=== PATIENT | female | born 1960 | race Caucasian/White ===

== ENCOUNTER 2023-10-11 07:42 | Outpatient (CLI) | payer OTHER, SELFPAY ==
--- NOTE | ~2023-10-11 | US_ITS ---
Thyroid ultrasound. Clinical History: Enlarged thyroid gland Findings: Real-time sonography of the thyroid gland was performed. The right lobe measures 5.5 x 2.2 x 1.7 cm. The left lobe measures 4.3 x 1.1 x 1.8 cm. The isthmus is 6 mm in AP diameter. There is a 2.0 x 1.4 x 1.7 cm mixed echogenicity nodule, predominantly solid, the right lower pole. T here are scattered tiny subcentimeter thyroid nodules bilaterally. Impression: 2 cm solid right thyroid pole nodule. Given size and imaging characteristics, FNA is advised to estab santos a histologic diagnosis.. Reviewed, dictated and finalized at location M. F OPERATING OFFICER Impression: 2 cm solid right thyroid pole nodule. Given size and imaging characteristics, F NA is advised to establish a histologic diagnosis..
--- NOTE | ~2023-10-11 | DEXA_ITS ---
Bone Density Report Name: THIEN LOERA Age: 63 Sex: Female Ethnicity: White Date of : 1960 Indication: postmenopausal; screening for osteoporosis; height loss; inflammatory bowel disease; prior fracture; Referring Provider: BRITTNEY, CHERYL Study: Bone densitometry was performed. Exam Date: October 11, 2023 Accession number: [id number] Bone Density: Region BMD T-score Z-score Classification AP Spine(L1, L3, L4) 0.961 -0.8 0.7 Normal Femoral Neck (Left) 0.525 -2.9 -1.6 Osteoporosis Total Hip (Left) 0.766 -1.4 -0.4 Osteopenia Femoral Neck (Right) 0.617 -2.1 -0.8 Osteopenia Total Hip (Right) 0.799 -1.2 -0.2 Osteopenia Total Hip Mean 0.782 -1.3 -0.3 Osteopenia World Health Organization criteria for BMD impression classify patients as: Normal (T-score at or above -1.0), Osteopenia (T-score between -1.0 and -2.5), or Osteoporosis (T-score at or below -2.5). 10-year Fracture Risk: FRAX not reported because: Some T-score for Spine Total or Hip Total or Femoral Neck at or below -2.5 Prior hip or vertebral fracture Clinical Information Provided by Patient: Have had a previous hip or vertebral fracture Has had a low trauma fracture Smokes Has used the following medications: Vitamin D, Calcium Has the following medical conditions: Inflammatory bowel diseases Patient maximum height was 69.5 Menopause Age: 43 No regular weight bearing exercise Drinks caffeinated beverages Onset of menses at age 14 Number of children 2 Impression: The patient has established osteoporosis, based on the Left Femoral Neck T-score and the existence of a prior fracture. The patient has risk factors, including: smoking, previous fracture. Discussion: HIGH RISK OF FRACTURE. BONE DENSITY IS UNDESIRABLY LOW AT ONE OR MORE SKELETAL SITES, CONSISTENT WITH POSTMENOPAUSAL OSTEOPOROSIS. This patient's lowest T-score, in a patient who has previously fractured, meets the World Health Organization's (WHO) criteria for severe osteoporosis. In untreated patients, the risk of osteoporotic fracture increases approximately two-fold for each 1.0 SD decrease in T-score. Low bone density is not the only risk factor for fracture; also consider factors such as patient's age, frailty or poor health, risk of falling, risk of injury, previous osteoporotic fracture, family history of osteoporosis, cigarette smoking, low body weight, etc. Not everyone with low bone mineral density has osteoporosis; osteomalacia and other metabolic bone disorders should also be considered. Patients who have osteoporosis should be evaluated for specific diseases and conditions (secondary causes) that may cause or contribute to bone loss. The [place] [employer] Endocrinologists (AACE) and National Osteoporosis Foundation (NOF) recommend pharmacolog
== END 2023-10-11 07:43 | disposition home or self-care (01) ==
LOC: ANHIMG 07:48
PROVIDERS: PCP Nurse Practitioner Family; Visit Provider Nurse Practitioner
DX: Z13.820 Encounter for screening for osteoporosis (principal); E07.9 Disorder of thyroid, unspecified; M81.0 Age-related osteoporosis without current pathological fracture; M85.852 Other specified disorders of bone density and structure, left thigh; M85.851 Other specified disorders of bone density and structure, right thigh
CPT/HCPCS: 76536; 77080

== ENCOUNTER 2024-03-06 15:15 | Outpatient (CLI) | payer OTHER, SELFPAY ==
--- NOTE | ~2024-03-06 | MR_ITS ---
MRI of the left knee Clinical history: Meniscus tear Technique: Coronal proton density and proton density-weighted images, sagittal proton-density and T2 fat-sat images, and axial proton-density fat-saturated images were acquired. Findings: Anterior and posterior cruciate ligaments are intact. Medial collateral ligament and the la teral collateral ligament complex are intact. Popliteus tendon is intact. No medial or lateral meniscal tear identified. There is extensive grade IV chondromalacia patella. Femoral trochlear cartilage is relatively well pr eserved. There is mild chondral thinning at the lateral joint line. There is moderate chondral thinni ng at the medial joint line. Extensor mechanism is intact. Small joint effusion present. No Duarte's cyst. Impression: No ligamentous injury or meniscal tear seen. Degenerative changes, as detailed above, with chondromalacia worst at the patella. Small joint effusion. Reviewed, dictated and finalized at [facility]. Impression: No ligamentous injury or meniscal tear seen. Degenerative changes, as detailed above, with chondromalacia worst at the cotto la. Small joint effusion.
== END 2024-03-06 15:16 | disposition home or self-care (01) ==
LOC: ANHIMG 15:18
PROVIDERS: PCP Internal Medicine; Visit Provider Orthopaedic Surgery
DX: S83.207A Unspecified tear of unspecified meniscus, current injury, left knee, initial encounter (principal); X58.XXXA Exposure to other specified factors, initial encounter; M25.462 Effusion, left knee
CPT/HCPCS: 73721

== ENCOUNTER 2024-08-10 12:54 | Outpatient (CLI) | payer OTHER, SELFPAY ==
--- NOTE | ~2024-08-10 | US_ITS ---
EXAMINATION: US FNA w image guidance DATE: 08/10/2024 13:37 INDICATION: Nontoxic single thyroid nodule. TECHNIQUE: The procedure and its benefits and risks were discussed with the patient. Risks specifically discusse d included bleeding. The patient verbalized understanding of the risks and agreed to proceed. The nec k was prepped and draped in the usual sterile manner. 1% lidocaine was used for local anesthesia. 7 passes were made with a 25G needle into the lesion under ultrasound guidance. There were no immedia te complications. FINDINGS: Grayscale ultrasound images demonstrate needles advanced into a 2.0 cm nodule in right thyroid lobe f or biopsy. IMPRESSION: 1. Ultrasound-guided fine needle aspiration of a right thyroid nodule. Reviewed, dictated and finalized at location A. ER AND STOCK HANDLER HELPER
== END 2024-08-10 12:55 | disposition home or self-care (01) ==
LOC: ANHIMG 12:55
PROVIDERS: PCP Internal Medicine; Visit Provider Internal Medicine
DX: E04.1 Nontoxic single thyroid nodule (principal)
CPT/HCPCS: 10005; 88172; 88173; 88177; 88305

== ENCOUNTER 2024-09-04 11:12 | Outpatient (CLI) | payer OTHER, SELFPAY ==
--- NOTE | ~2024-09-04 | XR_ITS ---
Cervical Spine: AP, lateral, open-mouth views Clinical History: Pain Findings: There is minimal reversal of the normal cervical lordosis. No fracture or sublocation. Ther e is advanced degenerative disc narrowing at C4-C5 and C5-C6. There is moderate degenerative disc eliza rowing at C6-C7. There is moderate facet arthropathy throughout the cervical spine. Pre-vertebral sof t tissues are unremarkable. Impression: Moderate degenerative spondylosis overall, as detailed above. Reviewed, dictated and finalized at location . MENT ERECTOR Impression: Moderate degenerative spondylosis overall, as detailed above.
== END 2024-09-04 11:13 | disposition home or self-care (01) ==
PROVIDERS: PCP Internal Medicine; Visit Provider Internal Medicine
DX: M47.892 Other spondylosis, cervical region (principal)
CPT/HCPCS: 72050

== ENCOUNTER 2025-01-07 18:53 | Emergency (ER) | payer OTHER, SELFPAY ==
--- OUTSIDE RECORDS SUMMARY | 2025-01-07 18:55 | XMS_ITS | Encounter Summary ---
Author Organization [facility] Address [address] [place] [address] Care Team Providers Care Construction Executive Name Role Phone Charley Anderson MD Primary Care Provider + Rambo Sampson MD Primary Care Provider [phone] Encounter Details Date Type Department Care Team (Late Contact Info) Description 03/23/2019 Telephone [facility] [address] [place] [address] Franci Martínez MD [facility] [place], [place] [id number] Social History Tobacco Use Types Packs/Day Years Used Date Smoking Tobacco: Every Day Cigarettes Smokeless Tobacco: Never Alcohol Use Standard Drinks/Week Comments No 0 (1 standard drink = 0.6 oz pur e alcohol) Sex and Gender Information Value Date Recorded Sex Assigned at Not on file Gender Identity Not on file Sexual Orientation Not on file documented as of this encounter Miscellaneous Notes * Telephone Encounter - Nadege Gibbs - 03/23/2019 10:55 AM CDT Per Fax back from [facility] for cpt codes [id number] and [phone]. documented in this encounter Plan of Treatment Upcoming Encounters Date Type Department Care Team (Late Contact Info) Description 11/22/2025 8:20 AM CLINICAL EXERCISE PHYSIOLOGIST Office Visit [facility] [address] [facility] [facility] [place] [address] Leticia Giron MD [address] [facility] [address] [place] [address] documented as of this encounter Visit Diagnoses Not on filedocumented in this encounter Care Teams Construction Executive Relationship Specialty Start Date End Date Charley Anderson MD PCP - General 08/21/11 07/21/24 Rambo Sampson MD [address] [place] [address] PCP - General Internal Medicine 07/22/24 documented as of this encounter
--- OUTSIDE RECORDS SUMMARY | 2025-01-07 18:55 | XMS_ITS | Referral Summary ---
Author Organization [facility] Address [facility] [place] [address] Care Team Providers Care Product Blending Supervisor Name Role Phone Rambo Sampson MD Primary Care Provider + [phone] Allergies Active Allergy Reactions Criticality Noted Date Comments Adhesive Blisters High 12/19/2021 Some tapes Morphine Opioids - Morphine Analogues Sulfa (Sulfonamide Antibiotics) Medications lisinopriL (PRINIVIL,ZESTR IL) 20 mg tablet lisinopril 20 mg tablet TAKE 1 TABLET BY MOUTH TWICE DAILY 8 Active carvediloL (COREG) 12.5 mg tablet carvedilol 12.5 mg tablet TAKE 1 TABLET BY MOUTH TWICE DAILY 9 Active atorvastatin (LIPITOR) 40 mg tablet 8 Active buPROPion (WELLBUTRIN) 75 mg tablet bupropion HCl 75 mg tablet TAKE 1 TABLET BY MOUTH EVERY DAY 0 Active ascorbic acid (VITAMIN C) 1,000 mg tablet Vitamin C 1,000 mg tablet Take 2 tablets every day by oral route. 0 Active cholecalciferol (VITAMIN D-3) 2000 unit tablet Take 2,000 Units by mouth daily Active aspirin 81 mg enteric coated tablet Take 81 mg by mouth once Active hydroCHLOROthia zide (HYDRODIURIL) 12.5 mg tablet Take 12.5 mg by mouth daily 3 Active Paxlovid, EUA, tablets,dose pack tablets in a dose pack (EUA) TK 2 NIRMATRELVIR TS AND 1 RITONAVIR T TOGETHER PO BID FOR 5 DAYS TWICE DAILY FOR 5 DAYS 3 Active rosuvastatin (CRESTOR) 20 mg tablet Take 20 mg by mouth daily 3 Active ALPRAZolam (XANAX) 0.5 mg tablet Take 0.5 mg by mouth every 12 (twelve) hours 2 Active Active Problems Problem Noted Date Diagnosed Date Backache 10/19/2022 Chronic rhinitis 10/19/2022 Depressive disorder 10/19/2022 Diverticular disease 10/19/2022 COVID-19 10/09/2022 High total bilirubin 10/04/2022 Cough 08/06/2022 Left wrist pain 05/03/2022 Personal history of COVID-19 12/22/2021 Venous insufficiency 12/22/2021 Rib pain 11/17/2021 Impaired fasting glucose 11/13/2021 Thyroid nodule 11/13/2021 Anxiety 07/28/2021 Rupture of implant of left breast 06/26/2021 Abnormal mammography 05/28/2021 H/O bilateral breast implants 05/28/2021 Candidal intertrigo 04/10/2021 Alfred angioma 04/10/2021 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 Lentigines 04/10/2021 Multiple benign melanocytic nevi of upper extremity, lower extremity, and trunk 04/10/2021 Other seborrheic keratosis 04/10/2021 Breast ptosis 03/17/2019 Hypercholesterolemia 02/10/2018 Hypertension 02/10/2018 Personal history of nicotine dependence 02/11/20 Obesity 02/10/2018 Shortness of breath 02/10/2018 Family history of heart disease 01/10/2018 Overview (10/19/2022): Mother - CABG x 4 at age 49Brother - AFib ablation 42 Irreducible incisional hernia 04/18/2016 Social History Tobacco Use Types Packs/Day Years Used Date Smoking Tobacco: Former Cigarettes 0.2 30 0 12/13/1991 - 12/12/2021 Tobacco Cessation:Counseling Given: Not Answered AUDIT-C Answer Date Recorded Q1: How often do you have a drink containing alc ohol? Monthly or less 02/11/2023 Q2: How many drinks containi ng alcohol do you have on a typical day when you are drinking? 1 or 2 02/11/2023 Q3: How often do you have si x or more drinks on one occasion? Less than monthly 02/11/2023 Comments Unknown Sex and Gender Information Value Date Recorded Sex Assigned at Not on file Legal Sex Female 2:54 AM RESTORATIVE AIDE Gender Identity Not on file Sexual Orientation Not on file Last Filed Vital Signs Vital Sign Reading Time Taken Comments Blood Pressure 128/71 12/26/2021 3:13 PM CDT Pulse 81 12/26/2021 3:13 PM CDT Temperature 36.2 C (97.1 F) 12/26/2021 2:54 PM CDT Respiratory Rate 20 12/26/2021 3:13 PM CDT Oxygen Saturation 93% 12/26/2021 2:54 PM CDT Inhaled Oxygen Concentration - - Weight 108.9 kg (240 lb) 02/11/2023 8:07 AM CDT Height 167.6 cm (5' 6 ) 02/11/2023 8:07 AM CDT Body Mass Index 38.74 02/11/2023 8:07 AM CDT Plan of Treatment Not on file Procedures Procedure Name Priority Date/Time Associated Diagnosis Comments SCREENING MAMMOGRAM BILATERAL W TAWANDA Schedule Routine, Read Routine (OP Routine) 02/13/2024 2:15 PM CDT Screening mammogram, encounter for from Last 3 Months or Most Recently Relevant to Health Maintenance Results * Screening Mammogram Bilateral W [place] (02/13/2024 2:15 PM CDT) Anatomical Region Laterality Modality Breast Bilateral Mammography Narrative 02/14/2024 4:43 PM CDT Mammogram Technique: Bilateral Digital Breast Tomosynthesis, Bilateral C-view 2D Screening mammogram. Views obtained: bilateral craniocaudal and bilateral mediolateral oblique. Computer Aided Detection was performed. Mammogram Findings: The present examination has been compared to prior imaging studies performed at [facility] on 02/11/2023, and at [place], [place] on 04/21/2021 and 06/22/2022. The breasts are almost entirely fatty. There is no suspicious abnormality in either breast. There are no significant changes from the prior study. There is no suspicious abnormality in either breast. Impression: Finding is benign. Annual screening mammography is recommended. OVERALL FINAL ASSESSMENT: BI-RADS CATEGORY 2: Benign. Procedure Note Cristin Ferris MD - 02/14/2024 Mammogram Technique: Bilateral Digital Breast Tomosynthesis, Bilateral C-view 2D Screening mammogram. Views obtained: bilateral craniocaudal and bilateral mediolateral oblique. Computer Aided Detection was performed. Mammogram Findings: The present examination has been compared to prior imaging studies performed at [facility] on 02/11/2023, and at [place], [place] on 04/21/2021 and 06/22/2022. The breasts are almost entirely fatty. There is no suspicious abnormality in either breast. There are no significant changes from the prior study. There is no suspicious abnormality in either breast. Impression: Finding is benign. Annual screening mammography is recommended. OVERALL FINAL ASSESSMENT: BI-RADS CATEGORY 2: Benign. us Self Screening Mammogram IMG MAMMO PROCEDURES Fi nal Result from Last 3 Months or Most Recently Relevant to Health Maintenance Insurance Care Teams Product Blending Supervisor Relationship Specialty Start Date End Date Rambo Sampson MD PCP - General Internal Medicine 01/21/24
--- OUTSIDE RECORDS SUMMARY | 2025-01-07 18:55 | XMS_ITS | Clinical Summary ---
Author Organization [facility] Address [address] [place] [id number] Care Team Providers Care Logging Truck Driver Name Role Phone Unavailable Primary Care Provider Unavailabl e Social History Tobacco Use Types Packs/Day Years Used Date Smoking Tobacco: Never Assessed Comments Unknown Sex and Gender Information Value Date Recorded Sex Assigned at Not on file Legal Sex Female 7:57 PM CDT Gender Identity Not on file Sexual Orientation Not on file Plan of Treatment Health Maintenance Due Date Last Done Comments Cervical Cancer Screening Pa p Smear (Age 30 to 64) Every 3 Years 1960 Colorectal Cancer Screening Colonoscopy (10 Years) 1960 Annual Physical 1965 Hepatitis C 1980 DTaP, Tdap and Td Vaccines ( 1 - Tdap) 1981 Cervical Cancer Screening Pa p with HPV Testing (Age 30 to 64) Every 5 Years 1992 Cervical Cancer Screening with HPV 1992 Mammogram Screening 2002 Zoster Vaccines (1 of 2) 2012 COVID-19 Vaccine (2023-2 5 season) 2024 RSV Immunization or 60+ Years (1 - 1-dose 75+ series) 2037 Meningococcal B Vaccine Aged Out No l onger eligible based on patient's age to complete this topic Meningococcal Vaccine Aged Out No alberta cele eligible based on patient's age to complete this topic Pneumococcal Vaccine: Pediat rics (0 to 5 Years) and At-Risk Patients (6 to 64 Years) Aged Out No longer eligible b ased on patient's age to complete this topic RSV Immunizations Under 20 Months Aged Out No longer eligible based on patient's age to complete this topic
--- OUTSIDE RECORDS SUMMARY | 2025-01-07 18:55 | XMS_ITS | Data Portability ---
Author Organization [facility] Address [address] [place] [address] Care Team Providers Care Athletic Coordinator Name Role Phone ARLYN RONQUILLO Primary Care Provider [phone] CARROLL SAMPSON Primary Care Provider Unavailabl e Assessment Encounter Date Assessment Date Assessment LastModified by Organization Details LastModified Time 12/30/2023 12/30/2023 Obtain old recor ds obtain CBC CMP lipid A1c and vitamin D she has been having some knee pain so we will have her see Ortho anxiety and chronic back pain appear to be stable breast rupture appears to be stable depression no SI or HI GI problems okay blood pressure appears to be controlled today follow-up with ENT for her thyroid nodule she not sure about immunizations and screenings we will have to look and see what old records show [email or web address] Not available 12/30/2023 22:36:18 01/08/2024 01/08/2024 Will get her see n by wound care she is get a CBC keep her regular follow-up Not available 01/08/2024 22:04:44 05/22/2024 05/22/2024 FNA thyroid nodu le continue medications for dyslipidemia hypertension anxiety and IBS continue to follow up with cardio and ortho see me in 4 months [email or web address] Not available 05/23/2024 12:52:39 08/14/2024 08/14/2024 increase the Wellbutrin to 225 daily blood work for memory loss MRI of brain x-ray C-spine and start physical therapy see me back 3 months CBC CMP lipid T3-T4 TSH B12 folic acid RPR. Healthy lifestyle care instructions further recommendations pending results of testing Not available 08/14/2024 22:50:54 01/04/2025 01/04/2025 Coronary atherosclerosis: No angina. Noted on calcium scoring CT. Continue aspirin 81 mg daily. Regular aerobic exercise encouraged. Cardiac catheterization 2017 with no CAD. Mixed hyperlipidemia: Maintained on atorvastatin 40 and ezetimibe 10. LDL July 2024 elevated at 115. Discussed options of up titrating atorvastatin which she wishes to hold off till she discuss this further with Dr. Sampson next week. Hypertension: Encouraged low-sodium diet with ongoing ambulatory blood pressure monitoring. Continue lisinopril 20 mg b.i.d., HCTZ 12-1/2 mg daily and carvedilol 6.25 mg b.i.d.. Discussed regarding consolidating antihypertensive which he wishes to hold off at this juncture. Obesity: Maintained on Liraglutide monitored per Dr. Sampson. Encouraged efforts at diet/exercise for weight management. Plan follow-up in 3 months for ongoing management of mixed hyperlipidemia to consider PCSK9 inhibitors if indicated. On behalf of [facility] Cardiology, we appreciate the opportunity to participate in the care of your patient. Please feel free to reach out to us for any questions regarding this patient's cardiac care. Michael Epstein MD, [facility] Cardiology Not available 01/04/2025 13:17:09 Plan of Treatment Reminders Order Date Submit Date Provider Last Modified By Organization Details Last Modified Time Details Appointments ANY 15 2024 10:45A M Carroll Sampson MD Not available Not available Not available ANY 15 2024 08:30A M Michael Epstein MD Not available Not available Not available Lab vitamin B12 + folate, serum or blood 2023 [facility], [address], [place], [address], 08/15/2024 08:28:08 RPR (rapid plasma reagin), serum 2023 [facility], [address], [place], [address], 08/15/2024 08:28:12 vitamin D, 25-hydrox y, total, serum 2023 024 [facility], [address], [place], [address], 08/15/2024 08:28:14 T4, free, serum 2023 024 [place] [facility], [address], [place], [address], 08/15/2024 08:28:13 T3, free, serum or plasma 2023 024 [place] [facility], [address], [place], [address], 08/15/2024 08:28:11 TSH, ultra-sen sitive, serum 2023 024 [place] [facility], [address], [place], [address], 08/15/2024 08:28:09 lipid panel, serum 2023 024 [place] [facility], [address], [place], [address], 08/15/2024 06:19:12 CBC w/ auto diff 2023 024 [place] [facility], [address], [place], [address], 08/15/2024 06:19:15 CMP, serum or plasma 2023 024 [place] [facility], [address], [place], [address], 08/15/2024 06:19:14 CBC w/ auto diff 2023 024 [place] [facility], [address], [address], [place], [address], 01/09/2024 03:36:43 CMP, serum or plasma 2023 024 [place], [address], [place], [address], 01/03/2024 12:40:38 CBC w/ auto diff 2023 024 [email or web address] [facility], [address], [place], [address], 01/08/2024 15:46:05 lipid panel, serum 2023 024 [place] [facility], [address], [place], [address], 01/03/2024 12:40:38 vitamin D, 25-hydrox y, total, serum 2023 024 [place], [address], [place], [address], 01/03/2024 12:40:38 HbA1c (hemoglob in A1c), blood 2023 024 [email or web address] [facility], [address], [place], [address], 01/07/2024 15:03:07 Referral physical therapist referral 2023 024 [facility] [place], [address], [place], [address], 12/29/2024 10:03:41 wound care referral 2023 024 [facility], [address] [facility], [place], [address], 08/04/2024 15:13:36 Procedures fine needle aspiratio n, ultrasoun d guided, thyroid (PROC) 2023 024 [facility] (Imaging), [address], [address], 08/10/2024 14:58:50 Surgeries None recorded. Imaging electroca rdiogram 2024 025 In-Office Order, Internal Use Only DO Not Attach Compendium DO Not Attach Compendium, Do Not Delete/merge, [id number] 01/04/2025 09:58:05 MRI, brain, w/o contrast 2023 [facility] (Imaging), [address], [place], [address], 08/25/2024 09:55:13 XR, cervical spine 2023 [facility] (Imaging), [address], [address], 09/04/2024 15:05:58 Medication Orders bupropion HCl 75 mg tablet 2023 024 [email or web address] [id number], [address], [place], [id number], 08/14/2024 17:25:49 bupropion HCl XL 150 mg 24 hr tablet, extended release 2023 024 [id number], [address], [place], [id number], 08/14/2024 17:25:49 Patient TargetsNo targets recorded. Patient Instructions Encounter Date Encounter Id Patient Instructions Last Modified By Organization Details Last Modified Time 08/14/2024 [id number] A healthy lifestyle: care instructions [email or web address] Not available 08/14/2024 17:25:49 01/04/2025 [id number] A healthy lifestyle: care instructions [email or web address] Not available 01/04/2025 09:58:05 Reason for Referral Referring Physician: Carroll Sampson, Internal Medicine, Encounter Date: 01/08/2024 Physical Therapist Referral for Neck pain Referring Physician: Carroll Sampson, Internal Medicine, Encounter Date: 08/14/2024 Results Created Date Observation Date Name Description Value Unit Range Abnormal Flag Note LastModifiedBy Organization Detail LastModifiedTime 01/08/20 24 01/08/2024 CBC WITH DIFFE RENTI AL/PL ATELE T WBC 9.2 x10e3 /uL 3.4-[address] [facility] Department [address] [place], [address], 01/09/2024 03:36:42 01/08/20 24 01/08/2024 CBC WITH DIFFE RENTI AL/PL ATELE T RBC 4.91 x10e6 /uL 3.77-[address] [facility] Department [address] [place], [address], 01/09/2024 03:36:42 01/08/20 24 01/08/2024 CBC WITH DIFFE RENTI AL/PL ATELE T hemoglobin 15.3 g/dL 11.1-[address] [facility] Department [address] [place], [address], 01/09/2024 03:36:42 01/08/20 24 01/08/2024 CBC WITH DIFFE RENTI AL/PL ATELE T hematocrit 45.8 % 34.0-[address] [facility] Department [address] [place], [address], 01/09/2024 03:36:42 01/08/20 24 01/08/2024 CBC WITH DIFFE RENTI AL/PL ATELE T MCV 93 fL 79-[address] [facility] Department [address] [place], [address], 01/09/2024 03:36:42 01/08/20 24 01/08/2024 CBC WITH DIFFE RENTI AL/PL ATELE T MCH 31.2 pg 26.6-[address] [facility] Department [address] [place], [address], 01/09/2024 03:36:42 01/08/20 24 01/08/2024 CBC WITH DIFFE RENTI AL/PL ATELE T MCHC 33.4 g/dL 31.5-[address] [facility] [address] [place], [address], 01/09/2024 03:36:42 01/08/20 24 01/08/2024 CBC WITH DIFFE RENTI AL/PL ATELE T RDW 13.1 % 11.5-[address] [facility] [address] [place], [address], 01/09/2024 03:36:42 01/08/20 24 01/08/2024 CBC WITH DIFFE RENTI AL/PL ATELE T platelets 322 x10e3 /uL 150-[address] [facility] Department [address] [place], [address], 01/09/2024 03:36:42 01/08/20 24 01/08/2024 CBC WITH DIFFE RENTI AL/PL ATELE T neutrophils 56 % notest b. Not Available [facility] Department [address] [place], [address], 01/09/2024 03:36:42 01/08/20 24 01/08/2024 CBC WITH DIFFE RENTI AL/PL ATELE T lymphs 33 % notest b. Not Available [facility] Department [address] [place], [address], 01/09/2024 03:36:42 01/08/20 24 01/08/2024 CBC WITH DIFFE RENTI AL/PL ATELE T monocytes 8 % notest b. Not Available [facility] [address] [place], [address], 01/09/2024 03:36:42 01/08/20 24 01/08/2024 CBC WITH DIFFE RENTI AL/PL ATELE T eos 2 % notest b. Not Available [facility] [address] [place], [address], 01/09/2024 03:36:42 01/08/20 24 01/08/2024 CBC WITH DIFFE RENTI AL/PL ATELE T basos 1 % notest b. Not Available [facility] Department [address] [place], [address], 01/09/2024 03:36:42 01/08/20 24 01/08/2024 CBC WITH DIFFE RENTI AL/PL ATELE T neutrophils (absolute) 5.1 x10e3 /uL 1.4-7. [address] [facility] Department [address] [place] [address], [address], 01/09/2024 03:36:42 01/08/20 24 01/08/2024 CBC WITH DIFFE RENTI AL/PL ATELE T lymphs (absolute) 3.0 x10e3 /uL 0.7-3. [address] [facility] [address] [place], [address], 01/09/2024 03:36:42 01/08/20 24 01/08/2024 CBC WITH DIFFE RENTI AL/PL ATELE T monocytes(ab solute) 0.8 x10e3 /uL 0.1-0. [address] [facility] [address] [place], [address], 01/09/2024 03:36:42 01/08/20 24 01/08/2024 CBC WITH DIFFE RENTI AL/PL ATELE T eos (absolute) 0.2 x10e3 /uL 0.0-0. [address] [facility] [address] [place], [address], 01/09/2024 03:36:42 01/08/20 24 01/08/2024 CBC WITH DIFFE RENTI AL/PL ATELE T baso (absolute) 0.1 x10e3 /uL 0.0-0. [address] [facility] [address] [place], [address], 01/09/2024 03:36:42 01/08/20 24 01/08/2024 CBC WITH DIFFE RENTI AL/PL ATELE T immature granulocytes 0.3 % notest b. Not Available [facility] [address] [place], [address], 01/09/2024 03:36:42 01/08/20 24 01/08/2024 CBC WITH DIFFE RENTI AL/PL ATELE T immature grans (abs) 0.0 x10e3 /uL 0.0-0. [address] [facility] [address] [place], [address], 01/09/2024 03:36:42 01/08/20 24 01/08/2024 CBC WITH DIFFE RENTI AL/PL ATELE T NRBC 0 % 0-[address] [facility] [address] [place], [address], 01/09/2024 03:36:42 08/14/20 24 08/14/2024 LIPID PANEL cholesterol, total 169 mg/dL 100-[address] [facility] Department [address] [place], [address], 08/15/2024 06:19:12 08/14/20 24 08/14/2024 LIPID PANEL triglyceride s 122 mg/dL 0-149 Not Available [facility] Department [address] [place], [address], 08/15/2024 06:19:12 08/14/20 24 08/14/2024 LIPID PANEL HDL cholesterol 46 mg/dL 40-999 Not Available [facility] Department [address] [place], [address], 08/15/2024 06:19:12 08/14/20 24 08/14/2024 LIPID PANEL VLDL cholesterol vero 24 mg/dL 5-40 Not Available [facility] Department [address] [place] [address], [address], 08/15/2024 06:19:12 08/14/20 24 08/14/2024 LIPID PANEL LDL chol calc (nih) 115 mg/dL 0-99 above high normal Not Available [facility] Department [address] [place] [address], [address], 08/15/2024 06:19:12 08/14/20 24 08/14/2024 COMP. METAB OLIC PANEL (14) glucose 81 mg/dL 70-[address] [facility] Department [address] [place] [address], [address], 08/15/2024 06:19:13 08/14/20 24 08/14/2024 COMP. METAB OLIC PANEL (14) BUN 22 mg/dL 8-[address] [facility] Department [address] [place] [address], [address], 08/15/2024 06:19:13 08/14/20 24 08/14/2024 COMP. METAB OLIC PANEL (14) creatinine 0.85 mg/dL 0.76-[address] [facility] Department [address] [place] [address], [address], 08/15/2024 06:19:13 08/14/20 24 08/14/2024 COMP. METAB OLIC PANEL (14) eGFR 78 >=60 Units for eGFR value s are mL/mi n/1.7 3 The eGFR Calcu latio n has not been valid ated for patie nts under the age of 18. If test resul ts are displ ayed for a patie nt under the age of 18, disre yonathan that value . Not Available [facility] Department [address] [place] [address], [address], 08/15/2024 06:19:13 08/14/20 24 08/14/2024 COMP. METAB OLIC PANEL (14) BUN/creatini ne ratio 25 10-28 Not Available [facility] Department [address] [place], [address], 08/15/2024 06:19:13 08/14/20 24 08/14/2024 COMP. METAB OLIC PANEL (14) sodium 142 mmol/ L 134-[address] [facility] [address] [place] [address], [address], 08/15/2024 06:19:13 08/14/20 24 08/14/2024 COMP. METAB OLIC PANEL (14) potassium 4.1 mmol/ L 3.5-5. [address] [facility] [address] [place] [address], [address], 08/15/2024 06:19:13 08/14/20 24 08/14/2024 COMP. METAB OLIC PANEL (14) chloride 102 mmol/ L 96-[address] [facility] Department [address] [place], [address], 08/15/2024 06:19:13 08/14/20 24 08/14/2024 COMP. METAB OLIC PANEL (14) carbon dioxide, total 29 mmol/ L 20-[address] [facility] [address] [place] [address], [address], 08/15/2024 06:19:13 08/14/20 24 08/14/2024 COMP. METAB OLIC PANEL (14) calcium 10.5 mg/dL 8.7-10 .3 above high normal Not Available [facility] [address] [place] [address], [address], 08/15/2024 06:19:13 08/14/20 24 08/14/2024 COMP. METAB OLIC PANEL (14) protein, total 7.2 g/dL 6.0-8. [address] [facility] [address] [place] [address], [address], 08/15/2024 06:19:13 08/14/20 24 08/14/2024 COMP. METAB OLIC PANEL (14) albumin 4.5 g/dL 3.8-4. [address] [facility] Department [address] [place], [address], 08/15/2024 06:19:13 08/14/20 24 08/14/2024 COMP. METAB OLIC PANEL (14) globulin, total 2.7 g/dL 1.5-4. [address] [facility] [address] [place], [address], 08/15/2024 06:19:13 08/14/20 24 08/14/2024 COMP. METAB OLIC PANEL (14) A/G ratio 1.6 1.2-2. [address] [facility] Department [address] [place], [address], 08/15/2024 06:19:13 08/14/20 24 08/14/2024 COMP. METAB OLIC PANEL (14) bilirubin, total 1.4 mg/dL 0.0-1. 2 above high normal Not Available [facility] [address] [place], [address], 08/15/2024 06:19:13 08/14/20 24 08/14/2024 COMP. METAB OLIC PANEL (14) alkaline phosphatase 80 IU/L 44-121 Not Available [facility] Department [address] [place], [address], 08/15/2024 06:19:13 08/14/20 24 08/14/2024 COMP. METAB OLIC PANEL (14) AST (SGOT) 23 IU/L 0-40 Not Available [facility] Department [address] [place], [address], 08/15/2024 06:19:13 11/15/08/14/2024 COMP. METAB OLIC PANEL (14) ALT (SGPT) 24 IU/L 0-32 Not Available [facility] Department [address] [place], [address], 08/15/2024 06:19:13 08/14/20 24 08/14/2024 CBC WITH DIFFE RENTI AL/PL ATELE T WBC 9.3 x10e3 /uL 3.4-[address] [facility] [address] [place], [address], 08/15/2024 06:19:15 08/14/2008/14/2024 CBC WITH DIFFE RENTI AL/PL ATELE T RBC 4.92 x10e6 /uL 3.77-[address] [facility] Department [address] [place], [address], 08/15/2024 06:19:15 08/14/2008/14/2024 CBC WITH DIFFE RENTI AL/PL ATELE T hemoglobin 14.9 g/dL 11.1-[address] [facility] Department [address] [place], [address], 08/15/2024 06:19:15 08/14/2008/14/2024 CBC WITH DIFFE RENTI AL/PL ATELE T hematocrit 46.6 % 34.0-[address] [facility] Department [address] [place], [address], 08/15/2024 06:19:15 08/14/2008/14/2024 CBC WITH DIFFE RENTI AL/PL ATELE T MCV 95 fL 79-[address] [facility] [address] [place], [address], 08/15/2024 06:19:15 08/14/20 24 08/14/2024 CBC WITH DIFFE RENTI AL/PL ATELE T MCH 30.3 pg 26.6-[address] [facility] [address] [place], [address], 08/15/2024 06:19:15 08/14/20 24 08/14/2024 CBC WITH DIFFE RENTI AL/PL ATELE T MCHC 32.0 g/dL 31.5-[address] [facility] [address] [place], [address], 08/15/2024 06:19:15 08/14/20 24 08/14/2024 CBC WITH DIFFE RENTI AL/PL ATELE T RDW 12.6 % 11.5-[address] [facility] [address] [place], [address], 08/15/2024 06:19:15 08/14/20 24 08/14/2024 CBC WITH DIFFE RENTI AL/PL ATELE T platelets 333 x10e3 /uL 150-[address] [facility] [address] [place], [address], 08/15/2024 06:19:15 08/14/20 24 08/14/2024 CBC WITH DIFFE RENTI AL/PL ATELE T neutrophils 55 % notest b. Not Available [facility] [address] [place], [address], 08/15/2024 06:19:15 08/14/20 24 08/14/2024 CBC WITH DIFFE RENTI AL/PL ATELE T lymphs 35 % notest b. Not Available [facility] [address] [place], [address], 08/15/2024 06:19:15 08/14/20 24 08/14/2024 CBC WITH DIFFE RENTI AL/PL ATELE T monocytes 7 % notest b. Not Available [facility] [address] [place], [address], 08/15/2024 06:19:15 08/14/20 24 08/14/2024 CBC WITH DIFFE RENTI AL/PL ATELE T eos 1 % notest b. Not Available [facility] [address] [place], [address], 08/15/2024 06:19:15 08/14/20 24 08/14/2024 CBC WITH DIFFE RENTI AL/PL ATELE T basos 1 % notest b. Not Available [facility] Department [address] [place], [address], 08/15/2024 06:19:15 08/14/2008/14/2024 CBC WITH DIFFE RENTI AL/PL ATELE T neutrophils (absolute) 5.1 x10e3 /uL 1.4-7. [address] [facility] Department [address] [place] [address], [address], 08/15/2024 06:19:15 08/14/20 24 08/14/2024 CBC WITH DIFFE RENTI AL/PL ATELE T lymphs (absolute) 3.3 x10e3 /uL 0.7-3. 1 above high normal Not Available [facility] Department [address] [place], [address], 08/15/2024 06:19:15 08/14/20 24 08/14/2024 CBC WITH DIFFE RENTI AL/PL ATELE T monocytes(ab solute) 0.7 x10e3 /uL 0.1-0. [address] [facility] Department [address] [place], [address], 08/15/2024 06:19:15 08/14/20 24 08/14/2024 CBC WITH DIFFE RENTI AL/PL ATELE T eos (absolute) 0.1 x10e3 /uL 0.0-0. [address] [facility] Department [address] [place], [address], 08/15/2024 06:19:15 08/14/20 24 08/14/2024 CBC WITH DIFFE RENTI AL/PL ATELE T baso (absolute) 0.1 x10e3 /uL 0.0-0. [address] [facility] Department [address] [place], [address], 08/15/2024 06:19:15 08/14/20 24 08/14/2024 CBC WITH DIFFE RENTI AL/PL ATELE T immature granulocytes 0.5 % notest b. Not Available [facility] Department [address] [place], [address], 08/15/2024 06:19:15 08/14/20 24 08/14/2024 CBC WITH DIFFE RENTI AL/PL ATELE T immature grans (abs) 0.1 x10e3 /uL 0.0-0. [address] [facility] Department [address] [place], [address], 08/15/2024 06:19:15 08/14/20 24 08/14/2024 CBC WITH DIFFE RENTI AL/PL ATELE T NRBC 0 % 0-[address] [facility] Department [address] [place], [address], 08/15/2024 06:19:15 08/14/20 24 08/15/2024 VITAM IN B12 AND FOLAT E vitamin B12 819 pg/mL 232-12 45 Not Available [facility] ([facility]) [address] [facility], [place], [address], 08/15/2024 08:28:08 08/14/20 24 08/15/2024 VITAM IN B12 AND FOLAT E folate (folic acid), serum 11.2 NG/mL >3.0 A serum folat e devante ntrat ion of less than 3.1 ng/mL is consi dered to repre sent clini vero defic iency . Not Available [facility] ([facility]) [address] [facility], [place], [address], 08/15/2024 08:28:08 08/14/20 24 08/15/2024 TSH TSH 1.070 uIU/m L 0.450- 4.500 Not Available [facility] ([facility]) [address] [place], [address], 08/15/2024 08:28:09 08/14/20 24 08/15/2024 TRIIO DOTHY LIZY E (T3), FREE triiodothyro nine (T3), free 2.8 pg/mL 2.0-4. 4 Not Available [facility] ([facility]) [address] [place], [address], 08/15/2024 08:28:10 08/14/20 24 08/15/2024 RPR, RFX QN RPR/C ONFIR M TP RPR NON REACTI VE nonrea ctive Not Available [facility] ([facility]) [address] [place], [address], 08/15/2024 08:28:12 08/14/20 24 08/15/2024 T4,FR EE(DI RECT) T4,free(dire ct) 1.29 NG/dL 0.82-1 .77 Not Available [facility] ([facility]) [address] [place], [address], 08/15/2024 08:28:13 08/14/20 24 08/15/2024 VITAM IN D, 25-HY DROXY vitamin D, 25-hydroxy 62.5 NG/mL 30.0-1 00.0 Vitam in D defic iency has been defin ed by the Insti tute of Medic ine and an Endoc rine Socie ty pract ice guide line as a level of serum 25-OH vitam in D less than 20 ng/mL (1,2) . The Endoc rine Socie ty went on to furth er defin e vitam in D insuf ficie ncy as a level betwe en 21 and 29 ng/mL (2). 1. IOM (Inst itute of Medic ine). 2010. Dieta ry refer ence intak es for calci um and D. Rich holloway [place]: [facility] . 2. Caio sosa MF, Ritu alonso [place], Francisca off-F errar i FERGUSON, et al. Evalu ation , treat ment, and preve ntion of vitam in D defic iency : an Endoc rine Socie ty clini vero pract ice guide line. JCEM. 2010; 96(7) :1911 -30. Not Available [facility] ([facility]) [address] [facility], [place], [address], 08/15/2024 08:28:14 01/28/20 24 10/11/2023 US, thyro id No observ ation record ed. [address] [facility], [place], [address], 01/29/2024 11:19:24 02/14/20 24 02/13/2024 MAMMO , scree felipe, digit al, bilat eral No observ ation record ed. [email or web address] [facility] [address] [place], [address], Ph [phone] 02/17/2024 13:26:53 03/08/20 24 03/06/2024 MRI, knee, w/o contr ast No observ ation record ed. [address] [facility], [place], [address], 03/09/2024 11:40:27 04/10/20 24 04/08/2024 CT, coron devonte calci um score No observ ation record ed. [facility] [address], [place], [address], 04/16/2024 17:08:41 08/10/20 24 08/10/2024 fine needl e aspir ation , ultra sound guide d, thyro id (PROC ) No observ ation record ed. [address], [place], [address], 08/10/2024 21:44:28 08/10/20 24 08/10/2024 fine needl e aspir ation , ultra sound guide d, thyro id (PROC ) No observ ation record ed. [address], [place], [address], 08/10/2024 21:44:29 09/04/20 24 09/04/2024 XR, cervi vero spine No observ ation record ed. [address], [place], [address], 09/07/2024 10:01:26 09/04/20 24 09/04/2024 XR, cervi vero spine No observ ation record ed. [address], [place], [address], 09/07/2024 10:01:27 01/05/20 25 01/04/2025 elect rocar diogr am No observ ation record ed. [facility] In-Office Order Internal Use Only DO Not Attach Compendium DO Not Attach Compendium, Do Not Delete/merge, [id number] 01/04/2025 10:55:29 01/05/20 elect rocar diogr am No observ ation record ed. Not Available 2024 12:56:21 Result Notes None recorded. Problems Name Problem SNOMED Code Status Onset Date Resolution Date Notes Provider Name and Address Organization Details Recorded Time Essential hypertension 01136293 Active 2023 Irvin Montana MA null, [place] - [facility] 17:32:49 Fatigue 63000143 Active 2023 Irvin [place] null, [place] - [facility] 17:32:50 Hyperlipidemia 41881540 Active 2023 Irvin [place], [place] [facility] 17:32:51 Thyroid nodule 704654580 Active 2023 Carroll Sampson MD Attn: Bhaskar cooley,[address] [place], [address], [place] - [facility] 4 22:38:07 Mixed anxiety and depressive disorder 808993575 Active 2023 Carroll Sampson MD Attn: Bhaskar cooley,[address] [facility], [place], [address], [place] [facility] 4 22:38:08 Compression fracture of lumbar spine 684898004 Active 2023 Carroll Sampson MD Attn: Bookeryuan cooley,[address] [facility], [place], [address], [place] [facility] 4 22:38:10 Osteoporosis 82052102 Active 2023 Carroll Sampson MD Attn: Bookeryuan cooley,[address] [facility], [place], [address], [place] [facility] 4 22:38:11 History of ulcerative colitis 299261684 Active 2023 Carroll Sampson MD Attn: Bookeryuan cooley,[address] [facility], [place], [address], [place] [facility] 4 22:38:14 Tachycardia 4534099 Active 2023 Carroll Sampson MD Attn: Bookeryuan cooley,[address] [facility], [place], [address], [place] [facility] 4 22:38:15 Morbid obesity 753141815 Active 2023 Irvin [place], [place] [facility] 4 09:55:41 Memory impairment 028862783 Active 2023 Irvin [place] [facility] 4 09:55:44 Neck pain 54356550 Active 2023 Irvin [place] [facility] 4 09:55:47 Depressive disorder 23334089 Active Shira Wright [place], [place] [facility] 6 14:35:06 Atrophic vaginitis 10689885 Active Shira Wright [place] [facility] 6 14:35:06 Menopausal syndrome 722960163 Active Shira CHANDRA Wright null, [facility] 6 14:35:06 Hernia of abdominal cavity 63307490 Active Shira CHANDRA Wright null, [facility] 6 14:35:06 Problem Notes None recorded. Procedures Surgical History Date Name Laterality Status Provider Name and Address Organization Details Recorded Time 10/28/19 13 Date of Last Pap Smear completed Shira Wright MA [facility] 02/28/2015 10:35:25 09/30/18 85 Caesarean Section completed Lalitha Solis MA [facility] 07/02/2016 11:44:25 09/30/18 80 Caesarean Section completed Lalitha Solis MA [facility] 07/02/2016 11:44:25 LEEP completed Lalitha Solis MA [facility] 07/02/2016 11:44:25 partial hysterectomy completed Tamy Bills MA [facility] 12/30/2023 16:31:31 Breast Surgery completed Tamy Bills MA [facility] 12/30/2023 16:31:48 Gastrointestinal Surgery completed Tamy Bills MA [facility] 12/30/2023 16:31:58 Colostomy completed Tamy Bills MA [facility] 12/30/2023 16:32:25 Cholecystectomy completed Tamy Bills MA [facility] 12/30/2023 16:32:37 Cardiac Catheterization completed Kandy Arguelles LPN [facility] 01/04/2025 09:37:21 Imaging Results Imaging Date Name Status LastModified by Organization Details LastModified Time 10/11/2023 US, thyroid completed [address], [address], 01/29/2024 11:19:24 02/13/2024 MAMMO, screening, digital, bilateral completed [email or web address] [facility] [address] [place], [address], Ph [phone] 02/17/2024 13:26:53 03/06/2024 MRI, knee, w/o contrast completed [address], [address], 03/09/2024 11:40:27 04/08/2024 CT, coronary calcium score completed [facility] [address], [place], [address], 04/16/2024 17:08:41 08/10/2024 fine needle aspiration, ultrasound guided, thyroid (PROC) completed [address] [place] [address], [address], 08/10/2024 21:44:28 08/10/2024 fine needle aspiration, ultrasound guided, thyroid (PROC) completed [address], [address], 08/10/2024 21:44:29 09/04/2024 XR, cervical spine completed [address], [address], 09/07/2024 10:01:26 09/04/2024 XR, cervical spine completed [address] [place] [address], [address], 09/07/2024 10:01:27 01/04/2025 electrocardiogram completed [facility] In-Offi ce Order Internal Use Only DO Not Attach Compendium DO Not Attach Compendium, Do Not Delete/merge, [id number] 01/04/2025 10:55:29 01/04/2025 electrocardiogram completed Informa tion not available 01/04/2025 12:56:21 Procedure Notes None recorded. Medical Equipment None Reported. Allergies Allergen ID Allergen Name Allergen Category Reaction Reaction Severity Criticality Documentation Date Start Date Code Code System Note Provider Name and Address Organization Details Recorded Time 15975 Substance with sulfonami de structure and antibacte rial mechanism of action (substanc e) medicatio n hives moderate Not available 02/28/2015 08420 8003 SNOMED Not Available Not Available Not Available 45592 morphine medicatio n Not available Not available Not available 02/28/2015 7009 RxNorm Other react ions and sever ities : 'Adve rse react ion to subst ance' . Not Available Not Available Not Available 13331 adhesive environme nt,medica tion itching moderate Not available 02/28/2015 59384 UNK surgi vero clear tape Not Available Not Available Not Available Medications Name Sig Start Date Stop Date Status Note LastModified by Organization Details LastModified Time amoxicillin 500 mg caps 12/29 completed Not Available Not Available Not Available Prescription - Prior Authorizatio n Request active Not Available Not Available No t Available atorvastatin calcium 20 mg tabs 12/29 completed Not Available Not Available Not Available lisinopril 10 mg tabs active Not Available Not Available N ot Available multivitamin tablet Take 1 tablet every day by oral route. 12/29 completed Not Available Not Available Not Available amoxicillin 500 mg capsule 12/29 completed Not Available Not Available Not Available atorvastatin 40 mg tablet TAKE 1 TABLET BY MOUTH EVERY DAY IN THE EVENING active Not Available Not Available No t Available bupropion HCl SR 150 mg tablet,12 hr sustained-re lease TAKE 1 TABLET BY MOUTH TWICE DAILY 12/29 completed Not Available Not Available Not Available carvedilol 6.25 mg tablet TAKE 1 TABLET BY MOUTH TWICE DAILY active Not Available Not Available No t Available atorvastatin 20 mg tablet Take 1 tablet every day by oral route. 12/29 completed Not Available Not Available Not Available carvedilol 12.5 mg tablet TAKE 1 TABLET BY MOUTH DAILY 12/29 completed Not Available Not Available Not Available ciprofloxaci n 750 mg tablet 12/29 completed Not Available Not Available Not Available citalopram 40 mg tablet Take 1 tablet every day by oral route. 2014 active Not Available Not Available Not Avai lable azithromycin 250 mg tablet TAKE 2 TABLETS (500 MG) BY ORAL ROUTE ONCE DAILY FOR 1 DAY THEN 1 TABLET (250 MG) BY ORAL ROUTE ONCE DAILY FOR 4 DAYS 05/22 completed Not Available Not Available Not Available ibuprofen 800 mg tablet TAKE 1 TABLET BY MOUTH TWICE DAILY FOR 10 DAYS 12/29 completed Not Available Not Available Not Available phenazopyrid ine 200 mg tablet 12/29 completed Not Available Not Available Not Available lisinopril 20 mg tablet TAKE 1 TABLET BY MOUTH TWICE DAILY EVERY DAY active Not Available Not Available No t Available alendronate 70 mg tablet TAKE 1 TABLET BY MOUTH 1 TIME WEEKLY 12/29 completed Not Available Not Available Not Available metronidazol e 500 mg tablet active Not Available Not Available Not Available ciprofloxaci n 500 mg tablet 01/04 completed Not Available Not Available Not Available tramadol 50 mg tablet active Not Available Not Available No t Available amoxicillin 500 mg tablet TAKE 1 TABLET BY MOUTH THREE TIMES DAILY FOR 10 DAYS 12/29 completed Not Available Not Available Not Available alprazolam 0.25 mg tablet TAKE 1 TABLET BY MOUTH EVERY NIGHT AT BEDTIME NEEDED 12/29 completed Not Available Not Available Not Available dicyclomine 20 mg tablet 12/29 completed Not Available Not Available Not Available benzonatate 100 mg capsule 12/29 completed Not Available Not Available Not Available fluoxetine 20 mg tablet Take 1 tablet twice a day by oral route. 12/29 completed Not Available Not Available Not Available lisinopril 10 mg tablet 12/29 completed Not Available Not Available Not Available bupropion HCl 75 mg tablet TAKE 1 TABLET BY MOUTH EVERY DAY IN THE EVENING active Not Available Not Available No t Available hydrochlorot hiazide 12.5 mg capsule Take 1 capsule every day by oral route. 01/04 completed Not Available Not Available Not Available etodolac 400 mg tablet 12/29 completed Not Available Not Available Not Available montelukast 10 mg tablet 12/29 completed Not Available Not Available Not Available polyethylene glycol 3350 17 gram/dose oral powder MIX 17 GRAMS INTO 8 OUNCES OF LIQUID ONCE DAILY NEEDED active Not Available Not Available No t Available levofloxacin 500 mg tablet 12/29 completed Not Available Not Available Not Available lisinopril 40 mg tablet 01/04 completed Not Available Not Available Not Available cefdinir 300 mg capsule 12/29 completed Not Available Not Available Not Available fluticasone propionate 50 mcg/actuatio n nasal spray,suspen pino 12/29 completed Not Available Not Available Not Available hydroxyzine pamoate 25 mg capsule TAKE 1 CAPSULE BY MOUTH AT BEDTIME NEEDED 01/04 completed Not Available Not Available Not Available bupropion HCl SR 200 mg tablet,12 hr sustained-re lease Take 1 tablet twice a day by oral route. 12/29 completed Not Available Not Available Not Available ezetimibe 10 mg tablet TAKE 1 TABLET BY MOUTH DAILY active Not Available Not Available No t Available Premarin 0.625 mg/gram vaginal cream Insert 1 g 3 times a week by vaginal route. 12/29 completed Not Available Not Available Not Available bupropion HCl XL 150 mg 24 hr tablet, extended release TAKE 1 TABLET BY MOUTH EVERY DAY IN THE MORNING active Not Available Not Available No t Available Vitamin C active Not Available Not Cassidy ilable Not Available Oysco 500/D 500 mg-5 mcg (200 unit) tablet TAKE 1 TABLET BY MOUTH TWICE DAILY 12/29 completed Not Available Not Available Not Available hydrochlorot hiazide 12.5 mg tablet TAKE 1 TABLET BY MOUTH EVERY DAY active Not Available Not Available No t Available liraglutide 0.6 mg/0.1 mL (18 mg/3 mL) subcutaneous pen injector INJECT 1.2MG UNDER THE SKIN ONCE DAILY active Not Available Not Available No t Available Probiotic active Not Available Not Cassidy ilable Not Available Viibryd 40 mg tablet Take 1 tablet every day by oral route. 2014 active Not Available Not Available Not Avai lable Vitamin D2 active Not Available Not Av ailable Not Available calcium 600 mg (as carbonate)-v itamin D3 20 mcg (800 unit) tablet Take 1 tablet twice a day by oral route for 30 days. 12/29 completed Not Available Not Available Not Available Linzess 145 mcg capsule active Not Available Not Available Not Available aspirin 81 mg capsule Take 1 capsule every day by oral route. active Not Available Not Available No t Available Vitals Date Recorded Body height Body mass index (BMI) Body weight Heart rate Body temperature Oxygen saturation Oxygen saturation in Arterial blood by Pulse oximetry Systolic blood pressure Diastolic blood pressure Provider Name and Address Organization Details Last Updated DateTime 4 166.37 cm 41 kg/m2 355354. 53 g 98 /min 98.2 [degF] 99 % 99 % 132 mm[Hg] 80 mm[Hg] Tamy Bills [place] - [facility] 4 16:45:14 Date Recorded Body height Body mass index (BMI) Body weight Heart rate Oxygen saturation Oxygen saturation in Arterial blood by Pulse oximetry Systolic blood pressure Diastolic blood pressure Provider Name and Address Organization Details Last Updated DateTime 4 166.37 cm 41 kg/m2 529516. 09 g 85 /min 100 % 100 % 130 mm[Hg] 82 mm[Hg] Cathy Haro MA [facility] 4 15:13:57 Date Recorded Body height Body mass index (BMI) Body weight Heart rate Oxygen saturation Oxygen saturation in Arterial blood by Pulse oximetry Systolic blood pressure Diastolic blood pressure Provider Name and Address Organization Details Last Updated DateTime 4 166.37 cm 40.3 kg/m2 558355. 72 g 61 /min 98 % 98 % 132 mm[Hg] 74 mm[Hg] Venita Urrutia MA [facility] 4 10:43:40 Date Recorded Body height Body mass index (BMI) Body weight Heart rate Oxygen saturation Oxygen saturation in Arterial blood by Pulse oximetry Systolic blood pressure Diastolic blood pressure Provider Name and Address Organization Details Last Updated DateTime 4 166.37 cm 40.9 kg/m2 741238. 01 g 61 /min 96 % 96 % 118 mm[Hg] 70 mm[Hg] Venita Urrutia MA [facility] 4 12:11:28 Date Recorded Body height Body mass index (BMI) Body weight Respiratory rate Heart rate Systolic blood pressure Diastolic blood pressure Provider Name and Address Organization Details Last Updated DateTime 5 166.37 cm 39.5 kg/m2 109137. 76 g 18 /min 68 /min 122 mm[Hg] 72 mm[Hg] Kandy Arguelles LPN [facility] 5 09:39:38 Social History Question Answer Notes LastModified by Organizat ion Details LastModified Time Tobacco Smoking Status Former Smoker Shira Wright MA [facility], [facility] 02/28/2015 10:35:25 Do You Have An Advance Directive? No [email or web address] Information not available 02/28/2015 What Is Your Level Of Alcohol Consumption? None [email or web address] Information not available 02/28/2015 Are You Blind Or Do You Have Difficulty Seeing? Yes Information not available 12/30/2023 Is Blood Transfusion Acceptable In An Emergency? Yes [email or web address] Information not available 02/28/2015 What Is Your Level Of Caffeine Consumption? Occasional [email or web address] Information not available 02/28/2015 How Much Tobacco Do You Chew? None [email or web address] Information not available 02/28/2015 In The 14 Days Before Symptom Onset, Have You Had Close Contact With A Laboratory-confi rmed COVID-19 While That Case Was Ill? No Information not available 05/22/2024 In The 14 Days Before Symptom Onset, Have You Had Close Contact With A Person Who Is Under Investigation For COVID-19 While That Person Was Ill? No Information not available 05/22/2024 Have You Been To An Area Known To Be High Risk For COVID-19? No Information not available 05/22/2024 Are You Currently Employed? Yes Information not available 02/28/2015 Are You Deaf Or Do You Have Serious Difficulty Hearing? No Information not available 12/30/2023 What Type Of Diet Are You Following? REGULAR [email or web address] Information not available 02/28/2015 Education 12 [email or web address] Information no t available 02/28/2015 Are There Any Guns Present In Your Home? No Information not available 05/22/2024 Live Alone Or With Others? Alone [email or web address] Information not available 02/28/2015 What Was The Date Of Your Most Recent Tobacco Screening? 01/04/2025 Information not available 01/04/2025 How Many Children Do You Have? 2 Information not available 02/28/2015 Performs Monthly Self-breast Exam? Yes [email or web address] Information not available 02/28/2015 What Is Your Relationship Status? [email or web address] Information not available 02/28/2015 Do You Use Your Seat Belt Or Car Seat Routinely? Yes Information not available 05/22/2024 Seat Belts Used Routinely Yes [email or web address] Information not available 02/28/2015 Are You Sexually Active? No [email or web address] Information not available 02/28/2015 Do You Have Smoke And Carbon Monoxide Detectors In Your Home? Yes Information not available 05/22/2024 At What Age Did You Start Smoking Tobacco? 17 [email or web address] Information not available 02/28/2015 How Much Tobacco Do You Smoke? 1 PPD [email or web address] Information not available 02/28/2015 General Stress Level Low [email or web address] Information not available 02/28/2015 Do You Feel Stressed (tense, Restless, Nervous, Or Anxious, Or Unable To Sleep At Night)? [id number] Not Sleeping At Night Information not available 05/22/2024 Do You Use Any Illicit Or Recreational Drugs? No Information not available 08/14/2024 Do You Use Sunscreen Routinely? Yes [email or web address] Information not available 02/28/2015 On What Date Was Tobacco Cessation Counseling Provided? 01/04/2025 Information not available 01/04/2025 How Many Years Have You Smoked Tobacco? 40 [email or web address] Information not available 02/28/2015 Do You Or Have You Ever Used Any Other Forms Of Tobacco Or Nicotine? No Information not available 05/22/2024 Sex: Female Functional Status Question Answer Note LastModified by Organization D etails LastModified Time Are you able to care for yourself? Yes Information n ot available 12/30/2023 What is your exercise level? None Information not available 02/28/2015 Mental Status None recorded. Family History Relationship Description Onset Age of this Age Resolved Age Notes LastModified by Organization Details LastModified Time Paternal Grandmother Malignant tumor of breast 62 [email or web address] Not available 07/02 12:20:35 Paternal Aunt Malignant tumor of breast two aunts on dads side [email or web address] Not available 07/02/2016 12:20:35 Maternal Uncle Malignant tumor of colon 54 [email or web address] Not available 07/02 12:20:35 Mother Acute respiratory distress syndrome [email or web address] Not available 07/02 12:20:35 Mother On examination - heart [email or web address] Not available 07/02 12:20:35 Mother Depressive disorder [email or web address] Not available 2023 16:33:58 Mother Cerebrovascu lar accident [email or web address] Not available 09/2023 16:34:05 Mother Heart disease [email or web address] Not available 2023 16:34:11 Brother Hypertensive disorder [email or web address] Not available 2023 16:34:20 Brother Hypercholest erolemia [email or web address] Not available 2023 16:34:26 Father Hypertensive disorder [email or web address] Not available 2023 16:34:20 Father Hypercholest erolemia [email or web address] Not available 2023 16:34:26 Father Malignant tumor of prostate [email or web address] Not available 2023 16:34:33 Notes:No new family history as of 05-22-2024, vt/rma Medical History Condition Response Coronary Artery Disease N Kidney Cyst N Blood Diseases N Hyperthyroidism N Blood disorders N Blood Transfusion N MRSA N Emphysema N Depression Y COPD N Blood Clots N Pneumonia N Premature N Peripheral Arterial Disease N Edema N TIA N Headaches/Migraines N Anxiety Disorder Y Obesity N Polyps N Infertility N Acid Reflux (GERD) N Hematuria N Stroke N Neck Injury N Polio N Hospital Admission other than N Neurologic Disorder Y Other Sleep Disorders Y Rheumatoid Arthritis N Fibromyalgia N Abdominal Aortic Aneurysm Repair N Kidney Disease N Heart Conditions N Heart Disease/Heart Problems N Hospitalizations N Brain Tumors N Acne N Skin Problems N Eating Disorder N Meningitis N Constipation N Tuberculosis N Cerebral Palsy N Myocardial Infarction N Asthma N Substance Abuse N Peripheral Vascular Disease N Vertigo N Sleep Disorder N Cirrhosis N Pulmonary Embolism N Chicken Pox N Hematologic Disease N Flomax Use Past or Present N Anxiety/Depression Y Thyroid Disease N Colon Cancer N Lung Disease N Glaucoma N Developmental or Behavioral Disorders N Bipolar N Pacemaker N Diverticulitis/Diverticulosis N Orthopedic Problems N Anesthesia Complications N Orthotics N Head Injury/Concussion N Congenital Anomalies N Lee Bite N Chronic Kidney Disease N Endometriosis N Liver Disease Y Schizophrenia N Dialysis N Speech Delay N Chronic Obstructive Pulmonary Disease N Parkinson's Disease N Thyroid Problems Y GI Problems Y Developmental Delay N Anemia N Multiple Sclerosis N Immune System Disorder N Colon Polyps N Heart Attack (ID) N Diabetes N Cardiomyopathy N Blood Transfusions N Heart Problems/Murmur N Eye Trauma N Congestive Heart Failure (CHF) N Valvular Heart Disease N Hyperlipidemia Y Double Vision N Abuse/Domestic Violence N Hepatitis B N Lupus N Epilepsy/Seizures N Reflux/GERD Y Aneurysm N Heart Disease N Bronchitis N Pre-Eclampsia N Hypertension Y Heart Failure N Other N Gout N High Blood Pressure Y Atrial Fibrillation N Kidney Stones N Head Trauma/Injury N Congenital Heart Disease N Spine Problems Y Gastrointestinal Disease N Lung Mass N Sinusitis N Obstructive Sleep Apnea N Muscle, Joint, or Bone Problems Y Autoimmune disease N Vision or Eye Problems Y Arthritis N Blood Clot N Cancer N Seasonal allergies Y Leg or Foot Ulcers N Raynaud's Disease N Aortic Aneurysm N Arrhythmia N Headaches N Heart Problems N Ambl[place]pia N Ear or Hearing Problems N Hyperparathyroidism N Migraines N Artificial Joints N Kidney or Bladder Problems N NSAID Use N Encephalitis N PTSD N Ulcers N Prostate Hypertrophy N Bleeding Disorder N AIDS/HIV N Urinary Tract Infection Y Back Problems Y Allergies Y Atrial Flutter N GERD/Reflux N Hepatitis N Autism Spectrum Disorder (ASD) N Breast Cancer N Hernia N Hypothyroidism N Breast Problem Y Genitourinary Disease N Deep Vein Thrombosis N Varicose Veins Y Cystic Fibrosis N Hearing Loss N Developmental Problems N Carotid Disease N Vitamin D Deficiency N ADHD N Bladder or Kidney Problems N High Cholesterol Y [place] N Valvular Abnormalities N Psychiatric/Mental Health Condition N Organ Transplant N Foot Deformity N Allergies/Hayfever N Dyslipidemia N Hyponatremia N Diabetic Eye Disease N Osteoporosis/Osteopenia N Back Pain Y Proteinuria N Mental Illness N Neurological Problems N Ovarian Cancer N Bedwetting N Seizures/Epilepsy N Kidney Failure N Ocular trauma N Diverticulitis N Dementia N Sleep Apnea N Mental Problems N Warfarin Management N Osteoporosis Y Gynecological History Statement/Question Response Abnormal Pap Y On BCP's at Conception? N STIs/STDs N HPV Vaccine N Age at Menarche 14 Current Control Method None Age at First Child 18 If Post Menopausal, Age at Menopause Sexually Active? N Menses Monthly N Date of Last Pap Smear 10/28/2012 Sexual Problems? N LMP Approximate Obstetrics History GPAL:G 2 P 2 0 0 2 Type Value Multiple Births 0 Full Term 2 Induced 0 Spontaneous 0 Premature 0 Living 2 Ectopics 0 Total 2 Immunizations Vaccine Type Date Status Note Provider Nam e and Address Organization Details Recorded Time COVID-19 vaccine, vector-nr, rS-Ad26, PF, 0.5 mL 1 completed Melissa Gallegos null, [place] [facility] 04/17/2021 15:27:30 Influenza, split virus, quadrivalent, PF 6 completed Not Available [facility] 10/17/2019 02:44:48 Influenza, split virus, quadrivalent, preservative 9 completed Venita Urr[place], [place] [facility] 08/14/2024 12:13:08 influenza, unspecified formulation 9 completed Venita [place] [facility] 08/14/2024 12:13:08 Tdap 5 completed Venita Renan, [place] [facility] 08/14/2024 12:13:08 Influenza, split virus, trivalent, preservative 6 completed Venita Renan, [place] [facility] 08/14/2024 12:13:08 Td (adult), 5 Lf tetanus toxoid, preservative free, adsorbed 0 completed Venita Renan, [place] [facility] 08/14/2024 12:13:08 Influenza, split virus, quadrivalent, PF 2 completed Venita Renan, [place] [facility] 08/14/2024 12:13:08 Influenza, split virus, quadrivalent, PF 9 completed Venita Renan, [place] [facility] 08/14/2024 12:13:08 Influenza, split virus, quadrivalent, PF 0 completed Venita Renan, [place] [facility] 08/14/2024 12:13:08 Influenza, split virus, quadrivalent, PF 7 completed Venita Renan, [place] [facility] 08/14/2024 12:13:08 Influenza, split virus, quadrivalent, PF 1 completed Venita Renan, [place] [facility] 08/14/2024 12:13:08 Influenza, split virus, quadrivalent, PF 3 completed Venita Renan, [place] [facility] 08/14/2024 12:13:08 Past Encounters Encounter ID Performer Location Encounter Start Date Encounter Closed Date Diagnosis/Indication Diagnosis SNOMED-CT Code Diagnosis ICD10 Code Diagnosis Note [id number] Saad Salazar (STOCKING INSPECTOR) [address] [place] [phone] 0 02/28/2015 09:42:01 02/28/2015 11:40:05 Screening mammography [id number] Depressive disorder [id number] OLU Nixon (STOCKING INSPECTOR) [address] [place] [address] [phone] 0 05/30/2015 09:33:01 05/30/2015 10:50:04 Depressive disorder [id number] Saad Wilder Martin (STOCKING INSPECTOR) [address] [place] [phone] 0 07/02/2016 11:17:21 07/05/2016 11:21:57 Gynecologic examination [id number] Z01.411 Screening mammography 24 707418 Z12.31 Atrophic vaginitis 97260 000 N95.2 Menopausal syndrome 1237 11153 N95.9 Depressive disorder 3548 9007 F33.0 Hernia of abdominal cavity 65306718 K46.9 Administra tion of influenza vaccine 39789914 Z23 [id number] Carroll Sampson MD [facility] [place] [address] [place] [address] 12/30/2023 15:46:11 12/30/2023 17:44:17 Fatigue 71112339 R53.83 Essential hypertension 71996870 I10 Hyperlipidemia 91120614 E78.5 Thyroid nodule 600642491 E04.1 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 0 [id number] MD Martin Segundo (Adult Med) [address] [place] [phone] 0 01/08/2024 14:58:09 01/08/2024 15:48:24 Essential hypertension 57103182 I10 Wound of abdomen 7042268 03 S31.109A [id number] MD Martin Segundo (Adult Med) [address] [place] [address] [phone] 05/22/2024 10:15:55 05/22/2024 10:59:49 Thyroid nodule 135809848 E04.1 Essential hypertension 67738221 I10 Hyperlipidemia 31582975 E78.5 Mixed anxi ety and depressive disorder 845353781 F41.8 [id number] MD Martin Segundo (Adult Med) [address] [place] [phone] 0 08/14/2024 11:46:30 08/14/2024 13:28:24 Morbid obesity 435466563 E66.01 Essential hypertension 27687761 I10 Memory impairment 311283 006 R41.3 Vitamin D deficiency 347 15142 E55.9 Neck pain 25779080 M54.2 Renewal of prescription 042920200 Z76.0 [id number] Michael Epstein MD [facility] [place] [address] [place] [address] 01/04/2025 08:59:20 01/07/2025 14:04:00 Essential hypertension 68909865 I10 Obesity 340999519 E66.9 Mixed hyperlipidemia 267 821622 E78.2 Coronary atherosclerosis 550442858 I25.84 Health Concerns Section Related Observation LastModified by Organization Detai ls LastModified Time None Recorded Concern Status LastModified by Organization Details LastModified Time None Recorded Advance Directives Directive N: Payers Encounter Date Sequence Insurance Name Policy Number Policy Nava Covered Member ID Nava Member ID Guarantor Name 12/30/2023 1 [facility] ON OR AFTER 03/30/21 (MEDICAID REPLACEMENT - HMO) Rachael Mooneymideysi [id number] Rachael Schmideysi 01/08/2024 1 [facility] ON OR AFTER 03/30/21 (MEDICAID REPLACEMENT - HMO) Rachael Mcbride [id number] Rachael Schmideysi 05/22/2024 1 [facility] ON OR AFTER 03/30/21 (MEDICAID REPLACEMENT - HMO) Rachael Mooneymideysi [id number] Rachael Schmieg 08/14/2024 1 [facility] ON OR AFTER 03/30/21 (MEDICAID REPLACEMENT - HMO) Rachael Schmideysi [id number] Rachael Schmideysi 01/04/2025 1 [facility] ON OR AFTER 03/30/21 (MEDICAID REPLACEMENT - HMO) Rachael Mcbride [id number] Rachael Mcbride Notes Date Note Type Note Provider Name and Address Organization Details Recorded Time 4 text/html Some fatigue over the past few months. Complicated past medical history of thyroid nodule followed by ENT hyperlipidemia depression hypertension diverticular disease of the colon low back pain osteoporosis traumatic compression fracture of L1 low vitamin D level ulcerative colitis breast implants with rupture tachycardia with negative heart cath and is maintained on medicines by cardiology history of lap band surgery Carroll Sampson MD Attn: Accounting,[address] , [place], [address], [facility] 12/30/2023 22:38:41 4 text/html She forgot to mention she had a wound on her belly is been there for for 5 months things were belt buckle rubs against it Carroll Sampson MD Attn: Accounting,[address] [facility], [place], [address], [facility] 01/08/2024 22:05:08 4 text/html 1. Knee pain had MRI she is working through the issues with ortho. 2. Thyroid nodule never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
--- OUTSIDE RECORDS SUMMARY | 2025-01-07 18:55 | XMS_ITS | CONTINUITY OF CARE DOCUMENT ---
Author Name katie wilson Address Unknown Organization [facility] Address [address] [place] [address] Phone [phone] Care Team Providers Care Engineering Director Name Role Phone Jordyn ZAPIEN, Roland Carrion Unavailable GIULIANO ZAPIEN, CARROLL Chilel Unavailable CARROLL SAMPSON MD Unavailable PROBLEMS Condition Status Date Provider Notes Hypertension active Betty Gamble MD Chest pain, inferior wall ischemia on stress test, cath 03/2018 nl coronaries active Betty aGmble MD Cardiac cat h ~10 years ago A bnml stress test 10-12 years ago, hypotensive response, adenosine 5 years ago, echo 5 years ago FAMILY HISTORY OF HEART DISEASE active Betty Gamble MD Mother - CABG x 4 at age 49 B rother - AFib ablation 44 Hypercholesterolemia - Atorvastatin 20mg active Betty Gamble MD Tobacco use, quit - 30-35 ye ar smoker active Betty Gamble MD Shortness of breath active Betty Gamble MD Obesity s/p lapband active Betty Gamble MD SARS-associated coronavirus active Roland Cobb MD Anxiety active Roland soni MD Venous insufficiency active Roland Cobb MD Personal history of COVID-19 active Roland Cobb MD Preoperative cardiovascular evaluation active Roland Cobb MD Elevated bilirubin active Roland Cobb MD Cardiology examination active Doris Cobb MD Dizziness active Roland soni MD Headache active Roland soni MD ENCOUNTERS Date Type Provider Location Encounter Diag nosis - In-person encounter Office Visit Roland Cobb MD [facility] DizzinessHeadache - In-person encounter Office Visit Roland Cobb MD [facility] Cardiology examination - In-person encounter Office Visit Roland Cobb MD [facility] - In-person encounter Office Visit Roland Cobb MD [facility] - In-person encounter Office Visit Roland Cobb MD [facility] Elevated bilirubin - In-person encounter Office Visit Roland Cobb MD [facility] - In-person encounter Office Visit Roland Cobb MD [facility] - In-person encounter Office Visit Rloand Cobb MD [facility] Venous insufficiencyPersonal history of COVID-19Preoperative cardiovascular evaluation - In-person encounter Office Visit Roland Cobb MD [facility] Anxiety - In-person encounter Office Visit Roland Cobb MD [facility] SARS-associated coronavirus - In-person encounter Office Visit Denis Hill MD [facility] - In-person encounter Office Visit Betty Gamble MD [facility] - In-person encounter Office Visit Betty Gamble MD [facility] - In-person encounter Office Visit Betty Gamble MD [facility] - In-person encounter Office Visit Betty Gamble MD [facility] - In-person encounter Office Visit Betty Gamble MD [facility] - In-person encounter Office Visit Betty Gamble MD [facility] - In-person encounter Office Visit Betty Gamble MD [facility] Chest pain, inferior wall ischemia on stress test, cath 03/2018 nl coronaries - In-person encounter Office Visit Betty Gamble MD [facility] Chest pain, inferior wall ischemia on stress test, cath 03/2018 nl coronaries - In-person encounter Office Visit Betty Gamble MD [facility] HypertensionChest pain, inferior wall ischemia on stress test, cath 03/2018 nl coronariesFAMILY HISTORY OF HEART DISEASEHypercholesterolemia - Atorvastatin 20mgTobacco use, quit - 30-35 year smokerShortness of breathObesity s/p lapband VITAL SIGNS Date Observation Value Provider Body Mass Index (Ratio) 40.35 kg/m2 Hazel Cobb MD blood pressure, diastolic -1 mm[Hg] Mora nkLogernestine blood pressure, systolic 130 mm[Hg] Agata kLogernestine blood pressure, diastolic 85 mm[Hg] Stephan rri Ricci blood pressure, systolic 130 mm[Hg] Dale ri Ricci oxygen saturation, oximetry 96 % Alena Ricci pulse rate 68 /min Alena Douglas lder weight E&M 250 [lb_av] Alena Douglas lder height E&M 66 [in_i] Alena Douglas lder Body Mass Index (Ratio) 40.51 kg/m2 Hazel Cobb MD blood pressure, cuff size regular Ta david Donahue blood pressure, diastolic 86 mm[Hg] Ta david [place] blood pressure, systolic 112 mm[Hg] Tab omida [place] pulse rate 87 /min Marianne [place] oxygen saturation, oximetry 99 % Marianne [place] weight E&M 251 [lb_av] Marianne [place] respiratory rate E&M 12 /min [facility] [in_i] [facility] Body Mass Index (Ratio) 40.02 kg/m2 Hazel Cobb MD blood pressure, diastolic 93 mm[Hg] [facility], systolic 127 mm[Hg] [facility] pulse rate 61 /min [facility] blood pressure, cuff size regular [facility] blood pressure, diastolic 93 mm[Hg] [facility] blood pressure, systolic 127 mm[Hg] [facility], oximetry 98 % [facility] respiratory rate E&M 14 /min Rachelle chanel weight E&M 248 [lb_av] [facility] height E&M 66 [in_i] [facility] Body Mass Index (Ratio) 39.70 kg/m2 Jeannette Schneiderinari blood pressure, diastolic 89 mm[Hg] Li nkLogic blood pressure, systolic 152 mm[Hg] Agata [facility] blood pressure, cuff size large Ja rret blood pressure, diastolic 89 mm[Hg] Ja rret blood pressure, systolic 152 mm[Hg] Jar ret pulse rate 64 /min Kaveh y oxygen saturation, oximetry 96 % Kaveh respiratory rate E&M 12 /min Kvaeh weight E&M 246 [lb_av] Kaveh y height E&M 66 [in_i] Kaveh y Body Mass Index (Ratio) 40.35 kg/m2 Hazel Cobb MD blood pressure, diastolic 94 mm[Hg] Li nkLogic blood pressure, systolic 148 mm[Hg] Agata kLogic blood pressure, diastolic 94 mm[Hg] Ene robbins [place] blood pressure, systolic 148 mm[Hg] Olivier helayan [place] oxygen saturation, oximetry 94 % Dorothy Granados pulse rate 77 /min Dorothy cummings weight E&M 250 [lb_av] Dorothy cummings respiratory rate E&M 16 /min Sommer Granados blood pressure, cuff size large Ene robbins Darwin height E&M 66 [in_i] Dorothy cummings Body Mass Index (Ratio) 40.67 kg/m2 Hazel Cobb MD blood pressure, cuff size large Ke rri Gruenenfgurwinder blood pressure, diastolic 91 mm[Hg] Ke rri Gruenenfgurwinder blood pressure, systolic 161 mm[Hg] Ker ri Griffinnebere oxygen saturation, oximetry 98 % Laena Grantonianenfcarloser respiratory rate E&M 16 /min Alena G ruenenfelder pulse rate 57 /min Alena Brianueneroneye lder weight E&M 252 [lb_av] Alena Gruenenfe lder height E&M 66 [in_i] Alena Brianuenenfe lder Body Mass Index (Ratio) 40.99 kg/m2 Hazel Cobb MD blood pressure, diastolic 90 mm[Hg] Ri rosendo Simms blood pressure, systolic 145 mm[Hg] Juan benson Simms blood pressure, cuff size large Ri rosendo Simms oxygen saturation, oximetry 97 % Kianna Simms respiratory rate E&M 16 /min Leigha Simms pulse rate 81 /min Kianna Adams son weight E&M 254 [lb_av] Kianna Adams son height E&M 66 [in_i] Kianna Adams son Body Mass Index (Ratio) 41.48 kg/m2 Hazel Cobb MD blood pressure, diastolic 80 mm[Hg] Li nkLogic blood pressure, systolic 150 mm[Hg] Agata kLogic blood pressure, cuff size large Ke rri Gruenenfelder blood pressure, diastolic 80 mm[Hg] Ke rri Gruenenfelder blood pressure, systolic 150 mm[Hg] Ker ri Brianuenenfelder oxygen saturation, oximetry 95 % Alena Daijanfcarloser respiratory rate E&M 16 /min Alena G francoenenfelder pulse rate 67 /min Alena Grantonianenfe lder weight E&M 257 [lb_av] Alena Gruenenfe lder height E&M 66 [in_i] Alena Gruenenfe lder Body Mass Index (Ratio) 40.67 kg/m2 Hazel Cobb MD blood pressure, cuff size large Ke rri Gruenenfelder blood pressure, diastolic 92 mm[Hg] Ke rri Gruenenfelder blood pressure, systolic 144 mm[Hg] Ker ri Brianuenenfelder oxygen saturation, oximetry 94 % Alena Gruenenfelder respiratory rate E&M 16 /min Alena kennedy pulse rate 63 /min Alena oCle lder weight E&M 252 [lb_av] Alena Cole lder height E&M 66 [in_i] Alena Cole lder Body Mass Index (Ratio) 40.93 kg/m2 Hazel Cobb MD blood pressure, diastolic 100 mm[Hg] Li nkLogic blood pressure, systolic 176 mm[Hg] Agata kLogic blood pressure, diastolic 100 mm[Hg] Jessica Preston Barnes blood pressure, systolic 176 mm[Hg] Aurea Rowesantos Cameron oxygen saturation, oximetry 96 % Luis AJosi Maysenson respiratory rate E&M 16 /min Manda Maysenson pulse rate 64 /min Luis A Sin dengparveen weight E&M 253.6 [lb_av] Luis A julianon height E&M 66 [in_i] Luis A Sin nson Body Mass Index (Ratio) 40.35 kg/m2 Kylah Walton blood pressure, diastolic 102 mm[Hg] Li nkLogic blood pressure, systolic 162 mm[Hg] Agata kLogic blood pressure, cuff size regular Cy isabel Rodas blood pressure, diastolic 102 mm[Hg] Cy isabel Rodas blood pressure, systolic 162 mm[Hg] Jovana Rodas pulse rate 76 /min Razia boyd oxygen saturation, oximetry 97 % Razia Rodas respiratory rate E&M 16 /min Razia Rodas weight E&M 250 [lb_av] Razia Cassius boyd height E&M 66 [in_i] Razia Hammonds l Body Mass Index (Ratio) 40.83 kg/m2 Chi Gamble MD blood pressure, resting Yes Jared Urbina blood pressure, diastolic 60 mm[Hg] Sh natalie Urbina blood pressure, systolic 130 mm[Hg] She francisco Urbina oxygen saturation, oximetry 100 % Alex Urbina pulse rate 62 /min Alex cullen respiratory rate E&M 18 /min Triston Urbian weight E&M 253 [lb_av] Alex cullen height E&M 66 [in_i] Alex Villanueva cullen Body Mass Index (Ratio) 39.22 kg/m2 Taew on Sahil blood pressure, diastolic 81 mm[Hg] To nsha Boyd blood pressure, systolic 130 mm[Hg] Ton sha Boyd oxygen saturation, oximetry 98 % Tons Boyd respiratory rate E&M 16 /min Tonsha Boyd pulse rate 58 /min Tonsha Boyd weight E&M 243 [lb_av] Tonsha Boyd height E&M 66 [in_i] Tonsha Boyd Body Mass Index (Ratio) 39.22 kg/m2 Chi Gamble MD blood pressure, diastolic 86 mm[Hg] Ki llfallon Boone blood pressure, systolic 138 mm[Hg] Kil santi Boone oxygen saturation, oximetry 97 % [place] Boone respiratory rate E&M 16 /min Baldemar Boone pulse rate 56 /min [place] Boone weight E&M 243 [lb_av] Baldemar Boone height E&M 66 [in_i] Razia Hammonds l Body Mass Index (Ratio) 41.31 kg/m2 Chi Gamble MD blood pressure, diastolic 92 mm[Hg] Da kehinde Matthew blood pressure, systolic 138 mm[Hg] Dac ia Matthew oxygen saturation, oximetry 98 % Mounika Matthew respiratory rate E&M 16 /min Mounika V oss pulse rate 67 /min Mounika Matthew weight E&M 256 [lb_av] Mounika Matthew height E&M 66 [in_i] Mounika Matthew Body Mass Index (Ratio) 41.15 kg/m2 Chi Gamble MD pulse rate 80 /min Betty Gamble MD respiratory rate E&M 16 /min Betty Gamble MD height E&M 66 [in_i] Betty Gamble MD weight E&M 255 [lb_av] Betty Gamble MD blood pressure, diastolic 80 mm[Hg] To david Gamble MD blood pressure, systolic 130 mm[Hg] Hernandez Gamble MD Body Mass Index (Ratio) 40.35 kg/m2 Chi Gamble MD blood pressure, cuff size large Cy isabel Rodas blood pressure, diastolic 100 mm[Hg] Cy isabel Rodas blood pressure, systolic 146 mm[Hg] Jovana Rodas oxygen saturation, oximetry 96 % Razia Rodas respiratory rate E&M 18 /min Razia Rodas pulse rate 77 /min Razia Magenbel l weight E&M 250 [lb_av] Razia Campbel l height E&M 66 [in_i] Razia Campbel l blood pressure, diastolic 90 mm[Hg] Da kehinde Matthew blood pressure, systolic 132 mm[Hg] Dac ia Matthew pulse rate 81 /min Mounika Matthew height E&M 66 [in_i] Mounika Matthew height in centimeters E&M 167.64 cm Da [facility] Body Mass Index (Ratio) 40.99 kg/m2 Chi Gamble MD blood pressure, cuff size large Ke rri Rodneyeldangela blood pressure, diastolic 100 mm[Hg] Ke rri Brianuenenfelder blood pressure, systolic 150 mm[Hg] Dale ri Rodneygurwinder oxygen saturation, oximetry 97 % Alena Rodneycarloser respiratory rate E&M 20 /min Alena G ruenenfelder pulse rate 65 /min Alena Douglas [facility] weight E&M 254 [lb_av] Alena Rodneye er height E&M 66 [in_i] Alena Rodneye [facility] Body Mass Index (Ratio) 41.64 kg/m2 Chi Gamble MD blood pressure, cuff size large Cy ntana Rodas blood pressure, diastolic 90 mm[Hg] Cy nthia Rodas blood pressure, systolic 146 mm[Hg] Jovana toniozachariah Rodas oxygen saturation, oximetry 98 % Razia Rodas respiratory rate E&M 18 /min Razia Rodas pulse rate 65 /min Razia Campbel l weight E&M 258 [lb_av] Razia Campbel l height E&M 66 [in_i] Razia Campbel l Body Mass Index (Ratio) 41.90 kg/m2 Chi Gamble MD blood pressure, resting Yes Lalitha Barnes blood pressure, diastolic 104 mm[Hg] Jessica Barnes blood pressure, systolic 184 mm[Hg] Aurea Barnes oxygen saturation, oximetry 98 % Luis A Barnes respiratory rate E&M 18 /min Manda Barnes pulse rate 73 /min Luis A araiza weight E&M 259.6 [lb_av] Luis A pimentel height E&M 66 [in_i] Luis A araiza ALLERGIES Allergy Name Onset Date Reaction Criticality Status CRESTOR Recalls having h ad leg swelling when she was on Crestor Low Criticality active LOSARTAN dizziness dizziness Low Criticality active MORPHINE Low Criticality active SULFA Low Criticality active RESULTS Date Observation Value Provider Reference Range Interpretation Location 3 hemoglobin A1C, blood, as % of total hemoglobin 5.7 % [facility] 4.8-5.6 High 3 lipoprotein, beta, serum, point, quantitative, calculated 132 mg/dL [facility] 0-99 High 3 HDL cholesterol, serum 48 mg/dL [facility] >39 3 triglyceride, serum, random 116 mg/dL [facility] 0-149 3 cholesterol, serum 201 mg/dL [facility] 100-199 High 3 alanine aminotransferase (SGPT), serum 22 1/L [facility] 0-32 3 aspartate aminotransferase (SGOT), serum 25 1/L [facility] 0-40 3 alkaline phosphatase, serum 92 1/L [facility] 44-121 3 bilirubin, serum, total 1.9 mg/dL [facility] 0.0-1.2 High 3 albumin/globulin ratio, serum 1.7 [facility] 1.2-2.2 3 globulin, serum 2.7 [facility] 1.5-4.5 3 albumin, serum 4.7 g/dL [facility] 3.8-4.9 3 protein, total, serum 7.4 g/dL [facility] 6.0-8.5 3 calcium, serum 9.9 mg/dL [facility] 8.7-10.2 3 carbon dioxide, venous blood 24 mmol/L [facility] 20-29 2020/10/2 3 chloride, serum 103 mmol/L [facility] 96-106 3 potassium, serum 4.3 mmol/L [facility] 3.5-5.2 3 sodium, serum 141 mmol/L [facility] [phone]/10/2 3 urea nitrogen/creatinine ratio, serum 12 [facility] - 3 eGFR if 93 mL/min/{1 .73_m2} [facility] >59 3 eGFR if not 80 mL/min/{1 .73_m2} [facility] >59 3 creatinine, serum 0.81 mg/dL [facility] 0.57-1.00 3 urea nitrogen, blood 10 mg/dL [facility] 6-24 3 blood glucose, random 90 mg/dL [facility] 65-99 3 prothrombin time (patient) 10.6 s [facility] 9.1-12.0 3 international normalized ratio (INR) 1.0 [facility] 0.8-1.2 3 lipoprotein, beta, serum, point, quantitative, calculated 95 mg/dL [facility] 0-99 3 very low density lipoproteins 30 mg/dL [facility] 5-40 3 HDL cholesterol, serum 41 mg/dL [facility] >39 3 triglyceride, serum, random 152 mg/dL [facility] 0-149 High 3 cholesterol, serum 166 mg/dL [facility] [phone]/07/0 3 calcium, serum 10.1 mg/dL [facility] 8.7-10.2 3 carbon dioxide, venous blood 26 mmol/L [facility] 20-29 3 chloride, serum 102 mmol/L [facility] 96-106 3 potassium, serum 4.3 mmol/L [facility] 3.5-5.2 3 sodium, serum 142 mmol/L [facility] [phone]/07/0 3 urea nitrogen/creatinine ratio, serum 14 [facility] -23 3 eGFR if 88 mL/min/{1 .73_m2} [facility] >59 3 eGFR if not 76 mL/min/{1 .73_m2} [facility] >59 3 creatinine, serum 0.86 mg/dL [facility] 0.57-1.00 3 urea nitrogen, blood 12 mg/dL [facility] 6-24 3 blood glucose, random 94 mg/dL [facility] 65-99 3 basophil count, absolute 0.1 x10E3/uL [facility] 0.0-0.2 3 Eosinophil Absolute Count 0.2 X10E3/UL [facility] 0.0-0.4 3 monocyte count, blood, automated 0.6 X10E3/UL [facility] 0.1-0.9 3 lymphocyte count, blood, automated 3.4 X10E3/UL [facility] 0.7-3.1 High 3 Absolute Neutrophils 3.9 X10E3/UL [facility] 1.4-7.0 3 basophils as percent of blood leukocytes 1 % [facility] Not Estab. 3 eosinophils as percent of blood leukocytes 2 % [facility] Not Estab. 3 monocytes as percent of blood leukocytes 7 % [facility] Not Estab. 3 lymphocytes as percent of blood leukocytes 42 % [facility] Not Estab. 3 neutrophils as percent of blood leukocytes 48 % [facility] Not Estab. 3 platelet count 302 X10E3/UL [facility] [phone]/07/0 3 red blood cell distribution width 13.9 % [facility] 12.3-15.4 3 mean corpuscular hemoglobin concentration, RBC 32.7 G/DL [facility] 31.5-35.7 3 mean corpuscular hemoglobin, RBC 30.2 pg [facility] 26.6-33.0 3 mean corpuscular volume, RBC 92 fL [facility] 79-97 3 hematocrit, blood 43.7 % [facility] 34.0-46.6 3 hemoglobin, blood 14.3 g/dL [facility] 11.1-15.9 3 erythrocyte (RBC) count 4.73 X10E6/UL [facility] 3.77-5.28 3 leukocyte count, blood 8.1 X10E3/UL [facility] 3.4-10.8 HISTORY OF MEDICATION USE Medication Status Instructions Dates Provider Indications Com ments carvedilol 6.25 mg tablet active TAKE 1 TABLET BY MOUTH TWICE DAILY 01/01 Narda Alexallen Zetia 10 mg tablet active Take 1 tablet by mouth once a day 05/14 Roland Cobb MD hydrochlorothiazide 12.5 mg tablet active TAKE 1 TABLET BY MOUTH EVERY DAY 01/09 Roland Cobb MD hydrochlorothiazide 12.5 mg tablet completed Take 1 tablet by mouth once a day 10/05 - 01/09 Roland Cobb MD Xanax 0.5 mg tablet active Take 1 table t by mouth every twelve hours 10/02 Roland Cobb MD nifedipine 30 mg tablet extended release completed TAKE 1 TABLET BY MOUTH EVERY DAY - 10/05 Saida ANDRADE nifedipine 30 mg tablet extended release completed Take 1 tablet by mouth once a day - Dorothy Granados Vitamin C 1,000 mg tablet active Take 1 tablet by mouth once a day Luis A Barnes Vitamin D3 10 mcg (400 unit) capsule active Take 1 capsule by mouth once a day Luis A Barnes hydrochlorothiazide 25 mg tablet completed - Denis Hill MD hydrochlorothiazide 25 mg tablet completed Take 1 tablet by mouth once a day - 06/16 Denis Hill MD Vitamin D3 50 mcg (2,000 unit) capsule active Take 1 capsule by mouth once a day Razia Gonzalez Vit D-Probiotic 100 million-10 mcg/5 drops drops active 03/13 Alex Urbina OMEGA 3 CAPSULE active 1 tablet once a day 04/25 Razia Rodas BIOTIN 5000 CAPSULE completed one tab daily 04/25 - 03/13 Alex Urbina PHENTERMINE HCL 37.5 MG ORAL TABLET completed 1/2 tab every other day 04/25 - 03/13 Angelazachariah Urbina OYSCO 500+D 500-200 MG-UNIT ORAL TABLET completed TK 1 T PO BID 03/01 - 03/13 Alex Urbina #60, 30 days supply, Prescribed by EDEL PRADO, Filled 01/25/2018 LISINOPRIL 20 MG TABS completed TAKE 1 TAB LET BY MOUTH TWICE DAILY 06/26 - 04/25 Tonsha Boyd LISINOPRIL 20 MG TABS completed TAKE 1 TAB LET BY MOUTH TWICE DAILY 06/26 - 04/25 Tonsha Boyd lisinopril 20 mg tablet active Take 1 tablet by mouth twice a day TAKE 1 TABLET BY MOUTH EVERY DAY 04/16 Roland Cobb MD LOSARTAN POTASSIUM-HCTZ 50-12.5 MG ORAL TABLET completed One tablet daily 04/14 - 04/16 Betty Gamble MD atorvastatin 40 mg tablet active TAKE 1 TABLET BY MOUTH EVERY DAY IN THE EVENING 12/25 Roland Cobb MD alprazolam 0.25 mg tablet completed Take 1 twice a day as needed 03/31 - 10/02 Roland Cobb MD aspirin 81 mg tablet,delayed release (DR/EC) active 1 tablet by mouth once a day Luis A Barnes OSCAL 500/200 D-3 TABLET completed 1 tab once daily - 03/13 Alex Urbina LISINOPRIL 10 MG ORAL TABLET completed ONE TAB. DAILY - 04/14 Betty Gamble MD carvedilol 6.25 mg tablet completed Take 1 tablet by mouth twice a day - 01/01 [facility] SOCIAL HISTORY Date Observation Value Provider drug use no Roland soni MD alcohol use no Roland soni MD number of years as a smoker 30 a Roland Cobb MD smoking history, tot al pack/day 0.25 Roland Cobb MD cigarette use yes Roland gentile MD smoking status Current every da y smoker Roland Cobb MD drug use no [facility] alcohol use no [facility] number of years as a smoker 30 a [facility] smoking history, tot al pack/day 0.25 [facility] cigarette use yes [facility] smoking status Current every da y smoker [facility] social history reviewed E&M revi ewed - no changes required Roland Cobb MD social history E&M S moking History: P atient currently smokes every day. Roland Cobb MD social history reviewed E&M revi ewed - no changes required Roland Cobb MD number of years as a smoker 30 a Dorothy Darwin smoking history, tot al pack/day 0.25 Dorothy Darwin cigarette use yes Dorothy Shaan romero smoking status Current every da y smoker Dorothy Pinzonand drug use no Sadia Ventimig jose raul [facility] alcohol use no Sadia Ventimig jose raul [facility] smoking status Current every da y smoker Alena Wynne number of years as a smoker 30 a Rufina Gallagher smoking history, tot al pack/day 0.25 Rufina Gallagher cigarette use yes Rufina Gallagher social history reviewed E&M revi ewed - no changes required Rufina Gallagher social history E&M S moking History: P atient currently smokes every day. Roland Cobb MD number of years as a smoker 30 a Kianna Simms smoking history, tot al pack/day 0.25 Kianna Simms cigarette use yes Kianna castorena smoking status Current every da y smoker Kianna Simms social history reviewed E&M revi ewed - no changes required Roland Cobb MD social history E&M S moking History: Nicolas monge currently smokes every day. Roland Cobb MD number of years as a smoker 30 a Alena Wynne smoking history, tot al pack/day 0.25 Alena Torreslara cigarette use yes Alena purdy smoking status Current every da y smoker Alena Torrestellysherrieangela number of grandchildren Roland Cobb MD social history E&M S moking History: Nicolas monge currently smokes every day. Roland Cobb MD social history reviewed E&M revi ewed - no changes required Roland Cobb MD number of years as a smoker 30 a Alena Torrestellyroneycarlosangela smoking history, tot al pack/day 0.25 Alena Torresantoniabogdangurwinder cigarette use yes Alena Choeroney purdy smoking status Current every da y smoker Alena Torrestellyroneygurwinder social history reviewed E&M revi ewed - no changes required Roland Cobb MD social history E&M S moking History: Nicolas monge is a former smoker. Roland Cobb MD number of years as a smoker 30 a Luis A Barnes smoking history, tot al pack/day 0.25 Luis A Maysenson cigarette use yes Luis A pimentel smoking status Former smoker Luis A Crowder social history E&M S moking History: P mariposa is a former smoker. Britni Walton social history reviewed E&M revi ewed - no changes required Britni Anton number of years as a smoker 30 a Razia Rdoas smoking history, tot al pack/day 0.25 Razia Rodas cigarette use yes Razia limon smoking status Former smoker Razia lewis social history E&M S moking History: P mariposa is a former smoker. Betty Gamble MD social history reviewed E&M revi ewed - no changes required Betty Gamble MD number of years as a smoker 30 a Alex Urbina smoking history, tot al pack/day 0.25 Alex Urbina cigarette use yes Alex del angel smoking status Former smoker Alex reyes social history E&M S moking History: Nicolas monge is a former smoker. William Baxter social history reviewed E&M revi ewed - no changes required William Baxter number of years as a smoker 30 a Dustin Boyd smoking history, tot al pack/day 0.25 Dustin Boyd cigarette use yes [facility] status [facility] E&M revi ewed - no changes required Betty Gamble MD social history E&M S moking History: Nicolas monge is a former smoker. Betty Gamble MD social history reviewed E&M revi ewed - no changes required Betty Gamble MD number of years as a smoker 30 a Mounika Matthew smoking history, tot al pack/day 0.25 Mounika Matthew cigarette use yes Mounika Matthew smoking status Former smoker Mounika Matthew number of years as a smoker 30 a Betty Gamble MD smoking history, tot al pack/day 0.25 Betty Gamble MD cigarette use yes Betty Cummings smoking status Former smoker Betty Gamble MD social history reviewed E&M revi ewed - no changes required Betty Gamble MD social history reviewed E&M revi ewed - no changes required Betty Gamble MD number of years as a smoker 30 a Razia Clark smoking history, tot al pack/day 0.25 Razia Clark cigarette use yes Razia limon smoking status Former smoker Razia Magen lewis social history E&M S moking History: Nicolas monge is a former smoker. Betty Gamble MD social history reviewed E&M revi ewed - no changes required Betty Gamble MD number of years as a smoker 30 a Alena Torreslara smoking history, tot al pack/day 0.25 Alena Stevenscarloser cigarette use yes Alena Stevens gurwinder smoking status Former smoker Alena simgurwinder social history E&M S moking History: Nicolas monge is a former smoker. Betty Gamble MD social history reviewed E&M revi ewed - no changes required Betty Gamble MD number of years as a smoker 30 a Razia Clark smoking history, tot al pack/day 0.25 Razia Clark cigarette use yes Razia limon smoking status Former smoker Razia lewis number of grandchildren Betty Gamble MD T arslan Gamble MD number of years as a smoker 30 a Luis A Barnes smoking history, tot al pack/day 0.25 Luis A Barnes cigarette use yes Luis A pimentel smoking status Current every da y smoker Luis A Barnes FAMILY HISTORY Family Member Condition Father Family History of Hy pertension: Mother Family History of Co ronary Artery Disease: Full Brother Family History of Co ronary Artery Disease: INSURANCE PROVIDERS Payer name Policy type / Coverage type Louise red constitution party ID [employer] MEDICA[employer] (2) Medicaid [id number] ADVANCE DIRECTIVES Name Date DISCUSSED - NO DECISION MADE TREATMENT PLAN Date Name Performer [id number],C, No NIHARIKA noted Roland Cobb MD [id number],C,r are cigarette C essation encouarged. patient has cut back. Roland Cobb MD [id number],C, H ad recent labs per PCP. will obtain. Remains on statin H er updated medication list for this problem includes: Atorvastatin 40 Mg Tablet (Atorvastatin) ..... 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 1 tablet twice a day Carvedilol 6.25 Mg Tablet (Carvedilol) ..... Take 1 tablet by mouth twice a day Hydrochlorothiazide 12.5 Mg Tablet (Hydrochlorothiazide) ..... Take 1 tablet by mouth once a day Aspirin 81 Mg Tablet,delayed Release (dr/ec) (Aspirin) ..... 1 tablet by mouth once a day BP today: 152/89 P rior BP: 148/94 (01/04/2023) Labs Reviewed: C reat: 0.81 (07/22/2021) C hol: 201 (07/22/2021) HDL: 48 (07/22/2021) Roland Cobb MD [id number],S,W ent to Dr. Brumfield was told that she has [place] disease. No further recommendations. Roland Cobb MD [id number],C, H ad recent labs per PCP. will obtain. Remains on statin H er updated medication list for this problem includes: Atorvastatin 40 Mg Tablet (Atorvastatin) ..... 1 tablet once a day Roland Cobb MD [id number],C, L ast BP was 145/90 B P today 161/91 S he has been monitoring BP at home with average systolic BP 130-140, but has had some fluctuations with SBP <100 and >160. She has also had drop in HR to the 50s as noted on EKG today. We will decrease coreg dose to 6.25mg BID and begin HCTZ 12.5 mg. Will f/u in 3 mos with CMP prior to that visit T he following medications were removed from the medication list: Nifedipine 30 Mg Tablet Extended Release (Nifedipine) ..... Take 1 tablet by mouth every day Her updated medication list for this problem includes: Lisinopril 20 Mg Tablet (Lisinopril) ..... 1 tablet once a day Nifedipine 30 Mg Tablet Extended Release (Nifedipine) ..... Take 1 tablet by mouth every day Carvedilol 12.5 Mg Tablet (Carvedilol) ..... Take 1 tablet by mouth twice a day Aspirin 81 Mg Tablet,delayed Release (dr/ec) (Aspirin) ..... 1 tablet by mouth once a day January 04, 2023 O ff of Nifedipine, BP remains controlled. Leg swelling improved. Continue with 2.25mg BID Coreg. Roland Cobb MD [id number],C,l ifestyle modification encouarged. Sadiapablito Vega [facility] [id number],C,C essation encouarged. patient has cut back. Sadia Vega [facility] [id number],C,H ad recent labs per PCP. will obtain. Remains on statin H er updated medication list for this problem includes: Atorvastatin 40 Mg Tablet (Atorvastatin) ..... 1 tablet once a day Sadia Vega [facility] [id number],C,L ast BP was 145/90 B P today 161/91 S he has been monitoring BP at home with average systolic BP 130-140, but has had some fluctuations with SBP <100 and >160. She has also had drop in HR to the 50s as noted on EKG today. We will decrease coreg dose to 6.25mg BID and begin HCTZ 12.5 mg. Will f/u in 3 mos with CMP prior to that visit T he following medications were removed from the medication list: Nifedipine 30 Mg Tablet Extended Release (Nifedipine) ..... Take 1 tablet by mouth every day Her updated medication list for this problem includes: Lisinopril 20 Mg Tablet (Lisinopril) ..... 1 tablet once a day Nifedipine 30 Mg Tablet Extended Release (Nifedipine) ..... Take 1 tablet by mouth every day Carvedilol 12.5 Mg Tablet (Carvedilol) ..... Take 1 tablet by mouth twice a day Aspirin 81 Mg Tablet,delayed Release (dr/ec) (Aspirin) ..... 1 tablet by mouth once a day Orders: E KG (CPT-45767) 9 9214 MOD 30-39min (CPT-85474) C OMPREHENSIVE METABOLIC PANEL, W/EGFR (84476) Sadia Ventimiglia [facility] [id number],C, A SSESSMENT AND PLAN: 1 . Normal coronary arteries. 2 . False-positive stress test with inferior wall ischemia. We will optimize patient?s medications. Roland Cobb MD [id number],C, Roland Cobb MD [id number],S, No NIHARIKA noted Roland Cobb MD [id number],S,. O k to reduce BP meds. Try stopping nifedipine 30 daily since she says her BPs at home are in carmela 110s range. Will continue with Lisinopril 20mg daily B P today: 145/90 P rior BP: 150/80 (12/22/2021) Labs Reviewed: C reat: 0.81 (07/22/2021) C hol: 201 (07/22/2021) HDL: 48 (07/22/2021) Her updated medication list for this problem includes: Lisinopril 20 Mg Tablet (Lisinopril) ..... 1 tablet once a day Nifedipine 30 Mg Tablet Extended Release (Nifedipine) ..... Take 1 tablet by mouth every day Carvedilol 12.5 Mg Tablet (Carvedilol) ..... Take 1 tablet by mouth twice a day Aspirin 81 Mg Tablet,delayed Release (dr/ec) (Aspirin) ..... 1 tablet by mouth once a day Roland Cobb MD [id number],S,S he is scheduled to have breast surgery left side at [facility]. U kathy review of invasive and noninvasive testing and recent exam the patient is an acceptable candidate for the planned surgical procedure of left breast surgical lumpectomy recommend to maintain her blood pressure range of 110 to 140 mmHg and a heart rate of 60-80 B p.m.. It is okay to use IV beta blockers calcium channel blockers nitrates and afterload reducing agents to maintain the aforementioned hemodynamics parameters. Tele monitoring and EKG should be done if the patient has arrhythmia during procedure Cath 04/06/18 L eft angiogram from standard PAGE projection revealed n ormal LV systolic function with no mitral regurgitation. The aortic pressure was 142/87. The LV p ressure was 130/17. There was no aortic stenosis detected on pullback. Left coronary artery: Left m ain was angiographically free of stenosis, is long. The left anterior descending was a moderate-sized vessel giving off 2 diagonals is normal. The left circumflex was a moderate-sized vessel with 2 obtuse m arginals, which was no focal stenosis. Right coronary artery is a dominant vessel with no focal stenosis. A SSESSMENT AND PLAN: 1 . Normal coronary arteries. 2 . False-positive stress test with inferior wall ischemia. We will optimize patient?s medications. Renal 11/2021 C ONCLUSIONS: 1 . No evidence of renal artery stenosis bilaterally. 2 . No evidence of an aneurysm of the abdominal aorta. Iliacs not visualized. Echo 12/04/21 C ONCLUSIONS: 1 . Normal left ventricular systolic function. Normal left ventricular size. Normal left ventricular wall thickness. Normal left v entricular diastolic function. E/E': 8.1. Left ventricular ejection fraction is measured at 55 %. 2 . No significant valvular abnormalities. Roland Cobb MD [id number],Roland [place] [id number],[place] A SSESSMENT AND PLAN: 1 . Normal coronary arteries. 2 . False-positive stress test with inferior wall ischemia. We will optimize patient?s medications. Roland Cobb MD [id number],[place] ad covid july got regenron monoclonal antibodies. also has been vaccinated x2 J&J Roland Cobb MD [id number],S, s leep study pending N o NIHARIKA noted Roland Cobb MD [id number],C,d one in 2001 Lost 85lbs over time regained 40. Net 40lb benefit Roland Cobb MD [id number],Sudheer Chilel 12/04/21 CONCLUSIONS: 1 . No evidence of a deep vein thrombosis of the lower extremities bilaterally. 2 . Significant venous insufficiency of the great saphenous vein bilaterally. Roland Cobb MD [id number],[place] H er updated medication list for this problem includes: Nifedipine 30 Mg Tablet Extended Release (Nifedipine) ..... Take 1 tablet by mouth once a day Hydrochlorothiazide 25 Mg Tablet (Hydrochlorothiazide) ..... Take 1 tablet by mouth once a day Carvedilol 12.5 Mg Tablet (Carvedilol) ..... Take 1 tablet by mouth twice a day Lisinopril 20 Mg Tablet (Lisinopril) ..... 1 tablet twice a day Aspirin 81 Mg Tablet,delayed Release (dr/ec) (Aspirin) ..... 1 tablet by mouth once a day BP today: 150/80 P rior BP: 144/92 (07/28/2021) Labs Reviewed: C reat: 0.81 (07/22/2021) C hol: 201 (07/22/2021) HDL: 48 (07/22/2021) Roland Cobb MD [id number],C, v accianted ELODIA Cobb MD [id number],S, Roland mcgarry MD [id number],C,sleep study p ending Roland Cobb MD [id number],C,A SSESSMENT AND PLAN: 1 . Normal coronary arteries. 2 . False-positive stress test with inferior wall ischemia. We will optimize patient?s medications. Roland Cobb MD [id number],S, Roland mcgarry MD [id number],[place] kendellwed home BPs, pressures are elevated in the mornings as she wakes up, but there is BP improvement overall due to taking Nifedipine. Roland Cobb MD [id number],S,vaccianted ELODIA Cobb MD [id number],S, B P today: 176/100 P rior BP: 162/102 (06/21/2021) Labs Reviewed: C reat: 0.86 (04/01/2018) C hol: 166 (04/01/2018) HDL: 41 (04/01/2018) n ot taking hctz gabrielle has high sodium in diet w ill add procardia xl 30 and see how it affects the BP Roland Cobb MD [id number],S, Britni maharaj [id number],S, Britni maharaj [id number],S, Britni maharaj [id number],C,N o CP H er updated medication list for this problem includes: Carvedilol 12.5 Mg Tablet (Carvedilol) ..... Take 1 tablet by mouth twice a day Lisinopril 20 Mg Tablet (Lisinopril) ..... 1 tablet twice a day Aspirin 81 Mg Tablet,delayed Release (dr/ec) (Aspirin) ..... 1 tablet by mouth once a day Britni Walton [id number],C, H er updated medication list for this problem includes: Atorvastatin 40 Mg Tablet (Atorvastatin) ..... 1 tablet once a day Britni Walton [id number],C,R ecently BP is elevated. Also noted some leg swelling. Will add HCTZ 25 mg daily. Will check renal artery duplex, venous duplex and Echo. BP today: 162/102 P rior BP: 130/60 (03/13/2021) Labs Reviewed: C reat: 0.86 (04/01/2018) C hol: 166 (04/01/2018) HDL: 41 (04/01/2018) Her updated medication list for this problem includes: Hydrochlorothiazide 25 Mg Tablet (Hydrochlorothiazide) Hydrochlorothiazide 25 Mg Tablet (Hydrochlorothiazide) ..... Take 1 tablet by mouth once a day Carvedilol 12.5 Mg Tablet (Carvedilol) ..... Take 1 tablet by mouth twice a day Lisinopril 20 Mg Tablet (Lisinopril) ..... 1 tablet twice a day Aspirin 81 Mg Tablet,delayed Release (dr/ec) (Aspirin) ..... 1 tablet by mouth once a day Britni Walton [id number],BBetty MD [id number],SBetty MD [id number],SBetty MD [id number],W, Betty Gamble MD [id number],SeBtty MD Cardiology: S topped She had calcium score done an stopped smoking afterwards 1. Coronary Artery Score L eft Main (LM) 0 L eft Anterior Descending (LAD) 23.7 L eft Circumflex (LCX) 0 R ight Coronary Artery (RCA) 57.5 T otal Agatston Score 81.2. 2 . In a published study, between 75% and 90% of people of the same gender and similar age had the same or lower scores. Roland Cobb MD Cardiology:Suspects she has migraines based on her descriptions. will be seeing Dr. Sampson. Roland Cobb MD Cardiology:This visi t has been a part of the consistent, comprehensive, and ongoing management of the chronic medical condition(s) listed above for the patient. BP today: 130/85 P rior BP: 112/86 (04/17/2024) Labs Reviewed: C reat: 0.81 (07/22/2021) C hol: 201 (07/22/2021) HDL: 48 (07/22/2021) LDL: 132 (07/22/2021) T (07/22/2021) Her updated medication list for this problem includes: Lisinopril 20 Mg Tablet (Lisinopril) ..... Take 1 tablet by mouth once a day Carvedilol 6.25 Mg Tablet (Carvedilol) ..... Take 1 tablet by mouth twice a day Hydrochlorothiazide 12.5 Mg Tablet (Hydrochlorothiazide) ..... Take 1 tablet by mouth every day Aspirin 81 Mg Tablet,delayed Release (dr/ec) (Aspirin) ..... 1 tablet by mouth once a day Roland Cobb MD Cardiology Roland Cobb MD Cardiology: No NIHARIKA noted Roland Cobb MD Cardiology:Upon revi ew of invasive and noninvasive testing and recent exam the patient is an acceptable candidate for the planned dental surgical procedure recommend to maintain his blood pressure range of 110 to 140 mmHg and a heart rate of 60-80 B p.m.. It is okay to use IV beta blockers calcium channel blockers nitrates and afterload reducing agents to maintain the aforementioned hemodynamics parameters. Tele monitoring and EKG should be done if the patient has arrhythmia during procedure OK TO HOLD ASA for DENTAL PROCEDURE. Echo 12/04/2021 C ONCLUSIONS: 1 . Normal left ventricular systolic function. Normal left ventricular size. Normal left ventricular wall thickness. Normal left v entricular diastolic function. E/E': 8.1. Left ventricular ejection fraction is measured at 55 %. 2 . No significant valvular abnormalities. Cardiac Cath from 04/07/2018 1 . Normal coronary arteries. 2 . False-positive stress test with inferior wall ischemia. We will optimize patient?s medications. 3 . Preserved LV systolic function. Roland Cobb MD Cardiology:Could be related to arrhytmia will arrange for tele monitor. Suspect she may be having migraines with visual effects .. Roland Cobb MD Cardiology:Lipitor 4 0 mg. Will check Lipids in next few months H er updated medication list for this problem includes: Atorvastatin 40 Mg Tablet (Atorvastatin) ..... Take 1 tablet by mouth every day in the evening Roland Cobb MD Cardiology:This visi t has been a part of the consistent, comprehensive, and ongoing management of the chronic medical condition(s) listed above for the patient. N o new leg latonya rodriguez US 12/04/21 CONCLUSIONS: 1 . No evidence of a deep vein thrombosis of the lower extremities bilaterally. 2 . Significant venous insufficiency of the great saphenous vein bilaterally. Roland Cobb MD Cardiology: A SSESSMENT AND PLAN: 1 . Normal coronary arteries. 2 . False-positive stress test with inferior wall ischemia. We will optimize patient?s medications. January 10, 2024 We reviewed regarding followings for CAD. Rather than repeating heart catheterization. Calcium score Roland Cobb MD Cardiology:Calcium S core from 04-08-24. Majority of your plaque was noted in your right coronary artery area. This was the same territory that was abnormal in the stress test from 2018. At present would recommend risk factor modification and risk reduction. 1. Coronary Artery Score L eft Main (LM) 0 L eft Anterior Descending (LAD) 23.7 L eft Circumflex (LCX) 0 R ight Coronary Artery (RCA) 57.5 T otal Agatston Score 81.2. 2 . In a published study, between 75% and 90% of people of the same gender and similar age had the same or lower scores . ................................................... ...............Roland Cobb MD April 10, 2024 5:24 PM Roland Cobb MD Cardiology:Stopped Roland maxwell MD Cardiology:Getting e valuated by wound car with regards to prior lap band surgery l ifestyle modification encouarged. Roland Cobb MD Cardiology:No new le g swellin V enkj US 12/04/21 CONCLUSIONS: 1 . No evidence of a deep vein thrombosis of the lower extremities bilaterally. 2 . Significant venous insufficiency of the great saphenous vein bilaterally. Roland Cobb MD Cardiology:Testing d one, no JACINTO H er updated medication list for this problem includes: Hydrochlorothiazide 12.5 Mg Tablet (Hydrochlorothiazide) ..... Take 1 tablet by mouth once a day Lisinopril 20 Mg Tablet (Lisinopril) ..... 1 tablet twice a day Carvedilol 6.25 Mg Tablet (Carvedilol) ..... Take 1 tablet by mouth twice a day Aspirin 81 Mg Tablet,delayed Release (dr/ec) (Aspirin) ..... 1 tablet by mouth once a day BP today: 127/93 P rior BP: 152/89 (07/12/2023) Labs Reviewed: C reat: 0.81 (07/22/2021) C hol: 201 (07/22/2021) HDL: 48 (07/22/2021) LDL: 132 (07/22/2021) T (07/22/2021) Roland Cobb MD Cardiology: A SSESSMENT AND PLAN: 1 . Normal coronary arteries. 2 . False-positive stress test with inferior wall ischemia. We will optimize patient?s medications. January 10, 2024 We reviewed regarding followings for CAD. Rather than repeating heart catheterization. Calcium score Roland Cobb MD Cardiology:Recalls louie jimenez had leg swelling when she was on Crestor H er updated medication list for this problem includes: Atorvastatin 40 Mg Tablet (Atorvastatin) ..... 1 tablet once a day B lood work for PCP Roland Cobb MD Cardiology: No NIHARIKA noted Roland Cobb MD Cardiology:rare ciga rette C essation encouarged. patient has cut back. Roland Cobb MD Cardiology: H ad recent labs per PCP. will obtain. Remains on statin H er updated medication list for this problem includes: Atorvastatin 40 Mg Tablet (Atorvastatin) ..... 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 1 tablet twice a day Carvedilol 6.25 Mg Tablet (Carvedilol) ..... Take 1 tablet by mouth twice a day Hydrochlorothiazide 12.5 Mg Tablet (Hydrochlorothiazide) ..... Take 1 tablet by mouth once a day Aspirin 81 Mg Tablet,delayed Release (dr/ec) (Aspirin) ..... 1 tablet by mouth once a day BP today: 152/89 P rior BP: 148/94 (01/04/2023) L abs Reviewed: C reat: 0.81 (07/22/2021) C hol: 201 (07/22/2021) HDL: 48 (07/22/2021) Roland Cobb MD Cardiology:Went to [facility] was told that she has [place] disease. No further recommendations. Roland Cobb MD Cardiology: H ad recent labs per PCP. will obtain. Remains on statin H er updated medication list for this problem includes: Atorvastatin 40 Mg Tablet (Atorvastatin) ..... 1 tablet once a day Roland Cobb MD Cardiology: L ast BP was 145/90 B P today 161/91 S he has been monitoring BP at home with average systolic BP 130-140, but has had some fluctuations with SBP <100 and >160. She has also had drop in HR to the 50s as noted on EKG today. We will decrease coreg dose to 6.25mg BID and begin HCTZ 12.5 mg. Will f/u in 3 mos with CMP prior to that visit T he following medications were removed from the medication list: Nifedipine 30 Mg Tablet Extended Release (Nifedipine) ..... Take 1 tablet by mouth every day Her updated medication list for this problem includes: Lisinopril 20 Mg Tablet (Lisinopril) ..... 1 tablet once a day Nifedipine 30 Mg Tablet Extended Release (Nifedipine) ..... Take 1 tablet by mouth every day Carvedilol 12.5 Mg Tablet (Carvedilol) ..... Take 1 tablet by mouth twice a day Aspirin 81 Mg Tablet,delayed Release (dr/ec) (Aspirin) ..... 1 tablet by mouth once a day January 04, 2023 O ff of Nifedipine, BP remains controlled. Leg swelling improved. Continue with 2.25mg BID Coreg. Roland Cobb MD Cardiology:lifestyle modificatio n encouarged. Sadiapablito Vega [facility] Cardiology:Cessation encouarged. patient has cut back. Sadiapablito Vega [facility] Cardiology:Had recen t labs per PCP. will obtain. Remains on statin H er updated medication list for this problem includes: Atorvastatin 40 Mg Tablet (Atorvastatin) ..... 1 tablet once a day Sadia Vega [facility] Cardiology:Last BP w as 145/90 B P today 161/91 S he has been monitoring BP at home with average systolic BP 130-140, but has had some fluctuations with SBP <100 and >160. She has also had drop in HR to the 50s as noted on EKG today. We will decrease coreg dose to 6.25mg BID and begin HCTZ 12.5 mg. Will f/u in 3 mos with CMP prior to that visit T he following medications were removed from the medication list: Nifedipine 30 Mg Tablet Extended Release (Nifedipine) ..... Take 1 tablet by mouth every day Her updated medication list for this problem includes: Lisinopril 20 Mg Tablet (Lisinopril) ..... 1 tablet once a day Nifedipine 30 Mg Tablet Extended Release (Nifedipine) ..... Take 1 tablet by mouth every day Carvedilol 12.5 Mg Tablet (Carvedilol) ..... Take 1 tablet by mouth twice a day Aspirin 81 Mg Tablet,delayed Release (dr/ec) (Aspirin) ..... 1 tablet by mouth once a day Orders: E KG (CPT-15922) 9 9214 MOD 30-39min (CPT-83260) C OMPREHENSIVE METABOLIC PANEL, W/EGFR (49133) Sadia Vega [facility] Cardiology: A SSESSMENT AND PLAN: 1 . Normal coronary arteries. 2 . False-positive stress test with inferior wall ischemia. We will optimize patient?s medications. Roland Cobb MD Cardiology Roland Cobb MD Cardiology: No NIHARIKA noted Roland Cobb MD Cardiology:. O k to reduce BP meds. Try stopping nifedipine 30 daily since she says her BPs at home are in carmela 110s range. Will continue with Lisinopril 20mg daily B P today: 145/90 P rior BP: 150/80 (12/22/2021) Labs Reviewed: C reat: 0.81 (07/22/2021) C hol: 201 (07/22/2021) HDL: 48 (07/22/2021) Her updated medication list for this problem includes: Lisinopril 20 Mg Tablet (Lisinopril) ..... 1 tablet once a day Nifedipine 30 Mg Tablet Extended Release (Nifedipine) ..... Take 1 tablet by mouth every day Carvedilol 12.5 Mg Tablet (Carvedilol) ..... Take 1 tablet by mouth twice a day Aspirin 81 Mg Tablet,delayed Release (dr/ec) (Aspirin) ..... 1 tablet by mouth once a day Roland Cobb MD Cardiology:She is sc heduled to have breast surgery left side at [facility]. U kathy review of invasive and noninvasive testing and recent exam the patient is an acceptable candidate for the planned surgical procedure of left breast surgical lumpectomy recommend to maintain her blood pressure range of 110 to 140 mmHg and a heart rate of 60-80 B p.m.. It is okay to use IV beta blockers calcium channel blockers nitrates and afterload reducing agents to maintain the aforementioned hemodynamics parameters. Tele monitoring and EKG should be done if the patient has arrhythmia during procedure C ath 04/06/18 L eft angiogram from standard PAGE projection revealed n ormal LV systolic function with no mitral regurgitation. The aortic pressure was 142/87. The LV p ressure was 130/17. There was no aortic stenosis detected on pullback. Left coronary artery: Left m ain was angiographically free of stenosis, is long. The left anterior descending was a moderate-sized v essel giving off 2 diagonals is normal. The left circumflex was a moderate-sized vessel with 2 obtuse m arginals, which was no focal stenosis. Right coronary artery is a dominant vessel with no focal stenosis. A SSESSMENT AND PLAN: 1 . Normal coronary arteries. 2 . False-positive stress test with inferior wall ischemia. We will optimize patient?s medications. Renal 11/2021 C ONCLUSIONS: 1 . No evidence of renal artery stenosis bilaterally. 2 . No evidence of an aneurysm of the abdominal aorta. Iliacs not visualized. Echo 12/04/21 C ONCLUSIONS: 1 . Normal left ventricular systolic function. Normal left ventricular size. Normal left ventricular wall thickness. Normal left v entricular diastolic function. E/E': 8.1. Left ventricular ejection fraction is measured at 55 %. 2 . No significant valvular abnormalities. Roland Cobb MD Cardiology Roland Cobb MD Cardiology: A SSESSMENT AND PLAN: 1 . Normal coronary arteries. 2 . False-positive stress test with inferior wall ischemia. We will optimize patient?s medications. Roland Cobb MD Cardiology:had covid july got regenron monoclonal antibodies. also has been vaccinated x2 J&J Roland Cobb MD Cardiology: s leep study pending N o NIHARIKA noted Roland Cobb MD Cardiology:done in 2 002 Lost 85lbs over time regained 40. Net 40lb benefit Roland Cobb MD Cardiology:Venous US 12/04/21 CONCLUSIONS: 1 . No evidence of a deep vein thrombosis of the lower extremities bilaterally. 2 . Significant venous insufficiency of the great saphenous vein bilaterally. Roland Cobb MD Cardiology: H er updated medication list for this problem includes: Nifedipine 30 Mg Tablet Extended Release (Nifedipine) ..... Take 1 tablet by mouth once a day Hydrochlorothiazide 25 Mg Tablet (Hydrochlorothiazide) ..... Take 1 tablet by mouth once a day Carvedilol 12.5 Mg Tablet (Carvedilol) ..... Take 1 tablet by mouth twice a day Lisinopril 20 Mg Tablet (Lisinopril) ..... 1 tablet twice a day Aspirin 81 Mg Tablet,delayed Release (dr/ec) (Aspirin) ..... 1 tablet by mouth once a day BP today: 150/80 P rior BP: 144/92 (07/28/2021) Labs Reviewed: C reat: 0.81 (07/22/2021) C hol: 201 (07/22/2021) HDL: 48 (07/22/2021) Roland Cobb MD Cardiology: v accianted ELODIA Cobb MD Cardiology Roland Cobb MD Cardiology:sleep study pending S caty Cobb MD Cardiology:ASSESSMEN T AND PLAN: 1 . Normal coronary arteries. 2 . False-positive stress test with inferior wall ischemia. We will optimize patient?s medications. Roland Cobb MD Cardiology Roland Cobb MD Cardiology:Reviewed home BPs, pressures are elevated in the mornings as she wakes up, but there is BP improvement overall due to taking Nifedipine. Roland Cobb MD Cardiology:vaccianted ELODIA Cobb MD Cardiology: B P today: 176/100 P rior BP: 162/102 (06/21/2021) Labs Reviewed: C reat: 0.86 (04/01/2018) C hol: 166 (04/01/2018) HDL: 41 (04/01/2018) n ot taking hctz sheila burrows has high sodium in diet w ill add procardia xl 30 and see how it affects the BP Roland Cobb MD Cardiology follow up Britni cuadra Cardiology follow up Britni cuadra Cardiology follow up Britni cuadra Cardiology follow up :No CP H er updated medication list for this problem includes: Carvedilol 12.5 Mg Tablet (Carvedilol) ..... Take 1 tablet by mouth twice a day Lisinopril 20 Mg Tablet (Lisinopril) ..... 1 tablet twice a day Aspirin 81 Mg Tablet,delayed Release (dr/ec) (Aspirin) ..... 1 tablet by mouth once a day Britni Walton Cardiology follow up : H er updated medication list for this problem includes: Atorvastatin 40 Mg Tablet (Atorvastatin) ..... 1 tablet once a day Britni Walton Cardiology follow up :Recently BP is elevated. Also noted some leg swelling. Will add HCTZ 25 mg daily. Will check renal artery duplex, venous duplex and Echo. BP today: 162/102 P rior BP: 130/60 (03/13/2021) Labs Reviewed: C reat: 0.86 (04/01/2018) C hol: 166 (04/01/2018) HDL: 41 (04/01/2018) Her updated medication list for this problem includes: Hydrochlorothiazide 25 Mg Tablet (Hydrochlorothiazide) Hydrochlorothiazide 25 Mg Tablet (Hydrochlorothiazide) ..... Take 1 tablet by mouth once a day Carvedilol 12.5 Mg Tablet (Carvedilol) ..... Take 1 tablet by mouth twice a day Lisinopril 20 Mg Tablet (Lisinopril) ..... 1 tablet twice a day Aspirin 81 Mg Tablet,delayed Release (dr/ec) (Aspirin) ..... 1 tablet by mouth once a day Britni Walton Cardiology Betty Gamble MD Cardiology Betty Gamble MD Cardiology Betty Gamble MD Cardiology Tonyaw Gamble MD Cardiology Betty Gamble MD Cardiology - completed [place] Card[facility] - completed [place] Cardiology - completed [place] Cardiology - completed [place] Cardiology - completed [place] Cardiology follow up Toniya [place] ZAPIEN Cardiology follow up Toniya [place] ZAPIEN Cardiology follow up Toniya [place] ZAPIEN Cardiology follow up Toniya [place] ZAPIEN Cardiology follow up Toniya Israel palma MD Cardiology follow up Toniya Israel palma MD Cardiology follow up Toniya Israel palma MD Cardiology follow up Toniya Israel palma MD Cardiology follow up Toniya Israel palma MD Cardiology follow up Toniya Israel palma MD Cardiology Tonyaw Gamble MD Cardiology Tonyaw Gamble MD Cardiology Tonyaw Gamble MD Cardiology Tonyaw Gamble MD Cardiology follow up Toniya Israel palma MD Cardiology follow up Toniya Israel palma MD Cardiology follow up Toniya Israel palma MD Cardiology follow up Toniya Israel palma MD Cardiology Follow up T[place] ZAPIEN Cardiology Follow up Toni[place] ZAPIEN Cardiology Follow up Toni[place] ZAPIEN Cardiology Follow up Toni[place] ZAPIEN Cardiology Follow up Toni[place] ZAPIEN Cardiology Follow up Toni[place] ZAPIEN Cardiology Follow up Toni[place] ZAPIEN Cardiology Follow up Toni[place] ZAPIEN Cardiology Follow up Toniya Israel palma MD Cardiology Follow up Toniya Israel palma MD Cardiology Betty Gamble MD Cardiology Betty Gamble MD Cardiology Betty Gamble MD Cardiology:Increase Carvedilol to 12.5mg BID. BP today: 184/104 Betty Gamble MD Cardiology:Schedule echo and adenosine cardiolite stress test. Betty Gamble MD Date Name Monitor - Telemetry (Mobile Card[facility]) LIPID PANEL COMPREHENSIVE METABO LIC PANEL, W/EGFR HEMOGLOBIN A1c LIPID PANEL COMPREHENSIVE METABO LIC PANEL, W/EGFR CT, Coronary Calcium Score EKG COMPREHENSIVE METABO LIC PANEL, W/EGFR HEMOGLOBIN A1c LIPID PANEL COMPREHENSIVE METABO LIC PANEL, W/EGFR Venous Doppler Bilat eral LE - Reflux Renal Artery Duplex Complete Echo Sleep Study Home PROTHROMBIN TIME WIT H INR LIPID PANEL CBC (INCLUDES DIFF/P LT) BASIC METABOLIC PANE L W/EGFR DLCO - 28588 FRC - 38937 FVC - 10700 STR - Adenosine Complete Echo HISTORY OF PROCEDURES Procedure Date Procedure Name Provider Procedure Notes S tatus Complex e/m visit add on Roland Cobb MD completed EKG Roland Cobb MD compl eted Complex e/m visit add on Roland Cobb MD completed EKG Roland Cobb MD compl eted CT- Coronary CA score Deep Wolf MD completed EKG Roland Cobb MD compl eted EKG Roland Cobb MD compl eted EKG Roland Cobb MD compl eted EKG Roland Cobb MD compl eted EKG Roland Cobb MD compl eted EKG Roland Cobb MD compl eted EKG Roland Cobb MD compl eted EKG Denis Hill MD completed Schedule Followup Betty Gamble MD 1 year with T S completed EKG Betty Gamble MD completed EKG Betty Gamble MD completed Event Monitor Betty Gamble MD comple claire Regadenoson, 4 units Betty Gamble MD completed Cardiolite, 2 units Betty Gamble MD completed SPECT Images Roland Cobb MD com pleted Stress EKG Yifan Alford MD complete d EKG Betty Gamble MD completed
--- OUTSIDE RECORDS SUMMARY | 2025-01-07 18:55 | XMS_ITS | Encounter Summary ---
Author Organization [facility] Address [address] [place] [address] Care Team Providers Care Leather Production Worker Name Role Phone Unavailable Primary Care Provider Unavailabl e Encounter Details Date Type Department Care Team (Late st Contact Info) Description 04/07/2018 Abstract [facility] CONVERSION [address] [place], [place] [id number] , Generic Conversion, Social History Tobacco Use Types Packs/Day Years Used Date Smoking Tobacco: Never Assessed Comments Unknown Sex and Gender Information Value Date Recorded Sex Assigned at Not on file Legal Sex Female 7:57 PM CDT Gender Identity Not on file Sexual Orientation Not on file documented as of this encounter Plan of Treatment Not on file documented as of this encounter Visit Diagnoses Not on filedocumented in this encounter
--- OUTSIDE RECORDS SUMMARY | 2025-01-07 18:55 | XMS_ITS | Clinical Summary ---
Author Organization [facility] Address [address] [place] [address] Care Team Providers Care Dental Assistant Name Role Phone Rambo Sampson MD Primary Care Provider [phone] Source Comments [facility],non-owned Affiliates and Associated Physician Practices is amultiple site organization consisting of ambulatory clinics and hospital sitesin [place], [place], [place] and [place]. This disclosure is being madepursuant to the Care Everywhere program and may not contain all information available regarding this patient. Last updated 18.[facility] Allergies Active Allergy Reactions Criticality Noted Date Comments Losartan Dizziness 04/16/2018 Morphine Other Opioids [Other] Other 04/04/2020 Received name: Opioids - Morphine Analogues Skin Adhesives Rash High 12/19/2021 Some tapes Sulfa Antibiotics Urticaria Medium 11/05/2022 Sulfa Drugs Fever Medications * Be aware that medications may not be up to date on this document. Alwaysverify current medications with the patient. Medication Sig Dispensed Refills Start Date End Date Status lisinopril (PRINIVIL; ZESTRIL) 20 MG tablet Take 1 (one) tablet by mouth 2 times daily 02/22/2019 Active carvedilol (COREG) 12.5 MG tablet Take 0.5 (one-half) tablet by mouth 2 times daily 02/22/2019 Active ASPIRIN 81 PO Take 1 tablet every day by oral route as directed. Active atorvastatin (LIPITOR) 40 MG tablet Take 1 (one) tablet by mouth once daily 03/02/2019 Active Probiotic Product (PROBIOTIC DAILY PO) Take 1 tablet by mouth once daily Active ALPRAZolam (XANAX) 0.25 MG tablet TK 1 T PO QHS PRN 03/25/2020 Act hollis buPROPion (WELLBUTRIN) 75 MG tablet TK 1 T PO QD 03/16/2020 Active Ascorbic Acid (VITAMIN C) 100 MG Vitamin C 1,000 mg tablet Take by oral route. Active liraglutide (VICTOZA) 18 MG/3ML pen once daily Active Vitamin D3, cholecalciferol, 50 MCG (2000 UT) tablet Take 1 (one) tablet by mouth once daily Active ketoconazole (NIZORAL) 2 % creamIndications:Ca ndidal intertrigo Apply to rash on abdomen twice daily. 30 days supply. 30 g 1 04/10/2021 Active Additional Information Patient not taking.Reported on 11/05/2022 hydrocortisone (HYTONE) 2.5 % creamIndications:Ca ndidal intertrigo Apply to rash on abdomen twice daily. 30 days supply. 30 g 1 04/10/2021 Active Additional Information Patient not taking.Reported on 11/05/2022 NIFEdipine CR 24hr (ADALAT CC) 30 MG tablet Take by mouth once daily 07/21/2021 Active Ascorbic Acid 1000 MG Vitamin C 1,000 mg tablet Take 2 tablets every day by oral route. 03/21/2020 Active hydroCHLOROthiazide (Hydrodiuril) 12.5 MG Take 1 (one) tablet by mouth once daily 10/08/2022 Active rosuvastatin (Crestor) 20 MG tablet Take 1 (one) tablet by mouth once daily 10/04/2022 Active polyethylene glycol 3350 (Miralax) 17 GM/SCOOP powder polyethylene glycol 3350 17 gram/dose oral powder Active ketoconazole (Nizoral) 2 % shampooIndications: Candidal intertrigo Apply to wet body/skin folds, leave on for 3-5 minutes, then rinse; may use daily. 30 day supply. 120 mL 11 11/11/2023 Active Active Problems Problem Noted Date Diagnosed Date Onychomycosis 11/05/2022 Chronic rhinitis 10/19/2022 Depressive disorder 10/19/2022 Diverticular disease 10/19/2022 High total bilirubin 10/04/2022 Left wrist pain 05/03/2022 Encounter for preprocedural cardiovascular exami nation 12/22/2021 Personal history of COVID-19 12/22/2021 Venous insufficiency 12/22/2021 Rib pain 11/17/2021 Impaired fasting glucose 11/13/2021 Thyroid nodule 11/13/2021 Anxiety 07/28/2021 Coronavirus infection 07/21/2021 Abnormal mammography 05/28/2021 H/O bilateral breast implants 05/28/2021 Seborrheic keratosis 04/10/2021 Alfred angioma 04/10/2021 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 Multiple benign melanocytic nevi of upper and lower extremities and trunk 04/10/2021 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 Candidal intertrigo 04/10/2021 Rupture of implant of left breast 03/17/2019 Capsular contracture of breast implant 9 Breast ptosis 03/17/2019 Obesity 02/10/2018 Chest pain, unspecified 02/10/2018 Overview (11/05/2022): Cardiac cath ~10 years agoAbnml stress test 10-12 years ago, hypotensive response, adenosine 5 years ago, echo 5 years ago Hypercholesterolemia 02/10/2018 Hypertension 02/10/2018 Personal history of nicotine dependence 02/11/20 18 Shortness of breath 02/10/2018 Family history of heart disease 01/10/2018 Overview (11/05/2022): Mother - CABG x 4 at age 49Brother - AFib ablation 42 Mother - CABG x 4 at age 49Brother - AFib ablation 42 Resolved Problems Problem Noted Date Diagnosed Date Resolved Date Cough 08/06/2022 12/03/2022 Encounters Date Type Department Care Team Description 11/16/2024 8:40 AM AUTOMOBILE MECHANIC RADIATOR Office Visit [facility] - Dermatology [facility] [facility], [place] [id number] Leticia Giron MD Multiple benign melanocytic nevi of upper and lower extremities and trunk (Primary Dx); Seborrheic keratosis, inflamed; Seborrheic keratoses; Actinic skin damage; Lentigines; Other rosacea 11/16/2024 Travel from Last 3 Months Immunizations Name Administration Dates Next Due INFLUENZA VACCINE 07/30/2022,08/10/2019 Family History Medical History Relation Name Comments Cancer - Other Father High Cholesterol Father Hypertension Father Asthma Mother Cancer - Other Paternal Grandfather Cancer - Other Paternal Grandmother CVA Neg Hx Cancer - Breast Neg Hx Cancer - Skin, Melanoma Neg Hx Cancer - Skin, Non Melanoma Neg Hx Eczema Neg Hx Hemophilia Neg Hx Psoriasis Neg Hx Relation Name Status Comments Father Mother Paternal Grandfather Paternal Grandmother Social History Tobacco Use Types Packs/Day Years Used Date Smoking Tobacco: Every Day Cigarettes Smokeless Tobacco: Never Tobacco Cessation:Ready to Q uit: No; Counseling Given: Yes Alcohol Use Standard Drinks/Week Comments No 0 (1 standard drink = 0.6 oz pur e alcohol) Sex and Gender Information Value Date Recorded Sex Assigned at Not on file Gender Identity Not on file Sexual Orientation Not on file Last Filed Vital Signs Vital Sign Reading Time Taken Comments Blood Pressure 161/91 03/17/2019 1:34 PM CDT Pulse 60 03/17/2019 1:34 PM CDT Temperature 36.3 C (97.3 F) 03/17/2019 1:34 PM CDT Respiratory Rate - - Oxygen Saturation 98% 03/17/2019 1:34 PM CDT Inhaled Oxygen Concentration - - Weight 108.9 kg (240 lb) 03/17/2019 1:34 PM CDT Height 163.8 cm (5' 4.5 ) 03/17/2019 1:34 PM CDT Body Mass Index 40.56 03/17/2019 1:34 PM CDT Plan of Treatment Upcoming Encounters Date Type Department Care Team (Late st Contact Info) Description 11/22/2025 8:20 AM AUTOMOBILE MECHANIC RADIATOR Office Visit [facility] - Dermatology [address] [place] [address], [place] [address] Leticia Giron MD [address] [place] [address] [address] [place] [address] Health Maintenance Due Date Last Done Comments COLOGUARD (AGES 45-75) - COLON CA SCREENING 1962 COLON MONITORING 1962 COLONOSCOPY - COLON CA SCREENING 1962 CT COLONOGRAPHY - COLON CA SCREENING 1962 Colorectal Cancer Screening 1962 FIT - COLON CA SCREENING 1962 FLEX SIG - COLON CA SCREENING 1962 PAP SMEAR 1962 HIV SCREENING 1977 HEPATITIS C SCREENING 08/18/1980 DTAP/TDAP/TD VACCINES (1 - Tdap) 1981 PNEUMOCOCCAL VACCINE 50+ (1 of 2 - PCV) 1981 ZOSTER VACCINE (1 of 2) 2012 Respiratory Syncytial Virus (RSV) Vaccine Pt: or over 60 yrs (1 - Risk 60-74 years 1-dose series) 2022 COVID-19 VACCINE (1 - 2023- season) 2024 DEPRESSION SCREENING 09/30/2024 INFLUENZA VACCINE (Season Ended) 2025 07/30/2022, 08/10/2019 MAMMOGRAM 02/12/2026 02/13/2024, 01/28, 02/11/2023, Additional history exists HEPATITIS B VACCINE Aged Out No longe r eligible based on patient's age to complete this topic HIB VACCINE Aged Out No longer eligi ble based on patient's age to complete this topic HPV VACCINE Aged Out No longer eligi ble based on patient's age to complete this topic MENINGOCOCCAL (Group B) VACCINE SHARED DECISION-MAKING Aged Out No longer eligible based on patient's age to complete this topic MENINGOCOCCAL GROUPS A/C/Y/W VACCINE Aged Out No longer eligible based on patient's age to complete this topic Procedures Procedure Name Priority Date/Time Associated Diagnosis Comments MAMMOGRAM Routine 01/19/2019 from Last 3 Months or Most Recently Relevant to Health Maintenance Results * MAMMOGRAM (01/19/2019) Anatomical Region Laterality Modality Other Historical Provider MD SCANNING ONLY from Last 3 Months or Most Recently Relevant to Health Maintenance Care Teams Dental Assistant Relationship Specialty Start Date End Date Rambo Sampson MD [address] [place] [address] PCP - General Internal Medicine 07/22/24
--- OUTSIDE RECORDS SUMMARY | 2025-01-07 18:55 | XMS_ITS | Continuity of Care Document ---
Author Organization [facility] Address [address] [place] [address] [address] [place] [address] Phone Care Team Providers Care Survey Supervisor Name Role Phone Zavala OD, Saad Unavailable Unavailable Advance Directives Directive Yes / No Effective Date File Name No Information Encounters Encounter Description Practice Location Reason(s) For Visit Diagnoses Date Provider Providers Copied on Encounter [facility], [address] [place] [address] [address], [place], [place], [id number], [place] tel:[phone] [facility] [place] No Information Mar-0 4-200 5 Zavala OD Saad. [address] , [address], [place], [address], [place]. tel:[phone] Family History Family Member Type Diagnosis Age At Onset No Information Payers Payer name Insurance type Covered green party ID J Luisa trenton(s) [facility] CI [id number] Social History Type Description Quantity Date Captured Comments Sex Female Smoking Status No Information Chief Complaint And Reason For Visit No Information Reason For Referral Reason For Referral No Information History Of Present Illness Encounter Date Complaint History Of Prese nt Illness No Information Functional Status Date Functional Assessmen t No Information Instructions Date Instruction Additional Infor mation No Information Assessments Type Assessment Date No Information Patient Care Teams Name Effective Dates (start - stop) Status Members No Information
--- OUTSIDE RECORDS SUMMARY | 2025-01-07 18:55 | XMS_ITS | Data Portability ---
Author Organization [place] - [facility], Main Office Address [address] [place] [address] Care Team Providers Care Route Manager Name Role Phone ARIANNE DOAN Primary Care Provider HOPARIANNE ESTRADA Referring Provider [phone] Assessment Encounter Date Assessment Date Assessment LastModified by Organization Details LastModified Time 12/10/2022 12/10/2022 [facility]- 11/2021, get scheduled [facility]- 01/29/2022 Call office if worse, ER if life threatening illness RTC 3 months She voices understanding of plan and agrees [email or web address] Not available 12/10/2022 13:00:45 03/11/2023 03/11/2023 Cscope- 01/2023- Ahmed- next in years- 01/2028 Mammogram- 01/2023- needs to be at [facility] going forward [facility]11/2021, get scheduled [facility]- 01/29/2022 Call office if worse, ER if life threatening illness RTC 3 months She voices understanding of plan and agrees [email or web address] Not available 03/11/2023 11:44:51 06/17/2023 06/17/2023 Cscope- 01/2023- Ahmed- next in years- 01/2028 Mammogram- 01/2023- needs to be at [facility] going forward 11/2021, has been referred to Leonid MANNING- 03/11/23 Call office if worse, ER if life threatening illness RTC 3 months She voices understanding of plan and agrees Not available 06/17/2023 10:08:15 09/16/2023 09/16/2023 Cscope- 01/2023- Ahmed- next in 5 years- 01/2028 Mammogram- 01/2023- needs to be at [facility] going forward [facility]- 11/2021, has been referred to Leonid MANNING- 03/11/23 Call office if worse, ER if life threatening illness RTC 3 months- she plans transfer to [facility] She voices understanding of plan and agrees [email or web address] Not available 09/16/2023 10:08:10 Plan of Treatment Reminders Order Date Submit Date Provider Last Modified By Organization Details Last Modified Time Details Appointments None recorded. Lab vitamin D, 25-hydroxy , total, serum [address] (Lab), [address] [place], [address], 4 09:21:14 glycohemog lobin, total, blood 2022 023 [facility] (Lab), [address] [place], [address], 4 12:31:41 CBC w/ auto diff [address] (Lab), [address] [place], [address], 4 09:21:14 CMP, serum or plasma 2022 023 [facility] (Lab), [address] [place], [address], 4 11:50:38 lipid panel, serum 2022 023 [facility] (Lab), [address] [place], [address], 4 11:50:43 TSH, serum or plasma [address] (Lab), [address] [place], [address], 4 09:21:14 vitamin D, 25-hydroxy , total, serum [email or web address] [facility] (Lab), [address] [place], [address], 3 15:08:56 CMP, serum or plasma 2022 023 [facility] (Lab), [address] [place], [address], 3 11:30:49 CBC w/ auto diff 2022 023 [facility] (Lab), [address] [place], [address], 3 11:06:33 glycohemog lobin, total, blood 2022 023 [facility] (Lab), [address] [place], [address], 3 12:14:10 insulin, serum 2022 023 [facility] (Lab), [address] [place], [address], 3 12:12:32 lipid panel, serum 2022 023 [facility] (Lab), [address] [place], [address], 3 11:30:52 cortisol, am, serum 2022 023 [facility] (Lab), [address] [place], [address], 3 11:15:21 dexamethas one, serum 2022 023 [facility] (Lab), [address] [place], [address], 3 11:15:21 TSH + free T4, serum 2022 023 [facility] (Lab), [address] [place], [address], 3 11:15:22 T3, free, serum or plasma 2022 023 [facility] (Lab), [address] [place], [address], 3 11:15:21 thyroid peroxidase (tpo) Ab, serum 2022 023 [facility] (Lab), [address] [place], [address], 3 11:15:22 HbA1c (hemoglobi n A1c), blood 2022 023 [facility] (Lab), [address] [place], [address], 3 11:15:21 CMP, serum or plasma 2022 023 [facility] (Lab), [address] [place], [address], 3 11:15:21 lipid panel, serum 2022 023 [facility] (Lab), [address] [place], [address], 3 11:15:21 Referral breast surgery referral 2022 023 [email or web address] Nikki Simmons MD, [address], [place], [address], 3 16:35:06 Procedures None recorded. Surgeries None recorded. Imaging None recorded. Medication Orders hydroxyzin e pamoate 25 mg capsule 2022 023 [facility][id number], [address] [place], [place], [id number], 3 10:11:29 atorvastat in 40 mg tablet 2022 023 [facility] #20311, [address] [place], [place], [id number], 3 10:10:07 bupropion HCl 75 mg tablet 2022 023 [facility]11467, [address] [place], [place], [id number], 3 10:11:27 lisinopril 20 mg tablet 2022 023 [facility] #84550, [address] [place], [place], [id number], 3 10:10:08 hydroxyzin e pamoate 25 mg capsule 2022 023 [facility] #98739, [address] [place], [place], [id number], 3 10:33:50 dexamethas one 1 mg tablet 2022 023 [email or web address] [facility] #[id number], [address] [place], [place], [id number], 3 10:05:48 Patient TargetsNo targets recorded. Patient Instructions Encounter Date Encounter Id Patient Instructions Last Modified By Organization Details Last Modified Time 03/11/2023 [id number] INFLUENZA VACCIN E TD/TDAP Recommended today, patient declined Ordered Patient will get at local pharmacy/health department PNEUMONIA VACCINE Ordered Recommend ed today, patient declined Patient will get at local pharmacy/health department Recomm ended at age 67 SHINGLES Ordered Recommend ed today, patient declined Patient will get at local pharmacy/health department MAMMOGRAM: Last Mammogram __ No screening necessary patient is up to date DEXA SCAN Recommended today, but patient declined Ordered No screening indicated CERVICAL SCREENING/PELVIC EXAMINATION COLORECTAL SCREENING: Last Colonoscopy No screening necessary patient is up to date DEPRESSION SCREENING Continue current medication BMI Overweight Approp riate Underweight Obesity continue your current weight loss efforts NUTRITION Continue healthy eating & exercise PHYSICAL ACTIVITY Need more exercise/physical activity minimum of 10-20 minutes of activity that causes mild breathlessness/da y minimum of 20-30 minutes activity that causes mild breathlessness/da y minimum of 30-40 minutes of activity that causes mild breathlessness/da y VISION Ordered Recommend ed today ALCOHOL USE No alcohol use Occasional/So cial Use TOBACCO USE former smoker current tobacco use LUNG CANCER SCREENING SEXUALLY ACTIVE Yes, Patient is in monogamous relationship HEPATITIS C SCREENING Not indicated GLUCOSE SCREENING Ordered LIPID SCREENING Ordered [email or web address] Not available 03/11/2023 11:48:42 Reason for Referral Breast Surgery Referral for Mammography abnormal Referring Physician: Arianne Doan, Internal Medicine, Encounter Date: 12/10/2022 Results Created Date Observation Date Name Description Value Unit Range Abnormal Flag Note LastModifiedBy Organization Detail LastModifiedTime 11/26/1911/26/2022 HEPAT IC/LI LYNSEY PANEL alkaline phosphatase 91 U/L 38-126 Not Available [facility] (Lab) [address] [place], [address], 11/26/2022 11:55:13 11/26/1911/26/2022 HEPAT IC/LI LYNSEY PANEL alanine aminotransfe rase 21 U/L 0-35 Not Available [facility] (Lab) [address] [place], [address], 11/26/2022 11:55:13 11/26/19 23 11/26/2022 HEPAT IC/LI LYNSEY PANEL aspartate aminotransfe rase 26 U/L 15-37 Not Available [facility] (Lab) [address] [place], [address], 11/26/2022 11:55:13 11/26/19 23 11/26/2022 HEPAT IC/LI LYNSEY PANEL bilirubin, total 1.60 mg/dL 0.20-1 .[address] [facility] (Lab) [address] [place], [address], 11/26/2022 11:55:13 11/26/19 23 11/26/2022 HEPAT IC/LI LYNSEY PANEL bilirubin, conjugated (direct) 0.00 mg/dL 0.00-[address] [facility] (Lab) [address] [place], [address], 11/26/2022 11:55:13 11/26/19 23 11/26/2022 HEPAT IC/LI LYNSEY PANEL biliurubin,u ncong. (indirect) 1.20 mg/dL 0.00-1 .[address] [facility] (Lab) [address] [place], [address], 11/26/2022 11:55:13 11/26/19 23 11/26/2022 HEPAT IC/LI LYNSEY PANEL total protein 7.2 g/dL 6.3-8. [address] [facility] (Lab) [address] [place], [address], 11/26/2022 11:55:13 11/26/1911/26/2022 HEPAT IC/LI LYNSEY PANEL albumin 4.1 g/dL 3.4-5. [address] [facility] (Lab) [address] [place], [address], 11/26/2022 11:55:13 11/26/19 23 11/26/2022 HEPAT IC/LI LYNSEY PANEL globulin 3.1 g/dL 2.6-4. [address] [facility] (Lab) [address] [place], [address], 11/26/2022 11:55:13 11/26/19 23 11/26/2022 HEPAT IC/LI LYNSEY PANEL A/G ratio 1.3 ratio 1.0-2. [address] [facility] (Lab) [address] [facility] [place], [address], 11/26/2022 11:55:13 03/20/20 23 03/20/2023 CBC/C OMPLE TE BLD COUNT W/DIF F white blood cells 7.3 x10'3 /uL 4.2-[address] [facility] (Lab) [address] [place], [address], 03/20/2023 11:06:33 03/20/20 23 03/20/2023 CBC/C OMPLE TE BLD COUNT W/DIF F red blood cells 4.98 x10'6 /uL 3.80-[address] [facility] (Lab) [address] [place], [address], 03/20/2023 11:06:33 03/20/20 23 03/20/2023 CBC/C OMPLE TE BLD COUNT W/DIF F hemoglobin 15.2 g/dL 12.0-[address] [facility] (Lab) [address] [place], [address], 03/20/2023 11:06:33 03/20/20 23 03/20/2023 CBC/C OMPLE TE BLD COUNT W/DIF F hematocrit 47.0 % 35.7-4 5.[address] [facility] (Lab) [address] [place], [address], 03/20/2023 11:06:33 03/20/20 23 03/20/2023 CBC/C OMPLE TE BLD COUNT W/DIF F mean red cell volume 94.4 fL 82.0-[address] [facility] (Lab) [address] [place], [address], 03/20/2023 11:06:33 03/20/20 23 03/20/2023 CBC/C OMPLE TE BLD COUNT W/DIF F mean red cell hemoglobin 30.5 pg 27.0-[address] [facility] (Lab) [address] [place], [address], 03/20/2023 11:06:33 03/20/20 23 03/20/2023 CBC/C OMPLE TE BLD COUNT W/DIF F mean RBC HGB concentratio n 32.3 g/dL 31.0-[address] [facility] (Lab) [address] [place], [address], 03/20/2023 11:06:33 03/20/20 23 03/20/2023 CBC/C OMPLE TE BLD COUNT W/DIF F red cell distribution width 13.2 % 11.8-[address] [facility] (Lab) [address] [place], [address], 03/20/2023 11:06:33 03/20/20 23 03/20/2023 CBC/C OMPLE TE BLD COUNT W/DIF F platelets 295 x10'3 /uL 150-[address] [facility] (Lab) [address] [place], [address], 03/20/2023 11:06:33 03/20/20 23 03/20/2023 CBC/C OMPLE TE BLD COUNT W/DIF F mean platelet volume 9.9 fL 9.0-[address] [facility] (Lab) [address] [place], [address], 03/20/2023 11:06:33 03/20/20 23 03/20/2023 CBC/C OMPLE TE BLD COUNT W/DIF F neutrophils 55.5 % 39.0-[address] [facility] (Lab) [address] [place], [address], 03/20/2023 11:06:33 03/20/20 23 03/20/2023 CBC/C OMPLE TE BLD COUNT W/DIF F lymphocytes 34.8 % 16.0-[address] [facility] (Lab) [address] [place], [address], 03/20/2023 11:06:33 03/20/20 23 03/20/2023 CBC/C OMPLE TE BLD COUNT W/DIF F monocytes 6.3 % 5.0-[address] [facility] (Lab) [address] [place], [address], 03/20/2023 11:06:33 03/20/20 23 03/20/2023 CBC/C OMPLE TE BLD COUNT W/DIF F eosinophils 2.3 % 1.0-7. [address] [facility] (Lab) [address] [place], [address], 03/20/2023 11:06:33 03/20/20 23 03/20/2023 CBC/C OMPLE TE BLD COUNT W/DIF F basophils 0.8 % 0.0-2. [address] [facility] (Lab) [address] [place], [address], 03/20/2023 11:06:33 03/20/20 23 03/20/2023 CBC/C OMPLE TE BLD COUNT W/DIF F immature granulocytes 0.3 % 0.00-[address] [facility] (Lab) [address] [place], [address], 03/20/2023 11:06:33 03/20/20 23 03/20/2023 CBC/C OMPLE TE BLD COUNT W/DIF F neutrophils, absolute count 4.05 x10'3 /uL 1.5-8. [address] [facility] (Lab) [address] [place], [address], 03/20/2023 11:06:33 03/20/20 23 03/20/2023 CBC/C OMPLE TE BLD COUNT W/DIF F lymphocytes, absolute count 2.54 x10'3 /uL 1.07-[address] [facility] (Lab) [address] [facility] [place], [address], 03/20/2023 11:06:33 03/20/20 23 03/20/2023 CBC/C OMPLE TE BLD COUNT W/DIF F monocytes, absolute count 0.46 x10'3 /uL 0.29-[address] [facility] (Lab) [address] [place], [address], 03/20/2023 11:06:33 03/20/20 23 03/20/2023 CBC/C OMPLE TE BLD COUNT W/DIF F eosinophils, absolute count 0.17 x10'3 /uL 0.02-[address] [facility] (Lab) [address] [place], [address], 03/20/2023 11:06:33 03/20/20 23 03/20/2023 CBC/C OMPLE TE BLD COUNT W/DIF F basophils, absolute count 0.06 x10'3 /uL 0.01-[address] [facility] (Lab) [address] [place], [address], 03/20/2023 11:06:33 03/20/20 23 03/20/2023 CBC/C OMPLE TE BLD COUNT W/DIF F immature granulocytes ,absolute 0.02 x10'3 /uL 0.00-[address] [facility] (Lab) [address] [place], [address], 03/20/2023 11:06:33 03/20/20 23 03/20/2023 CBC/C OMPLE TE BLD COUNT W/DIF F nucleated red blood cells 0.0 % -0 Not Available [facility] (Lab) [address] [facility] [place], [address], 03/20/2023 11:06:33 03/20/20 23 03/20/2023 CBC/C OMPLE TE BLD COUNT W/DIF F NRBC# 0.00 x10'3 /uL Not Available [facility] (Lab) [address] [place], [address], 03/20/2023 11:06:33 03/20/20 23 03/20/2023 COMP MET PANEL /LIVE R sodium 140 mmol/ L 137-[address] [facility] (Lab) [address] [place], [address], 03/20/2023 11:30:48 03/20/20 23 03/20/2023 COMP MET PANEL /LIVE R potassium 3.8 mmol/ L 3.5-5. [address] [facility] (Lab) [address] [place], [address], 03/20/2023 11:30:48 03/20/20 23 03/20/2023 COMP MET PANEL /LIVE R chloride 101 mmol/ L 98-[address] [facility] (Lab) [address] [place], [address], 03/20/2023 11:30:48 03/20/20 23 03/20/2023 COMP MET PANEL /LIVE R carbon dioxide 34 mmol/ L 22-[address] [facility] (Lab) [address] [place], [address], 03/20/2023 11:30:48 03/20/20 23 03/20/2023 COMP MET PANEL /LIVE R anion gap 8.8 mmol/ L 14-[address] [facility] (Lab) [address] [place], [address], 03/20/2023 11:30:48 03/20/20 23 03/20/2023 COMP MET PANEL /LIVE R glucose 86 mg/dL 70-[address] [facility] (Lab) [address] [place], [address], 03/20/2023 11:30:48 03/20/20 23 03/20/2023 COMP MET PANEL /LIVE R BUN 12 mg/dL 8-[address] [facility] (Lab) [address] [place], [address], 03/20/2023 11:30:48 03/20/20 23 03/20/2023 COMP MET PANEL /LIVE R creatinine 0.75 mg/dL 0.66-[address] [facility] (Lab) [address] [place], [address], 03/20/2023 11:30:48 03/20/20 23 03/20/2023 COMP MET PANEL /LIVE R GFR >60 Refer ence Range : [place] ge GFR Healt hy Adult : >60 mL/mi n/1.7 3 m2 Chron ic Kidne y Disea se: 15-60 mL/mi n/1.7 3 m2 Kidne y Failu re: <15/m L/min /1.73 m2 www.n iddk. nih.g ov The MDRD study equat ion has not been valid ated in child neville <18 years of age; pregn ant women ; the elder ly >85 years of age; or in some racia l or ethni c subgr oups, such as Hispa nics. Outsi de the valid ated nancy eters , estim ated GFR is less accur ate, requi ring clini vero judgm ent on a case- by-ca se basis . Clini vero inter preta tion for other races and ages must be made by the clini yunier. The MDRD study equat ion has not been valid ated for the evalu ation of serum creat inine relat ed to nutri catherine l statu s or medic ation usage . For perso ns <18 years of age, a pedia tric GFR calcu latmaryana is avail able on the F websi te: https ://[place] w.nitesh whitleyy.o rg/pr ofess ional s/kdo qi/gf r_cal culat or Not Available [facility] (Lab) [address] [place], [address], 03/20/2023 11:30:48 03/20/20 23 03/20/2023 COMP MET PANEL /LIVE R alkaline phosphatase 81 U/L 38-126 Not Available [facility] (Lab) [address] [place], [address], 03/20/2023 11:30:48 03/20/20 23 03/20/2023 COMP MET PANEL /LIVE R alanine aminotransfe rase 21 U/L 0-35 Not Available [facility] (Lab) [address] [place], [address], 03/20/2023 11:30:48 03/20/20 23 03/20/2023 COMP MET PANEL /LIVE R aspartate aminotransfe rase 94 U/L 15-37 high Not Available [facility] (Lab) [address] [place], [address], 03/20/2023 11:30:48 03/20/20 23 03/20/2023 COMP MET PANEL /LIVE R bilirubin, total 1.70 mg/dL 0.20-1 [address] [facility] (Lab) [address] [place], [address], 03/20/2023 11:30:48 03/20/20 23 03/20/2023 COMP MET PANEL /LIVE R bilirubin, conjugated (direct) 0.00 mg/dL 0.00-[address] [facility] (Lab) [address] [place], [address], 03/20/2023 11:30:48 03/20/20 23 03/20/2023 COMP MET PANEL /LIVE R biliurubin,u ncong. (indirect) 1.40 mg/dL 0.00-1 [address] [facility] (Lab) [address] [place], [address], 03/20/2023 11:30:48 03/20/20 23 03/20/2023 COMP MET PANEL /LIVE R calcium 9.1 mg/dL 8.4-[address] [facility] (Lab) [address] [place], [address], 03/20/2023 11:30:48 03/20/20 23 03/20/2023 COMP MET PANEL /LIVE R total protein 7.6 g/dL 6.3-8. [address] [facility] (Lab) [address] [place], [address], 03/20/2023 11:30:48 03/20/20 23 03/20/2023 COMP MET PANEL /LIVE R albumin 4.1 g/dL 3.4-5. [address] [facility] (Lab) [address] [place], [address], 03/20/2023 11:30:48 03/20/20 23 03/20/2023 COMP MET PANEL /LIVE R globulin 3.5 g/dL 2.6-4. [address] [facility] (Lab) [address] [place], [address], 03/20/2023 11:30:48 03/20/20 23 03/20/2023 COMP MET PANEL /LIVE R A/G ratio 1.2 ratio 1.0-2. [address] [facility] (Lab) [address] [place], [address], 03/20/2023 11:30:48 03/20/20 23 03/20/2023 LIPID PANEL cholesterol 175 mg/dL 140-19 9 NIH AVELINA NSUS RECOM MENDA TION FOR TOM STERO L: ADULT CHILD LOW RISK: <200 <170 BORDE RLINE : <200- 239 ----- HIGH RISK: >240 >[address] [facility] (Lab) [address] [place], [address], 03/20/2023 11:30:52 03/20/20 23 03/20/2023 LIPID PANEL triglyceride s 137 mg/dL 0-150 NIH AVELINA NSUS REPOR T RECOM MENDA TION FOR TRIGL YCERI KAMARI: ADULT CHILD LOW RISK: <150 ----- BODER LINE: 150-1 99 ----- HIGH RISK: >200 ----- Not [address] [facility] (Lab) [address] [place], [address], 03/20/2023 11:30:52 03/20/20 23 03/20/2023 LIPID PANEL HDL cholesterol 36 mg/dL 40- low Not Available [facility] (Lab) [address] [place], [address], 03/20/2023 11:30:52 03/20/20 23 03/20/2023 LIPID PANEL LDL cholesterol, calculated 112 mg/dL 0-130 NIH AVELINA NSUS REPOR T RECOM MENDA TIONS FOR LDL: ADULT CHILD LOW RISK <130 <110 (OPTI MAL LDL) <100 ----- BORDE RLINE : 130-1 59 ----- HIGH RISK: >160 >130 A TRIGL YCERI DE RESUL T >400 INVAL IDATE S THE CALCU LATIO N FOR LDL FRACT IONAT ION - THE LDL RESUL T WILL NOT BE REPOR HEIDI. Not Available [facility] (Lab) [address] [place], [address], 03/20/2023 11:30:52 03/20/20 23 03/20/2023 VITAM IN D 25-HY DROXY [id number] 48.8 NG/mL 30-100 Vitam in D Statu s: Defic ient: <20 ng/mL Insuf ficie nt: 20-29 ng/mL Suffi cient : 30-10 0 ng/mL Not Available [facility] (Lab) [address] [place], [address], 03/20/2023 11:51:51 03/20/20 23 03/20/2023 HEMOG LOBIN A1C HA1C 6.0 % 4.0-6. 0 Diabe selene Scree felipe Crite warren: <5.7% Consi stent with absen ce of diabe selene 5.7-6 .4% Consi stent with incre ased risk for diabe selene (pred iabet es) >OR=6 .5% Consi stent with diabe selene REFER ENCE: Diabe selene Care 2016, 39(Jackson ppl.1 ):s13 -s22 Not Available [facility] (Lab) [address] [place], [address], 03/20/2023 12:14:10 03/20/20 23 03/21/2023 INSUL IN insulin 12.5 uIU/m L 2.6-24 .9 Perfo rmed at: - [facility] [place] [id number] [facility] Lab Direc tor: Clifton mathis PhD, Phone : [phone] [facility] (Lab) [address] [place], [address], 03/21/2023 12:12:32 01/03/20 24 01/03/2024 COMPR EHENS DEBORAH METAB OLIC PANEL sodium 141 mmol/ L 137-[address] [facility] (Lab) [address] [place], [address], 01/03/2024 11:50:38 01/03/20 24 01/03/2024 COMPR EHENS DEBORAH METAB OLIC PANEL potassium 4.0 mmol/ L 3.5-5. [address] [facility] (Lab) [address] [place], [address], 01/03/2024 11:50:38 01/03/20 24 01/03/2024 COMPR EHENS DEBORAH METAB OLIC PANEL chloride 105 mmol/ L 98-[address] [facility] (Lab) [address] [place], [address], 01/03/2024 11:50:38 01/03/20 24 01/03/2024 COMPR EHENS DEBORAH METAB OLIC PANEL carbon dioxide 34 mmol/ L 22-[address] [facility] (Lab) [address] [place], [address], 01/03/2024 11:50:38 01/03/20 24 01/03/2024 COMPR EHENS DEBORAH METAB OLIC PANEL anion gap 6.0 mmol/ L 14-[address] [facility] (Lab) [address] [place], [address], 01/03/2024 11:50:38 01/03/20 24 01/03/2024 COMPR EHENS DEBORAH METAB OLIC PANEL glucose 108 mg/dL 70-[address] [facility] (Lab) [address] [place], [address], 01/03/2024 11:50:38 01/03/20 24 01/03/2024 COMPR EHENS DEBORAH METAB OLIC PANEL BUN 24 mg/dL 8-[address] [facility] (Lab) [address] [place], [address], 01/03/2024 11:50:38 01/03/20 24 01/03/2024 COMPR EHENS DEBORAH METAB OLIC PANEL creatinine 1.01 mg/dL 0.66-[address] [facility] (Lab) [address] [place], [address], 01/03/2024 11:50:38 01/03/20 24 01/03/2024 COMPR EHENS DEBORAH METAB OLIC PANEL GFR 56 Refer ence Range : [place] GFR Healt hy Adult : >60 mL/mi n/1.7 3 m2 Chron ic Kidne y Disea se: 15-60 mL/mi n/1.7 3 m2 Kidne y Failu re: <15/m L/min /1.73 m2 www.n iddk. nih.g ov The MDRD study equat ion has not been valid ated in child [place] <18 years of age; pregn ant women ; the elder ly >85 years of age; or in some racia l or ethni c subgr oups, such as Hispa nics. Outsi de the valid ated nanyc eters , estim ated GFR is less accur ate, requi ring clini vero judgm ent on a case- by-ca se basis . Clini vero inter preta tion for other races and ages must be made by the clini yunier. The MDRD study equat ion has not been valid ated for the evalu ation of serum creat inine relat ed to nutri catherine l statu s or medic ation usage . For perso ns <18 years of age, a pedia tric GFR calcu lator is avail able on the [facility] websi te: https ://[place] w.kid vero.o rg/pr ofess ional s/kdo qi/gf r_cal culat or Not Available [facility] (Lab) [address] [place], [address], 01/03/2024 11:50:38 01/03/20 24 01/03/2024 COMPR EHENS DEBORAH METAB OLIC PANEL alkaline phosphatase 76 U/L 38-126 Not Available [facility] (Lab) [address] [place], [address], 01/03/2024 11:50:38 01/03/20 24 01/03/2024 COMPR EHENS DEBORAH METAB OLIC PANEL alanine aminotransfe rase 18 U/L 0-35 Not Available [facility] (Lab) [address] [place], [address], 01/03/2024 11:50:38 01/03/20 24 01/03/2024 COMPR EHENS DEBORAH METAB OLIC PANEL aspartate aminotransfe rase 28 U/L 15-37 Not Available [facility] (Lab) [address] [place], [address], 01/03/2024 11:50:38 01/03/20 24 01/03/2024 COMPR EHENS DEBORAH METAB OLIC PANEL bilirubin, total 1.50 mg/dL 0.20-1 [address] [facility] (Lab) [address] [place], [address], 01/03/2024 11:50:38 01/03/20 24 01/03/2024 COMPR EHENS DEBORAH METAB OLIC PANEL calcium 10.0 mg/dL 8.4-[address] [facility] (Lab) [address] [place], [address], 01/03/2024 11:50:38 01/03/20 24 01/03/2024 COMPR EHENS DEBORAH METAB OLIC PANEL total protein 7.2 g/dL 6.3-8. [address] [facility] (Lab) [address] [place], [address], 01/03/2024 11:50:38 01/03/20 24 01/03/2024 COMPR EHENS DEBORAH METAB OLIC PANEL albumin 4.0 g/dL 3.4-5. [address] [facility] (Lab) [address] [place], [address], 01/03/2024 11:50:38 01/03/20 24 01/03/2024 COMPR EHENS DEBORAH METAB OLIC PANEL globulin 3.2 g/dL 2.6-4. [address] [facility] (Lab) [address] [place], [address], 01/03/2024 11:50:38 01/03/20 24 01/03/2024 COMPR EHENS DEBORAH METAB OLIC PANEL A/G ratio 1.3 ratio 1.0-2. [address] [facility] (Lab) [address] [place], [address], 01/03/2024 11:50:38 01/03/2001/03/2024 LIPID PANEL cholesterol 193 mg/dL 140-19 9 NIH AVELINA NSUS RECOM MENDA TION FOR TOM STERO L: ADULT CHILD LOW RISK: <200 <170 BORDE RLINE : <200- 239 ----- HIGH RISK: >240 >[address] [facility] (Lab) [address] [place], [address], 01/03/2024 11:50:43 01/03/20 24 01/03/2024 LIPID PANEL triglyceride s 157 mg/dL 0-150 high NIH AVELINA NSUS REPOR T RECOM MENDA TION FOR TRIGL YCERI KAMARI: ADULT CHILD LOW RISK: <150 ----- BODER LINE: 150-1 99 ----- HIGH RISK: >200 ----- Not Available [facility] (Lab) [address] [place], [address], 01/03/2024 11:50:43 01/03/20 24 01/03/2024 LIPID PANEL HDL cholesterol 44 mg/dL 40- Not Available [facility] (Lab) [address] [place], [address], 01/03/2024 11:50:43 01/03/20 24 01/03/2024 LIPID PANEL LDL cholesterol, calculated 118 mg/dL 0-130 NIH AVELINA NSUS REPOR T RECOM MENDA TIONS FOR LDL: ADULT CHILD LOW RISK <130 <110 (OPTI MAL LDL) <100 ----- BORDE RLINE : 130-1 59 ----- HIGH RISK: >160 >130 A TRIGL YCERI DE RESUL T >400 INVAL IDATE S THE CALCU LATIO N FOR LDL FRACT IONAT ION - THE LDL RESUL T WILL NOT BE REPOR HEIDI. Not Available [facility] (Lab) [address] [place], [address], 01/03/2024 11:50:43 01/03/20 24 01/03/2024 VITAM IN D 25-HY DROXY vd25oh 57.7 NG/mL 30-100 Vitam in D Statu s: Defic ient: <20 ng/mL Insuf ficie nt: 20-29 ng/mL Suffi cient : 30-10 0 ng/mL Not Available [facility] (Lab) [address] [place], [address], 01/03/2024 11:53:46 01/03/20 24 01/03/2024 HEMOG LOBIN A1C HA1C 5.8 % 4.0-6. 0 Diabe selene Scree felipe Crite warren: <5.7% Consi stent with absen ce of diabe selene 5.7-6 .4% Consi stent with incre ased risk for diabe selene (pred iabet es) >OR=6 .5% Consi stent with diabe selene REFER ENCE: Diabe selene Care 2016, 39(Jackson ppl.1 ):s13 -s22 [address] [facility] (Lab) [address] [place], [address], 01/03/2024 12:31:41 12/04/19 23 12/03/2022 US, yin falcon id arter y No observ ation record ed. [email or web address] Not Available 2022 17:13:43 12/10/19 23 12/03/2022 US, breas t, bilat eral, limit ed [facility] [address] [place] [address] Patien t Name: RACHAEL BANSAL Access ion #: [id number] Sex: F : 1959 4 Locati on: MOP Attend ing Physic janis: ARIANNE DOAN Orderi ng Physic janis: ARIANNE DOAN Exam Date: 12/04/19 23 8:43 AM Exam Name: US BREAST LIMITE D BILAT Admitt ing Diagno sis(es ): RADIOL OGY REPORT - FINAL EXAM: US BREAST LIMITE D BILAT HISTOR Y: bilate ral breast 6 month follow up COMPAR KATELYN: None. TECHNI QUE: Ultras ound evalua tion of the bilate ral breast s was perfor med. FINDIN GS: Right breast : 12 o'cloc k: Retroa reolar 3.6 x 1.4 x 3.5 cm Asymme try, right breast . Also noted are simple cyst within the right breast at 9 o'cloc k. Left breast : Comple x cystic area 12 o'cloc k retroa reolar 4 cm. Page 1 of 2 [facility] Patisantos t Name: RACHAEL BANSAL Access ion #: [id number] Sex: F : 1959 4 Exam Date: 12/04/19 23 8:43 AM Exam Name: US BREAST LIMITE D BILAT Admitt ing Diagno sis(es ): IMPRES SENIA: BI-RAD S 0: Indete rminat e areas of inhomo genous aorta and asymme try. This patien t has had a histor y of implan t remova l and these possib ly could result from hemato ma is an evolvi ng scar tissue . Noneth eless recomm end MRI with dynami c contra st scanni ng to exclud e signif icant pathol ogy. Create d and electr onical ly signed by: Kaden morales MD Signed Date: 6:31 PM (CT) Dictat ed by: Kaden morales MD DD: 6:31 PM (CT) DT: 6:31 PM (CT) Page [address] of [address] (Imaging) [address] [place], [address], 12/10/2022 10:36:40 12/22/19 23 12/21/2022 CT, head, w/wo contr ast [facility] [address] [facility] [address], [place] [address] [phone] [facility] Name: RACHAEL BANSAL Access ion #: [id number] Sex: F : 1959 4 Locati on: RAD Attend ing Physic janis: ANANTHANALILIA ESTRADAIE Orderi ng Physic janis: ANALILIA DOANIE Exam Date: 023 8:02 AM Exam Name: CT HEAD WO Admitt ing Diagno sis(es ): RADIOL OGY REPORT - FINAL EXAM: CT HEAD WO HISTOR Y: retrof rade bib a 62-yea r-old female with memory loss. COMPAR KATELYN: None availa ble. TECHNI QUE: Noncon trast axial CT images of the head were perfor med. Sagitt al and allison l reform atted images were obtain ed. This CT exam was perfor med using 1 or more of the follow ing dose reduct ion techni ques: Automa heidi exposu re contro l, adjust ment of the mA and/or kv accord ing to patien t size, or the use of iterat deborah recons tructi on techni ques. FINDIN GS: No intrac ranial hemorr tammi, midlin e shift, hydroc ephalu s, or eviden ce of acute large vessel infarc t. There is a small calcif icatio n along the right Page 1 of 2 [facility] Name: RACHAEL BANSAL Access ion #: [id number] Sex: F : 1959 4 Exam Date: 023 8:02 AM Exam Name: CT HEAD WO Admitt ing Diagno sis(es ): tempor al bone inner table measur ing 5 mm AP (image 17, series 201). The partia lly-vi sualiz ed parana vargas sinuse s are clear. The bilate ral mastoi d air cells and middle ear spaces are clear. No crania l fractu re or scalp edema. IMPRES SENIA: 1. No acute intrac ranial proces s. 2. Right tempor al bone inner table 5 mm osteom a versus calcif ied mening ioma. Create d and electr onical ly signed by: Sheldon lujan MD Signed Date: 8:57 AM (CT) Dictat ed by: Sheldon lujan MD DD: 8:57 AM (CT) DT: 8:57 AM (CT) Page 2 of [address] (Imaging) [address] [facility], [place], [address], 12/24/2022 11:45:09 02/12/20 23 02/11/2023 MAMMO , diagn ostic , bilat eral No observ ation record ed. [address] [place], [address], 02/12/2023 11:18:03 02/12/20 23 02/11/2023 US, breas t, bilat eral No observ ation record ed. [address], [place], [address], 02/12/2023 11:18:45 10/11/19 24 10/11/2023 US, thyro id No observ ation record ed. [address], [place], [address], 10/17/2023 12:10:44 10/11/19 24 10/11/2023 DEXA, axial skele ton No observ ation record ed. [address], [place], [address], 10/17/2023 12:10:44 04/10/20 24 04/08/2024 CT, coron devonte calci um score No observ ation record ed. [email or web address] [facility] [address], [place], [address], 04/12/2024 10:21:29 Result Notes None recorded. Problems Name Problem SNOMED Code Status Onset Date Resolution Date Notes Provider Name and Address Organization Details Recorded Time Anxiety 62093129 Active 2022 Not Available [facility] 3 06:55:58 Prediabet es 499939582 Active 2022 Not Available [facility] 3 06:55:58 Weight gain 8011240 Active 2022 Not Available [facility] 3 06:55:58 Memory impairmen t 601591856 Active 2022 Not Available [facility] 3 06:55:58 Vitamin D deficienc y 88246463 Active 2022 Not Available [facility] 3 06:55:58 Major depressiv e disorder 591610442 Active 2022 Not Available [facility] 3 06:55:58 Tachycard ia 0343799 Active 2022 Not Available [facility] 3 06:55:58 Obesity 856713724 Active 2022 Not Available [facility] 3 06:55:58 Skin lesion 82281322 Active 2022 Not Available [facility] 3 06:55:58 Allergic rhinitis 81121268 Active 2022 Not Available [facility] 3 06:55:58 Nicotine dependenc e 05769538 Active 2022 Not Available [facility] 3 06:55:58 Constipat ion 85045447 Active 2022 Not Available [facility] 3 06:55:58 Multiple cysts of breast 711850354 Active 2022 Not Available [facility] 3 06:55:58 Ulcerativ e colitis 33742281 Active 2022 Not Available [facility] 3 06:55:58 Compressi on fracture of lumbar spine 298065227 Active 2022 Not Available [facility] 3 06:55:58 Backache 509720824 Active Not Available [facility] 3 06:55:58 Mammograp hy abnormal 612084264 Active 2021 Not Available [facility] 3 06:55:58 Total bilirubin above reference range 14539314560 9108 Active 2022 Not Available [facility] 3 06:55:58 Pneumonia 512696640 Completed 201603/31/2021 Not Available [facility] 3 02:58:53 Thyroid nodule 080262314 Active 2021 Not Available [facility] 3 06:55:58 Long-term drug therapy Active 2021 Not Available [facility] 3 06:55:58 Family history of cardiac disorder 491467110 Active 2017 Not Available [facility] 3 06:55:58 Thoracic back pain 198655935 Active 2021 Not Available [facility] 3 06:55:58 Low back pain 991697914 Active 2021 Not Available [facility] 3 06:55:58 Rib pain 251471345 Active 2021 Not Available [facility] 3 06:55:58 Diverticu litis 583861191 Active 2022 Not Available [facility] 3 06:55:58 Pain of left wrist 88637056237 9102 Active 2021 Not Available [facility] 3 06:55:58 Depressiv e disorder 00028065 Active Not Available [facility] 3 06:55:58 Impaired fasting glycemia 323078884 Active 2021 Not Available [facility] 3 06:55:58 Diverticu lar disease 966404780 Active Not Available [facility] 3 06:55:58 Cough 61097226 Active 2021 Not Available [facility] 3 06:55:58 Hyperlipi demia 30789096 Active Not Available [facility] 3 06:55:58 Essential hypertens ion 91932699 Active Not Available [facility] 3 06:55:58 Urinary tract infectiou s disease 12322702 Completed Not Available [facility] 3 02:58:55 COVID-19 805454961 Active 2022 Not Available [facility] 3 06:55:58 Chronic rhinitis 77185129 Active Not Available [facility] 06:55:58 Problem Notes None recorded. Procedures Surgical History Date Name Laterality Status Provider Name and Address Organization Details Recorded Time 11/12/19 20 Date of Last Colonoscopy completed Not Available [facility] 11/28/2022 02:51:28 colonoscopy completed Not Available [facility] 11/28/2022 02:51:32 colostomy completed Not Available [facility] 11/28/2022 02:51:32 oophorectomy completed Not Available [facility] 11/28/2022 02:51:32 laparoscopic adjustable gastric banding completed Not Available [facility] 11/28/2022 02:51:32 Cholecystectomy completed Not Available [facility] 11/28/2022 02:51:32 Imaging Results Imaging Date Name Status LastModified by Organiz ation Details LastModified Time 12/03/2022 US, duplex, carotid artery completed Information not available 12/03/2022 17:13:43 12/03/2022 US, breast, bilateral, limited completed [email or web address] [facility] (Imaging) [address] [place], [address], 12/10/2022 10:36:40 12/21/2022 CT, head, w/wo contrast completed [email or web address] [facility] (Imaging) [address] [place], [address], 12/24/2022 11:45:09 02/11/2023 MAMMO, diagnostic, bilateral completed [email or web address] [facility] Breast [address], [address], 02/12/2023 11:18:03 02/11/2023 US, breast, bilateral completed [email or web address] [address], [address], 02/12/2023 11:18:45 10/11/2023 US, thyroid completed [email or web address] [address], [address], 10/17/2023 12:10:44 10/11/2023 DEXA, axial skeleton completed [email or web address] [facility] [address], [place], [address], 10/17/2023 12:10:44 04/08/2024 CT, coronary calcium score completed [email or web address] [facility] [address], [place], [address], 04/12/2024 10:21:29 Procedure Notes None recorded. Medical Equipment None Reported. Allergies Allergen ID Allergen Name Allergen Category Reaction Reaction Severity Criticality Documentation Date Start Date Code Code System Note Provider Name and Address Organization Details Recorded Time 5136 Substance with sulfonami de structure and antibacte rial mechanism of action (substanc e) medicatio n hives Not available Not available 11/28/2022 01342 8003 SNOMED Not Available [facility] 3 03:07:04 5137 morphine medicatio n other Not available Not available 11/28/2022 7052 RxNorm dizzi ness Not Available [facility] 3 03:07:04 Medications Name Sig Start Date Stop Date Status Note LastModified by Organization Details LastModified Time amoxicill in 500 mg capsule active Not Available Not Available Not Available atorvasta tin 40 mg tablet TAKE 1 TABLET BY MOUTH EVERY DAY 2022 active Not Available Not Available Not Avai lable methocarb shailesh 500 mg tablet TK 2 TS PO Q 6 H PRN 10/27 completed Not Available Not Available Not Available bupropion HCl SR 150 mg tablet,12 hr sustained -release TK 1 T PO BID 09/06 completed Not Available Not Available Not Available carvedilo l 6.25 mg tablet Take 1 tablet twice a day by oral route. 11/30 completed Not Available Not Available Not Available prednison e 10 mg tablet [id number] 01/10 completed Not Available Not Available Not Available atorvasta tin 20 mg tablet TK 1 T PO QD 12/03 completed Not Available Not Available Not Available carvedilo l 12.5 mg tablet TAKE 1 TABLET BY MOUTH DAILY active Not Available Not Available No t Available ketoconaz ole 2 % shampoo APPLY TO WET SKIN DAILY. LEAVE ON FOR 3 MINUTES THEN RINSE. THIS IS A 30 DAY SUPPLY 05/01 completed Not Available Not Available Not Available ciproflox acin 750 mg tablet 04/26 completed Not Available Not Available Not Available citalopra m 40 mg tablet active Not Available Not Available Not Available cetirizin e 10 mg tablet TAKE 1 TABLET BY MOUTH EVERY DAILY 12/08 completed Not Available Not Available Not Available azithromy jeremiah 250 mg tablet TAKE 2 TABLETS BY MOUTH FOR 1 DAY THEN TAKE 1 TABLET BY MOUTH DAILY FOR 4 DAYS 09/10 completed Not Available Not Available Not Available ibuprofen 800 mg tablet TAKE 1 TABLET BY MOUTH TWICE DAILY FOR 10 DAYS active Not Available Not Available No t Available benzonata te 200 mg capsule Take 1 capsule 3 times a day by oral route as needed. 03/21 completed Not Available Not Available Not Available hydrocodo ne 5 mg-acetam inophen 325 mg tablet TK 1 T PO BID FOR 7 DAYS PRN 06/01 completed Not Available Not Available Not Available phenazopy ridine 200 mg tablet 04/26 completed Not Available Not Available Not Available lisinopri l 20 mg tablet TAKE 1 TABLET BY MOUTH DAILY 2022 active Not Available Not Available Not Avai lable prednison e 20 mg tablet 01/28 completed Not Available Not Available Not Available metronida zole 500 mg tablet TAKE 1 TABLET BY MOUTH THREE TIMES DAILY 11/30 completed Not Available Not Available Not Available phentermi ne 37.5 mg tablet TK 1 T PO QD 09/12 completed duplicat e Not Available Not Available Not Available nifedipin e ER 30 mg tablet,ex tended release TAKE 1 TABLET BY MOUTH EVERY DAY 09/10 completed Not Available Not Available Not Available ciproflox acin 500 mg tablet Take 1 tablet twice a day by oral route for 7 days. 11/30 completed Not Available Not Available Not Available peg-elect rolyte solution 420 gram oral solution MIX AND DRINK UTD 03/11 completed Not Available Not Available Not Available tramadol 50 mg tablet TAKE 1 TABLET BY MOUTH EVERY 6 HOURS NEEDED 12/08 completed Not Available Not Available Not Available triamcino lone acetonide 0.1 % topical cream APPLY A THIN LAYER TO THE AFFECTED AREA(S) BY TOPICAL ROUTE 2 TIMES PER DAY PRN active Not Available Not Available No t Available amoxicill in 500 mg tablet TAKE 1 TABLET BY MOUTH THREE TIMES DAILY FOR 10 DAYS 09/16 completed Not Available Not Available Not Available ondansetr on 8 mg disintegr ating tablet 04/30 completed Not Available Not Available Not Available oxycodone -acetamin ophen 5 mg-325 mg tablet 10/27 completed Not Available Not Available Not Available alprazola m 0.5 mg tablet TAKE 1 TABLET BY MOUTH EVERY 12 HOURS 09/10 completed Not Available Not Available Not Available amoxicill in 875 mg tablet active Not Available Not Available Not Available alprazola m 0.25 mg tablet TAKE 1 TABLET BY MOUTH EVERY NIGHT AT BEDTIME NEEDED 03/11 completed Approved Alprazol am. Valid: 02/19/23- 09/29/23 . ALMA# [id number] 404. Not Available Not Available Not Available citalopra m 20 mg tablet Take 1/2 tablet for the first week, then 1 tablet PO daily active Not Available Not Available No t Available Vitamin C 1,000 mg tablet Take 2 tablets every day by oral route. 2019 active Not Available Not Available Not Avai lable methocarb shailesh 750 mg tablet TAKE 1 TABLET BY MOUTH EVERY 8 HOURS NEEDED 12/08 completed Not Available Not Available Not Available dicyclomi ne 20 mg tablet 04/26 completed Not Available Not Available Not Available dexametha sone 1 mg tablet TAKE 1 TABLET BY MOUTH AT 10 PM THE NIGHT BEFORE CORTISOL 03/11 completed Not Available Not Available Not Available diazepam 2 mg tablet active Not Available Not Available Not Available benzonata te 100 mg capsule Take 1 capsule 3 times a day by oral route. 01/10 completed Not Available Not Available Not Available cephalexi n 500 mg capsule Take 1 capsule every 6 hours by oral route for 7 days. 06/01 completed Not Available Not Available Not Available nystatin 100,000 unit/gram topical cream [place]UST[place] EXT AA BID PRN 01/31 completed Not Available Not Available Not Available lisinopri l 10 mg tablet TAKE 1 TABLET BY MOUTH EVERY DAY 09/29 completed Not Available Not Available Not Available promethaz ine 25 mg tablet TK 1/2 T PO Q 6 H PRN N 11/30 completed Not Available Not Available Not Available bupropion HCl 75 mg tablet Take 1 PO BID 2022 active Not Available Not Available Not Avai lable hydrochlo rothiazid e 12.5 mg capsule Take 1 capsule every day by oral route. active Not Available Not Available No t Available docusate sodium 100 mg capsule TAKE 1 CAPSULE BY MOUTH EVERY DAY NEEDED 12/08 completed Not Available Not Available Not Available hydrocort isone 2.5 % topical cream APPLY TOPICALL Y TO ABDOMINA L RASH TWICE DAILY 12/08 completed Not Available Not Available Not Available etodolac 400 mg tablet Take 1 tablet twice a day by oral route for 30 days. active Not Available Not Available No t Available monteluka st 10 mg tablet TK 1 T PO QD 04/26 completed Not Available Not Available Not Available hydrochlo rothiazid e 25 mg tablet TAKE 1 TABLET BY MOUTH EVERY DAY 11/13 completed Not Available Not Available Not Available ergocalci ferol (vitamin D2) 1,250 mcg (50,000 unit) capsule TK 1 C PO Q WK 03/21 completed Not Available Not Available Not Available azelastin e 137 mcg (0.1 %) nasal spray USE 2 SPRAYS IN EACH NOSTRIL TWICE DAILY 12/08 completed Not Available Not Available Not Available Aspir-81 mg tablet,de layed release Take 1 tablet every day by oral route as directed . 03/28 completed Not Available Not Available Not Available polyethyl nora glycol 3350 17 gram/dose oral powder MIX 17 GRAMS INTO 8 OUNCES OF LIQUIS ONCE DAILY NEEDED active Not Available Not Available No t Available levofloxa jeremiah 500 mg tablet TK 1 T PO Q 24 H 01/10 completed Not Available Not Available Not Available methylpre dnisolone 4 mg tablets in a dose pack FOLLOW PACKAGE DIRECTIO NS 11/13 completed Not Available Not Available Not Available losartan 50 mg-hydroc hlorothia zide 12.5 mg tablet 09/29 completed Not Available Not Available Not Available ketoconaz ole 2 % topical cream APPLY TOPICALL Y TO ABDOMINA L RASH TWICE DAILY 05/01 completed Not Available Not Available Not Available cefdinir 300 mg capsule Take 1 capsule every 12 hours by oral route. active Not Available Not Available No t Available fluoxetin e 20 mg capsule 09/06 completed Not Available Not Available Not Available fluticaso ne propionat e 50 mcg/actua tion nasal spray,kevin pension SHAKE LIQUID AND USE 2 SPRAYS IN EACH NOSTRIL EVERY DAY 11/23 completed Not Available Not Available Not Available phentermi ne 37.5 mg capsule Take 1 capsule every day by oral route. 09/12 completed Not Available Not Available Not Available Ventolin HFA 90 mcg/actua tion aerosol inhaler Inhale 2 puffs every 4 hours by inhalati on route. 09/29 completed Not Available Not Available Not Available hydroxyzi ne pamoate 25 mg capsule Take 1 capsule as needed by oral route at bedtime. 2022 active Not Available Not Available Not Avai lable Cough Syrup DM 10 mg-100 mg/5 mL 08/08 completed Not Available Not Available Not Available bupropion HCl SR 200 mg tablet,12 hr sustained -release 09/06 completed Not Available Not Available Not Available Premarin 0.625 mg/gram vaginal cream 08/08 completed Not Available Not Available Not Available rosuvasta tin 20 mg tablet Take 1 tablet every day by oral route. 11/30 completed Not Available Not Available Not Available nitrofura ntoin monohydra te/macroc rystals 100 mg capsule active Not Available Not Available Not Available BD Ultra-Fin e Mini Pen Needle 31 gauge x 3/16 USE TO INJECT VICTOZA ONCE EVERY DAY. 01/18 completed Not Available Not Available Not Available vancomyci n 12/26 completed Not Available Not Available Not Available Fish Oil TAKE 1 TAB BID 2018 active Not Available Not Available Not Avai lable biotin 06/24 completed 5,000 Not Available Not Available Not Available Aspir-81 tk 1t po qd 2019 active Not Available Not Available Not Avai lable Oysco 500/D 500 mg-5 mcg (200 unit) tablet TK 1 T PO BID active Not Available Not Available No t Available hydrochlo rothiazid e 12.5 mg tablet TAKE 1 TABLET BY MOUTH EVERY DAY active Not Available Not Available No t Available Advil PM Take 20 tablets at bedtime 05/05 completed Not Available Not Available Not Available Bystolic 2.5 mg tablet active Not Available Not Available Not Available mesalamin e 800 mg tablet,de layed release TK 1 T PO TID 01/31 completed Not Available Not Available Not Available Probiotic QD 2019 active Not Available Not Available Not Avai lable Viibryd 40 mg tablet active Not Available Not Available Not Available Vitamin D2 1,000 unit capsule Take 2 capsules every day by oral route. 2019 active Not Available Not Available Not Avai lable Victoza 3-Khadar 0.6 mg/0.1 mL (18 mg/3 mL) subcutane ous pen injector ADMINIST ER 1.2 MG UNDER THE SKIN DAILY 06/17 completed Not Available Not Available Not Available Virtussin DAC 30 mg-10 mg-100 mg/5 mL oral syrup 01/28 completed Not Available Not Available Not Available ProAir RespiClic k 90 mcg/actua tion breath activated INHALE 2 PUFFS BY MOUTH EVERY 4 HOURS 09/09 completed Not Available Not Available Not Available ID NOW COVID-19 Test Kit TEST DIRECTED TODAY 11/13 completed Not Available Not Available Not Available Paxlovid 300 mg (150 mg x 2)-100 mg tablets in a dose pack TK 2 NIRMATRE LVIR TS AND 1 RITONAVI R T TOGETHER PO BID FOR 5 DAYS TWICE DAILY FOR 5 DAYS 11/30 completed Not Available Not Available Not Available Vitals Date Recorded Body height Body mass index (BMI) Body weight Body temperature Heart rate Systolic blood pressure Diastolic blood pressure Provider Name and Address Organization Details Last Updated DateTime 3 162.56 cm 43.4 kg/m2 101471. 87 g 97.6 [degF] 65 /min 130 mm[Hg] 82 mm[Hg] Shira Rebolledo [facility] [employer] [facility] 3 10:48:36 Date Recorded Body height Body mass index (BMI) Body weight Body temperature Heart rate Oxygen saturation Oxygen saturation in Arterial blood by Pulse oximetry Systolic blood pressure Diastolic blood pressure Provider Name and Address Organization Details Last Updated DateTime 3 162.56 cm 42.4 kg/m2 291163. 32 g 97.6 [degF] 72 /min 97 % 97 % 132 mm[Hg] 78 mm[Hg] Lucindasteph Vázquez MA [facility] [employer] [facility] 3 09:58:23 Date Recorded Body height Body mass index (BMI) Body weight Body temperature Heart rate Oxygen saturation Oxygen saturation in Arterial blood by Pulse oximetry Systolic blood pressure Diastolic blood pressure Provider Name and Address Organization Details Last Updated DateTime 3 162.56 cm 41.9 kg/m2 324797. 54 g 97.6 [degF] 62 /min 97 % 97 % 126 mm[Hg] 74 mm[Hg] Lucinda [facility]CHANDRA [facility] [employer] [facility] 3 10:09:38 Date Recorded Body height Body mass index (BMI) Body weight Body temperature Heart rate Oxygen saturation Oxygen saturation in Arterial blood by Pulse oximetry Systolic blood pressure Diastolic blood pressure Provider Name and Address Organization Details Last Updated DateTime 3 162.56 cm 41.7 kg/m2 749532. 95 g 97.6 [degF] 82 /min 98 % 98 % 126 mm[Hg] 78 mm[Hg] Lucinda Vázquez [facility] [employer] [facility] 3 10:03:08 Date Recorded Body height Body mass index (BMI) Body weight Body temperature Heart rate Oxygen saturation Oxygen saturation in Arterial blood by Pulse oximetry Systolic blood pressure Diastolic blood pressure Provider Name and Address Organization Details Last Updated DateTime 3 162.56 cm 42.1 kg/m2 450846. 13 g 97.6 [degF] 80 /min 98 % 98 % 128 mm[Hg] 78 mm[Hg] Lucinda Vázquez [facility] [employer] [facility] 3 09:52:53 Social History Question Answer Notes LastModified by Organization Details LastModified Time Tobacco Smoking Status Current Some Day Smoker Not Available [facility] 11/28/2022 02:48:46 Do You Have An Advance Directive? Yes [id number] Information not available 11/28/2022 What Is Your Level Of Alcohol Consumption? None [id number] Information not available 11/28/2022 What Is Your Level Of Caffeine Consumption? Occasional [id number] Information not available 11/28/2022 How Much Tobacco Do You Chew? None MIGRATION.0301 [id number] Information not available 11/28/2022 In The 14 Days Before Symptom Onset, Have You Had Close Contact With A Laboratory-confi rmed COVID-19 While That Case Was Ill? No MIGRATION.0301 [id number] Information not available 11/28/2022 In The 14 Days Before Symptom Onset, Have You Had Close Contact With A Person Who Is Under Investigation For COVID-19 While That Person Was Ill? No MIGRATION.0301 [id number] Information not available 11/28/2022 What Type Of Diet Are You Following? REGULAR MIGRATION.0301 [id number] Information not available 11/28/2022 Which Illicit Or Recreational Drugs Have You Used? None MIGRATION.0301 [id number] Information not available 11/28/2022 Do You Or Have You Ever Used E-cigarettes Or Vape? 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 No MIGRATION.0301 [id number] Information not available 11/28/2022 What Is The Fluoride Status Of Your Home? Unknown MIGRATION.0301 [id number] Information not available 11/28/2022 Are There Any Guns Present In Your Home? Yes MIGRATION.0301 [id number] Information not available 11/28/2022 Do You Use Insect Repellent Routinely? No MIGRATION.0301 [id number] Information not available 11/28/2022 Where Do You Live? [place]House MIGRATION.0301 [id number] Information not available 11/28/2022 What Was The Date Of Your Most Recent Tobacco Screening? 09/16/2023 Information not available 09/16/2023 Do You Have Any Pets? Yes MIGRATION.0301 [id number] Information not available 11/28/2022 Do You Use Your Seat Belt Or Car Seat Routinely? Yes MIGRATION.0301 435603 Information not available 11/28/2022 Do You Have Smoke And Carbon Monoxide Detectors In Your Home? Yes MIGRATION.0301 824763 Information not available 11/28/2022 At What Age Did You Start Smoking Tobacco? 17 MIGRATION.0301 349137 Information not available 11/28/2022 Are You Passively Exposed To Smoke? Yes MIGRATION.0301 217957 Information not available 11/28/2022 Do You Or Have You Ever Used Smokeless Tobacco? Never Used Smokeless Tobacco MIGRATION.0301 855789 Information not available 11/28/2022 Are There Any Smokers In Your House? No MIGRATION.0301 402619 Information not available 11/28/2022 How Much Tobacco Do You Smoke? 1 PPW 2 Or 3 Cigg. A Day MIGRATION.0301 970227 Information not available 11/28/2022 Do You Feel Stressed (tense, Restless, Nervous, Or Anxious, Or Unable To Sleep At Night)? [id number] MIGRATION.0301 788621 Information not available 11/28/2022 Do You Use Sunscreen Routinely? No MIGRATION.0301 573287 Information not available 11/28/2022 Have You Recently Traveled Abroad? No MIGRATION.0301 352139 Information not available 11/28/2022 Do You Have Any Dietary Restrictions? No MIGRATION.0301 799333 Information not available 11/28/2022 Sex: Female Functional Status Question Answer Note LastModified by [employer] Details LastModified Time What is your exercise level? None [id number] Information not available 11/28/2022 Mental Status None recorded. Family History Relationship Description Onset Age of this Age Resolved Age Notes LastModified by Organization Details LastModified Time Mother Heart disease MIGRATION.269 [id number] Not available 11/28/2022 02:51:37 Mother Family history of stroke MIGRATION.813 [id number] Not available 11/28/2022 02:51:37 Mother Acute respiratory distress Deceas ed MIGRATION.882 [id number] Not available 11/28/2022 02:51:37 Paternal Grandmother Heart disease MIGRATION.613 [id number] Not available 11/28/2022 02:51:37 Paternal Grandmother Epilepsy Deceas ed MIGRATION.679 [id number] Not available 11/28/2022 02:51:37 Father Hypertensive disorder MIGRATION.268 [id number] Not available 11/28/2022 02:51:37 Father Malignant tumor of prostate MIGRATION.432 [id number] Not available 11/28/2022 02:51:38 Maternal Grandmother Acute respiratory distress Deceas ed MIGRATION.737 [id number] Not available 11/28/2022 02:51:38 Medical History Condition Response GI PROBLEMS Y BACK / NECK PROBLEMS Y HYPERTENSION Y HIGH CHOLESTEROL / HYPERLIPIDEMIA Y Gynecological History Statement/Question Response Menses Monthly N Abnormal Pap Y Date of Last Pap 02/01/2020 Date of Last Mammogram 01/19/2019 Date of Last Colonoscopy 11/12/2019 Most Recent Bone Density Obstetrics History GPAL:G 2 P 2 0 0 2 Type Value Full Term 2 Living 2 Total 2 Immunizations Vaccine Type Date Status Note Provider Nam e and Address Organization Details Recorded Time Influenza, split virus, quadrivalent, preservative 9 completed Not Available [facility] 03/21/2023 06:55:59 Influenza, split virus, quadrivalent, PF 2 completed Not Available [facility] 03/21/2023 06:55:59 COVID-19 vaccine, vector-nr, rS-Ad26, PF, 0.5 mL 1 completed Not Available [facility] 03/21/2023 06:55:59 Influenza, split virus, trivalent, preservative 6 completed Not Available [facility] 03/21/2023 06:55:59 Influenza, split virus, quadrivalent, PF 1 completed Not Available [facility] 03/21/2023 06:55:59 Influenza, split virus, quadrivalent, PF 0 completed Not Available [facility] 03/21/2023 06:55:59 Influenza, split virus, quadrivalent, PF 9 completed Not Available [facility] 03/21/2023 06:55:59 Influenza, split virus, quadrivalent, PF 7 completed Not Available [facility] 03/21/2023 06:55:59 Td (adult), 5 Lf tetanus toxoid, preservative free, adsorbed 0 completed Not Available [facility] 03/21/2023 06:55:59 Influenza, split virus, quadrivalent, PF 3 completed JASON Ramires [address] [place] [address], [facility] [address], [place], [address], [facility] [employer] [facility] 09/16/2023 10:13:28 Past Encounters Encounter ID Performer Location Encounter Start Date Encounter Closed Date Diagnosis/Indication Diagnosis SNOMED-CT Code Diagnosis ICD10 Code Diagnosis Note [id number] [facility] [place] [address] [address] 12/16/2020 00:00:00 12/16/2020 13:23:02 [id number] [facility] [place] [address] [address] 03/24/2021 00:00:00 03/24/2021 11:48:22 [id number] [facility] [address] [address] 03/31/2021 00:00:00 03/31/2021 13:12:27 [id number] [facility] [address] [address] 05/01/2021 00:00:00 05/01/2021 12:03:43 [id number] [facility] [place] [address] [place] [address] 05/15/2021 00:00:00 05/15/2021 09:11:46 [id number] [facility] [address] [address] 06/30/2021 00:00:00 06/30/2021 15:56:08 [id number] [facility] [address] [address] 08/11/2021 00:00:00 08/11/2021 10:49:09 [id number] [facility] [address] [place] [address] [address] [address] 08/29/2021 00:00:00 08/29/2021 13:45:27 [id number] [facility] [place] [address] [place] [address] 11/13/2021 00:00:00 11/13/2021 09:14:26 [id number] [facility] [place] [address] [place] [address] [address] [address] 12/08/2021 00:00:00 12/08/2021 12:45:21 [id number] [facility] [address] [address] 01/29/2022 00:00:00 01/29/2022 13:09:11 [id number] [facility] [address] [address] 04/30/2022 00:00:00 04/30/2022 10:27:26 [id number] [facility] [place] [address] [place] [address] 05/03/2022 00:00:00 05/03/2022 10:20:24 [id number] [facility] [address] [address] 06/01/2022 00:00:00 06/01/2022 12:24:08 [id number] [facility] [address] [address] 09/10/2022 00:00:00 09/10/2022 12:57:20 [id number] [facility] [address] [address] 10/26/2022 00:00:00 10/26/2022 13:10:30 [id number] Yarely Fischer MD [facility] [place] [address] [place] [address] 11/30/2022 10:31:20 11/30/2022 11:39:27 Prediabetes 700997951 R73.03 a1c of 5.7%- agree with use of victoza if insurance will cover- per patient PCP has been trialing with GLP therapy as she cannot take stimulants due to her cardiac history. Discussed carb counting and how to read food labels. Recommende d patient to utilize the diabetesfo [employer]orderbolt from the ADA website to help with food preparatio n as this presents ideal carb content per meal so this will make carb counting much easier for patient. Recommende d she incorporat e natural insulin resident assistant cna s such as pears, apples, cinnamon, korey and sweet potatoes to help mobilize her endogenous insulin. Recommende d up to 150 minutes of moderate level activity/e xercise weekly. 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 Serum iodine low normal range. Recommende d a thyroid supplement similiar to actalin by Dr. Sheldon Conner that contains, iodine, magnesium, manganese, carnitine and other elements to help maintain endogenous thyroid function and help to reduce swelling to take in meantime to help reduce time frame to burn out and to help with fatigue, hair thinning etc. Weight gain 8301534 R63. 5 Will send for low dose dexa suppressio n testing to screen for hypercorti solic state. Spent up to 25 minutes preparing to see the patient (eg, review of tests), obtaining and/or reviewing separately obtained history, performing a medically appropriat e examinatio n and evaluation , counseling and educating the patient, ordering medication s, tests, along with documentin g clinical informatio n in the electronic health record, independen tly interpreti ng results and communicat ing results to the patient. RTC in 6 months. Patient was provided a handwritte n lab order which contains our fax number. If she chooses to go outside of the [facility] system to obtain labwork she was advised to provide our fax number and my informatio n to the lab she will be obtaining labwork from in order to have her labs properly forwarded over for me to review so there is no loss of follow up due to use of outside network. She was also advised to contact our clinic informing us that she has completed her labwork so we are aware we will need to reach out to the appropriat e laboratory to request her results be forwarded to us so I might have the ability to review and make further medical decision making in her case. She voiced understand ing. [id number] Arianne Doan, RAYMOND-Getachew [facility] [place] [address] [place] [address] [place] [address] 12/10/2022 09:37:12 12/10/2022 10:25:55 Prediabetes 195368482 R73.03 continue diet/exerc ise restart victozapt is aware of side effects, risks, benefitspt denies any personal or family history of MEN II or MTC, denies and personal history of pancreatit ispt knows to call the office if any severe n/v or abdominal pain We discussed that the medication does not work with inconsiste nt dosing. Would recommend she go back to daily dosing and be consistent with this. Recommend she do 0.6 mg daily for 1-2 weeks, if tolerating okay can increase to 1.2 mg daily for 1-2 weeks, if tolerating that okay then can increase to 1.8 mg daily Essential hypertension 62123824 I10 on lisinopril (now on 20mg daily not BID) and coreg, follows cardiology - Dr. Gamble Hyperlipidemia 18730949 E78.5 on atorvastat in trig mildly elevated, continue diet/exerc ise efforts Vitamin D deficiency 347 68684 E55.9 on supplement OTC Total bili higgins above reference range 6038064503 78587 R17 referred back to GI- Dr. Brumfield Ulcerative colitis 85807 004 K51.90 following GI- Dr. Brumfield Major depr essive disorder 600769419 F32.9 on bupropion, she is aware of side effects, risks, benefits call office if any change in mood or behavior she declines psychiatry and/or counseling referral at this time she declines an increase in medication , she plans to start a walking plan to help her with her body image Anxiety 43170119 F41.9 on xanax prn; as aboveadvis ed as of October she will only be able to get 14 pills per month due to new medicaid guidelines no alcohol, driving, or mixing with other sedating meds Tachycardia 9851562 R00. 0 on coreg, follows cardiology - Dr. Gamble Obesity 964632807 E66.9 continue diet/exerc ise measures as above Skin lesion 18885120 L98 .9 follows [facility] derm- has annual skin checks Allergic rhinitis 961358 04 J30.9 on zyrtec, azelastine nasal spray Nicotine dependence 5629 4008 F17.200 congratula heidi pt on recent cessation attempts! Compressio n fracture of lumbar spine 612196614 M48.56XD Has seen neurosurge ry- Dr. Orozco, does not wish to pursue any other interventi on offered pain management referral- she declines Constipation 64450874 K5 9.00 increase fiber, fluids in dieton prn colace Thyroid nodule 014122259 E04.1 following endo- Dr. Thomas thyroid biopsy ordered from them Memory impairment 381095 006 R41.3 s/p carotid doppler- normalhas order from CT brain, encouraged her to schedule (radiologi st would not do MRI due to her having lapband and she does not know if it is MRI compatible )may need neurology referral pending results of testing Mammography abnormal 168 607431 R92.8 we discussed options since she cannot have MRIget appt with breast surgery over at [facility]- Dr. Lara [id number] Arianne Doan, ENTRY LEVEL ACCOUNT REPRESENTATIVE-C [facility] [address] [facility], [place] [address] [place] [address] 03/11/2023 09:37:16 03/11/2023 10:36:27 Prediabetes 815456467 R73.03 continue diet/exerc ise restart victozapt is aware of side effects, risks, benefitspt denies any personal or family history of MEN II or MTC, denies and personal history of pancreatit ispt knows to call the office if any severe n/v or abdominal pain We discussed that the medication does not work with inconsiste nt dosing. Would recommend she go back to daily dosing and be consistent with this. Recommend she do 0.6 mg daily for 1-2 weeks, if tolerating okay can increase to 1.2 mg daily for 1-2 weeks, if tolerating that okay then can increase to 1.8 mg daily Essential hypertension 39427966 I10 on lisinopril (now on 20mg daily not BID) and coreg, follows cardiology - Dr. Gamble Hyperlipidemia 40744995 E78.5 on atorvastat intrig mildly elevated, continue diet/exerc ise efforts Vitamin D deficiency 347 92883 E55.9 on supplement OTC Total bili higgins above reference range 7527498807 26488 R17 did see GI- Dr. Tamez felt this was do to Gilbert's syndrome Ulcerative colitis 03134 004 K51.90 following GI- Dr. Brumfield Major depr essive disorder 709624397 F32.9 on bupropion, she is aware of side effects, risks, benefitsca ll office if any change in mood or behaviorsh e declines psychiatry and/or counseling referral at this time she declines an increase in medication , she plans to start a walking plan to help her with her body image Anxiety 41134119 F41.9 we discussed the need to switch her from something controlled to something safer, she is now down to 14 pills per month so she has been tapered down start hydroxyzin e prn at bedtime, she is aware of side effects, risks, benefits Tachycardia 2681620 R00. 0 on coreg, follows cardiology - Dr. Gamble Obesity 207415214 E66.9 recommend healthy, well balanced mealsfocus on lean meats, fresh vegetables , fresh fruits, whole grainsredu ce fast/proce ssed foods or eating out to no more than 1-2 times per weekaim to get 30 min of exercise most days of the week- walking is a great choicealso recommend resistance training 2-3 times per week Skin lesion 58671208 L98 .9 follows U derm- has annual skin checks Allergic rhinitis 117453 04 J30.9 on zyrtec, azelastine nasal spray Nicotine dependence 5629 4008 F17.200 congratula heidi pt on recent cessation attempts! Compressio n fracture of lumbar spine 087651751 M48.56XD Has seen neurosurge ry- Dr. Orozco, does not wish to pursue any other interventi on offered pain management referral- she declines Constipation 98712313 K5 9.00 increase fiber, fluids in dieton prn colacefoll owing GI as above Thyroid nodule 476621827 E04.1 following endo- Dr. Thomas thyroid biopsy ordered from them Memory impairment 545889 006 R41.3 s/p carotid doppler- normalhas order from CT brain, encouraged her to schedule (radiologi st would not do MRI due to her having lapband and she does not know if it is MRI compatible )may need neurology referral pending results of testing Mammography abnormal 168 252775 R92.8 did see breast surgery over at [facility]- Dr. Jane greene felt she could go back to annual screening mammograms Adult heal th examination 501811560 Z00.01 Depression screening 171 639949 Z13.31 [id number] JASON Ramires [facility] [place] [address] [facility] [place] [address] [place] [address] 06/17/2023 09:55:23 06/17/2023 10:18:33 Prediabetes 041331569 R73.03 continue diet/exerc ise she could not tolerate the side effects of victoza Essential hypertension 59310567 I10 on lisinopril (now on 20mg daily not BID) and coreg, follows cardiology - Dr. Gamble Hyperlipidemia 39313049 E78.5 on atorvastat intrig mildly elevated, continue diet/exerc ise efforts Vitamin D deficiency 347 60021 E55.9 on supplement OTC Total bili higgisn above reference range 4362472578 43409 R17 did see GI- Dr. Tamez felt this was do to Gilbert's syndrome Ulcerative colitis 29434 004 K51.90 following GI- Dr. Brumfield Major depr essive disorder 433058620 F32.9 on bupropion, she is aware of side effects, risks, benefitsca ll office if any change in mood or behaviorsh e declines psychiatry and/or counseling referral at this time Anxiety 01477386 F41.9 we discussed the need to switch her from controlled xanax to something safer, she is now down to 14 pills per month so she has been tapered down on hydroxyzin e prn at bedtime, she is aware of side effects, risks, benefits Tachycardia 2349946 R00. 0 on coreg, follows cardiology - Dr. Gamble Obesity 377295322 E66.9 recommend healthy, well balanced mealsfocus on lean meats, fresh vegetables , fresh fruits, whole grainsredu ce fast/proce ssed foods or eating out to no more than 1-2 times per weekaim to get 30 min of exercise most days of the week- walking is a great choicealso recommend resistance training 2-3 times per week again discussed the importance of regular resistance training as well as dietary protein Skin lesion 36977484 L98 .9 follows [facility] derm- has annual skin checks Allergic rhinitis 658013 04 J30.9 on zyrtec, azelastine nasal spray Nicotine dependence 5629 4008 F17.200 congratula heidi pt on recent cessation attempts! Compressio n fracture of lumbar spine 410394559 M48.56XD Has seen neurosurge ry- Dr. Orozco, does not wish to pursue any other interventi on offered pain management referral and/or physical therapy- she declines Constipation 62101092 K5 9.00 increase fiber, fluids in dieton prn colacefoll owing GI as above Thyroid nodule 078496108 E04.1 following endohas thyroid biopsy ordered from them Memory impairment 317107 006 R41.3 s/p carotid doppler- normalhas order from CT brain, encouraged her to schedule (radiologi st would not do MRI due to her having lapband and she does not know if it is MRI compatible )may need neurology referral pending results of testing Mammography abnormal 168 907977 R92.8 did see breast surgery over at [facility]- Dr. Jane greene felt she could go back to annual screening mammograms , next due 01/2024 [id number] RAYMOND Ramires-Getachew [facility] [place] [address] [facility], [place] [address] [place] [address] 09/16/2023 09:36:03 09/16/2023 10:11:33 Prediabetes 759393563 R73.03 continue diet/exerc ise she could not tolerate the side effects of victoza Essential hypertension 00710412 I10 on lisinopril (now on 20mg daily not BID) and coreg, follows cardiology - Dr. Gamble Hyperlipidemia 68777423 E78.5 on atorvastat intrig mildly elevated, continue diet/exerc ise efforts Vitamin D deficiency 347 59942 E55.9 on supplement OTC Total bili higgins above reference range 8547157788 05836 R17 did see GI- Dr. Tamez felt this was do to Gilbert's syndrome Ulcerative colitis 65079 004 K51.90 following GI- Dr. Brumfield Major depr essive disorder 370925169 F32.9 on bupropion, she is aware of side effects, risks, benefitsca ll office if any change in mood or behaviorsh e declines psychiatry and/or counseling referral at this time Anxiety 92455181 F41.9 we discussed the need to switch her from controlled xanax to something safer, she is now down to 14 pills per month so she has been tapered down on hydroxyzin e prn at bedtime, she is aware of side effects, risks, benefits Tachycardia 5670486 R00. 0 on coreg, follows cardiology - Dr. Gamble Obesity 454030240 E66.9 recommend healthy, well balanced mealsfocus on lean meats, fresh vegetables , fresh fruits, whole grainsredu ce fast/proce ssed foods or eating out to no more than 1-2 times per weekaim to get 30 min of exercise most days of the week- walking is a great choicealso recommend resistance training 2-3 times per week again discussed the importance of regular resistance training as well as dietary protein Skin lesion 06587551 L98 .9 follows [facility] derm- has annual skin checks Allergic rhinitis 298139 04 J30.9 on zyrtec, azelastine nasal spray Nicotine dependence 5629 4008 F17.200 congratula heidi pt on recent cessation attempts! Compressio n fracture of lumbar spine 705868061 M48.56XD Has seen neurosurge ry- Dr. Orozco, does not wish to pursue any other interventi on offered pain management referral and/or physical therapy- she declines Constipation 77030827 K5 9.00 increase fiber, fluids in dieton prn colacefoll owing GI as above Thyroid nodule [id number] E04.1 following endohas thyroid biopsy ordered from them Memory impairment [id number] 006 R41.3 s/p carotid doppler- normals/p CT brainhas been referred to neurology- Dr. Molina Mammography abnormal 168 [id number] R92.8 did see breast surgery over at [facility]- Dr. Jane greene felt she could go back to annual screening mammograms , next due 01/2024 Renewal of prescription [id number] Z76.0 Administra tion of influenza vaccine [id number] Z23 Health Concerns Section Related Observation LastModified by Organization Detai ls LastModified Time None Recorded Concern Status LastModified by Organization Details LastModified Time None Recorded Advance Directives Directive Y: Payers Encounter Date Sequence Insurance Name Policy Number Policy Nava Covered Member ID Nava Member ID Guarantor Name 11/30/2022 1 [facility] - DOS ON OR AFTER 21 (MEDICAID REPLACEMENT - HMO) Rachael L Schmieg [id number] Rachael L Schmieg 12/10/2022 1 [facility] - [facility] ON OR AFTER 03/30/21 (MEDICAID REPLACEMENT - HMO) Rachael L Schmieg [id number] Rachael L Schmieg 03/11/2023 1 [facility] ON OR AFTER 03/30/21 (MEDICAID REPLACEMENT - HMO) Rachael L Schmieg [id number] Rachael L Schmieg 06/17/2023 1 [facility] ON OR AFTER 03/30/21 (MEDICAID REPLACEMENT - HMO) Rachael L Schmieg [id number] Rachael L Schmieg 09/16/2023 1 [facility] ON OR AFTER 03/30/21 (MEDICAID REPLACEMENT - HMO) Rachael Magaña Schmieg [id number] Rachael Magaña Schmieg Notes Date Note Type Note Provider Name and Address Organization Details Recorded Time 11/30/2022 text/html 62 yo female com es in for follow up in management of thyroid nodule and impaired fasting glucose last seen one year ago, continued natural insulin sensitizers and thyroid support. thyroid u/s from 10/22:The thyroid parenchyma is heterogeneous demonstrate a stable 1.8 x1.7 x 1.3 cm solid nodule within the inferior aspect of the right thyroidlobe, circumscribed, wider than tall, mixed echogenic without calcification. heterogeneous gland She was given victoza injections by her PCP but only took for 3 days- she will reconsider restarting due to weight gain and hx of prediabetes. She does notice more fullness/pressure in her thyroid gland but no trouble swallowing or discomfort. labs from 10/22:glucose 86 mg/dLCr normalLFT [id number]/183/37/13 1TSH of 0.744 uIU/mlFT4 of 1.2 ng/dLFT3 of 3.7 pg/mlTPO nega1c 5.7%insulin 22.6 uU/mliodine 48.8 uU/mlB12 /folate high normal Yarely Fischer MD [address] [facility], [facility] [address], [place], [address], [facility] [employer] 11/30/2022 11:21:53 12/10/2022 text/html Rachael presents today for follow-up. last appointment, she complained of some memory issues. We had ordered her a carotid Doppler and an MRI of her head. She did have the carotid Doppler done which was normal. She was not able to get the MRI of her brain done because she is unsure the type of lap band she has in place. I did order her a CT of the brain, but she has not yet done that. She tells me that the memory issues are about the same from a high last saw her and not worse. She denies any headache or presyncope or syncope. She did have her repeat breast ultrasound done last week, there is still some asymmetry noted, radiologist is recommending breast MRI, but she cannot have MRI for above reasons. I did speak with her about the possibility of seeing a breast surgeon for a 2nd opinion, she does wish to pursue this option. She reports she has been having continued issues with pain since she had her implants removed. Denies any redness or drainage. She has been having more stress lately, her brother has been hospitalized with complications after back surgery. She is anxious but does not want to increase her anxiety medications at this time. She denies any SI or HI today. She did see Dr. Fischer regarding the thyroid. Dr. Fischer has ordered her to have a thyroid biopsy. She is working on getting that set up. Dr. Fischer did agree with her being on the Victoza. She still has not started that yet. She tells me she does have the medication at home. On her last labs, she did have a persistent elevated total bilirubin. We did refer her back to her GI doctor, Dr. Romero. She reports they have called her but she just needs to call them back to set up an appointment. They are also planning on scheduling her for her colonoscopy, he just needs to call them back on that as well. Arianne Doan, ENTRY LEVEL ACCOUNT REPRESENTATIVE-C [address] [facility], [facility] [address], [place], [address], [facility] [employer] 12/10/2022 13:02:47 03/11/2023 text/html Rachael presents today for follow-up. She is also due for her annual wellness exam. She reports she did see the breast surgeon who felt like she did not need any sort of biopsy and that a lot of her issues were just scarring from surgery. They recommended that she only have her mammograms done at [facility] going forward. She did see her GI, Dr. Romero. He feels she has Gilbert's disease which explains the bilirubin. He did repeat her colonoscopy in January and she does not have to go back for 5 years. She still has not made her appointment with the neurologist. She is not sure she is going to get that done. She has been working on getting some more physical activity. She has been walking every day. She still has not started the Victoza, but she tells me she plans to this week. She reports her depression is well controlled on the Wellbutrin, however she is still having some anxiety at night, she is taking xanax prn, but insurance will now only cover 14 per month. She does not want to go up on her Wellbutrin dose. She denies any SI or HI today. JASON Ramires [address], [address] [address], [place], [address], [employer] 03/11/2023 11:49:13 06/17/2023 text/html Rachael presents today for follow up. She reports she decided to stop the Victoza as it was causing too much nausea for her. We had previously talked about tracking nutrition, increasing protein in her diet, and getting some weight training in. She has been trying to walk on the treadmill but has not been doing any of the above. She reports she is feeling better since starting to walk more. She reports her mood is well controlled on her current mood meds. She denies any SI or HI today. She continues to refuse any physical therapy or pain management referrals for her compression fracture. She reports the pain is minimal and that she is not a fan of physical therapy. She denies any bladder bowel changes, denies any saddle paresthesias, denies any numbness or tingling into the extremities. She did get her well-woman scheduled and that is scheduled for a few weeks from now. JASON Ramires [address], [place], [address], [employer] 07/05/2023 11:26:13 09/16/2023 text/html Rachael presents today for follow up. She reports she recently moved into a new town house with stairs. She had noticed herself a little more short of breath recently. She reports she thought that was just due to her moving in dealing with getting use to having stairs. She reports that she is now back to baseline. She had tried to fill an albuterol inhaler that was old but her insurance denied it. She tells me she does not feel like she needs an albuterol inhaler at this time as the symptoms have resolved. She reports mood is stable on her current dose of meds. She denies any SI or HI today. Insomnia stable on the hydroxyzine. She is requesting to get her flu shot today. She needs her labs done. She still needs to get to the area field manager for her well-woman exam. Arianne Doan, RAYMOND-C [address] [facility], [facility] [address], [place], [address], [place] [facility] 09/16/2023 10:14:07 OBGyn Episode No OBEpisode recorded.
--- OUTSIDE RECORDS SUMMARY | 2025-01-07 18:55 | XMS_ITS | Encounter Summary ---
Author Organization [facility] Address [address] [place] [address] Care Team Providers Care Farm Worker Name Role Phone Unavailable Primary Care Provider Unavailabl e Encounter Details Date Type Department Care Team (Late st Contact Info) Description 03/19/2018 Abstract [facility] CONVERSION [address] [place], [place] [id number] , Generic Conversion, Social History Tobacco Use [...]
--- OUTSIDE RECORDS SUMMARY | 2025-01-07 18:55 | XMS_ITS | Clinical Summary ---
Author Organization [facility] Address [facility] [place] [address] Care Team Providers Care Route Aide Name Role Phone Rambo Sampson MD Primary Care Provider + [phone] Allergies Active Allergy Reactions Criticality Noted Date [...] AFib ablation 42 Irreducible incisional hernia 04/18/2016 Surgical History Surgery Date Site/Laterality Comments LAPAROSCOPIC GASTRIC BANDING 09/30/2004 - 09/29/2005 OOPHORECTOMY 09/30/2004 - 09/29/2005 GALLBLADDER SURGERY 09/30/1979 - 09/29/1980 COLON SURGERY 09/30/2002 - 09/29/2003 LAPAROSCOPIC COLON RESECTION 09/30/2003 - 09/29/2004 Medical History Medical History Date Comments High blood pressure Heart disease Depression Overweight Thyroid disorder Osteoporosis Arthritis Allergic rhinitis Irritable bowel syndrome Ulcerative colitis (HCC) also di verticulitis Chronic pain disorder bad back Family History Medical History Relation Name Comments Hypertension Father Family history of hypertension - (Added by TW Conv) Prostate cancer Father Pancreatic cancer Father's Sister 1 Breast cancer Father's Sister 2 Heart disease Mother Family history of cardiac disorder - (Added by TW Conv) Colon cancer Mother's Brother Colon cancer Paternal Grandfather Breast cancer Paternal Grandmother Relation Name Status Comments Father Father's Sister 1 Father's Sister 2 Other Mother Mother's Brother Paternal Grandfather Paternal Grandmother Social History Tobacco [...] on file 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 Gender Identity Not on file Sexual Orientation Not on file Obstetrics History Last Filed Vital Signs Vital Sign Reading [...] 02/11/2023 8:07 AM CDT Plan of Treatment Health Maintenance Due Date Last Done Comments Cervical Cancer Screening 1962 Colon Cancer Screening-Colonoscopy 1962 Depression Screening 1962 Hepatitis C Screening 1962 Hepatitis B Screening 1980 Regular Well Visit/Exam 18-64 1980 Zoster Vaccine (1 of 2) 2012 Covid-19 Vaccine (2 - season) 2024 12/05/2020, 12/05/2020 Influenza Vaccine (#1) 2024 , 07/30/2022, 07/02/2022, Additional history exists Breast Cancer Screening-Mammogram 02/12/2025 02/13/2024, 02/11/2023, 06/23/2022 DTaP/Tdap/Td Vaccine (3 - Td or Tdap) 04/25/2030 04/25/2020, 03/27/2015 Pneumococcal vaccine <65 Aged Out No longer eligible based on [...] compared to prior imaging studies performed at [facility] on 02/11/2023, and at [facility]. [place], [place] on 04/21/2021 and 06/22/2022. The breasts [...] compared to prior imaging studies performed at [facility] on 02/11/2023, and at [place], [place] on 04/21/2021 and 06/22/2022. The [...] Relevant to Health Maintenance Insurance Care Teams Route Aide Relationship Specialty Start Date End Date Rambo Sampson MD PCP - General Internal Medicine 01/21/24
--- OUTSIDE RECORDS SUMMARY | 2025-01-07 18:55 | XMS_ITS | Clinical Summary ---
Author Organization [facility] Address [address] 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
--- OUTSIDE RECORDS SUMMARY | 2025-01-07 18:55 | XMS_ITS | Encounter Summary ---
Author Organization [facility] Address 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 [address] [place] [address] [email or web address] Cardiac Catheterization Comprehensive Report Patient: Rachael Mcbride Study ID: [id number] Gender: F : 1960 Age: 47 years Race: 1 Room: Bed: Height: 67 in ( 170.2 cm ) Study Date: April 20, 2008 Patient status: Outpatient Weight: 212.1 lb ( 96.4 kg ) Access. #: [id number] POC: Attending MD: Jerome Performing MD: Jerome Indications and History: INDICATIONS: Atypical anginal pain. PRIOR DIAGNOSTIC TEST RESULTS: Previous pharmacologic nuclear stress test was positive. Procedure(s) Performed: DIAGNOSTIC PROCEDURES: Left heart catheterization. Left ventriculography. Selective coronary angiography. Study Conclusions: SUMMARY - Global left ventricular function was normal. EF estimated by contrast ventriculography was 60 %. - There was no angiographic evidence for coronary artery disease. RECOMMENDATIONS There is no evidence of obstruction to explain the reported symptoms; the stress test appears to be a false positive. The patient's chest discomfort does not appear due to obstructive coronary artery disease. The etiology of the patient's discomfort is still not clear. Following bedrest and subsequent ambulation, the patient will be discharged if feeling well. The patient has been instructed to follow-up with you (the referring physician) in the near future. COMPLICATIONS: There were no complications. Description of Procedure: BACKGROUND INFORMATION: The procedures, together with their attendant risks and alternatives, and conscious sedation were explained to the patient and informed consent was obtained. Contrast ( Optiray, 125 ml ) was administered during the procedure. The patient was given 50.000 mL (IV) IV Solutions. The patient was given 3.000 l/min OXYGEN. The patient was given 2.000 mg VERSED (IVP). NARRATIVE: - Right femoral artery access. Cardiac structures: VENTRICULOGRAPHY: There were no left ventricular regional wall motion abnormalities. Global left ventricular function was normal. EF estimated by contrast ventriculography was 60 %. Coronary and graft angiography: The coronary circulation is right dominant. IMPRESSIONS: There was no angiographic evidence for coronary artery disease. Condition1: --- Pressure mmHg Rate dPdt AO 121-S/ 69-D, 89-M 67 BPM LV 136-S/ -1-BD, 13-ED 63 BPM 1400 PBa 133-S/ 73-D, 97-M 71 BPM PBv 138-S/ 0-BD, 16-ED 64 BPM 1260 Prepared and Electronically Authenticated Sheldon Tavares MD Confirmed April 20, 2008 11:29:13 Procedure Note Provider, Historical - 04/22/2008 [address] [address] [place] [address] [email or web address] Cardiac Catheterization Comprehensive Report Patient: Rachael Mcbride Study ID: [id number] Gender: F : 1960 Age: 47 years Race: 1 Room: Bed: Height: 67 in ( 170.2 cm ) Study Date: April 20, 2008 Patient status: Outpatient Weight: 212.1 lb ( 96.4 kg ) Access. #: [id number] POC: Attending MD: Jerome Mauricio MD: Jerome Indications and History: INDICATIONS: Atypical anginal pain. PRIOR DIAGNOSTIC TEST RESULTS: Previous pharmacologic nuclear stress test was positive. Procedure(s) Performed: DIAGNOSTIC PROCEDURES: Left heart catheterization. Left ventriculography. Selective coronary angiography. Study Conclusions: SUMMARY - Global left ventricular function was normal. EF estimated by contrast ventriculography was 60 %. - There was no angiographic evidence for coronary artery disease. RECOMMENDATIONS There is no evidence of obstruction to explain the reported symptoms;the stress test appears to be a false positive. The patient's chestdiscomfort does not appear due to obstructive coronary artery disease. The etiologyof the patient's discomfort is still not clear. Following bedrest and subsequent ambulation, the patient will be discharged if feeling well.The patient has been instructed to follow-up with you (the referringphysician) in the near future. COMPLICATIONS: There were no complications. Description of Procedure: BACKGROUND INFORMATION: The procedures, together with their attendant risks and alternatives,and conscious sedation were explained to the patient and informed consentwas obtained. Contrast ( Optiray, 125 ml ) was administered during the procedure. The patient was given 50.000 mL (IV) IV Solutions. Thepatient was given 3.000 l/min OXYGEN. The patient was given 2.000 mg VERSED(IVP). NARRATIVE: - Right femoral artery access. Cardiac structures: VENTRICULOGRAPHY: There were no left ventricular regional wall motion abnormalities.Global left ventricular function was normal. EF estimated by contrast ventriculography was 60 %. Coronary and graft angiography: The coronary circulation is right dominant. IMPRESSIONS: There was no angiographic evidence for coronary artery disease. Condition1: --- Pressure mmHg Rate dPdt AO 121-S/ 69-D, 89-M 67 BPM LV 136-S/ -1-BD, 13-ED 63 BPM 1400 PBa 133-S/ 73-D, 97-M 71 BPM PBv 138-S/ 0-BD, 16-ED 64 BPM 1260 Prepared and Electronically Authenticated Sheldon Tavares MD Confirmed April 20, 2008 11:29:13 Sheldon Tavares MD FLUOROSCOPY ORDERABLES Final Result INTERFACE SYSTEM Refer to clinic/hospital department * CL CORONARY ANGIOGRAM (04/20/2008 11:39 AM CDT) Narrative INTERFACE SYSTEM - 04/20/2008 11:39 AM CDT [address] [place] [address]~ [email or web address]~~ ----- -------~Cardiac Catheterization Comprehensive Report~~Patient: Rachael Mcbride~ ~Study ID: [id number]~Gender: F~: 1960~Age: 47 years~Race: 1~Room:~Bed:~Height: 67 in ( 170.2 cm )~Study Date: April 20, 2008~Patient status: Outpatient~Weight: 212.1 lb ( 96.4 kg )~Access. #: [id number]~POC:~ ~~Attending MD: Jerome~Performing MD: Jerome~~ ----- --~~Indications and History:~~INDICATIONS:~Atypical anginal pain.~~PRIOR DIAGNOSTIC TEST RESULTS:~Previous pharmacologic nuclear stress test was positive.~~ -~~Pr ocedure(s) Performed:~~DIAGNOSTIC PROCEDURES:~Left heart catheterization. Left ventriculography. Selective coronary~angiography.~~ ----- --------~~Study Conclusions:~~SUMMARY~- Global left ventricular function was normal. EF estimated by contrast~ventriculography was 60 %.~- There was no angiographic evidence for coronary artery disease.~~RECOMMENDATIONS~~There is no evidence of obstruction to explain the reported symptoms; the~stress test appears to be a false positive. The patient's chest discomfort~does not appear due to obstructive coronary artery disease. The etiology of~the patient's discomfort is still not clear. Following bedrest and~subsequent ambulation, the patient will be discharged if feeling well. The~patient has been instructed to follow-up with you (the referring physician)~in the near future.~~COMPLICATIONS:~~There were no complications.~~ ----- -~~Description of Procedure:~~BACKGROUND INFORMATION:~The procedures, together with their attendant risks and alternatives, and~conscious sedation were explained to the patient and informed consent was~obtained. Contrast ( Optiray, 125 ml ) was administered during the~procedure. The patient was given 50.000 mL (IV) IV Solutions. The patient~was given 3.000 l/min OXYGEN. The patient was given 2.000 mg VERSED (IVP).~~NARRATIVE:~- Right femoral artery access.~~ ~ ~Card iac structures:~~VENTRICULOGRAPHY:~There were no left ventricular regional wall motion abnormalities. Global~left ventricular function was normal. EF estimated by contrast~ventriculography was 60 %.~~ ~~Courtney nary and graft angiography:~~The coronary circulation is right dominant.~~IMPRESSIONS:~There was no angiographic evidence for coronary artery disease.~~ ~~Con dition1:~--- Pressure mmHg Rate dPdt~AO 121-S/ 69-D, 89-M 67 BPM~LV 136-S/ -1-BD, 13-ED 63 BPM 1400~PBa 133-S/ 73-D, 97-M 71 BPM~PBv 138-S/ 0-BD, 16-ED 64 BPM 1260~~ ~~-- ----- ~~Prepared and Electronically Authenticated~~Sheldon Tavares MD~Confirmed April 20, 2008 11:29:13~ Procedure Note Provider, Historical - 04/20/2008 [address] [place]~ [email or web address]~~ ----- -------~Cardiac Catheterization Comprehensive Report~~Patient: Rachael Mcbride~ ~Study ID: [id number]~Gender: F~: 1960~Age:47 years~Race: 1~Room:~Bed:~Height: 67 in ( 170.2 cm )~Study Date: 2007~Patient status: Outpatient~Weight: 212.1 lb ( 96.4 kg )~Access. #:[id number]~POC:~ ~~Attending MD: Jerome~Performing MD: Jerome~~ ----- --~~Indications and History:~~INDICATIONS:~Atypical anginal pain.~~PRIOR DIAGNOSTIC TESTRESULTS:~Previous pharmacologic nuclear stress test was positive.~~ -~~Pr ocedure(s) Performed:~~DIAGNOSTIC PROCEDURES:~Left heart catheterization. Leftventriculography. Selective coronary~angiography.~~ ----- --------~~Study Conclusions:~~SUMMARY~- Global left ventricular function was normal. EFestimated by contrast~ventriculography was 60 %.~- There was no angiographic evidencefor coronary artery disease.~~RECOMMENDATIONS~~There is no evidence of obstruction to explainthe reported symptoms; the~stress test appears to be a false positive. The patient's chestdiscomfort~does not appear due to obstructive coronary artery disease. The etiology of~the patient'sdiscomfort is still not clear. Following bedrest and~subsequent ambulation, the patient will bedischarged if feeling well. The~patient has been instructed to follow-up with you (the referring physician)~in thenear future.~~COMPLICATIONS:~~There were no complications.~~ ----- -~~Description of Procedure:~~BACKGROUND INFORMATION:~The procedures, together with theirattendant risks and alternatives, and~conscious sedation were explained to the patient and informed consentwas~obtained. Contrast ( Optiray, 125 ml ) was administered during the~procedure. The patient wasgiven 50.000 mL (IV) IV Solutions. The patient~was given 3.000 l/min OXYGEN. The patient was given2.000 mg VERSED (IVP).~~NARRATIVE:~- Right femoral artery access.~~ ~ ~Card iac structures:~~VENTRICULOGRAPHY:~There were no left ventricular regionalwall motion abnormalities. Global~left ventricular function was normal. EF estimated bycontrast~ventriculography was 60 %.~~ ~~Courtney nary and graft angiography:~~The coronary circulation is rightdominant.~~IMPRESSIONS:~There was no angiographic evidence for coronary artery disease.~~ ~~Con dition1:~--- Pressure mmHg Rate dPdt~AO 121-S/ 69-D, 89-M 67 BPM~IT707-I/ -1-BD, 13-ED 63 BPM 1400~PBa 133-S/ 73-D, 97-M 71 BPM~PBv 138-S/ 0-BD, 16-ED 64 BPM 1260~~ ~~-- ----- ~~Prepared and ElectronicallyAuthenticated~~Sheldon Tavares MD~Confirmed April 20, 2008 11:29:13~ Result [facility] Sheldon Tavares MD FLUOROSCOPY ORDERABLES Final Result INTERFACE SYSTEM Refer to clinic/hospital department documented in this encounter Visit Diagnoses Diagnosis Syncope and collapse documented in this encounter
[2025-01-07 19:35] VITALS: BP 133/75; PULSE 80; RESP 18; TEMP 36.5; O2SAT 97
--- OUTSIDE RECORDS SUMMARY | 2025-01-08 01:59 | XMS_ITS | CONTINUITY OF CARE DOCUMENT ---
Author Name katie wilson Address Unknown Organization [facility] Address [address] [place] [address] Phone [phone] Care Team Providers Care Rewinder Operator Helper Name Role Phone Jordyn ZAPIEN, Roland Carrion Unavailable [phone] GIULIANO ZAPIEN, CARROLL Chilel Unavailable CARROLL SAMPSON MD Unavailable PROBLEMS Condition Status Date Provider Notes Hypertension active Betty Gamble MD Chest pain, inferior wall ischemia on stress test, cath 03/2018 nl coronaries active Betty Gamble MD Cardiac cat h ~10 years ago [...] Betty Gamble MD SARS-associated coronavirus active Roland oCbb MD Anxiety active Roland soni MD Venous [...] In-person encounter Office Visit Roland Cobb MD [facility] DizzinessHeadache - In-person encounter Office Visit Roland Cobb MD [facility] Cardiology examination - In-person encounter Office Visit Roland Cobb MD [facility] - In-person encounter Office Visit Roland Cobb MD [facility] - In-person encounter Office Visit Roland Cobb MD [facility] Elevated bilirubin - In-person encounter Office Visit Roland Cobb MD [facility] - In-person encounter Office Visit Roland Cobb MD [facility] - In-person encounter Office Visit Roland Cobb MD [facility] Venous insufficiencyPersonal history of COVID-19Preoperative cardiovascular evaluation - In-person encounter Office Visit Roland Cobb MD [facility] Anxiety - In-person encounter Office Visit Roland Cobb MD [facility] SARS-associated coronavirus - In-person encounter Office Visit Denis Hill MD [facility] - In-person encounter Office Visit Betty Gamble MD [facility] - In-person encounter Office Visit Betty Gamble MD [facility] - In-person encounter Office Visit Betty Gamble MD [facility] - In-person encounter Office Visit Betty Gamble MD [facility] - In-person encounter Office Visit Betty Gamble MD [facility] - In-person encounter Office Visit Betty Gamble MD [facility] - In-person encounter Office Visit Betty Gamble MD [facility] Chest pain, inferior wall ischemia on stress test, cath 03/2018 nl coronaries - In-person encounter Office Visit Betty Gamble MD [facility] Chest pain, inferior wall ischemia on stress test, cath 03/2018 nl coronaries - In-person encounter Office Visit Betty Gamble MD [facility] HypertensionChest pain, inferior wall ischemia on [...] Donahue blood pressure, diastolic 86 mm[Hg] Ta dvaid [place] blood pressure, systolic 112 mm[Hg] Tab omida [place] pulse rate 87 /min Marianne [place] oxygen saturation, oximetry 99 % Marianne [place] weight E&M 251 [lb_av] Marianne [place] respiratory rate E&M 12 /min [facility] E&M 66 [in_i] [facility] Body Mass Index (Ratio) 40.02 kg/m2 Hazel Cobb MD blood pressure, diastolic 93 mm[Hg] [facility] blood pressure, systolic 127 mm[Hg] [facility] pulse rate 61 /min [facility] blood pressure, cuff size regular [facility] blood pressure, diastolic 93 mm[Hg] [facility] blood pressure, systolic 127 mm[Hg] [facility] 98 % [facility] respiratory rate E&M 14 /min Rachelle chanel weight E&M 248 [lb_av] [facility] height E&M 66 [in_i] [facility] Body Mass Index (Ratio) 39.70 kg/m2 Jeannette Schneiderinari blood pressure, diastolic 89 mm[Hg] Li [facility] blood pressure, systolic 152 mm[Hg] Agata [facility] blood pressure, cuff size large Ja rret blood pressure, diastolic 89 mm[Hg] Ja rret blood pressure, systolic 152 mm[Hg] Jar ret pulse rate 64 /min Kaveh y oxygen saturation, oximetry 96 % Kaveh respiratory rate E&M 12 /min Kaveh weight E&M 246 [lb_av] Kaveh y height E&M 66 [in_i] Kaveh y Body Mass Index (Ratio) 40.35 kg/m2 Hazel Cobb MD blood pressure, diastolic 94 mm[Hg] Li [facility] blood pressure, systolic 148 mm[Hg] Agata [facility]Logic blood pressure, diastolic 94 mm[Hg] Ene robbins [place] blood pressure, systolic 148 mm[Hg] Olivier helayan [place] oxygen saturation, oximetry 94 % Dorothy Granados [...] ri Griffinnebere oxygen saturation, oximetry 98 % Alena Grantonianenfcarloser respiratory rate E&M 16 /min Alena [...] Alena kennedy pulse rate 63 /min Alena Cole lder weight E&M 252 [lb_av] Alena Cole [...] cullen respiratory rate E&M 18 /min Triston Urbina weight E&M 253 [lb_av] Alex cullen height [...] santi [place] oxygen saturation, oximetry 97 % [place] respiratory rate E&M 16 /min Baldemar [place] pulse rate 56 /min [place] weight E&M 243 [lb_av] Baldemar [place] [...] height in centimeters E&M 167.64 cm Da [facility] Body Mass Index (Ratio) 40.99 kg/m2 Chi Gamble MD blood pressure, cuff size large Ke rri Rodneyeldangela blood pressure, diastolic 100 mm[Hg] Ke rri Brianuenenfelder blood pressure, systolic 150 mm[Hg] Dale ri Rodneygurwinder oxygen saturation, oximetry 97 % Alena Rodneycarloser respiratory rate E&M 20 /min Alena G ruenenfelder pulse rate 65 /min Alena Douglas [facility] weight E&M 254 [lb_av] Alena Rodneye er height E&M 66 [in_i] Alena Rodneye [facility] Body Mass Index (Ratio) 41.64 kg/m2 Chi [...] 3.5-5.2 3 sodium, serum 141 mmol/L [facility] 494-717 7459/10/2 3 urea nitrogen/creatinine ratio, serum 12 [facility] [...] High 3 cholesterol, serum 166 mg/dL [facility] 383-155 4402/07/0 3 calcium, serum 10.1 mg/dL [facility] 8.7-10.2 3 carbon dioxide, venous blood 26 mmol/L [facility] 20-29 3 chloride, serum 102 mmol/L [facility] 96-106 3 potassium, serum 4.3 mmol/L [facility] 3.5-5.2 3 sodium, serum 142 mmol/L [facility] 307-232 8532/07/0 3 urea nitrogen/creatinine ratio, serum 14 [facility] [...] Estab. 3 platelet count 302 X10E3/UL [facility] 382-093 4771/07/0 3 red blood cell distribution width 13.9 [...] TABLET BY MOUTH EVERY DAY - 10/05 Sadia ANDRADE nifedipine 30 mg tablet extended release [...] by mouth twice a day - 01/01 [facility] SOCIAL HISTORY Date Observation Value Provider drug use no Roland soni MD alcohol use no Roland soni MD number of years as a smoker 30 a Roland Cobb MD smoking history, tot al pack/day 0.25 Roland Cobb MD cigarette use yes Roland gentile MD smoking status Current every da y smoker Roland Cobb MD drug use no [facility] alcohol use no [facility] number of years as a smoker [address] [facility] smoking history, tot al pack/day 0.25 [facility] cigarette use yes [facility] smoking status Current every da y smoker [facility] social history reviewed E&M revi ewed - [...] drug use no Sadia Ventimig jose raul [facility] alcohol use no Sadia Ventimig jose raul [facility] smoking status Current every da y smoker Alena yWnne number of years as a smoker 30 [...] years as a smoker 30 a Razia Rodas smoking history, tot al pack/day 0.25 Razia [...] pack/day 0.25 Dustin Boyd cigarette use yes [facility] smoking status [facility] social history reviewed E&M revi ewed [...] Policy type / Coverage type Louise red green party ID [place] MEDICAID (2) Medicaid [id number] ADVANCE DIRECTIVES Name Date DISCUSSED - NO DECISION MADE TREATMENT PLAN Date Name Performer [id number],C, No NIHARIKA noted Roland Cobb MD [id number],C,r are cigarette C essation encouarged. patient has cut back. Roland Cobb MD [id number],C, H ad recent labs per PCP. will obtain. Remains on statin H er updated medication list for this problem includes: Atorvastatin 40 Mg Tablet (Atorvastatin) ..... 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 Brumfield was told that she has Spruce [place] disease. No further recommendations. Roland Cobb MD [id number],C, H ad recent labs per PCP. will obtain. Remains on statin H er updated medication list for this problem includes: Atorvastatin 40 Mg Tablet (Atorvastatin) ..... 1 tablet once a day Roland Cobb MD [id number],C, L ast BP was 145/90 B P [...] with 2.25mg BID Coreg. Roland Cobb MD [id number],C,l ifestyle modification encouarged. Sadiapablito Vega [facility] [id number],C,C essation encouarged. patient has cut back. Sadia Vega [facility] [id number],C,H ad recent labs per PCP. will obtain. Remains on statin H er updated medication list for this problem includes: Atorvastatin 40 Mg Tablet (Atorvastatin) ..... 1 tablet once a day Sadia Vega [facility] [id number],C,L ast BP was 145/90 B P today [...] mouth once a day Orders: E KG (CPT-88045) 9 9214 MOD 30-39min (CPT-64159) C OMPREHENSIVE METABOLIC PANEL, W/EGFR (96541) Sadia Ventimiglia [facility] [id number],C, A SSESSMENT AND PLAN: 1 . Normal coronary arteries. 2 . False-positive stress test with inferior wall ischemia. We will optimize patient?s medications. Roland Cobb MD [id number],C, Roland Cobb MD [id number],S, No NIHARIKA noted Roland Cobb MD [id number],S,. O k to reduce BP meds. Try [...] mouth once a day Roland Cobb MD [id number],S,S he is scheduled to have breast surgery left side at [facility]. U kathy review of invasive and noninvasive [...] No significant valvular abnormalities. Roland Cobb MD [id number],Roland [place] [id number],Getachew A SSESSMENT AND PLAN: 1 . Normal coronary arteries. 2 . False-positive stress test with inferior wall ischemia. We will optimize patient?s medications. Roland Cobb MD [id number],Orlandoh ad covid july got regenron monoclonal antibodies. also has been vaccinated x2 J&J Roland Cobb MD [id number],S, s leep study pending N o NIHARIKA noted Roland Cobb MD [id number],C,d one in 2001 Lost 85lbs over time regained 40. Net 40lb benefit Roland Cobb MD [id number],Sudheer Chilel 12/04/21 CONCLUSIONS: 1 . No evidence of a deep vein thrombosis of the lower extremities bilaterally. 2 . Significant venous insufficiency of the great saphenous vein bilaterally. Roland Cobb MD [id number],Getachew H er updated medication list for this [...] (07/22/2021) HDL: 48 (07/22/2021) Roland Cobb MD [id number],C, v accianted ELODIA Cobb MD [id number],S, Roland mcgarry MD [id number],C,sleep study p ending Roland Cobb MD [id number],C,A SSESSMENT AND PLAN: 1 . Normal coronary arteries. 2 . False-positive stress test with inferior wall ischemia. We will optimize patient?s medications. Roland Cobb MD [id number],S, Roland mcgarry MD [id number],GetachewR kendellwed home BPs, pressures are elevated in the mornings as she wakes up, but there is BP improvement overall due to taking Nifedipine. Roland Cobb MD [id number],S,vaccianted ELODIA Cobb MD [id number],S, B P today: 176/100 P rior BP: 162/102 (06/21/2021) Labs Reviewed: C reat: 0.86 (04/01/2018) C hol: 166 (04/01/2018) HDL: 41 (04/01/2018) n ot taking hctz gabrielle has high sodium in diet w ill add procardia xl 30 and see how it affects the BP Roland Cobb MD [id number],S, Britni maharaj [id number],S, Britni maharaj [id number],S, Britni maharaj [id number],C,N o CP H er updated medication list for this problem includes: Carvedilol 12.5 Mg Tablet (Carvedilol) ..... Take 1 tablet by mouth twice a day Lisinopril 20 Mg Tablet (Lisinopril) ..... 1 tablet twice a day Aspirin 81 Mg Tablet,delayed Release (dr/ec) (Aspirin) ..... 1 tablet by mouth once a day Britni Walton [id number],C, H er updated medication list for this problem includes: Atorvastatin 40 Mg Tablet (Atorvastatin) ..... 1 tablet once a day Britni Walton [id number],C,R ecently BP is elevated. Also noted some [...] by mouth once a day Britni Walton [id number],BBetty MD [id number],SBetty MD [id number],SBetty MD [id number],W, Betty Gamble MD [id number],SBetty MD Cardiology: S topped She had calcium [...] Candi Brumfield was told that she has Sp[place] disease. No further recommendations. Roland Cobb MD [...] MD Cardiology:lifestyle modificatio n encouarged. Sadiapablito Vega [facility] Cardiology:Cessation encouarged. patient has cut back. Sadiapablito Vega [facility] Cardiology:Had recen t labs per PCP. will obtain. Remains on statin H er updated medication list for this problem includes: Atorvastatin 40 Mg Tablet (Atorvastatin) ..... 1 tablet once a day Sadia Vega [facility] Cardiology:Last BP w as 145/90 B P [...] mouth once a day Orders: E KG (CPT-94109) 9 9214 MOD 30-39min (CPT-13555) C OMPREHENSIVE METABOLIC PANEL, W/EGFR (30805) Sadia Vega [facility] Cardiology: A SSESSMENT AND PLAN: 1 . [...] to have breast surgery left side at [facility]. U kathy review of invasive and noninvasive [...] louie ZAPIEN Cardiology follow up Toniya Sing louei ZAPIEN Cardiology follow up Toniya Sing louie [...] BASIC METABOLIC PANE L W/EGFR DLCO - 93073 FRC - 78998 FVC - 13311 STR - Adenosine Complete Echo HISTORY OF [...]
--- OUTSIDE RECORDS SUMMARY | 2025-01-08 01:59 | XMS_ITS | Clinical Summary ---
Author Organization [facility] Address [address] [place] [address] Care Team Providers Care Contractor General Engineering Name Role Phone Unavailable Primary Care Provider [...]
--- OUTSIDE RECORDS SUMMARY | 2025-01-08 01:59 | XMS_ITS | Continuity of Care Document ---
Author Organization [facility] Address [address] [place] [address] [address] [place] [address] Phone Care Team Providers Care Oil Analyst Name Role Phone Zavala OD, Saad Unavailable Unavailable Advance Directives Directive Yes / No Effective Date File Name No Information Encounters Encounter Description Practice Location Reason(s) For Visit Diagnoses Date Provider Providers Copied on Encounter [facility], [address] [place] [address] [address], [place], [place], [id number], [place] tel:[phone] [facility] [address] No Information Mar-0 4-200 5 Zavala OD Saad. [address] , [address], [place], [address], [place]. tel:[phone] Family History Family Member Type Diagnosis Age At Onset No Information Payers Payer name Insurance type Covered constitution party ID J Luisa trenton(s) [facility] CI [id number] Social History Type Description Quantity Date Captured [...]
--- OUTSIDE RECORDS SUMMARY | 2025-01-08 01:59 | XMS_ITS | Encounter Summary ---
Author Organization [facility] Address [address] [place] [address] Care Team Providers Care Blowing Weasand Name Role Phone Unavailable Primary Care Provider Unavailabl e Encounter Details Date Type Department Care Team (Late st Contact Info) Description 04/07/2018 Abstract [facility] CONVERSION [address] [place], [place] [id number] , Generic Conversion, Social History Tobacco Use [...]
--- OUTSIDE RECORDS SUMMARY | 2025-01-08 01:59 | XMS_ITS | Clinical Summary ---
Author Organization [facility] Address [address] Sm[place]yn: Epic Prelude ADT ZUNILDA CRUZ [address] Care Team Providers Care Acting Instructor Name Role Phone Unavailable Primary Care Provider Unavailabl e Social History Tobacco Use Types Packs/Day Years Used Date Smoking Tobacco: Never Assessed Comments Unknown Sex and Gender Information Value Date Recorded Sex Assigned at Not on file Legal Sex Female 5:36 AM MANAGER MANAGEMENT Gender Identity Not on file Sexual Orientation [...]
--- OUTSIDE RECORDS SUMMARY | 2025-01-08 01:59 | XMS_ITS | Encounter Summary ---
Author Organization [facility] Address [address] [place] [address] Care Team Providers Care [employer] Lieutenant Name Role Phone Charley Anderson MD Primary Care Provider + Rambo Sampson MD Primary Care Provider [phone] Encounter Details Date Type Department Care Team (Late Contact Info) Description 03/23/2019 Telephone [facility] [address] [place] [address] Franci Martínez MD [facility] [place], [place] [id number] Social History Tobacco Use Types Packs/Day Years [...] 10:55 AM CDT Per Fax back from [facility] for cpt codes 71031-41 and 51342-49. documented in this encounter Plan of Treatment Upcoming Encounters Date Type Department Care Team (Late Contact Info) Description 11/22/2025 8:20 AM DIRECTOR EMERGENCY Office Visit [facility] Dermat[facility] [address] [place] [address] Leticia Giron MD [address] [place] [address] documented as of this encounter Visit Diagnoses Not on filedocumented in this encounter Care Teams [employer] Lieutenant Relationship Specialty Start Date End Date Charley Anderson MD PCP - General 08/21/11 07/21/24 Rambo Sampson MD [address] [place] [address] PCP - General Internal Medicine 07/22/24 documented as of this encounter
--- OUTSIDE RECORDS SUMMARY | 2025-01-08 01:59 | XMS_ITS | Encounter Summary ---
Author Organization [facility] Address [address] [place] [address] Care Team Providers Care Transportation Project Manager Name Role Phone Unavailable Primary Care Provider Unavailabl e Encounter Details Date Type Department Care Team (Latest Contact Info) Description 04/19/2008 Outpatient Historical HIS CARD INSURANCE COLLECTOR Sheldon Tavares MD [address] [place] [address] Syncope and Collapse Social History Tobacco Use Types Packs/Day Years Used Date Smoking Tobacco: Never Assessed Comments Unknown Sex and Gender Information Value Date Recorded Sex Assigned at Not on file Legal Sex Female 5:36 AM DIRECTOR OF FINANCIAL AID Gender Identity Not on file Sexual Orientation [...] INTERFACE SYSTEM - 04/20/2008 11:39 AM CDT [facility] [address] [place] [address] [email or web address] Cardiac Catheterization Comprehensive Report Patient: Rachael cMbride Study ID: [id number] Gender: F : 1960 Age: 47 years Race: 1 Room: Bed: Height: 67 in ( 170.2 cm ) Study Date: April 20, 2008 Patient status: Outpatient Weight: 212.1 lb ( 96.4 kg ) Access. #: [id number] POC: Attending MD: Jerome Performing MD: Jerome [...] 11:29:13 Procedure Note Provider, Historical - 04/22/2008 [address] [address] [place] [address] [email or web address] Cardiac Catheterization Comprehensive Report Patient: Rachael Mcbride Study ID: [id number] Gender: F : 1960 Age: 47 years Race: 1 Room: Bed: Height: 67 in ( 170.2 cm ) Study Date: April 20, 2008 Patient status: Outpatient Weight: 212.1 lb ( 96.4 kg ) Access. #: [id number] POC: Attending MD: Jerome Mauricio MD: Jerome [...] INTERFACE SYSTEM - 04/20/2008 11:39 AM CDT [address] [place] [address]~ [email or web address]~~ ----- -------~Cardiac Catheterization Comprehensive Report~~Patient: Rachael Mcbride~ ~Study ID: [id number]~Gender: F~: 1960~Age: 47 years~Race: 1~Room:~Bed:~Height: 67 in ( 170.2 cm )~Study Date: April 20, 2008~Patient status: Outpatient~Weight: 212.1 lb ( 96.4 kg )~Access. #: [id number]~POC:~ ~~Attending MD: Jerome~Performing MD: Jerome~~ ----- --~~Indications [...] 11:29:13~ Procedure Note Provider, Historical - 04/20/2008 [address] [place], [place]~ [email or web address]~~ ----- -------~Cardiac Catheterization Comprehensive Report~~Patient: Rachael Mcbride~ ~Study ID: [id number]~Gender: F~: 1960~Age:47 years~Race: 1~Room:~Bed:~Height: 67 in ( 170.2 cm )~Study Date: 2007~Patient status: Outpatient~Weight: 212.1 lb ( 96.4 kg )~Access. #:[id number]~POC:~ ~~Attending MD: Jerome~Performing MD: Jerome~~ ----- --~~Indications [...] mmHg Rate dPdt~AO 121-S/ 69-D, 89-M 67 BPM~QY393-P/ -1-BD, 13-ED 63 BPM 1400~PBa 133-S/ 73-D, 97-M 71 BPM~PBv 138-S/ 0-BD, 16-ED 64 BPM 1260~~ ~~-- ----- ~~Prepared and ElectronicallyAuthenticated~~Sheldon Tavares MD~Confirmed April 20, 2008 11:29:13~ Result [facility] Sheldon Tavares MD FLUOROSCOPY ORDERABLES Final Result INTERFACE SYSTEM Refer to clinic/hospital department documented in this encounter Visit Diagnoses Diagnosis Syncope and collapse documented in this encounter
--- OUTSIDE RECORDS SUMMARY | 2025-01-08 01:59 | XMS_ITS | Encounter Summary ---
Author Organization [facility] Address [address] [place] [address] Care Team Providers Care Program Technician Name Role Phone Unavailable Primary Care Provider Unavailabl e Encounter Details Date Type Department Care Team (Late st Contact Info) Description 03/19/2018 Abstract [facility] CONVERSION [address] [place], [place] [id number] , Generic Conversion, Social History Tobacco Use [...]
--- OUTSIDE RECORDS SUMMARY | 2025-01-08 02:00 | XMS_ITS | Clinical Summary ---
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 on 02/11/2023, and at [facility] [place], [place] on 04/21/2021 and 06/22/2022. The breasts [...] compared to prior imaging studies performed at [facility] on 02/11/2023, and at [place], [place] on 04/21/2021 and 06/22/2022. The breasts [...] Relevant to Health Maintenance Insurance Care Teams Services Account Manager Relationship Specialty Start Date End Date Rambo Sampson MD PCP - General Internal Medicine 01/21/24
--- OUTSIDE RECORDS SUMMARY | 2025-01-08 02:00 | XMS_ITS | Referral Summary ---
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 The breasts [...] compared to prior imaging studies performed at [facility] on 02/11/2023, and at [place], [place] on 04/21/2021 and 06/22/2022. The breasts [...] Relevant to Health Maintenance Insurance Care Teams Storage Facility Housekeeper Relationship Specialty Start Date End Date Rambo Sampson MD PCP - General Internal Medicine 01/21/24
--- OUTSIDE RECORDS SUMMARY | 2025-01-08 02:00 | XMS_ITS | Clinical Summary ---
Author Organization [facility] [place] Address [address] [facility] [place] [address] Care Team Providers Care Glass Tube Bender Name Role Phone Rambo Sampson MD Primary Care Provider [phone] Source Comments [facility] [place],non-owned Affiliates and Associated Physician Practices is amultiple site organization consisting of ambulatory clinics and hospital sitesin [place], [place], [place] and [place]. This disclosure is being madepursuant to the Care Everywhere program and may not contain all information available regarding this patient. Last updated 18.[facility] [place] Allergies Active Allergy Reactions Criticality Noted Date [...] Department Care Team Description 11/16/2024 8:40 AM HEAD OF TRANSPORT LOGISTICS Office Visit [facility] - Dermatology [facility] [facility], [place] [id number] Leticia Giron MD Multiple benign melanocytic nevi [...] st Contact Info) Description 11/22/2025 8:20 AM HEAD OF TRANSPORT LOGISTICS Office Visit [facility] - Dermatology [address] [place] [address], [place] [address] Leticia Giron MD [address] [place] [address] [address] [place] [address] Health Maintenance Due Date Last Done Comments [...] Recently Relevant to Health Maintenance Care Teams Glass Tube Bender Relationship Specialty Start Date End Date Rambo Sampson MD [address] [place] [address] PCP - General Internal Medicine 07/22/24
== END 2025-01-08 03:06 | disposition left against medical advice (07) ==
PROVIDERS: PCP Internal Medicine
DX: K92.1 Melena (principal)
CPT/HCPCS: 99199

== ENCOUNTER 2025-01-15 06:34 | Outpatient (CLI) | payer OTHER, SELFPAY ==
--- NOTE | ~2025-01-15 | CT_ITS ---
CT of the Abdomen and Pelvis: Indication: Abdominal pain Technique: 2.5 mm axial scans were obtained through the abdomen and pelvis following intravenous adm inistration of 100 cc of Omnipaque 350. Dose reduction technique was used on this scan by utilizing a utomated exposure control and iterative reconstruction technique. The dose-length product (DLP) was 1 339.26 mGy-cm. Findings: Scans through the lung bases are unremarkable. The liver, spleen, pancreas, adrenals and kidneys are within normal limits. Cholecystectomy clips are present. There are atherosclerotic calcifications of the aorta. No lymphadenopathy. No bowel obstruction or bowel wall thickening. Gastric lap band in place. Images through the pelvis were performed. Urinary bladder unremarkable. No pelvic mass seen. No ascit es. Left-sided ventral hernia contains a focal loop of small bowel. Severe T12 compression fracture present, chronic in appearance. Impression: Left-sided ventral hernia, possibly incisional, containing focal small bowel loops. No bowel obstruct ion or bowel wall thickening. Chronic T12 compression fracture. Reviewed, dictated and finalized at location . Impression: Left-sided ventral hernia, possibly incisional, containing focal small bowel lo ops. No bowel obstruction or bowel wall thickening. Chronic T12 compression fracture.
--- OUTSIDE RECORDS SUMMARY | 2025-01-15 06:39 | XMS_ITS | Encounter Summary ---
Author Organization [facility] Address [address] [facility] [place] [address] Care Team Providers Care Drug Inspector Name Role Phone Charley Anderson MD Primary Care Provider + Rambo Sampson MD Primary Care Provider [phone] Encounter Details Date Type Department Care Team (Late Contact Info) Description 03/23/2019 Telephone [facility] [address] [place] [address] Franci Martínez MD [address] [place] [address] Social History Tobacco Use Types Packs/Day Years Used Date Smoking Tobacco: Every Day Cigarettes Smokeless Tobacco: Never Alcohol Use Standard Drinks/Week Comments No 0 (1 standard drink = 0.6 oz pur e alcohol) Comments Unknown Sex and Gender Information Value Date Recorded Sex Assigned at Not on file Legal Sex 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 documented in this encounter Plan of Treatment Upcoming Encounters Date Type Department Care Team (Late Contact Info) Description 11/22/2025 8:20 AM USER INTERFACE ENGINEER Office Visit [facility] [facility], [place] [address] Leticia Giron MD [address] [place] [address] [address] [place] [address] documented as of this encounter Visit Diagnoses Not on filedocumented in this encounter Care Teams Drug Inspector Relationship Specialty Start Date End Date Charley Anderson MD PCP - General 08/21/11 07/21/24 Rambo Sampson MD [address] [place] [address] PCP - General Internal Medicine 07/22/24 documented as of this encounter
--- OUTSIDE RECORDS SUMMARY | 2025-01-15 06:39 | XMS_ITS | CONTINUITY OF CARE DOCUMENT ---
Author Name katie wilson Address Unknown Organization [facility] Address [address] [facility] [address] [place] [address] Phone [phone] Care Team Providers Care Distributed Energy Systems Consultant Name Role Phone Jordyn ZAPIEN, Roland Carrion Unavailable [phone] GIULIANO ZAPIEN, CARROLL Chilel Unavailable CARROLL SAMPSON [...] In-person encounter Office Visit Roland Cobb MD [facility] DizzinessHeadache - In-person encounter Office Visit Roland Cobb MD [facility] Cardiology examination - In-person encounter Office Visit Roland Cobb MD [facility] - In-person encounter Office Visit Roland Cobb MD [facility] - In-person encounter Office Visit Roland Cobb MD [facility] Elevated bilirubin - In-person encounter Office Visit Roland Cobb MD [facility] - In-person encounter Office Visit Roland Cobb MD [facility] - In-person encounter Office Visit Roland Cobb MD [facility] Venous insufficiencyPersonal history of COVID-19Preoperative cardiovascular evaluation - In-person encounter Office Visit Roland Cobb MD [facility] Anxiety - In-person encounter Office Visit Roland Cobb MD [facility] SARS-associated coronavirus - In-person encounter Office Visit Denis Hill MD [facility] - In-person encounter Office Visit Betty Gamble MD [facility] - In-person encounter Office Visit Betty Gamble MD [facility] - In-person encounter Office Visit Betty Gamble MD [facility] - In-person encounter Office Visit Betty Gamble MD [facility] - In-person encounter Office Visit Betty Gamble MD [facility] - In-person encounter Office Visit Betty Gamble MD [facility] - In-person encounter Office Visit Betty Gamble MD [facility] Chest pain, inferior wall ischemia on stress test, cath 03/2018 nl coronaries - In-person encounter Office Visit Betty Gamble MD [facility] Chest pain, inferior wall ischemia on stress test, cath 03/2018 nl coronaries - In-person encounter Office Visit Betty Gamble MD [facility] HypertensionChest pain, inferior wall ischemia on [...] blood pressure, diastolic 86 mm[Hg] Ta david Austin blood pressure, systolic 112 mm[Hg] Tab omida Austin pulse rate 87 /min Marianne Austin oxygen saturation, oximetry 99 % Marianne Austin weight E&M 251 [lb_av] Marianne Austin respiratory rate E&M 12 /min [facility] height E&M 66 [in_i] [facility] Body Mass Index (Ratio) 40.02 kg/m2 Hazel Cobb MD blood pressure, diastolic 93 mm[Hg] [facility], systolic 127 mm[Hg] [facility] pulse rate 61 /min [facility] blood pressure, cuff size regular [facility] blood pressure, diastolic 93 mm[Hg] [facility] blood pressure, systolic 127 mm[Hg] [facility] oxygen saturation, oximetry 98 % [facility] respiratory rate E&M 14 /min Rachelle chanel weight E&M 248 [lb_av] [facility] height E&M 66 [in_i] [facility] Body Mass Index (Ratio) 39.70 kg/m2 Jeannette Schneiderinari blood pressure, diastolic 89 mm[Hg] Li [facility] blood pressure, systolic 152 mm[Hg] [facility] blood pressure, cuff size large Ja [...] blood pressure, diastolic 94 mm[Hg] Ene robbins Dale blood pressure, systolic 148 mm[Hg] Olivier helayan Dale oxygen saturation, oximetry 94 % Dorothy Granados [...] santi Boone oxygen saturation, oximetry 97 % [place] respiratory rate E&M 16 /min Baldemar Boone pulse rate 56 /min [place] weight E&M 243 [lb_av] Baldemar Boone [...] height in centimeters E&M 167.64 cm Da [facility] Body Mass Index (Ratio) 40.99 kg/m2 Chi Gamble MD blood pressure, cuff size large Ke rri Rodneyeldangela blood pressure, diastolic 100 mm[Hg] Ke rri Brianuenenfelder blood pressure, systolic 150 mm[Hg] Dale ri Rodneygurwinder oxygen saturation, oximetry 97 % Alena Rodneycarloser respiratory rate E&M 20 /min Alena G ruenenfelder pulse rate 65 /min Alena Douglas [facility] weight E&M 254 [lb_av] Alena Rodneye er height E&M 66 [in_i] Alena Rodneye [facility] Body Mass Index (Ratio) 41.64 kg/m2 Chi Gamble MD blood pressure, cuff size large Cy ntana Rodas blood pressure, diastolic 90 mm[Hg] Cy nthia Rodas blood pressure, systolic 146 mm[Hg] Jvoana toniozachariah Rodas oxygen saturation, oximetry 98 % [...] 3.5-5.2 3 sodium, serum 141 mmol/L [employer] 592-016 8852/10/2 3 urea nitrogen/creatinine ratio, serum 12 [employer] [...] High 3 cholesterol, serum 166 mg/dL [facility] 083-119 5878/07/0 3 calcium, serum 10.1 mg/dL [facility] 8.7-10.2 3 carbon dioxide, venous blood 26 mmol/L [facility] 20-29 3 chloride, serum 102 mmol/L [facility] 96-106 3 potassium, serum 4.3 mmol/L [facility] 3.5-5.2 3 sodium, serum 142 mmol/L [employer] 911-371 0966/07/0 3 urea nitrogen/creatinine ratio, serum 14 [employer] [...] Estab. 3 platelet count 302 X10E3/UL [facility] 547-942 8266/07/0 3 red blood cell distribution width 13.9 [...] by mouth twice a day - 01/01 [facility] SOCIAL HISTORY Date Observation Value Provider drug use no Roland soni MD alcohol use no Roland soni MD number of years as a smoker 30 a Roland Cobb MD smoking history, tot al pack/day 0.25 Roland Cobb MD cigarette use yes Roland gentile MD smoking status Current every da y smoker Roland Cobb MD drug use no [facility] alcohol use no [facility] number of years as a smoker 30 a [facility] smoking history, tot al pack/day 0.25 [facility] cigarette use yes [facility] smoking status Current every da y smoker [facility] social history reviewed E&M revi ewed [...] drug use no Sadia Ventimig jose raul [facility] alcohol use no Sadia Ventimig jose raul [facility] smoking status Current every da y smoker [...] pack/day 0.25 Dustin Boyd cigarette use yes [facility] smoking status [facility] social history reviewed E&M revi ewed - [...] Mounika Matthew smoking status Former smoker Mounika Mathtew number of years as a smoker 30 [...] Policy type / Coverage type Louise red republican ID [place] MEDICAID (2) Medicaid [id number] ADVANCE DIRECTIVES Name Date DISCUSSED - NO DECISION MADE TREATMENT PLAN Date Name Performer [id number],C, No NIHARIKA noted Roland Cobb MD [id number],C,r are cigarette C essation encouarged. patient has cut back. Roland Cobb MD [id number],C, H ad recent labs per PCP. will obtain. Remains on statin H er updated medication list for this problem includes: Atorvastatin 40 Mg Tablet (Atorvastatin) ..... 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 Brumfield was told that she has [place] disease. No further recommendations. Roland Cobb MD [id number],C, H ad recent labs per PCP. will obtain. Remains on statin H er updated medication list for this problem includes: Atorvastatin 40 Mg Tablet (Atorvastatin) ..... 1 tablet once a day Roland Cobb MD [id number],C, L ast BP was 145/90 B P [...] with 2.25mg BID Coreg. Roland Cobb MD [id number],C,l ifestyle modification encouarged. Sadiapablito Vega [facility] [id number],C,C essation encouarged. patient has cut back. Sadia Vega [facility] [id number],C,H ad recent labs per PCP. will obtain. Remains on statin H er updated medication list for this problem includes: Atorvastatin 40 Mg Tablet (Atorvastatin) ..... 1 tablet once a day Sadia Vega [facility] [id number],C,L ast BP was 145/90 B P today [...] mouth once a day Orders: E KG (CPT-28907) 9 9214 MOD 30-39min (CPT-97322) C OMPREHENSIVE METABOLIC PANEL, W/EGFR (72561) Sadia Ventimiglia [facility] [id number],C, A SSESSMENT AND PLAN: 1 . Normal coronary arteries. 2 . False-positive stress test with inferior wall ischemia. We will optimize patient?s medications. Roland Cobb MD [id number],C, Roland Cobb MD [id number],S, No NIHARIKA noted Roland Cobb MD [id number],S,. O k to reduce BP meds. Try [...] mouth once a day Roland Cobb MD [id number],S,S he is scheduled to have breast surgery left side at [facility]. U kathy review of invasive and noninvasive [...] No significant valvular abnormalities. Roland Cobb MD [id number],Roland Perry [place] [id number],Getachew A SSESSMENT AND PLAN: 1 . Normal coronary arteries. 2 . False-positive stress test with inferior wall ischemia. We will optimize patient?s medications. Roland Cobb MD [id number],Orlandoh ad covid july got regenron monoclonal antibodies. also has been vaccinated x2 J&J Roland Cobb MD [id number],S, s leep study pending N o NIHARIKA noted Roland Cobb MD [id number],C,d one in 2001 Lost 85lbs over time regained 40. Net 40lb benefit Roland Cobb MD [id number],Sudheer Chilel 12/04/21 CONCLUSIONS: 1 . No evidence of a deep vein thrombosis of the lower extremities bilaterally. 2 . Significant venous insufficiency of the great saphenous vein bilaterally. Roland Cobb MD [id number],Getachew H er updated medication list for this [...] (07/22/2021) HDL: 48 (07/22/2021) Roland Cobb MD [id number],C, v accianted ELODIA Cobb MD [id number],S, Roland mcgarry MD [id number],C,sleep study p ending Roland Cobb MD [id number],C,A SSESSMENT AND PLAN: 1 . Normal coronary arteries. 2 . False-positive stress test with inferior wall ischemia. We will optimize patient?s medications. Roland Cobb MD [id number],S, Roland mcgarry MD [id number],GetachewR kendellwed home BPs, pressures are elevated in the mornings as she wakes up, but there is BP improvement overall due to taking Nifedipine. Roland Cobb MD [id number],S,vaccianted ELODIA Cobb MD [id number],S, B P today: 176/100 P rior BP: 162/102 (06/21/2021) Labs Reviewed: C reat: 0.86 (04/01/2018) C hol: 166 (04/01/2018) HDL: 41 (04/01/2018) n ot taking hctz gabrielle has high sodium in diet w ill add procardia xl 30 and see how it affects the BP Roland Cobb MD [id number],S, Britni maharaj [id number],S, Britni maharaj [id number],S, Britni maharaj [id number],C,N o CP H er updated medication list for this problem includes: Carvedilol 12.5 Mg Tablet (Carvedilol) ..... Take 1 tablet by mouth twice a day Lisinopril 20 Mg Tablet (Lisinopril) ..... 1 tablet twice a day Aspirin 81 Mg Tablet,delayed Release (dr/ec) (Aspirin) ..... 1 tablet by mouth once a day Britni Walton [id number],C, H er updated medication list for this problem includes: Atorvastatin 40 Mg Tablet (Atorvastatin) ..... 1 tablet once a day Britni Walton [id number],C,R ecently BP is elevated. Also noted some [...] by mouth once a day Britni Walton [id number],BBetty MD [id number],SBetty MD [id number],SBetty MD [id number],W, Betty Gamble MD [id number],SBetty MD Cardiology: S topped She had calcium [...] Candi Brumfield was told that she has [place] disease. No further recommendations. Roland Cobb MD Cardiology: H ad recent labs per PCP. will obtain. Remains on statin H er updated medication list for this problem includes: Atorvastatin 40 Mg Tablet (Atorvastatin) ..... 1 tablet once a day Roladn Cobb MD Cardiology: L ast BP was [...] MD Cardiology:lifestyle modificatio n encouarged. Sadiapablito Vega [facility] Cardiology:Cessation encouarged. patient has cut back. Sadiapablito Vega [facility] Cardiology:Had recen t labs per PCP. will obtain. Remains on statin H er updated medication list for this problem includes: Atorvastatin 40 Mg Tablet (Atorvastatin) ..... 1 tablet once a day Sadia Vega [facility] Cardiology:Last BP w as 145/90 B P [...] mouth once a day Orders: E KG (CPT-19710) 9 9214 MOD 30-39min (CPT-68675) C OMPREHENSIVE METABOLIC PANEL, W/EGFR (81114) Sadia Vega [facility] Cardiology: A SSESSMENT AND PLAN: 1 . [...] to have breast surgery left side at [facility]. U kathy review of invasive and noninvasive [...] time regained 40. Net 40lb benefit Roland Cbob MD Cardiology:Venous US 12/04/21 CONCLUSIONS: 1 . [...] BASIC METABOLIC PANE L W/EGFR DLCO - 14089 FRC - 35730 FVC - 88342 STR - Adenosine Complete Echo HISTORY OF [...] Betty Gamble MD completed SPECT Images Roland oCbb MD com pleted Stress EKG Yifan Alford MD complete d EKG Betty Gamble MD completed
--- OUTSIDE RECORDS SUMMARY | 2025-01-15 06:39 | XMS_ITS | Encounter Summary ---
Author Organization [facility] Address [address] [place] [address] Care Team Providers Care Food Production Worker Name Role Phone Unavailable Primary Care Provider Unavailabl e Encounter Details Date Type Department Care Team (Late st Contact Info) Description 04/07/2018 Abstract [facility] CONVERSION [address] [place], [place] [id number] , Generic Conversion, Social History Tobacco Use [...]
--- OUTSIDE RECORDS SUMMARY | 2025-01-15 06:39 | XMS_ITS | Encounter Summary ---
Author Organization [facility] Address 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 [address] [email or web address] Cardiac Catheterization Comprehensive Report Patient: Rachael Mcbride Study ID: [id number] Gender: F : 1960 Age: 47 years Race: 1 Room: Bed: Height: 67 in ( 170.2 cm ) Study Date: April 20, 2008 Patient status: Outpatient Weight: 212.1 lb ( 96.4 kg ) Access. #: [id number] POC: Attending MD: Jerome Performing MD: Jerome [...] 11:29:13 Procedure Note Provider, Historical - 04/22/2008 [address] [place] [place] [address] [email or web address] Cardiac Catheterization Comprehensive Report Patient: Rachael Mcbride Study ID: [id number] Gender: F : 1960 Age: 47 years Race: 1 Room: Bed: Height: 67 in ( 170.2 cm ) Study Date: April 20, 2008 Patient status: Outpatient Weight: 212.1 lb ( 96.4 kg ) Access. #: [id number] POC: Attending MD: Jerome Mauricio MD: Jerome [...] INTERFACE SYSTEM - 04/20/2008 11:39 AM CDT [place] [address] [place] [address]~ [email or web address]~~ ----- -------~Cardiac Catheterization Comprehensive Report~~Patient: Rachael Mcbride~ ~Study ID: [id number]~Gender: F~: 1960~Age: 47 years~Race: 1~Room:~Bed:~Height: 67 in ( 170.2 cm )~Study Date: April 20, 2008~Patient status: Outpatient~Weight: 212.1 lb ( 96.4 kg )~Access. #: [id number]~POC:~ ~~Attending MD: Jerome~Performing MD: Jerome~~ ----- --~~Indications [...] 11:29:13~ Procedure Note Provider, Historical - 04/20/2008 [address] [place], [place]~ [email or web address]~~ ----- -------~Cardiac Catheterization Comprehensive Report~~Patient: Rachael Mcbride~ ~Study ID: [id number]~Gender: F~: 1960~Age:47 years~Race: 1~Room:~Bed:~Height: 67 in ( 170.2 cm )~Study Date: 2007~Patient status: Outpatient~Weight: 212.1 lb ( 96.4 kg )~Access. #:[id number]~POC:~ ~~Attending MD: Jerome~Performing MD: Jerome~~ ----- --~~Indications [...] mmHg Rate dPdt~AO 121-S/ 69-D, 89-M 67 BPM~OO806-U/ -1-BD, 13-ED 63 BPM 1400~PBa 133-S/ 73-D, 97-M 71 BPM~PBv 138-S/ 0-BD, 16-ED 64 BPM 1260~~ ~~-- ----- ~~Prepared and ElectronicallyAuthenticated~~Sheldon Tavares MD~Confirmed April 20, 2008 11:29:13~ Result [facility] Sheldon Tavares MD FLUOROSCOPY ORDERABLES Final Result INTERFACE SYSTEM Refer to clinic/hospital department documented in this encounter Visit Diagnoses Diagnosis Syncope and collapse documented in this encounter
--- OUTSIDE RECORDS SUMMARY | 2025-01-15 06:39 | XMS_ITS | Data Portability ---
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 Name Role Phone CARRLOL SAMPSON Primary Care Provider Assessment Encounter Date Assessment Date Assessment LastModified by Organization Details LastModified Time 01/08/2024 01/08/2024 Will get her see n by wound care she is get a CBC keep her regular follow-up [email or web address] Not available 01/08/2024 22:04:44 05/22/2024 05/22/2024 FNA thyroid nodu le continue medications for dyslipidemia hypertension anxiety and IBS continue to follow up with cardio and ortho see me in 4 months Not available 05/23/2024 12:52:39 08/14/2024 08/14/2024 increase the Wellbutrin to 225 daily blood work for memory loss MRI of brain x-ray C-spine and start physical therapy see me back 3 months CBC CMP lipid T3-T4 TSH B12 folic acid RPR. Healthy lifestyle care instructions further recommendations pending results of testing [email or web address] Not available 08/14/2024 22:50:54 01/04/2025 01/04/2025 Coronary [...] PCSK9 inhibitors if indicated. On behalf of [facility], we appreciate the opportunity to participate in the care of your patient. Please feel free to reach out to us for any questions regarding this patient's cardiac care. Michael Epstein MD, [facility] Cardiology [email or web address] Not available 01/04/2025 13:17:09 01/08/2025 01/08/2025 Continue current therapy healthy lifestyle care instructions blood work urine CT abdomen and pelvis GI consult unclear why she stopped taking medicines for alleged ulcerative colitis try to get the colonoscopy report that she had done. As far as cardiovascular she had normal coronary arteries in 2018 she does see Cardiology follow up with me in 1 month blood work ordered worsening abdominal pain or bleeding she goes to the ER [email or web address] Not available 01/09/2025 13:22:10 Plan of Treatment Reminders Order Date Submit Date Provider Last Modified By Organization Details Last Modified Time Details Appointments ANY 15 2024 10:00A M Carroll Sampson MD Not available Not available Not available ANY 15 2024 08:30A M Michael Epstein MD Not available Not available Not available Lab CMP, serum or plasma 2024 025 RAHEL [facility], [address], [place], [address], 01/09/2025 07:34:33 CBC w/ auto diff 2024 025 RAHEL [facility], [address], [place], [address], 01/09/2025 07:34:34 urinalysi s complete, reflex culture 2024 025 RAHEL [facility], [address], [place], [address], 01/10/2025 07:00:11 lipid panel, serum 2024 025 RAHEL [facility], [address], [place], [address], 01/09/2025 07:34:31 vitamin B12 + folate, serum or blood 2023 024 RAHEL [facility], [address], [place], [address], 08/15/2024 08:28:08 RPR (rapid plasma reagin), serum 2023 024 RAHEL [facility], [address], [place], [address], 08/15/2024 08:28:12 vitamin D, 25-hydrox y, total, serum 2023 024 RAHEL [facility], [address], [place], [address], 08/15/2024 08:28:14 T4, free, serum 2023 024 RAHEL [facility], [address], [place], [address], 08/15/2024 08:28:13 T3, free, serum or plasma 2023 024 RAHEL [facility], [address], [place], [address], 08/15/2024 08:28:11 TSH, ultra-sen sitive, serum 2023 024 RAHEL [facility], [address], [place], [address], 08/15/2024 08:28:09 lipid panel, serum 2023 024 RAHEL [facility] [address], [place], [address], 08/15/2024 06:19:12 CBC w/ auto diff 2023 024 COVINA [facility], [address], [place], [address], 08/15/2024 06:19:15 CMP, serum or plasma 2023 024 COVINA [facility], [address], [place], [address], 08/15/2024 06:19:14 CBC w/ auto diff 2023 024 COVINA [facility], [address], [address], [place], [address], 01/09/2024 03:36:43 Referral gastroent erologist referral 2024 025 Yolande[facility]ub [facility]Revert Aurelia Lewis MD, [address], [place], [address], 01/11/2025 15:08:07 physical therapist referral 2023 024 [facility] [place], [address] [facility], [place], [address], 12/29/2024 10:03:41 wound care referral 2023 024 [facility], [address] [facility] , [place], [address], 08/04/2024 15:13:36 Procedures fine needle aspiratio n, ultrasoun d guided, thyroid (PROC) 2023 024 [facility] (Imaging), [address] [facility], [place], [address], 08/10/2024 14:58:50 Surgeries None recorded. Imaging CT, abdomen + pelvis, w/ contrast 2024 025 [facility] (Imaging), [facility] [facility], [place], [address], 01/12/2025 10:25:20 electroca rdiogram 2024 025 [email or web address] In-Office Order, Internal Use Only DO Not Attach Compendium DO Not Attach Compendium, Do Not Delete/merge, [id number] 01/04/2025 09:58:05 MRI, brain, w/o contrast 2023 024 [facility] (Imaging), [address] [place] [address], [place], [address], 08/25/2024 09:55:13 XR, cervical spine 2023 024 [facility] (Imaging), [address] [place] [address], [place], [address], 09/04/2024 15:05:58 Medication Orders bupropion HCl 75 mg tablet 2023 024 [email or web address] [facility] #[id number], [address] [place], [place], [id number], 08/14/2024 17:25:49 bupropion HCl XL 150 mg 24 hr tablet, extended release 2023 024 [facility] #[id number], [address] [place], [place], [id number], 08/14/2024 17:25:49 Patient TargetsNo targets recorded. Patient Instructions Encounter Date Encounter Id Patient Instructions Last Modified By Organization Details Last Modified Time 08/14/2024 [id number] A healthy lifestyle: care instructions [email or web address] Not available 08/14/2024 17:25:49 01/04/2025 [id number] A healthy lifestyle: care instructions [email or web address] Not available 01/04/2025 09:58:05 01/08/2025 [id number] A healthy lifestyle: care instructions [email or web address] Not available 01/08/2025 13:41:08 Reason for Referral Referring Physician: Carroll Sampson, Internal Medicine, Encounter Date: 01/08/2024 Physical Therapist Referral for Neck pain Referring Physician: Carroll Sampson, Internal Medicine, Encounter Date: 08/14/2024 Wind Development Director Referral for Abdominal pain Referring Physician: Carroll Sampson, Internal Medicine, Encounter Date: 01/08/2025 Results Created Date Observation Date Name Description Value Unit Range Abnormal Flag Note LastModifiedBy Organization Detail LastModifiedTime 01/03/20 24 01/03/2024 Hemog lobin A1c/H emogl obin. total in Blood by HPLC hemoglobin A1C/hemoglob in.total in blood HA1C Not Available Not Available 12/29 14:29:42 01/03/20 24 01/03/2024 25-hy droxy vitam in D3 [Mass /volu me] in Serum or Plasm a [id number] h Not Available Not Available 01/08/2025 14:29:42 01/03/20 24 01/03/2024 Lipid 1995 panel - Serum or Plasm a cholesterol aron stero l Not Available Not Available 01/08/2025 14:29:42 01/03/20 24 01/03/2024 Lipid 1995 panel - Serum or Plasm a triglyceride s high trigl yceri vitaliy Not Available Not Available 01/08/2025 14:29:42 01/03/20 24 01/03/2024 Lipid 1996 panel - Serum or Plasm a HDL cholesterol HDL aron stero l Not Available Not Available 01/08/2025 14:29:42 01/03/20 24 01/03/2024 Lipid 1995 panel - Serum or Plasm a cholesterol in LDL [mass/volume ] in serum or plasma LDL aron stero l, calcu lated Not Available Not Available 01/08/2025 14:29:42 01/03/20 24 01/03/2024 Compr ehens hollis metab olic 1999 panel - Serum or Plasm a sodium sodiu m Not Available Not Available 01/08/2025 14:29:42 01/03/20 24 01/03/2024 Compr ehens hollis metab olic 1999 panel - Serum or Plasm a potassium potas sium Not Available Not Available 01/08/2025 14:29:42 01/03/20 24 01/03/2024 Compr ehens hollis metab olic 2000 panel - Serum or Plasm a chloride chlor tony Not Available Not Available 01/08/2025 14:29:42 01/03/20 24 01/03/2024 Compr ehens hollis metab olic 1999 panel - Serum or Plasm a carbon dioxide high carbo n dioxi de Not Available Not Available 01/08/2025 14:29:42 01/03/20 24 01/03/2024 Compr ehens hollis metab olic 2000 panel - Serum or Plasm a anion gap low anion gap Not Available Not Available 01/08/2025 14:29:42 01/03/20 24 01/03/2024 Compr ehens hollis metab olic 2000 panel - Serum or Plasm a glucose high gluco se Not Available Not Available 01/08/2025 14:29:42 01/03/20 24 01/03/2024 Compr ehens hollis metab olic 2000 panel - Serum or Plasm a BUN high BUN Not Available Not Availa ble 01/08/2025 14:29:42 01/03/20 24 01/03/2024 Compr ehens hollis metab olic 1999 panel - Serum or Plasm a creatinine creat inine Not Available Not Available 01/08/2025 14:29:42 01/03/20 24 01/03/2024 Compr ehens hollis metab olic 1999 panel - Serum or Plasm a GFR 56 GFR Not Available Not Availa ble 01/08/2025 14:29:42 01/03/20 24 01/03/2024 Compr ehens hollis metab olic 2000 panel - Serum or Plasm a alkaline phosphatase alkal ine phosp hatas e Not Available Not Available 01/08/2025 14:29:42 01/03/20 24 01/03/2024 Compr ehens hollis metab olic 2000 panel - Serum or Plasm a alanine aminotransfe rase vashti ne amino trans feras e Not Available Not Available 01/08/2025 14:29:42 01/03/20 24 01/03/2024 Compr ehens hollis metab olic 2000 panel - Serum or Plasm a aspartate aminotransfe rase aspar ruano amino trans feras e Not Available Not Available 01/08/2025 14:29:42 01/03/20 24 01/03/2024 Compr ehens hollis metab olic 1999 panel - Serum or Plasm a bilirubin, total high bilir ubin, total Not Available Not Available 01/08/2025 14:29:42 01/03/20 24 01/03/2024 Compr ehens hollis metab olic 1999 panel - Serum or Plasm a calcium calci um Not Available Not Available 01/08/2025 14:29:42 01/03/20 24 01/03/2024 Compr ehens hollis metab olic 1999 panel - Serum or Plasm a total protein total prote in Not Available Not Available 01/08/2025 14:29:42 01/03/20 24 01/03/2024 Compr ehens hollis metab olic 2000 panel - Serum or Plasm a albumin album in Not Available Not Available 01/08/2025 14:29:42 01/03/20 24 01/03/2024 Compr ehens hollis metab olic 2000 panel - Serum or Plasm a globulin globu semaj Not Available Not Available 01/08/2025 14:29:42 01/03/20 24 01/03/2024 Compr ehens hollis metab olic 2000 panel - Serum or Plasm a A/G ratio A/G ratio Not Available Not Available 01/08/2025 14:29:42 01/08/20 24 01/08/2024 CBC WITH DIFFE RENTI AL/PL ATELE T WBC 9.2 x10e3 /uL 3.4-10 .8 Not Available [facility] [address] [place], [address], 01/09/2024 03:36:42 01/08/20 24 01/08/2024 CBC WITH DIFFE RENTI AL/PL ATELE T RBC 4.91 x10e6 /uL 3.77-5 .28 Not Available [facility] [address] [place], [address], 01/09/2024 03:36:42 01/08/20 24 01/08/2024 CBC WITH DIFFE RENTI AL/PL ATELE T hemoglobin 15.3 g/dL 11.1-1 5.9 Not Available [facility] [address] [place], [address], 01/09/2024 03:36:42 01/08/20 24 01/08/2024 CBC WITH DIFFE RENTI AL/PL ATELE T hematocrit 45.8 % 34.0-4 6.6 Not Available [facility] [address] [place], [address], 01/09/2024 03:36:42 01/08/20 24 01/08/2024 CBC WITH DIFFE RENTI AL/PL ATELE T MCV 93 fL 79-97 Not Available [facility] [address] [place], [address], 01/09/2024 03:36:42 01/08/20 24 01/08/2024 CBC WITH DIFFE RENTI AL/PL ATELE T MCH 31.2 pg 26.6-3 3.0 Not Available [facility] [address] [place], [address], 01/09/2024 03:36:42 01/08/20 24 01/08/2024 CBC WITH DIFFE RENTI AL/PL ATELE T MCHC 33.4 g/dL 31.5-3 5.7 Not Available [facility] [address] [place], [address], 01/09/2024 03:36:42 01/08/20 24 01/08/2024 CBC WITH DIFFE RENTI AL/PL ATELE T RDW 13.1 % 11.5-1 4.5 Not Available [facility] [address] [place], [address], 01/09/2024 03:36:42 01/08/20 24 01/08/2024 CBC WITH DIFFE RENTI AL/PL ATELE T platelets 322 x10e3 /uL 150-45 0 Not Available [facility] [address] [place], [address], 01/09/2024 03:36:42 01/08/20 24 01/08/2024 CBC WITH DIFFE RENTI AL/PL ATELE T neutrophils 56 % notest b. Not Available [facility] [address] [place], [address], 01/09/2024 03:36:42 01/08/20 24 01/08/2024 CBC WITH DIFFE RENTI AL/PL ATELE T lymphs 33 % notest b. Not Available [facility] [address] [place] [address], [address], 01/09/2024 03:36:42 01/08/20 24 01/08/2024 CBC WITH DIFFE RENTI AL/PL ATELE T monocytes 8 % notest b. Not Available [facility] [address] [place] [address], [address], 01/09/2024 03:36:42 01/08/20 24 01/08/2024 CBC WITH DIFFE RENTI AL/PL ATELE T eos 2 % notest b. Not Available [facility] [address] [place] [address], [address], 01/09/2024 03:36:42 01/08/20 24 01/08/2024 CBC WITH DIFFE RENTI AL/PL ATELE T basos 1 % notest b. Not Available [facility] [address] [place], [address], 01/09/2024 03:36:42 01/08/20 24 01/08/2024 CBC WITH DIFFE RENTI AL/PL ATELE T neutrophils (absolute) 5.1 x10e3 /uL 1.4-7. 0 Not Available [facility] [address] [place] [address], [address], 01/09/2024 03:36:42 01/08/20 24 01/08/2024 CBC WITH DIFFE RENTI AL/PL ATELE T lymphs (absolute) 3.0 x10e3 /uL 0.7-3. 1 Not Available [facility] [address] [place], [address], 01/09/2024 03:36:42 01/08/20 24 01/08/2024 CBC WITH DIFFE RENTI AL/PL ATELE T monocytes(ab solute) 0.8 x10e3 /uL 0.1-0. 9 Not Available [facility] [address] [place], [address], 01/09/2024 03:36:42 01/08/20 24 01/08/2024 CBC WITH DIFFE RENTI AL/PL ATELE T eos (absolute) 0.2 x10e3 /uL 0.0-0. 4 Not Available [facility] [address] [place] [address], [address], 01/09/2024 03:36:42 01/08/20 24 01/08/2024 CBC WITH DIFFE RENTI AL/PL ATELE T baso (absolute) 0.1 x10e3 /uL 0.0-0. 2 Not Available [facility] [address] [place] [address], [address], 01/09/2024 03:36:42 01/08/20 24 01/08/2024 CBC WITH DIFFE RENTI AL/PL ATELE T immature granulocytes 0.3 % notest b. Not Available [facility] [address] [place], [address], 01/09/2024 03:36:42 01/08/20 24 01/08/2024 CBC WITH DIFFE RENTI AL/PL ATELE T immature grans (abs) 0.0 x10e3 /uL 0.0-0. 1 Not Available [facility] [address] [place] [address], [address], 01/09/2024 03:36:42 01/08/20 24 01/08/2024 CBC WITH DIFFE RENTI AL/PL ATELE T NRBC 0 % 0-0 Not Available [facility] [address] [place] [address], [address], 01/09/2024 03:36:42 08/14/20 24 08/14/2024 LIPID PANEL cholesterol, total 169 mg/dL 100-19 9 Not Available [facility] [address] [place] [address], [address], 08/15/2024 06:19:12 08/14/20 24 08/14/2024 LIPID PANEL triglyceride s 122 mg/dL 0-149 Not Available [facility] Department [address] [place] [address], [address], 08/15/2024 06:19:12 08/14/20 24 08/14/2024 LIPID PANEL HDL cholesterol 46 mg/dL 40-999 Not Available [facility] Department [address] [place] [address], [address], 08/15/2024 06:19:12 08/14/20 24 08/14/2024 LIPID PANEL VLDL cholesterol vero 24 mg/dL 5-40 Not Available [facility] Department [address] [place] [address], [address], 08/15/2024 06:19:12 08/14/20 24 08/14/2024 LIPID PANEL LDL chol calc ([facility]) 115 mg/dL 0-99 above high normal Not Available [facility] [address] [place] [address], [address], 08/15/2024 06:19:12 08/14/20 24 08/14/2024 COMP. METAB OLIC PANEL (14) glucose 81 mg/dL 70-99 Not Available [facility] [address] [place], [address], 08/15/2024 06:19:13 08/14/20 24 08/14/2024 COMP. METAB OLIC PANEL (14) BUN 22 mg/dL 8-27 Not Available [facility] [address] [place] [address], [address], 08/15/2024 06:19:13 08/14/20 24 08/14/2024 COMP. METAB OLIC PANEL (14) creatinine 0.85 mg/dL 0.76-1 .27 Not Available [facility] [address] [place] [address], [address], 08/15/2024 06:19:13 08/14/20 24 08/14/2024 COMP. METAB OLIC PANEL (14) eGFR 78 >=60 Units for eGFR value s are mL/mi n/1.7 3 The eGFR Calcu latio n has not been valid ated for patie nts under the age of 18. If test resul ts are displ ayed for a patie nt under the age of 18, disre yonathan that value . Not Available [facility] [address] [place] [address], [address], 08/15/2024 06:19:13 08/14/20 24 08/14/2024 COMP. METAB OLIC PANEL (14) BUN/creatini ne ratio 25 10-28 Not Available [facility] Department [address] [place] [address], [address], 08/15/2024 06:19:13 08/14/20 24 08/14/2024 COMP. METAB OLIC PANEL (14) sodium 142 mmol/ L 134-14 4 Not Available [facility] [address] [place] [address], [address], 08/15/2024 06:19:13 08/14/20 24 08/14/2024 COMP. METAB OLIC PANEL (14) potassium 4.1 mmol/ L 3.5-5. 2 Not Available [facility] [address] [place] [address], [address], 08/15/2024 06:19:13 08/14/20 24 08/14/2024 COMP. METAB OLIC PANEL (14) chloride 102 mmol/ L 96-106 Not Available [facility] [address] [place], [address], 08/15/2024 06:19:13 08/14/20 24 08/14/2024 COMP. METAB OLIC PANEL (14) carbon dioxide, total 29 mmol/ L 20-29 Not Available [facility] [address] [place], [address], 08/15/2024 06:19:13 08/14/20 24 08/14/2024 COMP. METAB OLIC PANEL (14) calcium 10.5 mg/dL 8.7-10 .3 above high normal Not Available [facility] [address] [place], [address], 08/15/2024 06:19:13 08/14/20 24 08/14/2024 COMP. METAB OLIC PANEL (14) protein, total 7.2 g/dL 6.0-8. 5 Not Available [facility] [address] [place], [address], 08/15/2024 06:19:13 08/14/20 24 08/14/2024 COMP. METAB OLIC PANEL (14) albumin 4.5 g/dL 3.8-4. 8 Not Available [facility] [address] [place], [address], 08/15/2024 06:19:13 08/14/20 24 08/14/2024 COMP. METAB OLIC PANEL (14) globulin, total 2.7 g/dL 1.5-4. 5 Not Available [facility] [address] [place], [address], 08/15/2024 06:19:13 08/14/20 24 08/14/2024 COMP. METAB OLIC PANEL (14) A/G ratio 1.6 1.2-2. 2 Not Available [facility] [address] [place], [address], 08/15/2024 06:19:13 08/14/20 24 08/14/2024 COMP. METAB OLIC PANEL (14) bilirubin, total 1.4 mg/dL 0.0-1. 2 above high normal Not Available [facility] [address] [place], [address], 08/15/2024 06:19:13 08/14/20 24 08/14/2024 COMP. METAB OLIC PANEL (14) alkaline phosphatase 80 IU/L 44-121 Not Available [facility] Department [address] [place], [address], 08/15/2024 06:19:13 08/14/20 24 08/14/2024 COMP. METAB OLIC PANEL (14) AST (SGOT) 23 IU/L 0-40 Not Available [facility] Department [address] [place], [address], 08/15/2024 06:19:13 08/14/20 24 08/14/2024 COMP. METAB OLIC PANEL (14) ALT (SGPT) 24 IU/L 0-32 Not Available [facility] Department [address] [place] [address], [address], 08/15/2024 06:19:13 08/14/20 24 08/14/2024 CBC WITH DIFFE RENTI AL/PL ATELE T WBC 9.3 x10e3 /uL 3.4-10 .8 Not Available [facility] [address] [place], [address], 08/15/2024 06:19:15 08/14/20 24 08/14/2024 CBC WITH DIFFE RENTI AL/PL ATELE T RBC 4.92 x10e6 /uL 3.77-5 .28 Not Available [facility] [address] [place], [address], 08/15/2024 06:19:15 08/14/20 24 08/14/2024 CBC WITH DIFFE RENTI AL/PL ATELE T hemoglobin 14.9 g/dL 11.1-1 5.9 Not Available [facility] [address] [place], [address], 08/15/2024 06:19:15 08/14/20 24 08/14/2024 CBC WITH DIFFE RENTI AL/PL ATELE T hematocrit 46.6 % 34.0-4 6.6 Not Available [facility] [address] [place], [address], 08/15/2024 06:19:15 08/14/2008/14/2024 CBC WITH DIFFE RENTI AL/PL ATELE T MCV 95 fL 79-97 Not Available [facility] [address] [place], [address], 08/15/2024 06:19:15 08/14/2008/14/2024 CBC WITH DIFFE RENTI AL/PL ATELE T MCH 30.3 pg 26.6-3 3.0 Not Available [facility] [address] [place], [address], 08/15/2024 06:19:15 08/14/20 24 08/14/2024 CBC WITH DIFFE RENTI AL/PL ATELE T MCHC 32.0 g/dL 31.5-3 5.7 Not Available [facility] [address] [place], [address], 08/15/2024 06:19:15 08/14/20 24 08/14/2024 CBC WITH DIFFE RENTI AL/PL ATELE T RDW 12.6 % 11.5-1 4.5 Not Available [facility] [address] [place], [address], 08/15/2024 06:19:15 08/14/20 24 08/14/2024 CBC WITH DIFFE RENTI AL/PL ATELE T platelets 333 x10e3 /uL 150-45 0 Not Available [facility] [address] [place], [address], 08/15/2024 06:19:15 08/14/20 24 08/14/2024 CBC WITH DIFFE RENTI AL/PL ATELE T neutrophils 55 % notest b. Not Available [facility] [address] [place], [address], 08/15/2024 06:19:15 08/14/20 24 08/14/2024 CBC WITH DIFFE RENTI AL/PL ATELE T lymphs 35 % notest b. Not Available [facility] [address] [place], [address], 08/15/2024 06:19:15 08/14/20 24 08/14/2024 CBC WITH DIFFE RENTI AL/PL ATELE T monocytes 7 % notest b. Not Available [facility] [address] [place], [address], 08/15/2024 06:19:15 08/14/20 24 08/14/2024 CBC WITH DIFFE RENTI AL/PL ATELE T eos 1 % notest b. Not Available [facility] [address] [place], [address], 08/15/2024 06:19:15 08/14/20 24 08/14/2024 CBC WITH DIFFE RENTI AL/PL ATELE T basos 1 % notest b. Not Available [facility] [address] [place], [address], 08/15/2024 06:19:15 08/14/20 24 08/14/2024 CBC WITH DIFFE RENTI AL/PL ATELE T neutrophils (absolute) 5.1 x10e3 /uL 1.4-7. 0 Not Available [facility] [address] [place], [address], 08/15/2024 06:19:15 08/14/20 24 08/14/2024 CBC WITH DIFFE RENTI AL/PL ATELE T lymphs (absolute) 3.3 x10e3 /uL 0.7-3. 1 above high normal Not Available [facility] [address] [place], [address], 08/15/2024 06:19:15 08/14/20 24 08/14/2024 CBC WITH DIFFE RENTI AL/PL ATELE T monocytes(ab solute) 0.7 x10e3 /uL 0.1-0. 9 Not Available [facility] [address] [place], [address], 08/15/2024 06:19:15 08/14/20 24 08/14/2024 CBC WITH DIFFE RENTI AL/PL ATELE T eos (absolute) 0.1 x10e3 /uL 0.0-0. 4 Not Available [facility] [address] [place], [address], 08/15/2024 06:19:15 08/14/20 24 08/14/2024 CBC WITH DIFFE RENTI AL/PL ATELE T baso (absolute) 0.1 x10e3 /uL 0.0-0. 2 Not Available [facility] [address] [place], [address], 08/15/2024 06:19:15 08/14/20 24 08/14/2024 CBC WITH DIFFE RENTI AL/PL ATELE T immature granulocytes 0.5 % notest b. Not Available [facility] [address] [place], [address], 08/15/2024 06:19:15 08/14/20 24 08/14/2024 CBC WITH DIFFE RENTI AL/PL ATELE T immature grans (abs) 0.1 x10e3 /uL 0.0-0. 1 Not Available [facility] [address] [place], [address], 08/15/2024 06:19:15 08/14/20 24 08/14/2024 CBC WITH DIFFE RENTI AL/PL ATELE T NRBC 0 % 0-0 Not Available [facility] Department [address] [place], [address], 08/15/2024 06:19:15 08/14/20 24 08/15/2024 VITAM IN B12 AND FOLAT E vitamin B12 819 pg/mL 232-12 45 Not Available [facility] ([facility]) [address] [facility] [address], [place], [address], 08/15/2024 08:28:08 08/14/20 24 08/15/2024 VITAM IN B12 AND FOLAT E folate (folic acid), serum 11.2 NG/mL >3.0 A serum folat e devante ntrat ion of less than 3.1 ng/mL is consi dered to repre sent clini vero defic iency . Not Available [facility] ([facility]) [address] [facility], [place], [address], 08/15/2024 08:28:08 08/14/20 24 08/15/2024 TSH TSH 1.070 uIU/m L 0.450- 4.500 Not Available [facility] ([facility]) [address] [place], [address], 08/15/2024 08:28:09 08/14/20 24 08/15/2024 TRIIO DOTHY LIZY E (T3), FREE triiodothyro nine (T3), free 2.8 pg/mL 2.0-4. 4 Not Available [facility] ([facility]) [address] [place], [address], 08/15/2024 08:28:10 08/14/20 24 08/15/2024 RPR, RFX QN RPR/C ONFIR M TP RPR NON REACTI VE nonrea ctive Not Available [facility] ([facility]) [address] [place], [address], 08/15/2024 08:28:12 08/14/20 24 08/15/2024 T4,FR EE(DI RECT) T4,free(dire ct) 1.29 NG/dL 0.82-1 .77 Not Available [facility] ([facility]) [address] [facility], [place], [address], 08/15/2024 08:28:13 08/14/20 24 08/15/2024 VITAM IN [...] um and D. Rich holloway [place]: [facility] . 2. Caio sosa MF, Ritu alonso [place], Francisca off-F errar i FERGUSON, et al. Evalu ation , treat ment, and preve ntion of vitam in D defic iency : an Endoc rine Socie ty clini vero pract ice guide line. JCEM. 2010; 96(7) :1911 -30. Not Available [facility] ([facility]) [address] [facility], [place], [address], 08/15/2024 08:28:14 01/09/20 25 01/09/2025 LIPID PANEL cholesterol, total 122 mg/dL 100-19 9 Not Available [facility] ([facility]) [address] [facility], [place], [address], 01/09/2025 07:34:31 01/09/20 25 01/09/2025 LIPID PANEL triglyceride s 73 mg/dL 0-149 Not Available [facility] ([facility]) [address] [place], [address], 01/09/2025 07:34:31 01/09/20 25 01/09/2025 LIPID PANEL HDL cholesterol 43 mg/dL >39 Not Available [facility] ([facility]) [address] [place], [address], 01/09/2025 07:34:31 01/09/20 25 01/09/2025 LIPID PANEL VLDL cholesterol vero 15 mg/dL 5-40 Not Available [facility] ([facility]) [address] [place], [address], 01/09/2025 07:34:31 01/09/20 25 01/09/2025 LIPID PANEL LDL chol calc ([facility]) 64 mg/dL 0-99 Not Available [facility] ([facility]) [address] [place], [address], 01/09/2025 07:34:31 01/09/20 25 01/09/2025 COMP. METAB OLIC PANEL (14) glucose 91 mg/dL 70-99 Not Available [facility] ([facility]) [address] [place], [address], 01/09/2025 07:34:33 01/09/20 25 01/09/2025 COMP. METAB OLIC PANEL (14) BUN 12 mg/dL 8-27 Not Available [facility] ([facility]) [address] [place], [address], 01/09/2025 07:34:33 01/09/20 25 01/09/2025 COMP. METAB OLIC PANEL (14) creatinine 0.90 mg/dL 0.57-1 .00 Not Available [facility] ([facility]) [address] [place], [address], 01/09/2025 07:34:33 01/09/20 25 01/09/2025 COMP. METAB OLIC PANEL (14) eGFR 72 mL/mi n/1.7 3 >59 Not Available [facility] ([facility]) [address] [facility], [place], [address], 01/09/2025 07:34:33 01/09/20 25 01/09/2025 COMP. METAB OLIC PANEL (14) BUN/creatini ne ratio 13 12-28 Not Available [facility] ([facility]) [address] [facility], [place], [address], 01/09/2025 07:34:33 01/09/20 25 01/09/2025 COMP. METAB OLIC PANEL (14) sodium 141 mmol/ L 134-14 4 Not Available [facility] ([facility]) [address] [facility], [place], [address], 01/09/2025 07:34:33 01/09/20 25 01/09/2025 COMP. METAB OLIC PANEL (14) potassium 4.1 mmol/ L 3.5-5. 2 Not Available [facility] ([facility]) [address] [facility], [place], [address], 01/09/2025 07:34:33 01/09/20 25 01/09/2025 COMP. METAB OLIC PANEL (14) chloride 102 mmol/ L 96-106 Not Available [facility] ([facility]) [address] [facility], [place], [address], 01/09/2025 07:34:33 01/09/20 25 01/09/2025 COMP. METAB OLIC PANEL (14) carbon dioxide, total 25 mmol/ L 20-29 Not Available [facility] ([facility]) [address] [place], [address], 01/09/2025 07:34:33 01/09/20 25 01/09/2025 COMP. METAB OLIC PANEL (14) calcium 9.9 mg/dL 8.7-10 .3 Not Available [facility] ([facility]) [address] [facility], [place], [address], 01/09/2025 07:34:33 01/09/20 25 01/09/2025 COMP. METAB OLIC PANEL (14) protein, total 6.9 g/dL 6.0-8. 5 Not Available [facility] ([facility]) [address] [facility], [place], [address], 01/09/2025 07:34:33 01/09/20 25 01/09/2025 COMP. METAB OLIC PANEL (14) albumin 4.2 g/dL 3.9-4. 9 Not Available [facility] ([facility]) [address] [facility], [place], [address], 01/09/2025 07:34:33 01/09/20 25 01/09/2025 COMP. METAB OLIC PANEL (14) globulin, total 2.7 g/dL 1.5-4. 5 Not Available [facility] ([facility]) [address] [facility] [place], [address], 01/09/2025 07:34:33 01/09/20 25 01/09/2025 COMP. METAB OLIC PANEL (14) bilirubin, total 1.3 mg/dL 0.0-1. 2 above high normal Not Available [facility] ([facility]) [address] [facility] [place], [address], 01/09/2025 07:34:33 01/09/20 25 01/09/2025 COMP. METAB OLIC PANEL (14) alkaline phosphatase 80 IU/L 44-121 Not Available [facility] ([facility]) [address] [facility], [place], [address], 01/09/2025 07:34:33 01/09/20 25 01/09/2025 COMP. METAB OLIC PANEL (14) AST (SGOT) 47 IU/L 0-40 above high normal Not Available [facility] ([facility]) [address] [facility], [place], [address], 01/09/2025 07:34:33 01/09/20 25 01/09/2025 COMP. METAB OLIC PANEL (14) ALT (SGPT) 37 IU/L 0-32 above high normal Not Available [facility] ([facility]) [address] [facility], [place], [address], 01/09/2025 07:34:33 01/09/20 25 01/09/2025 CBC WITH DIFFE RENTI AL/PL ATELE T WBC 7.1 x10e3 /uL 3.4-10 .8 Not Available [facility] ([facility]) [address] [facility], [place], [address], 01/09/2025 07:34:34 01/09/20 25 01/09/2025 CBC WITH DIFFE RENTI AL/PL ATELE T RBC 4.73 x10e6 /uL 3.77-5 .28 Not Available [facility] ([facility]) [address] [facility], [place], [address], 01/09/2025 07:34:34 01/09/20 25 01/09/2025 CBC WITH DIFFE RENTI AL/PL ATELE T hemoglobin 14.6 g/dL 11.1-1 5.9 Not Available [facility] ([facility]) [address] [place], [address], 01/09/2025 07:34:34 01/09/20 25 01/09/2025 CBC WITH DIFFE RENTI AL/PL ATELE T hematocrit 44.8 % 34.0-4 6.6 Not Available [facility] ([facility]) [address] [facility], [place], [address], 01/09/2025 07:34:34 01/09/20 25 01/09/2025 CBC WITH DIFFE RENTI AL/PL ATELE T MCV 95 fL 79-97 Not Available [facility] ([facility]) [address] [facility], [place], [address], 01/09/2025 07:34:34 01/09/20 25 01/09/2025 CBC WITH DIFFE RENTI AL/PL ATELE T MCH 30.9 pg 26.6-3 3.0 Not Available [facility] ([facility]) [address] [facility], [place], [address], 01/09/2025 07:34:34 01/09/20 25 01/09/2025 CBC WITH DIFFE RENTI AL/PL ATELE T MCHC 32.6 g/dL 31.5-3 5.7 Not Available [facility] ([facility]) [address] [facility], [place], [address], 01/09/2025 07:34:34 01/09/20 25 01/09/2025 CBC WITH DIFFE RENTI AL/PL ATELE T RDW 13.1 % 11.7-1 5.4 Not Available [facility] ([facility]) [address] [facility], [place], [address], 01/09/2025 07:34:34 01/09/20 25 01/09/2025 CBC WITH DIFFE RENTI AL/PL ATELE T platelets 385 x10e3 /uL 150-45 0 Not Available [facility] ([facility]) [address] [facility], [place], [address], 01/09/2025 07:34:34 01/09/20 25 01/09/2025 CBC WITH DIFFE RENTI AL/PL ATELE T neutrophils 55 % notest ab. Not Available [facility] ([facility]) [address] [place], [address], 01/09/2025 07:34:34 01/09/20 25 01/09/2025 CBC WITH DIFFE RENTI AL/PL ATELE T lymphs 34 % notest ab. Not Available [facility] ([facility]) [address] [facility], [place], [address], 01/09/2025 07:34:34 01/09/20 25 01/09/2025 CBC WITH DIFFE RENTI AL/PL ATELE T monocytes 8 % notest ab. Not Available [facility] ([facility]) [address] [facility], [place], [address], 01/09/2025 07:34:34 01/09/20 25 01/09/2025 CBC WITH DIFFE RENTI AL/PL ATELE T eos 2 % notest ab. Not Available [facility] ([facility]) [address] [facility], [place], [address], 01/09/2025 07:34:34 01/09/20 25 01/09/2025 CBC WITH DIFFE RENTI AL/PL ATELE T basos 1 % notest ab. Not Available [facility] ([facility]) [address] [facility], [place], [address], 01/09/2025 07:34:34 01/09/20 25 01/09/2025 CBC WITH DIFFE RENTI AL/PL ATELE T neutrophils (absolute) 3.9 x10e3 /uL 1.4-7. 0 Not Available [facility] ([facility]) [address] [facility], [place], [address], 01/09/2025 07:34:34 01/09/20 25 01/09/2025 CBC WITH DIFFE RENTI AL/PL ATELE T lymphs (absolute) 2.4 x10e3 /uL 0.7-3. 1 Not Available [facility] ([facility]) [address] [facility], [place], [address], 01/09/2025 07:34:34 01/09/20 25 01/09/2025 CBC WITH DIFFE RENTI AL/PL ATELE T monocytes(ab solute) 0.6 x10e3 /uL 0.1-0. 9 Not Available [facility] ([facility]) [address] [facility], [place], [address], 01/09/2025 07:34:34 01/09/20 25 01/09/2025 CBC WITH DIFFE RENTI AL/PL ATELE T eos (absolute) 0.1 x10e3 /uL 0.0-0. 4 Not Available [facility] ([facility]) [address] [facility], [place], [address], 01/09/2025 07:34:34 01/09/20 25 01/09/2025 CBC WITH DIFFE RENTI AL/PL ATELE T baso (absolute) 0.1 x10e3 /uL 0.0-0. 2 Not Available [facility] ([facility]) [address] [facility], [place], [address], 01/09/2025 07:34:34 01/09/20 25 01/09/2025 CBC WITH DIFFE RENTI AL/PL ATELE T immature granulocytes 0 % notest ab. Not Available [facility] ([facility]) [address] [facility], [place], [address], 01/09/2025 07:34:34 01/09/20 25 01/09/2025 CBC WITH DIFFE RENTI AL/PL ATELE T immature grans (abs) 0.0 x10e3 /uL 0.0-0. 1 Not Available [facility] ([facility]) [address] [facility], [place], [address], 01/09/2025 07:34:34 01/09/20 25 01/09/2025 MICRO SCOPI C EXAMI NATIO N WBC 0-5 /hpf 0-5 Not Available [facility] ([facility]) [address] [facility], [place], [address], 01/10/2025 07:00:10 01/09/20 25 01/09/2025 MICRO SCOPI C EXAMI NATIO N RBC None seen /hpf 0-2 Not Available [facility] ([facility]) [address] [facility], [place], [address], 01/10/2025 07:00:10 01/09/20 25 01/09/2025 MICRO SCOPI C EXAMI NATIO N epithelial cells (non renal) 0-10 /hpf 0-10 Not Available [facility] ([facility]) [address] [facility], [place], [address], 01/10/2025 07:00:10 01/09/20 25 01/09/2025 MICRO SCOPI C EXAMI NATIO N casts None seen /lpf nonese en Not Available [facility] ([facility]) [address] [facility], [place], [address], 01/10/2025 07:00:10 01/09/20 25 01/09/2025 MICRO SCOPI C EXAMI NATIO N bacteria None seen nonese en/few Not Available [facility] ([facility]) [address] [facility], [place], [address], 01/10/2025 07:00:10 01/09/2001/09/2025 UA/M W/RFL X CULTU RE, ROUTI NE specific gravity 1.018 1.005- 1.030 Not Available [facility] ([facility]) [address] [facility], [place], [address], 01/10/2025 07:00:11 01/09/2001/09/2025 UA/M W/RFL X CULTU RE, ROUTI NE pH 7.0 5.0-7. 5 Not Available [facility] ([facility]) [address] [facility], [place], [address], 01/10/2025 07:00:11 01/09/20 25 01/09/2025 UA/M W/RFL X CULTU RE, ROUTI NE urine-color YELLOW yellow Not Available [facility] ([facility]) [address] [facility], [place], [address], 01/10/2025 07:00:11 01/09/20 25 01/09/2025 UA/M W/RFL X CULTU RETAMIA NE appearance CLEAR clear Not Available [facility] ([facility]) [address] [facility], [place], [address], 01/10/2025 07:00:11 01/09/20 25 01/09/2025 UA/M W/RFL X CULTU RETAMIA NE WBC esterase 1+ negati ve abnormal Not Available [facility] ([facility]) [address] [facility], [place], [address], 01/10/2025 07:00:11 01/09/20 25 01/09/2025 UA/M W/RFL X CULTU RETAMIA NE protein NEGATI VE negati ve/tra ce Not Available [facility] ([facility]) [address] [place], [address], 01/10/2025 07:00:11 01/09/20 25 01/09/2025 UA/M W/RFL X CULTU RETAMIA NE glucose NEGATI VE negati ve Not Available [facility] ([facility]) [address] [place], [address], 01/10/2025 07:00:11 01/09/20 25 01/09/2025 UA/M W/RFL X CULTU RETAMIA NE ketones NEGATI VE negati ve Not Available [facility] ([facility]) [address] [place], [address], 01/10/2025 07:00:11 01/09/20 25 01/09/2025 UA/M W/RFL X CULTU RETAMIA NE occult blood NEGATI VE negati ve Not Available [facility] ([facility]) [address] [place], [address], 01/10/2025 07:00:11 01/09/20 25 01/09/2025 UA/M W/RFL X CULTU RE, ROUTI NE bilirubin NEGATI VE negati ve Not Available [facility] ([facility]) [address] [facility], [place], [address], 01/10/2025 07:00:11 01/09/20 25 01/09/2025 UA/M W/RFL X CULTU RE, ROUTI NE urobilinogen ,semi-qn 0.2 mg/dL 0.2-1. 0 Not Available [facility] ([facility]) [address] [facility], [place], [address], 01/10/2025 07:00:11 01/09/20 25 01/09/2025 UA/M W/RFL X CULTU RE, ROUTI NE nitrite, urine NEGATI VE negati ve Not Available [facility] ([facility]) [address] [facility], [place], [address], 01/10/2025 07:00:11 01/09/20 25 01/09/2025 UA/M W/RFL X CULTU RE, ROUTI NE microscopic examination SEE BELOW: Micro scopi c was indic ated and was perfo rmed. Not Available [facility] ([facility]) [address] [facility], [place], [address], 01/10/2025 07:00:11 01/09/20 25 01/09/2025 UA/M W/RFL X CULTU RE, ROUTI NE urinalysis reflex COMMEN T This speci men has refle xed to a Urine Cultu re. Not Available [facility] ([facility]) [address] [place], [address], 01/10/2025 07:00:11 01/09/20 25 01/10/2025 URINE CULTU RE, ROUTI NE urine culture, routine Final report Not Available [facility] ([facility]) [address] [facility], [place], [address], 01/10/2025 07:00:12 01/09/20 25 01/10/2025 URINE CULTU RE, ROUTI NE result 1 No growth Not Available [facility] ([facility]) [address], [place], [address], 01/10/2025 07:00:12 01/28/20 24 10/11/2023 US, thyro id No observ ation record ed. [address], [place], [address], 01/29/2024 11:19:24 02/14/20 24 02/13/2024 MAMMO , scree felipe, digit al, bilat eral No observ ation record ed. [email or web address] [facility] [address] [place], [address], Ph [phone] 02/17/2024 13:26:53 03/08/20 24 03/06/2024 MRI, knee, w/o contr ast No observ ation record ed. [address], [place], [address], 03/09/2024 11:40:27 04/10/20 24 04/08/2024 CT, coron devonte calci um score No observ ation record ed. [facility] [address], [place], [address], 04/16/2024 17:08:41 08/10/20 24 08/10/2024 fine needl e aspir ation , ultra sound guide d, thyro id (PROC ) No observ ation record ed. [address], [place], [address], 08/10/2024 21:44:28 08/10/20 24 08/10/2024 fine needl e aspir ation , ultra sound guide d, thyro id (PROC ) No observ ation record ed. [address], [place], [address], 08/10/2024 21:44:29 09/04/20 24 09/04/2024 XR, cervi vero spine No observ ation record ed. [facility] [address] [facility] [address], [place], [address], 09/07/2024 10:01:26 09/04/20 24 09/04/2024 XR, cervi vero spine No observ ation record ed. [facility] [address] [facility] [address], [place], [address], 09/07/2024 10:01:27 01/05/20 25 01/04/2025 elect rocar diogr am No observ ation record ed. [facility] In-Office Order Internal Use Only DO Not Attach Compendium DO Not Attach Compendium, Do Not Delete/merge, [id number] 01/04/2025 10:55:29 01/05/20 25 elect rocar diogr am No observ ation record ed. [email or web address] Not Available 2024 12:56:21 Result Notes None recorded. Problems Name Problem SNOMED Code Status Onset Date Resolution Date Notes Provider Name and Address Organization Details Recorded Time Essential hypertension 82388067 Active 2023 Irvin [place] null, [place] [facility] 4 17:32:49 Fatigue 90505688 Active 2023 Irvin [place], [place] [facility] 4 17:32:50 Hyperlipidemia 86188628 Active 2023 Irvin [place], [place] [facility] 4 17:32:51 Thyroid nodule 094662049 Active 2023 Carroll Sampson MD Attn: Bhaskar cooley,[address] [facility], [place], [address], [place] [facility] 4 22:38:07 Mixed anxiety and depressive disorder 835540276 Active 2023 Carroll Sampson MD Attn: Bhaskar cooley,[address] [facility], [place], [address], [place] [facility] 4 22:38:08 Compression fracture of lumbar spine 949201426 Active 2023 Carroll Sampson MD Attn: Bhaskar cooley,[address] [facility], [place], [address], [place] [facility] 4 22:38:10 Osteoporosis 05580862 Active 2023 Carroll Sampson MD Attn: Bhaskar cooley,[address] [facility], [place], [address], [place] [facility] 4 22:38:11 History of ulcerative colitis 491189441 Active 2023 Carroll Sampson MD Attn: Bhaskar cooley,[address] [facility], [place], [address], [place] [facility] 4 22:38:14 Tachycardia 4355684 Active 2023 Carroll Sampson MD Attn: Bhaskar cooley,[address] [facility], [place], [address], [place] [facility] 4 22:38:15 Morbid obesity 466739960 Active 2023 Irvin [place] [facility] 4 09:55:41 Memory impairment 886506363 Active 2023 Irvin [place] [facility] 4 09:55:44 Neck pain 55235845 Active 2023 Irvin [place] [facility] 4 09:55:47 Abdominal pain 41805304 Active 2024 Irvin [place] [facility] 5 12:31:28 Depressive disorder 61940659 Active Shira Wright [place] [facility] 6 14:35:06 Atrophic vaginitis 67060129 Active Shira [place] [facility] 6 14:35:06 Menopausal syndrome 637821029 Active Shira [place] [facility] 6 14:35:06 Hernia of abdominal cavity 65185140 Active Shira Wright [place] [facility] 6 14:35:06 Problem Notes None recorded. Procedures Surgical History Date Name Laterality Status Provider Name and Address Organization Details Recorded Time 10/28/19 13 Date of Last Pap Smear completed Shira Wright MA [facility] 02/28/2015 10:35:25 09/30/18 85 Caesarean Section completed Lalitha Solis MA [facility] 07/02/2016 11:44:25 09/30/18 80 Caesarean Section completed Lalitha Solis MA [facility] 07/02/2016 11:44:25 LEEP completed Lalitha Solis MA [facility] 07/02/2016 11:44:25 partial hysterectomy completed Tamy Bills MA [facility] 12/30/2023 16:31:31 Breast Surgery completed Tamy Bills MA [facility] 12/30/2023 16:31:48 Gastrointestinal Surgery completed Tamy Bills MA [facility] 12/30/2023 16:31:58 Colostomy completed Tamy Bills MA [facility] 12/30/2023 16:32:25 Cholecystectomy completed Tamy Bills MA [facility] 12/30/2023 16:32:37 Cardiac Catheterization completed Kandy Arguelles LPN [facility] 01/04/2025 09:37:21 Imaging Results Imaging Date Name Status LastModified by Organization Details LastModified Time 10/11/2023 US, thyroid completed [address] [place] [address], [address], 01/29/2024 11:19:24 02/13/2024 MAMMO, screening, digital, bilateral completed [email or web address] [facility] [address] [place], [address], Ph [phone] 02/17/2024 13:26:53 03/06/2024 MRI, knee, w/o contrast completed [address] [place] [address], [address], 03/09/2024 11:40:27 04/08/2024 CT, coronary calcium score completed [facility] [address], [place], [address], 04/16/2024 17:08:41 08/10/2024 fine needle aspiration, ultrasound guided, thyroid (PROC) completed [address], [address], 08/10/2024 21:44:28 08/10/2024 fine needle aspiration, ultrasound guided, thyroid (PROC) completed [address], [address], 08/10/2024 21:44:29 09/04/2024 XR, cervical spine completed [address], [address], 09/07/2024 10:01:26 09/04/2024 XR, cervical spine completed [address], [address], 09/07/2024 10:01:27 01/04/2025 electrocardiogram completed COVINA In-Offi ce Order Internal Use Only DO Not Attach Compendium DO Not Attach Compendium, Do Not Delete/merge, [id number] 01/04/2025 10:55:29 01/04/2025 electrocardiogram completed [email or web address] Informa tion not available 01/04/2025 12:56:21 Procedure Notes None recorded. Medical Equipment None Reported. Allergies Allergen ID Allergen Name Allergen Category Reaction Reaction Severity Criticality Documentation Date Start Date Code Code System Note Provider Name and Address Organization Details Recorded Time 838131 losartan medicatio n dizziness Not available Not available 01/08/20252017 39504 RxNorm Not Available Not Available Not Available 450296 Substance with morphinan structure and opioid receptor agonist mechanism of action (substanc e) medicatio n Not available Not available Not available 01/08/2025 26818 9000 SNOMED Not Available Not Available Not Available 52359 Substance with sulfonami de structure and antibacte rial mechanism of action (substanc e) medicatio n hives moderate Not available 02/28/2015 67893 8003 SNOMED Not Available Not Available Not Available 61657 morphine medicatio n Not available Not available Not available 02/28/2015 7052 RxNorm Other react ions and sever ities : 'Adve rse react ion to subst ance' . Not Available Not Available Not Available 37031 adhesive environme nt,medica tion itching moderate Not available 02/28/2015 08314 UNK surgi vero clear tape Not Available Not Available Not Available Medications Name Sig Start Date Stop Date Status Note LastModified by Organization Details LastModified Time amoxicillin 500 mg caps 12/29 completed Not Available Not Available Not Available atorvastatin calcium 20 mg tabs 12/29 completed Not Available Not Available Not Available Prescription - Prior Authorizatio n Request active Not Available Not Available No t Available lisinopril 10 mg tabs active Not [...] 8 OUNCES OF LIQUID ONCE DAILY NEEDED 01/08 completed Not Available Not Available Not Available levofloxacin 500 mg tablet 12/29 completed Not Available Not Available Not Available lisinopril 40 mg tablet 01/04 completed Not Available Not Available Not Available cefdinir 300 mg capsule 12/29 completed Not Available Not Available Not Available fluticasone propionate 50 mcg/actuatio n nasal spray,suspen pino 12/29 completed Not Available Not Available Not Available amoxicillin 875 mg-potassium clavulanate 125 mg tablet Take 1 tablet every 12 hours by oral route for 7 days. 2024 active Not Available Not Available Not Avai lable hydroxyzine pamoate 25 mg capsule TAKE 1 [...] Updated DateTime 4 166.37 cm 41 kg/m2 609529. 09 g 85 /min 100 % 100 % 130 mm[Hg] 82 mm[Hg] Cathy Haro MA [facility] 4 15:13:57 Date Recorded Body height Body mass index (BMI) Body weight Heart rate Oxygen saturation Oxygen saturation in Arterial blood by Pulse oximetry Systolic blood pressure Diastolic blood pressure Provider Name and Address Organization Details Last Updated DateTime 4 166.37 cm 40.3 kg/m2 132294. 72 g 61 /min 98 % 98 % 132 mm[Hg] 74 mm[Hg] Venita Urrutia MA [facility] 4 10:43:40 Date Recorded Body height Body mass index (BMI) Body weight Heart rate Oxygen saturation Oxygen saturation in Arterial blood by Pulse oximetry Systolic blood pressure Diastolic blood pressure Provider Name and Address Organization Details Last Updated DateTime 4 166.37 cm 40.9 kg/m2 825097. 01 g 61 /min 96 % 96 % 118 mm[Hg] 70 mm[Hg] Venita Urrutia MA [facility] 4 12:11:28 Date Recorded Body height Body mass index (BMI) Body weight Respiratory rate Heart rate Systolic blood pressure Diastolic blood pressure Provider Name and Address Organization Details Last Updated DateTime 5 166.37 cm 39.5 kg/m2 987674. 76 g 18 /min 68 /min 122 mm[Hg] 72 mm[Hg] Kandy Arguelles LPN [facility] 5 09:39:38 Date Recorded Body height Body mass index (BMI) Body weight Heart rate Oxygen saturation Oxygen saturation in Arterial blood by Pulse oximetry Systolic blood pressure Diastolic blood pressure Provider Name and Address Organization Details Last Updated DateTime 5 166.37 cm 38.8 kg/m2 077422. 39 g 83 /min 98 % 98 % 118 mm[Hg] 82 mm[Hg] Tamar Shah MA [facility] 5 11:58:06 Social History Question Answer Notes LastModified by Organizat ion Details LastModified Time Tobacco Smoking Status Former Smoker Shira Wright MA null, [facility] 02/28/2015 10:35:25 Do You Have An Advance Directive? No [email or web address] Information not available 02/28/2015 What Is Your Level Of Alcohol Consumption? None [email or web address] Information not available 02/28/2015 Are You Blind Or Do You Have Difficulty Seeing? Yes Information not available 12/30/2023 Is Blood Transfusion Acceptable In An Emergency? Yes [email or web address] Information not available 02/28/2015 What Is Your Level Of Caffeine Consumption? Occasional [email or web address] Information not available 02/28/2015 How Much Tobacco Do You Chew? None [email or web address] Information not available 02/28/2015 In The 14 [...] available 05/22/2024 Are You Currently Employed? Yes [email or web address] Information not available 02/28/2015 Are You Deaf Or Do You Have Serious Difficulty Hearing? No Information not available 12/30/2023 What Type Of Diet Are You Following? REGULAR [email or web address] Information not available 02/28/2015 Education 12 [email or web address] Information no t available 02/28/2015 Are There Any Guns Present In Your Home? No Information not available 05/22/2024 Live Alone Or With Others? Alone Information not available 02/28/2015 What Was The Date Of Your Most Recent Tobacco Screening? 01/08/2025 Information not available 01/08/2025 How Many Children Do You Have? 2 [email or web address] Information not available 02/28/2015 Performs Monthly Self-breast Exam? Yes [email or web address] Information not available 02/28/2015 What Is Your Relationship Status? [email or web address] Information not available 02/28/2015 Do You Use Your Seat Belt Or Car Seat Routinely? Yes Information not available 05/22/2024 Seat Belts Used Routinely Yes [email or web address] Information not available 02/28/2015 Are You Sexually Active? No [email or web address] Information not available 02/28/2015 Do You Have Smoke And Carbon Monoxide Detectors In Your Home? Yes Information not available 05/22/2024 At What Age Did You Start Smoking Tobacco? 17 [email or web address] Information not available 02/28/2015 How Much Tobacco Do You Smoke? 1 PPD Information not available 02/28/2015 General Stress Level Low [email or web address] Information not available 02/28/2015 Do You Feel Stressed (tense, Restless, Nervous, Or Anxious, Or Unable To Sleep At Night)? [id number] Not Sleeping At Night Information not available 05/22/2024 Do You Use Any Illicit Or Recreational Drugs? No Information not available 08/14/2024 Do You Use Sunscreen Routinely? Yes [email or web address] Information not available 02/28/2015 Has Tobacco Cessation Counseling Been Provided? Yes Information not available 01/08/2025 On What Date Was Tobacco Cessation Counseling Provided? 01/08/2025 Information not available 01/08/2025 How Many Years Have You Smoked Tobacco? 40 [email or web address] Information not available 02/28/2015 Do You Or [...] Notes:No new family history as of 05-22-2024, ny/a Medical History Condition Response Coronary Artery Disease [...] Disorder N Colon Polyps N Heart Attack (DC) N Diabetes N Cardiomyopathy N Blood Transfusions [...] rS-Ad26, PF, 0.5 mL 1 completed Melissa re[place], [place] - [facility] 04/17/2021 15:27:30 Influenza, split virus, quadrivalent, PF 6 completed Not Available [facility] 10/17/2019 02:44:48 Influenza, split virus, quadrivalent, preservative 9 completed Venita Renan, [place] null, [place] [facility] 08/14/2024 12:13:08 influenza, unspecified formulation 9 completed Venita Renan, [place], [place] [...] SNOMED-CT Code Diagnosis ICD10 Code Diagnosis Note [id number] Saad Salazar (ROLLED SEAT TRIMMER) [address] [place] [address] 02/28/2015 09:42:01 02/28/2015 11:40:05 Screening mammography [id number] Depressive disorder 91631864 [id number] OLU Nixon (ROLLED SEAT TRIMMER) [address] [place] [address]-353 0 05/30/2015 09:33:01 05/30/2015 10:50:04 Depressive disorder 47245839 [id number] Saad Wilder Martin (ROLLED SEAT TRIMMER) [address] [place] [address]00-962 0 07/02/2016 11:17:21 07/05/2016 11:21:57 Gynecologic examination 02073728 Z01.411 Screening mammography 24 084254 Z12.31 Atrophic vaginitis 79041 000 N95.2 Menopausal syndrome 1237 94642 N95.9 Depressive disorder 3548 9007 F33.0 Hernia of abdominal cavity 88226381 K46.9 Administra tion of influenza vaccine 46800497 Z23 [id number] Carroll Sampson MD [facility] [address] [place] [address] 12/30/2023 15:46:11 12/30/2023 17:44:17 Fatigue 00645571 R53.83 Essential hypertension 41077485 I10 Hyperlipidemia 38017045 E78.5 Thyroid nodule 381355517 E04.1 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 0 [id number] MD Martin Mahoney (Adult Med) [address] [place] [address] 01/08/2024 14:58:09 01/08/2024 15:48:24 Essential hypertension 40924794 I10 Wound of abdomen 5378269 03 S31.109A [id number] MD Martin Mahoney (Adult Med) [address] [place] [address] 0 05/22/2024 10:15:55 05/22/2024 10:59:49 Thyroid nodule 786434692 E04.1 Essential hypertension 90076543 I10 Hyperlipidemia 88772402 E78.5 Mixed anxi ety and depressive disorder 823513760 F41.8 [id number] Carroll Sampson MD [facility] (Adult Med) [address] [place] [address] 08/14/2024 11:46:30 08/14/2024 13:28:24 Morbid obesity 105994111 E66.01 Essential hypertension 75073361 I10 Memory impairment 607761 006 R41.3 Vitamin D deficiency 347 09071 E55.9 Neck pain 12419810 M54.2 Renewal of prescription 964156603 Z76.0 [id number] Michael Epstein MD [facility] [place] [address] [place] [address] 01/04/2025 08:59:20 01/07/2025 14:04:00 Essential hypertension 52291084 I10 Obesity 438727008 E66.9 Mixed hyperlipidemia 267 019099 E78.2 Coronary atherosclerosis 497800027 I25.84 [id number] Tamar Shah MA [facility] (Adult Med) [address] [place] [address] 01/08/2025 11:30:30 01/08/2025 12:36:28 Body mass index 30+ - obesity 635933733 Z68.38 Obesity 733800397 E66.9 Abdominal pain 24071051 R10.9 Essential hypertension 16701901 I10 Hyperlipidemia 79508063 E78.5 Health Concerns Section Related Observation LastModified by Organization Detai ls LastModified Time None Recorded Concern Status LastModified by Organization Details LastModified Time None Recorded Advance Directives Directive N: Payers Encounter Date Sequence Insurance Name Policy Number Policy Nava Covered Member ID Nava Member ID Guarantor Name 01/08/2024 1 [facility] ON OR AFTER 03/30/21 (MEDICAID REPLACEMENT - HMO) Rachael Mcbride [id number] Rachael Mcbride 05/22/2024 1 [facility] ON OR AFTER 03/30/21 (MEDICAID REPLACEMENT - HMO) Rachael Mcbride [id number] Rachael Goldsmitheg 08/14/2024 1 [facility] ON OR AFTER 03/30/21 (MEDICAID REPLACEMENT - HMO) Rachael Schmieg [id number] Rachael Schmieg 01/04/2025 1 [facility] ON OR AFTER 03/30/21 (MEDICAID REPLACEMENT - HMO) Rachael Schmieg [id number] Rachael Schmieg 01/08/2025 1 [facility] ON OR AFTER 03/30/21 (MEDICAID REPLACEMENT - HMO) [facility] [id number] Rachael Schmieg Notes Date Note Type Note Provider Name and Address Organization Details Recorded Time 4 text/html She forgot to mention she had a wound on her belly is been there for for 5 months things were belt buckle rubs against it Carroll Sampson MD Attn: Accounting[address] [place], [address], [facility] 01/08/2024 22:05:08 4 text/html 1. Knee pain had MRI she is working through the issues with ortho. 2. Thyroid nodule never got the biopsy yet. 3. Coronary artery disease calcium score reviewed last LDL reviewed agree with her apprenticeship consultant to start some Zetia. Hypertension no headache or dizziness anxiety has been stable IBS with constipation Linzess helps since she is up-to-date on colonoscopies via Dr. Brissa Jaquez does her pelvic exams and she says she is up-to-date Carroll Sampson MD Attn: Accounting[address] [facility], [place], [address], [facility] 05/23/2024 12:53:14 4 text/html Hypertension she has [...] MD Attn: Accounting[address] [facility] , [place], [address], [facility] 08/14/2024 22:51:21 5 text/html I had the pleasure of seeing this patient as a new consultation from Carroll Sampson MD for recommendations regarding evaluation and management of CAD. HPI:Pleasant 64-year-old previously seen by Dr. Cobb at [facility] and transitioning cardiovascular care. Denies chest [...] LM 23.7, RCA 57.5 Cardiac history:HypertensionMixed hyperlipidemiaObesity Mcihael Epstein MD Attn: Accounting,[address] [facility], [place], [address], [facility] 01/04/2025 13:17:58 5 text/html Several things 1. She is having trouble losing weight. 2. Hyperlipidemia she could do better with diet but she was taking her atorvastatin. 3. Anxiety up down no HI or SI but she struggles. 4. She has been having some abdominal discomfort states that she was told she had ulcerative colitis was on medicine for a year and now she is having crampy abdominal pain had 1 episode of some rectal bleeding without clots not dizzy when she stands up no fever no chills no blood today. Had a colonoscopy she is unsure of date according to her account. Far as her back went to physical therapy. Tamar Shah MA null, [place] - [facility] 01/11/2025 09:20:38 OBGyn Episode Ob Episode Information Episode Created Date Number of Fetuses Patient Bloodtype Patient rh Status Prepregnancy Weight lbs Domestic Partner Domestic Partner Phone Father Name Family Day Care Provider Status 02/29/20 15 1 CLOSED Fetus Data First Name Last Name Admitted to NICU Weight (g) Sex Living Outcome Pediatric Complications Fetus ID Race Codes Race Delivery Type 3828.31 648 Full Term 24570 Earl Calculation Initial Earl Date Initial Exam [...] Domestic Partner Domestic Partner Phone Father Name Family Day Care Provider Status 02/29/20 15 1 CLOSED Fetus Data First Name Last Name Admitted to NICU Weight (g) Sex Living Outcome Pediatric Complications Fetus ID Race Codes Race Delivery Type 3941.71 448 M Full Term 97269 Earl Calculation Initial Earl Date Initial Exam [...]
--- OUTSIDE RECORDS SUMMARY | 2025-01-15 06:39 | XMS_ITS | Encounter Summary ---
Author Organization [facility] Address [address] [place] [address] Care Team Providers Care Metal Sprayer Machined Parts Name Role Phone Unavailable Primary Care Provider Unavailabl e Encounter Details Date Type Department Care Team (Late st Contact Info) Description 03/19/2018 Abstract [facility] CONVERSION [address] [place], [place] [id number] , Generic Conversion, Social History Tobacco Use [...]
--- OUTSIDE RECORDS SUMMARY | 2025-01-15 06:39 | XMS_ITS | Clinical Summary ---
Author Organization [facility] Address [address] [place] [address] Care Team Providers Care Antique Clock Repairer Name Role Phone Unavailable Primary Care Provider [...] Screening with HPV 1992 Mammogram Screening 2002 Pneumococcal Vaccine: 50+ Ye ars (1 of 1 - PCV) 2012 Zoster Vaccines (1 of 2) 2012 COVID-19 [...]
--- OUTSIDE RECORDS SUMMARY | 2025-01-15 06:39 | XMS_ITS | Referral Summary ---
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 The breasts [...] compared to prior imaging studies performed at [facility] on 02/11/2023, and at [place], [place] on 04/21/2021 and 06/22/2022. The breasts [...] Relevant to Health Maintenance Insurance Care Teams Credit Union Manager Relationship Specialty Start Date End Date Rambo Sampson MD PCP - General Internal Medicine 01/21/24
--- OUTSIDE RECORDS SUMMARY | 2025-01-15 06:39 | XMS_ITS | Clinical Summary ---
Author Organization [facility] Address [address] [place]: Epic Prelude ADT ZUNILDA CRUZ [address] Care Team Providers Care Hvac Design Mechanical Engineer Name Role Phone Unavailable Primary Care Provider Unavailabl e Social History Tobacco Use Types Packs/Day Years Used Date Smoking Tobacco: Never Assessed Comments Unknown Sex and Gender Information Value Date Recorded Sex Assigned at Not on file Legal Sex Female 5:36 AM CONCRETE BLOCK [place] Gender Identity Not on file Sexual Orientation [...]
--- OUTSIDE RECORDS SUMMARY | 2025-01-15 06:39 | XMS_ITS | Clinical Summary ---
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 [place], [place] on 04/21/2021 and 06/22/2022. The breasts [...] compared to prior imaging studies performed at [facility] on 02/11/2023, and at [place], [place] on 04/21/2021 and 06/22/2022. The breasts [...] Relevant to Health Maintenance Insurance Care Teams Heating Engineer Relationship Specialty Start Date End Date Rambo Sampson MD PCP - General Internal Medicine 01/21/24
--- OUTSIDE RECORDS SUMMARY | 2025-01-15 06:40 | XMS_ITS | Continuity of Care Document ---
Author Organization [facility] Address [address] [place] [address] [address] [place] [address] Phone Care Team Providers Care Casework Manager Name Role Phone Zavala OD, Saad Unavailable Unavailable Advance Directives Directive Yes / No Effective Date File Name No Information Encounters Encounter Description Practice Location Reason(s) For Visit Diagnoses Date Provider Providers Copied on Encounter [facility], [address] [place] [address] [address], [place], [place], [id number], [place] tel:[phone] [facility] [place] No Information Mar-0 4-200 5 Zavala OD Saad. [address] , [address], [place], [address], [place]. tel:[phone] Family History Family Member Type Diagnosis Age At Onset No Information Payers Payer name Insurance type Covered democrat ID J Luisa trenton(s) [facility] CI [id number] Social History Type Description Quantity Date Captured [...]
--- OUTSIDE RECORDS SUMMARY | 2025-01-15 06:40 | XMS_ITS | Data Portability ---
Author Organization [place] - [facility], Main Office Address [address] [place] [address] Care Team Providers Care Parking Enforcement Technician Name Role Phone ARIANNE DOAN Primary Care Provider [phone] HOPARIANNE ESTRADA Referring Provider [phone] Assessment Encounter Date Assessment Date Assessment LastModified by Organization Details LastModified Time 12/10/2022 12/10/2022 [facility]- 11/2021, get scheduled [facility]- 01/29/2022 Call office if worse, ER if life threatening illness RTC 3 months She voices understanding of plan and agrees [email or web address] Not available 12/10/2022 13:00:45 03/11/2023 03/11/2023 Cscope- 01/2023- Ahmed- next in years- 01/2028 Mammogram- 01/2023- needs to be at [facility] going forward [facility]11/2021, get scheduled WEA- 01/29/2022 Call office if worse, ER if life threatening illness RTC 3 months She voices understanding of plan and agrees [email or web address] Not available 03/11/2023 11:44:51 06/17/2023 06/17/2023 Cscope- 01/2023- Ahmed- next in years- 01/2028 Mammogram- 01/2023- needs to be at [facility] going forward 11/2021, has been referred to Leonid MANNING- 03/11/23 Call office if worse, ER if life threatening illness RTC 3 months She voices understanding of plan and agrees [email or web address] Not available 06/17/2023 10:08:15 09/16/2023 09/16/2023 Cscope- 01/2023- Ahmed- next in 5 years- 01/2028 Mammogram- 01/2023- needs to be at [facility] going forward [facility]- 11/2021, has been referred to Leonid MANNING- 03/11/23 Call office if worse, ER if life threatening illness RTC 3 months- she plans transfer to [facility] She voices understanding of plan and agrees [email or web address] Not available 09/16/2023 10:08:10 Plan of Treatment Reminders Order Date Submit Date Provider Last Modified By Organization Details Last Modified Time Details Appointments None recorded. Lab vitamin D, 25-hydroxy , total, serum [address] (Lab), [address] [place], [address], 4 09:21:14 glycohemog lobin, total, blood 2022 023 [facility] (Lab), [address] [place], [address], 4 12:31:41 CBC w/ auto diff [address] (Lab), [address] [place], [address], 4 09:21:14 CMP, serum or plasma 2022 023 [facility] (Lab), [address] [place], [address], 4 11:50:38 lipid panel, serum 2022 023 [facility] (Lab), [address] [place], [address], 4 11:50:43 TSH, serum or plasma [address] (Lab), [address] [place], [address], 4 09:21:14 vitamin D, 25-hydroxy , total, serum 2022 023 [email or web address] [facility] (Lab), [address] [place], [address], 3 15:08:56 CMP, serum or plasma 2022 023 [facility] (Lab), [address] [place], [address], 3 11:30:49 CBC w/ auto diff 2022 023 [facility] (Lab), [address] [place], [address], 3 11:06:33 glycohemog lobin, total, blood 2022 023 [facility] (Lab), [address] [place], [address], 3 12:14:10 insulin, serum 2022 023 [facility] (Lab), [address] [place], [address], 3 12:12:32 lipid panel, serum 2022 023 [facility] (Lab), [address] [place], [address], 3 11:30:52 cortisol, am, serum 2022 023 [facility] (Lab), [address] [place], [address], 3 11:15:21 dexamethas one, serum 2022 023 [facility] (Lab), [address] [place], [address], 3 11:15:21 TSH + free T4, serum 2022 023 [facility] (Lab), [address] [place], [address], 3 11:15:22 T3, free, serum or plasma 2022 023 [facility] (Lab), [address] [place], [address], 3 11:15:21 thyroid peroxidase (tpo) Ab, serum 2022 023 [facility] (Lab), [address] [place], [address], 3 11:15:22 HbA1c (hemoglobi n A1c), blood 2022 023 [facility] (Lab), [address] [place], [address], 3 11:15:21 CMP, serum or plasma 2022 023 [facility] (Lab), [address] [place], [address], 3 11:15:21 lipid panel, serum 2022 023 [facility] (Lab), [address] [place], [address], 3 11:15:21 Referral breast surgery referral 2022 023 [email or web address] Nikki Simmons MD, [address], [place], [address], 3 16:35:06 Procedures None recorded. Surgeries None recorded. Imaging None recorded. Medication Orders hydroxyzin e pamoate 25 mg capsule 2022 023 [facility] [employer] [facility] #[id number], [address] [place], [place], [id number], 3 10:11:29 atorvastat in 40 mg tablet 2022 023 [facility] [employer] [facility] #[id number], [address] [place], [place], [id number], 3 10:10:07 bupropion HCl 75 mg tablet 2022 023 [facility] [employer] [facility] #[id number], [address] [place], [place], [id number], 3 10:11:27 lisinopril 20 mg tablet 2022 023 [facility] [employer] [facility] #[id number], [address] [place], [place], [id number], 3 10:10:08 hydroxyzin e pamoate 25 mg capsule 2022 023 [facility] [employer] [facility] #[id number], [address] [place], [place], [id number], 3 10:33:50 dexamethas one 1 mg tablet 2022 023 [email or web address] [facility] [employer] [facility] #[id number], [address] [place], [place], [id number], 3 10:05:48 Patient TargetsNo targets recorded. Patient Instructions Encounter Date Encounter Id Patient Instructions Last Modified By Organization Details Last Modified Time 03/11/2023 [id number] INFLUENZA VACCIN E TD/TDAP Recommended today, patient [...] indicated GLUCOSE SCREENING Ordered LIPID SCREENING Ordered [email or web address] Not available 03/11/2023 11:48:42 Reason for Referral Breast Surgery Referral for Mammography abnormal Referring Physician: Arianne Doan, Internal Medicine, Encounter Date: 12/10/2022 Results Created Date Observation Date Name Description Value Unit Range Abnormal Flag Note LastModifiedBy Organization Detail LastModifiedTime 11/26/1911/26/2022 HEPAT IC/LI LYNSEY PANEL alkaline phosphatase 91 U/L 38-126 Not Available [facility] (Lab) [address] [place], [address], 11/26/2022 11:55:13 11/26/1911/26/2022 HEPAT IC/LI LYNSEY PANEL alanine aminotransfe rase 21 U/L 0-35 Not Available [facility] (Lab) [address] [place], [address], 11/26/2022 11:55:13 11/26/19 23 11/26/2022 HEPAT IC/LI LYNSEY PANEL aspartate aminotransfe rase 26 U/L 15-37 Not Available [facility] (Lab) [address] [place], [address], 11/26/2022 11:55:13 11/26/19 23 11/26/2022 HEPAT IC/LI LYNSEY PANEL bilirubin, total 1.60 mg/dL 0.20-1 .30 high Not Available [facility] (Lab) [address] [place], [address], 11/26/2022 11:55:13 11/26/19 23 11/26/2022 HEPAT IC/LI LYNSEY PANEL bilirubin, conjugated (direct) 0.00 mg/dL 0.00-0 .30 Not Available [facility] (Lab) [address] [place], [address], 11/26/2022 11:55:13 11/26/19 23 11/26/2022 HEPAT IC/LI LYNSEY PANEL biliurubin,u ncong. (indirect) 1.20 mg/dL 0.00-1 .1 high Not Available [facility] (Lab) [address] [place], [address], 11/26/2022 11:55:13 11/26/19 23 11/26/2022 HEPAT IC/LI LYNSEY PANEL total protein 7.2 g/dL 6.3-8. 2 Not Available [facility] (Lab) [address] [place], [address], 11/26/2022 11:55:13 11/26/1911/26/2022 HEPAT IC/LI LYNSEY PANEL albumin 4.1 g/dL 3.4-5. 0 Not Available [facility] (Lab) [address] [place], [address], 11/26/2022 11:55:13 11/26/19 23 11/26/2022 HEPAT IC/LI LYNSEY PANEL globulin 3.1 g/dL 2.6-4. 2 Not Available [facility] (Lab) [address] [place], [address], 11/26/2022 11:55:13 11/26/19 23 11/26/2022 HEPAT IC/LI LYNSEY PANEL A/G ratio 1.3 ratio 1.0-2. 0 Not Available [facility] (Lab) [address] [facility], [address], 11/26/2022 11:55:13 03/20/20 23 03/20/2023 CBC/C OMPLE TE BLD COUNT W/DIF F white blood cells 7.3 x10'3 /uL 4.2-10 .8 Not Available [facility] (Lab) [address] [place], [address], 03/20/2023 11:06:33 03/20/20 23 03/20/2023 CBC/C OMPLE TE BLD COUNT W/DIF F red blood cells 4.98 x10'6 /uL 3.80-5 .20 Not Available [facility] (Lab) [address] [place], [address], 03/20/2023 11:06:33 03/20/20 23 03/20/2023 CBC/C OMPLE TE BLD COUNT W/DIF F hemoglobin 15.2 g/dL 12.0-1 5.6 Not Available [facility] (Lab) [address] [place], [address], 03/20/2023 11:06:33 03/20/20 23 03/20/2023 CBC/C OMPLE TE BLD COUNT W/DIF F hematocrit 47.0 % 35.7-4 5.7 high Not Available [facility] (Lab) [address] [place], [address], 03/20/2023 11:06:33 03/20/20 23 03/20/2023 CBC/C OMPLE TE BLD COUNT W/DIF F mean red cell volume 94.4 fL 82.0-9 9.0 Not Available [facility] (Lab) [address] [place], [address], 03/20/2023 11:06:33 03/20/20 23 03/20/2023 CBC/C OMPLE TE BLD COUNT W/DIF F mean red cell hemoglobin 30.5 pg 27.0-3 3.0 Not Available [facility] (Lab) [address] [place], [address], 03/20/2023 11:06:33 03/20/20 23 03/20/2023 CBC/C OMPLE TE BLD COUNT W/DIF F mean RBC HGB concentratio n 32.3 g/dL 31.0-3 6.0 Not Available [facility] (Lab) [address] [place], [address], 03/20/2023 11:06:33 03/20/20 23 03/20/2023 CBC/C OMPLE TE BLD COUNT W/DIF F red cell distribution width 13.2 % 11.8-1 5.5 Not Available [facility] (Lab) [address] [place], [address], 03/20/2023 11:06:33 03/20/20 23 03/20/2023 CBC/C OMPLE TE BLD COUNT W/DIF F platelets 295 x10'3 /uL 150-40 0 Not Available [facility] (Lab) [address] [place], [address], 03/20/2023 11:06:33 03/20/20 23 03/20/2023 CBC/C OMPLE TE BLD COUNT W/DIF F mean platelet volume 9.9 fL 9.0-12 .4 Not Available [facility] (Lab) [address] [place], [address], 03/20/2023 11:06:33 03/20/20 23 03/20/2023 CBC/C OMPLE TE BLD COUNT W/DIF F neutrophils 55.5 % 39.0-7 2.0 Not Available [facility] (Lab) [address] [place], [address], 03/20/2023 11:06:33 03/20/20 23 03/20/2023 CBC/C OMPLE TE BLD COUNT W/DIF F lymphocytes 34.8 % 16.0-4 7.0 Not Available [facility] (Lab) [address] [place], [address], 03/20/2023 11:06:33 03/20/20 23 03/20/2023 CBC/C OMPLE TE BLD COUNT W/DIF F monocytes 6.3 % 5.0-12 .0 Not Available [facility] (Lab) [address] [place], [address], 03/20/2023 11:06:33 03/20/20 23 03/20/2023 CBC/C OMPLE TE BLD COUNT W/DIF F eosinophils 2.3 % 1.0-7. 0 Not Available [facility] (Lab) [address] [place], [address], 03/20/2023 11:06:33 03/20/20 23 03/20/2023 CBC/C OMPLE TE BLD COUNT W/DIF F basophils 0.8 % 0.0-2. 0 Not Available [facility] (Lab) [address] [place], [address], 03/20/2023 11:06:33 03/20/20 23 03/20/2023 CBC/C OMPLE TE BLD COUNT W/DIF F immature granulocytes 0.3 % 0.00-0 .50 Not Available [facility] (Lab) [address] [place], [address], 03/20/2023 11:06:33 03/20/20 23 03/20/2023 CBC/C OMPLE TE BLD COUNT W/DIF F neutrophils, absolute count 4.05 x10'3 /uL 1.5-8. 0 Not Available [facility] (Lab) [address] [place], [address], 03/20/2023 11:06:33 03/20/20 23 03/20/2023 CBC/C OMPLE TE BLD COUNT W/DIF F lymphocytes, absolute count 2.54 x10'3 /uL 1.07-3 .43 Not Available [facility] (Lab) [address] [facility], [address], 03/20/2023 11:06:33 03/20/20 23 03/20/2023 CBC/C OMPLE TE BLD COUNT W/DIF F monocytes, absolute count 0.46 x10'3 /uL 0.29-0 .99 Not Available [facility] (Lab) [address] [place], [address], 03/20/2023 11:06:33 03/20/20 23 03/20/2023 CBC/C OMPLE TE BLD COUNT W/DIF F eosinophils, absolute count 0.17 x10'3 /uL 0.02-0 .53 Not Available [facility] (Lab) [address] [place], [address], 03/20/2023 11:06:33 03/20/20 23 03/20/2023 CBC/C OMPLE TE BLD COUNT W/DIF F basophils, absolute count 0.06 x10'3 /uL 0.01-0 .08 Not Available [facility] (Lab) [address] [place], [address], 03/20/2023 11:06:33 03/20/20 23 03/20/2023 CBC/C OMPLE TE BLD COUNT W/DIF F immature granulocytes ,absolute 0.02 x10'3 /uL 0.00-0 .05 Not Available [facility] (Lab) [address] [place], [address], 03/20/2023 11:06:33 03/20/20 23 03/20/2023 CBC/C OMPLE TE BLD COUNT W/DIF F nucleated red blood cells 0.0 % -0 Not Available [facility] (Lab) [address] [facility], [address], 03/20/2023 11:06:33 03/20/20 23 03/20/2023 CBC/C OMPLE TE BLD COUNT W/DIF F NRBC# 0.00 x10'3 /uL Not Available [facility] (Lab) [address] [place], [address], 03/20/2023 11:06:33 03/20/20 23 03/20/2023 COMP MET PANEL /LIVE R sodium 140 mmol/ L 137-14 5 Not Available [facility] (Lab) [address] [place], [address], 03/20/2023 11:30:48 03/20/20 23 03/20/2023 COMP MET PANEL /LIVE R potassium 3.8 mmol/ L 3.5-5. 1 Not Available [facility] (Lab) [address] [place], [address], 03/20/2023 11:30:48 03/20/20 23 03/20/2023 COMP MET PANEL /LIVE R chloride 101 mmol/ L 98-107 Not Available [facility] (Lab) [address] [place], [address], 03/20/2023 11:30:48 03/20/20 23 03/20/2023 COMP MET PANEL /LIVE R carbon dioxide 34 mmol/ L 22-30 high Not Available [facility] (Lab) [address] [place], [address], 03/20/2023 11:30:48 03/20/20 23 03/20/2023 COMP MET PANEL /LIVE R anion gap 8.8 mmol/ L 14-22 low Not Available [facility] (Lab) [address] [place], [address], 03/20/2023 11:30:48 03/20/20 23 03/20/2023 COMP MET PANEL /LIVE R glucose 86 mg/dL 70-99 Not Available [facility] (Lab) [address] [place], [address], 03/20/2023 11:30:48 03/20/20 23 03/20/2023 COMP MET PANEL /LIVE R BUN 12 mg/dL 8-19 Not Available [facility] (Lab) [address] [place], [address], 03/20/2023 11:30:48 03/20/20 23 03/20/2023 COMP MET PANEL /LIVE R creatinine 0.75 mg/dL 0.66-1 .25 Not Available [facility] (Lab) [address] [place], [address], 03/20/2023 11:30:48 03/20/20 23 03/20/2023 COMP MET PANEL /LIVE R GFR >60 Refer ence Range : Olmito ge GFR Healt hy Adult : >60 [...] s/kdo qi/gf r_cal culat or Not Available [facility] (Lab) [address] [place], [address], 03/20/2023 11:30:48 03/20/20 23 03/20/2023 COMP MET PANEL /LIVE R alkaline phosphatase 81 U/L 38-126 Not Available [facility] (Lab) [address] [place], [address], 03/20/2023 11:30:48 03/20/20 23 03/20/2023 COMP MET PANEL /LIVE R alanine aminotransfe rase 21 U/L 0-35 Not Available [facility] (Lab) [address] [place], [address], 03/20/2023 11:30:48 03/20/20 23 03/20/2023 COMP MET PANEL /LIVE R aspartate aminotransfe rase 94 U/L 15-37 high Not Available [facility] (Lab) [address] [place], [address], 03/20/2023 11:30:48 03/20/20 23 03/20/2023 COMP MET PANEL /LIVE R bilirubin, total 1.70 mg/dL 0.20-1 .30 high Not Available [facility] (Lab) [address] [place], [address], 03/20/2023 11:30:48 03/20/20 23 03/20/2023 COMP MET PANEL /LIVE R bilirubin, conjugated (direct) 0.00 mg/dL 0.00-0 .30 Not Available [facility] (Lab) [address] [place], [address], 03/20/2023 11:30:48 03/20/20 23 03/20/2023 COMP MET PANEL /LIVE R biliurubin,u ncong. (indirect) 1.40 mg/dL 0.00-1 .1 high Not Available [facility] (Lab) [address] [place], [address], 03/20/2023 11:30:48 03/20/20 23 03/20/2023 COMP MET PANEL /LIVE R calcium 9.1 mg/dL 8.4-10 .2 Not Available [facility] (Lab) [address] [place], [address], 03/20/2023 11:30:48 03/20/20 23 03/20/2023 COMP MET PANEL /LIVE R total protein 7.6 g/dL 6.3-8. 2 Not Available [facility] (Lab) [address] [place], [address], 03/20/2023 11:30:48 03/20/20 23 03/20/2023 COMP MET PANEL /LIVE R albumin 4.1 g/dL 3.4-5. 0 Not Available [facility] (Lab) [address] [place], [address], 03/20/2023 11:30:48 03/20/20 23 03/20/2023 COMP MET PANEL /LIVE R globulin 3.5 g/dL 2.6-4. 2 Not Available [facility] (Lab) [address] [place], [address], 03/20/2023 11:30:48 03/20/20 23 03/20/2023 COMP MET PANEL /LIVE R A/G ratio 1.2 ratio 1.0-2. 0 Not Available [facility] (Lab) [address] [place], [address], 03/20/2023 11:30:48 03/20/20 23 03/20/2023 LIPID PANEL cholesterol 175 mg/dL 140-19 9 NIH AVELINA NSUS RECOM MENDA TION FOR TOM STERO L: ADULT CHILD LOW RISK: <200 <170 BORDE RLINE : <200- 239 ----- HIGH RISK: >240 >200 Not Available [facility] (Lab) [address] [place], [address], 03/20/2023 11:30:52 03/20/20 23 03/20/2023 LIPID PANEL triglyceride s 137 mg/dL 0-150 NIH AVELINA NSUS REPOR T RECOM MENDA TION FOR TRIGL YCERI KAMARI: ADULT CHILD LOW RISK: <150 ----- BODER LINE: 150-1 99 ----- HIGH RISK: >200 ----- Not Available [facility] (Lab) [address] [place], [address], 03/20/2023 11:30:52 03/20/20 23 03/20/2023 LIPID PANEL HDL cholesterol 36 mg/dL 40- low Not Available [facility] (Lab) [address] [place], [address], 03/20/2023 11:30:52 03/20/20 23 03/20/2023 LIPID PANEL [...] WILL NOT BE REPOR HEIDI. Not Available [facility] (Lab) [address] [place], [address], 03/20/2023 11:30:52 03/20/20 23 03/20/2023 VITAM IN D 25-HY DROXY [id number] 48.8 NG/mL 30-100 Vitam in D Statu s: Defic ient: <20 ng/mL Insuf ficie nt: 20-29 ng/mL Suffi cient : 30-10 0 ng/mL Not Available [facility] (Lab) [address] [place], [address], 03/20/2023 11:51:51 03/20/20 23 03/20/2023 HEMOG LOBIN A1C HA1C 6.0 % 4.0-6. 0 Diabe selene Scree felipe Crite warren: <5.7% Consi stent with absen ce of diabe selene 5.7-6 .4% Consi stent with incre ased risk for diabe selene (pred iabet es) >OR=6 .5% Consi stent with diabe selene REFER ENCE: Diabe selene Care 2016, 39(Jackson ppl.1 ):s13 -s22 Not Available [facility] (Lab) [address] [place], [address], 03/20/2023 12:14:10 03/20/20 23 03/21/2023 INSUL IN insulin 12.5 uIU/m L 2.6-24 .9 Perfo rmed at: - [facility] [place] [id number] [facility] Lab Direc tor: Clifton mathis PhD, Phone : [phone] Not Available [facility] (Lab) [address] [place], [address], 03/21/2023 12:12:32 01/03/20 24 01/03/2024 COMPR EHENS DEBORAH METAB OLIC PANEL sodium 141 mmol/ L 137-14 5 Not Available [facility] (Lab) [address] [place], [address], 01/03/2024 11:50:38 01/03/20 24 01/03/2024 COMPR EHENS DEBORAH METAB OLIC PANEL potassium 4.0 mmol/ L 3.5-5. 1 Not Available [facility] (Lab) [address] [place], [address], 01/03/2024 11:50:38 01/03/20 24 01/03/2024 COMPR EHENS DEBORAH METAB OLIC PANEL chloride 105 mmol/ L 98-107 Not Available [facility] (Lab) [address] [place], [address], 01/03/2024 11:50:38 01/03/20 24 01/03/2024 COMPR EHENS DEBORAH METAB OLIC PANEL carbon dioxide 34 mmol/ L 22-30 high Not Available [facility] (Lab) [address] [place], [address], 01/03/2024 11:50:38 01/03/20 24 01/03/2024 COMPR EHENS DEBORAH METAB OLIC PANEL anion gap 6.0 mmol/ L 14-22 low Not Available [facility] (Lab) [address] [place], [address], 01/03/2024 11:50:38 01/03/20 24 01/03/2024 COMPR EHENS DEBORAH METAB OLIC PANEL glucose 108 mg/dL 70-99 high Not Available [facility] (Lab) [address] [place], [address], 01/03/2024 11:50:38 01/03/20 24 01/03/2024 COMPR EHENS DEBORAH METAB OLIC PANEL BUN 24 mg/dL 8-19 high Not Available [facility] (Lab) [address] [place], [address], 01/03/2024 11:50:38 01/03/20 24 01/03/2024 COMPR EHENS DEBORAH METAB OLIC PANEL creatinine 1.01 mg/dL 0.66-1 .25 Not Available [facility] (Lab) [address] [place], [address], 01/03/2024 11:50:38 01/03/20 24 01/03/2024 COMPR EHENS DEBORAH METAB OLIC PANEL GFR 56 Refer ence Range : Olmito ge GFR Healt hy Adult : >60 [...] calcu lator is avail able on the [facility] websi te: https ://hudson w.kid vero.o rg/pr ofess ional s/kdo qi/gf r_cal culat or Not Available [facility] (Lab) [address] [place], [address], 01/03/2024 11:50:38 01/03/20 24 01/03/2024 COMPR EHENS DEBORAH METAB OLIC PANEL alkaline phosphatase 76 U/L 38-126 Not Available [facility] (Lab) [address] [place], [address], 01/03/2024 11:50:38 01/03/20 24 01/03/2024 COMPR EHENS DEBORAH METAB OLIC PANEL alanine aminotransfe rase 18 U/L 0-35 Not Available [facility] (Lab) [address] [place], [address], 01/03/2024 11:50:38 01/03/20 24 01/03/2024 COMPR EHENS DEBORAH METAB OLIC PANEL aspartate aminotransfe rase 28 U/L 15-37 Not Available [facility] (Lab) [address] [place], [address], 01/03/2024 11:50:38 01/03/20 24 01/03/2024 COMPR EHENS DEBORAH METAB OLIC PANEL bilirubin, total 1.50 mg/dL 0.20-1 .30 high Not Available [facility] (Lab) [address] [place], [address], 01/03/2024 11:50:38 01/03/20 24 01/03/2024 COMPR EHENS DEBORAH METAB OLIC PANEL calcium 10.0 mg/dL 8.4-10 .2 Not Available [facility] (Lab) [address] [place], [address], 01/03/2024 11:50:38 01/03/20 24 01/03/2024 COMPR EHENS DEBORAH METAB OLIC PANEL total protein 7.2 g/dL 6.3-8. 2 Not Available [facility] (Lab) [address] [place], [address], 01/03/2024 11:50:38 01/03/20 24 01/03/2024 COMPR EHENS DEBORAH METAB OLIC PANEL albumin 4.0 g/dL 3.4-5. 0 Not Available [facility] (Lab) [address] [place], [address], 01/03/2024 11:50:38 01/03/20 24 01/03/2024 COMPR EHENS DEBORAH METAB OLIC PANEL globulin 3.2 g/dL 2.6-4. 2 Not Available [facility] (Lab) [address] [place], [address], 01/03/2024 11:50:38 01/03/20 24 01/03/2024 COMPR EHENS DEBORAH METAB OLIC PANEL A/G ratio 1.3 ratio 1.0-2. 0 Not Available [facility] (Lab) [address] [place], [address], 01/03/2024 11:50:38 01/03/2001/03/2024 LIPID PANEL cholesterol 193 mg/dL 140-19 9 NIH AVELINA NSUS RECOM MENDA TION FOR TOM STERO L: ADULT CHILD LOW RISK: <200 <170 BORDE RLINE : <200- 239 ----- HIGH RISK: >240 >200 Not Available [facility] (Lab) [address] [place], [address], 01/03/2024 11:50:43 01/03/20 24 01/03/2024 LIPID PANEL triglyceride s 157 mg/dL 0-150 high NIH AVELINA NSUS REPOR T RECOM MENDA TION FOR TRIGL YCERI KAMARI: ADULT CHILD LOW RISK: <150 ----- BODER LINE: 150-1 99 ----- HIGH RISK: >200 ----- Not Available [facility] (Lab) [address] [place], [address], 01/03/2024 11:50:43 01/03/20 24 01/03/2024 LIPID PANEL HDL cholesterol 44 mg/dL 40- Not Available [facility] (Lab) [address] [place], [address], 01/03/2024 11:50:43 01/03/20 24 01/03/2024 LIPID PANEL [...] WILL NOT BE REPOR HEIDI. Not Available [facility] (Lab) [address] [place], [address], 01/03/2024 11:50:43 01/03/20 24 01/03/2024 VITAM IN D 25-HY DROXY vd25oh 57.7 NG/mL 30-100 Vitam in D Statu s: Defic ient: <20 ng/mL Insuf ficie nt: 20-29 ng/mL Suffi cient : 30-10 0 ng/mL Not Available [facility] (Lab) [address] [place], [address], 01/03/2024 11:53:46 01/03/20 24 01/03/2024 HEMOG LOBIN A1C HA1C 5.8 % 4.0-6. 0 Diabe selene Scree felipe Crite warren: <5.7% Consi stent with absen ce of diabe selene 5.7-6 .4% Consi stent with incre ased risk for diabe selene (pred iabet es) >OR=6 .5% Consi stent with diabe selene REFER ENCE: Diabe selene Care 2016, 39([facility] ppl.1 ):s13 -s22 Not Available [facility] (Lab) [address] [place], [address], 01/03/2024 12:31:41 12/04/19 23 12/03/2022 US, yin falcon id arter y No observ ation record ed. [email or web address] Not Available 2022 17:13:43 12/10/19 23 12/03/2022 US, breas t, bilat eral, limit ed [facility] [address] [place] [address] Patien t Name: RACHAEL BANSAL Access ion #: [id number] Sex: F : 1959 4 Locati [...] Page 1 of 2 [facility] [facility] Patisantos t Name: RACHAEL BANSAL Access ion #: [id number] Sex: F : 1959 4 Exam [...] Date: 6:31 PM (CT) Dictat ed by: aKden morales MD DD: 6:31 PM (CT) DT: 6:31 PM (CT) Page 2 of [address] (Imaging) [address] [place], [address], 12/10/2022 10:36:40 12/22/19 23 12/21/2022 CT, head, w/wo contr ast [facility] [address] [facility] maddie Acosta, [place] [address] [facility] Name: RACHAEL BANSAL Access ion #: [id number] Sex: F : 1959 4 Locati [...] along the right Page 1 of 2 [facility] Name: RACHAEL BANSAL Access ion #: [id number] Sex: F : 1959 4 Exam [...] 8:57 AM (CT) Page 2 of [address] (Imaging) 2100 [facility], [place], [address], 12/24/2022 11:45:09 02/12/20 23 02/11/2023 MAMMO , diagn ostic , bilat eral No observ ation record ed. [id number] [place], [address], 02/12/2023 11:18:03 02/12/20 23 02/11/2023 US, breas t, bilat eral No observ ation record ed. [address], [place], [address], 02/12/2023 11:18:45 10/11/19 24 10/11/2023 US, thyro id No observ ation record ed. [address], [place], [address], 10/17/2023 12:10:44 10/11/19 24 10/11/2023 DEXA, axial skele ton No observ ation record ed. [address], [place], [address], 10/17/2023 12:10:44 04/10/20 24 04/08/2024 CT, coron devonte calci um score No observ ation record ed. [email or web address] [facility] [address], [place], [address], 04/12/2024 10:21:29 Result Notes None recorded. Problems Name Problem SNOMED Code Status Onset Date Resolution Date Notes Provider Name and Address Organization Details Recorded Time Anxiety 33478498 Active 2022 Not Available [facility] 3 06:55:58 Prediabet es 768672786 Active 2022 Not Available [facility] 3 06:55:58 Weight gain 9155205 Active 2022 Not Available [facility] 3 06:55:58 Memory impairmen t 698241290 Active 2022 Not Available [facility] 3 06:55:58 Vitamin D deficienc y 78595233 Active 2022 Not Available [facility] 3 06:55:58 Major depressiv e disorder 742795528 Active 2022 Not Available [facility] 3 06:55:58 Tachycard ia 1443893 Active 2022 Not Available [facility] 3 06:55:58 Obesity 658125400 Active 2022 Not Available [facility] 3 06:55:58 Skin lesion 39829498 Active 2022 Not Available [facility] 3 06:55:58 Allergic rhinitis 28916134 Active 2022 Not Available [facility] 3 06:55:58 Nicotine dependenc e 91616118 Active 2022 Not Available [facility] 3 06:55:58 Constipat ion 86698011 Active 2022 Not Available [facility] 3 06:55:58 Multiple cysts of breast 892665455 Active 2022 Not Available [facility] 3 06:55:58 Ulcerativ e colitis 62436208 Active 2022 Not Available [facility] 3 06:55:58 Compressi on fracture of lumbar spine 322307578 Active 2022 Not Available [facility] 3 06:55:58 Backache 996602880 Active Not Available [facility] 3 06:55:58 Mammograp hy abnormal 184456651 Active 2021 Not Available [facility] 3 06:55:58 Total bilirubin above reference range 17545027385 9108 Active 2022 Not Available [facility] 3 06:55:58 Pneumonia 418412108 Completed 201603/31/2021 Not Available [facility] 3 02:58:53 Thyroid nodule 399453309 Active 2021 Not Available [facility] 3 06:55:58 Long-term drug therapy Active 2021 Not Available [facility] 3 06:55:58 Family history of cardiac disorder 291662250 Active 2017 Not Available [facility] 3 06:55:58 Thoracic back pain 275945699 Active 2021 Not Available [facility] 3 06:55:58 Low back pain 257367711 Active 2021 Not Available [facility] 3 06:55:58 Rib pain 506618294 Active 2021 Not Available [facility] 3 06:55:58 Diverticu litis 904861971 Active 2022 Not Available [facility] 3 06:55:58 Pain of left wrist 81234974317 9102 Active 2021 Not Available [facility] 3 06:55:58 Depressiv e disorder 53436594 Active Not Available [facility] 3 06:55:58 Impaired fasting glycemia 871059252 Active 2021 Not Available [facility] 3 06:55:58 Diverticu lar disease 319873615 Active Not Available [facility] 3 06:55:58 Cough 22079260 Active 2021 Not Available [facility] 3 06:55:58 Hyperlipi demia 52203882 Active Not Available [facility] 3 06:55:58 Essential hypertens ion 63544476 Active Not Available [facility] 3 06:55:58 Urinary tract infectiou s disease 90026761 Completed Not Available [facility] 3 02:58:55 COVID-19 087736704 Active 2022 Not Available [facility] 3 06:55:58 Chronic rhinitis 45958745 Active Not Available [facility] 06:55:58 Problem Notes None recorded. Procedures Surgical History Date Name Laterality Status Provider Name and Address Organization Details Recorded Time 11/12/19 20 Date of Last Colonoscopy completed Not Available [facility] 11/28/2022 02:51:28 colonoscopy completed Not Available [facility] 11/28/2022 02:51:32 colostomy completed Not Available [facility] 11/28/2022 02:51:32 oophorectomy completed Not Available [facility] 11/28/2022 02:51:32 laparoscopic adjustable gastric banding completed Not Available [facility] 11/28/2022 02:51:32 Cholecystectomy completed Not Available [facility] 11/28/2022 02:51:32 Imaging Results Imaging Date Name Status LastModified by Organiz ation Details LastModified Time 12/03/2022 US, duplex, carotid artery completed Information not available 12/03/2022 17:13:43 12/03/2022 US, breast, bilateral, limited completed [email or web address] [facility] (Imaging) [address] [place], [address], 12/10/2022 10:36:40 12/21/2022 CT, head, w/wo contrast completed [email or web address] [facility] (Imaging) [address] [place], [address], 12/24/2022 11:45:09 02/11/2023 MAMMO, diagnostic, bilateral completed [email or web address] [facility] Breast [address], [address], 02/12/2023 11:18:03 02/11/2023 US, breast, bilateral completed [email or web address] [address], [address], 02/12/2023 11:18:45 10/11/2023 US, thyroid completed [email or web address] [address], [address], 10/17/2023 12:10:44 10/11/2023 DEXA, axial skeleton completed [email or web address] [facility] [address], [place], [address], 10/17/2023 12:10:44 04/08/2024 CT, coronary calcium score completed [email or web address] [facility] [address], [place], [address], 04/12/2024 10:21:29 Procedure Notes None recorded. Medical Equipment None Reported. Allergies Allergen ID Allergen Name Allergen Category Reaction Reaction Severity Criticality Documentation Date Start Date Code Code System Note Provider Name and Address Organization Details Recorded Time 5136 Substance with sulfonami de structure and antibacte rial mechanism of action (substanc e) medicatio n hives Not available Not available 11/28/2022 38448 8003 SNOMED Not Available [facility] 3 03:07:04 5137 morphine medicatio n other Not available Not available 11/28/2022 7052 RxNorm dizzi ness Not Available [facility] 3 03:07:04 Medications Name Sig Start [...] Not Available prednison e 10 mg tablet [id number], [id number], 8d5bcnh 01/10 completed Not Available Not Available Not [...] Alprazol am. Valid: 02/19/23- 09/29/23 . ALMA# [id number] 404. Not Available Not Available Not Available [...] Updated DateTime 3 162.56 cm 43.4 kg/m2 267663. 87 g 97.6 [degF] 65 /min 130 mm[Hg] 82 mm[Hg] Shira Rebolledo CMA [place] [facility] [place] [employer] [facility] 3 10:48:36 Date Recorded Body height Body mass index (BMI) Body weight Body temperature Heart rate Oxygen saturation Oxygen saturation in Arterial blood by Pulse oximetry Systolic blood pressure Diastolic blood pressure Provider Name and Address Organization Details Last Updated DateTime 3 162.56 cm 42.4 kg/m2 884195. 32 g 97.6 [degF] 72 /min 97 % 97 % 132 mm[Hg] 78 mm[Hg] Lucindasteph Vázquez MA [facility] [employer] [facility] 3 09:58:23 Date Recorded Body height Body mass index (BMI) Body weight Body temperature Heart rate Oxygen saturation Oxygen saturation in Arterial blood by Pulse oximetry Systolic blood pressure Diastolic blood pressure Provider Name and Address Organization Details Last Updated DateTime 3 162.56 cm 41.9 kg/m2 921155. 54 g 97.6 [degF] 62 /min 97 % 97 % 126 mm[Hg] 74 mm[Hg] Lucinda VázquezCHANDRA [facility] [employer] [facility] 3 10:09:38 Date Recorded Body height Body mass index (BMI) Body weight Body temperature Heart rate Oxygen saturation Oxygen saturation in Arterial blood by Pulse oximetry Systolic blood pressure Diastolic blood pressure Provider Name and Address Organization Details Last Updated DateTime 3 162.56 cm 41.7 kg/m2 941562. 95 g 97.6 [degF] 82 /min 98 % 98 % 126 mm[Hg] 78 mm[Hg] Lucinda Vázquez [facility] [employer] [facility] 3 10:03:08 Date Recorded Body height Body mass index (BMI) Body weight Body temperature Heart rate Oxygen saturation Oxygen saturation in Arterial blood by Pulse oximetry Systolic blood pressure Diastolic blood pressure Provider Name and Address Organization Details Last Updated DateTime 3 162.56 cm 42.1 kg/m2 032208. 13 g 97.6 [degF] 80 /min 98 % 98 % 128 mm[Hg] 78 mm[Hg] Lucinda Vázquez [facility] [employer] [facility] 3 09:52:53 Social History Question Answer Notes LastModified by Organization Details LastModified Time Tobacco Smoking Status Current Some Day Smoker Not Available [facility] 11/28/2022 02:48:46 Do You Have An Advance Directive? Yes [id number] Information not available 11/28/2022 What Is Your Level Of Alcohol Consumption? None MIGRATION.[id number] Information not available 11/28/2022 What Is Your Level Of Caffeine Consumption? Occasional MIGRATION.[id number] Information not available 11/28/2022 How Much Tobacco Do You Chew? None MIGRATION.0301 838008 Information not available 11/28/2022 In The 14 Days Before Symptom Onset, Have You Had Close Contact With A Laboratory-confi rmed COVID-19 While That Case Was Ill? No MIGRATION.0301 [id number] Information not available 11/28/2022 In The 14 Days Before Symptom Onset, Have You Had Close Contact With A Person Who Is Under Investigation For COVID-19 While That Person Was Ill? No MIGRATION.0301 026581 Information not available 11/28/2022 What Type Of Diet Are You Following? REGULAR MIGRATION.0301 474092 Information not available 11/28/2022 Which Illicit Or Recreational Drugs Have You Used? None MIGRATION.0301 115859 Information not available 11/28/2022 Do You Or Have You Ever Used E-cigarettes Or Vape? 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 No MIGRATION.0301 518766 Information not available 11/28/2022 What Is The Fluoride Status Of Your Home? Unknown MIGRATION.0301 743885 Information not available 11/28/2022 Are There Any Guns Present In Your Home? Yes MIGRATION.0301 713179 Information not available 11/28/2022 Do You Use Insect Repellent Routinely? No MIGRATION.0301 343480 Information not available 11/28/2022 Where Do You Live? [place]House MIGRATION.0301 529568 Information not available 11/28/2022 What Was The Date Of Your Most Recent Tobacco Screening? 09/16/2023 Information not available 09/16/2023 Do You Have Any Pets? Yes MIGRATION.0301 318539 Information not available 11/28/2022 Do You Use Your Seat Belt Or Car Seat Routinely? Yes MIGRATION.0301 497384 Information not available 11/28/2022 Do You Have Smoke And Carbon Monoxide Detectors In Your Home? Yes MIGRATION.0301 601047 Information not available 11/28/2022 At What Age Did You Start Smoking Tobacco? 17 MIGRATION.0301 699000 Information not available 11/28/2022 Are You Passively Exposed To Smoke? Yes MIGRATION.0301 196398 Information not available 11/28/2022 Do You Or Have You Ever Used Smokeless Tobacco? Never Used Smokeless Tobacco MIGRATION.0301 111170 Information not available 11/28/2022 Are There Any Smokers In Your House? No MIGRATION.0301 420212 Information not available 11/28/2022 How Much Tobacco Do You Smoke? 1 PPW 2 Or 3 Cigg. A Day MIGRATION.0301 732683 Information not available 11/28/2022 Do You Feel Stressed (tense, Restless, Nervous, Or Anxious, Or Unable To Sleep At Night)? [id number] MIGRATION.0301 262428 Information not available 11/28/2022 Do You Use Sunscreen Routinely? No MIGRATION.0301 676997 Information not available 11/28/2022 Have You Recently Traveled Abroad? No MIGRATION.0301 625681 Information not available 11/28/2022 Do You Have Any Dietary Restrictions? No MIGRATION.0301 123143 Information not available 11/28/2022 Sex: Female Functional Status Question Answer Note LastModified by OrganImpevaat ion Details LastModified Time What is your exercise level? None MIGRATION.[id number] Information not available 11/28/2022 Mental Status None recorded. Family History Relationship Description Onset Age of this Age Resolved Age Notes LastModified by Organization Details LastModified Time Mother Heart disease MIGRATION.717 [id number] Not available 11/28/2022 02:51:37 Mother Family history of stroke MIGRATION.977 [id number] Not available 11/28/2022 02:51:37 Mother Acute respiratory distress Deceas ed MIGRATION.827 9755489 Not available 11/28/2022 02:51:37 Paternal Grandmother Heart disease MIGRATION.549 1530386 Not available 11/28/2022 02:51:37 Paternal Grandmother Epilepsy Deceas ed MIGRATION.350 0151544 Not available 11/28/2022 02:51:37 Father Hypertensive disorder MIGRATION.044 6031518 Not available 11/28/2022 02:51:37 Father Malignant tumor of prostate MIGRATION.028 8422821 Not available 11/28/2022 02:51:38 Maternal Grandmother Acute respiratory distress Deceas ed MIGRATION.730 [id number] Not available 11/28/2022 02:51:38 Medical History Condition [...] virus, quadrivalent, preservative 9 completed Not Available [facility] 03/21/2023 06:55:59 Influenza, split virus, quadrivalent, PF 2 completed Not Available [facility] 03/21/2023 06:55:59 COVID-19 vaccine, vector-nr, rS-Ad26, PF, 0.5 mL 1 completed Not Available [facility] 03/21/2023 06:55:59 Influenza, split virus, trivalent, preservative 6 completed Not Available [facility] 03/21/2023 06:55:59 Influenza, split virus, quadrivalent, PF 1 completed Not Available [facility] 03/21/2023 06:55:59 Influenza, split virus, quadrivalent, PF 0 completed Not Available [facility] 03/21/2023 06:55:59 Influenza, split virus, quadrivalent, PF 9 completed Not Available [facility] 03/21/2023 06:55:59 Influenza, split virus, quadrivalent, PF 7 completed Not Available [facility] 03/21/2023 06:55:59 Td (adult), 5 Lf tetanus toxoid, preservative free, adsorbed 0 completed Not Available [facility] 03/21/2023 06:55:59 Influenza, split virus, quadrivalent, PF 3 completed JASON Ramires [address] [place] [address], [facility] [address], [place], [address], [facility] [employer] [facility] 09/16/2023 10:13:28 Past Encounters Encounter ID Performer Location Encounter Start Date Encounter Closed Date Diagnosis/Indication Diagnosis SNOMED-CT Code Diagnosis ICD10 Code Diagnosis Note [id number] [facility] [place] [address] [address] 12/16/2020 00:00:00 12/16/2020 13:23:02 [id number] [facility] [place] [address] [address] 03/24/2021 00:00:00 03/24/2021 11:48:22 [id number] [facility] [address] [address] 03/31/2021 00:00:00 03/31/2021 13:12:27 [id number] [facility] [address] [address] 05/01/2021 00:00:00 05/01/2021 12:03:43 [id number] [facility] [place] [address] [place] [address] 05/15/2021 00:00:00 05/15/2021 09:11:46 [id number] [facility] [address] [address] 06/30/2021 00:00:00 06/30/2021 15:56:08 [id number] [facility] [address] [address] 08/11/2021 00:00:00 08/11/2021 10:49:09 [id number] [facility] [address] [place] [address] [address] [address] 08/29/2021 00:00:00 08/29/2021 13:45:27 [id number] [facility] [place] [address] [place] [address] 11/13/2021 00:00:00 11/13/2021 09:14:26 [id number] [facility] [place] [address] [place] [address] [address] [address] 12/08/2021 00:00:00 12/08/2021 12:45:21 [id number] [facility] [address] [address] 01/29/2022 00:00:00 01/29/2022 13:09:11 [id number] [facility] [address] [address] 04/30/2022 00:00:00 04/30/2022 10:27:26 [id number] [facility] [place] [address] [place] [address] 05/03/2022 00:00:00 05/03/2022 10:20:24 [id number] [facility] [address] [address] 06/01/2022 00:00:00 06/01/2022 12:24:08 [id number] [facility] [address] [address] 09/10/2022 00:00:00 09/10/2022 12:57:20 [id number] [facility] [address] [address] 10/26/2022 00:00:00 10/26/2022 13:10:30 [id number] Yarely Fischer MD [facility] [place] [address] [place] [address] 11/30/2022 10:31:20 11/30/2022 11:39:27 Prediabetes 486928754 R73.03 a1c of 5.7%- agree with use of victoza if insurance will cover- per patient PCP has been trialing with GLP therapy as she cannot take stimulants due to her cardiac history. Discussed carb counting and how to read food labels. Recommende d patient to utilize the diabetesfo [employer] from the ADA website to help with food preparatio n as this presents ideal carb content per meal so this will make carb counting much easier for patient. Recommende d she incorporat e natural insulin claims examiner s such as pears, apples, cinnamon, korey and sweet potatoes to help mobilize her endogenous insulin. Recommende d up to 150 minutes of moderate level activity/e xercise weekly. Thyroid nodule 362244507 E04.1 Recommende d patient for for u/s [...] with fatigue, hair thinning etc. Weight gain 7143340 R63. 5 Will send for low dose [...] she chooses to go outside of the [facility] to obtain labwork she was [...] in her case. She voiced understand ing. [id number] Arianne Doan, RAYMOND-[place]w [facility] [place] [address] [place] [address] [place] [address] 12/10/2022 09:37:12 12/10/2022 10:25:55 Prediabetes 776881056 R73.03 continue diet/exerc ise restart victozapt is [...] increase to 1.8 mg daily Essential hypertension 43221667 I10 on lisinopril (now on 20mg daily not BID) and coreg, follows cardiology - Dr. Gamble Hyperlipidemia 53605250 E78.5 on atorvastat in trig mildly elevated, continue diet/exerc ise efforts Vitamin D deficiency 347 39783 E55.9 on supplement OTC Total bili higgins above reference range 4626334787 44823 R17 referred back to GI- Dr. Brumfield Ulcerative colitis 48434 004 K51.90 following GI- Dr. Brumfield Major depr essive disorder 334578254 F32.9 on bupropion, she is aware of side effects, risks, benefits call office if any change in mood or behavior she declines psychiatry and/or counseling referral at this time she declines an increase in medication , she plans to start a walking plan to help her with her body image Anxiety 92790212 F41.9 on xanax prn; as aboveadvis ed as of October she will only be able to get 14 pills per month due to new medicaid guidelines no alcohol, driving, or mixing with other sedating meds Tachycardia 3272113 R00. 0 on coreg, follows cardiology - Dr. Gamble Obesity 417997983 E66.9 continue diet/exerc ise measures as above Skin lesion 82400294 L98 .9 follows U derm- has annual skin checks Allergic rhinitis 768067 04 J30.9 on zyrtec, azelastine nasal spray Nicotine dependence 5629 4008 F17.200 congratula heidi pt on recent cessation attempts! Compressio n fracture of lumbar spine 102582906 M48.56XD Has seen neurosurge ry- Dr. Orozco, does not wish to pursue any other interventi on offered pain management referral- she declines Constipation 76366108 K5 9.00 increase fiber, fluids in dieton prn colace Thyroid nodule 032806161 E04.1 following endo- Dr. Thomas thyroid biopsy ordered from them Memory impairment 453576 006 R41.3 s/p carotid doppler- normalhas order from CT brain, encouraged her to schedule (radiologi st would not do MRI due to her having lapband and she does not know if it is MRI compatible )may need neurology referral pending results of testing Mammography abnormal 168 658345 R92.8 we discussed options since she cannot have MRIget appt with breast surgery over at [facility]- Dr. Lara [id number] Arianne Doan, ROLFER-C [facility] [address] [facility], [address] [place] [address] 03/11/2023 09:37:16 03/11/2023 10:36:27 Prediabetes 901622900 R73.03 continue diet/exerc ise restart victozapt is [...] increase to 1.8 mg daily Essential hypertension 65854928 I10 on lisinopril (now on 20mg daily not BID) and coreg, follows cardiology - Dr. Gamble Hyperlipidemia 83499969 E78.5 on atorvastat intrig mildly elevated, continue diet/exerc ise efforts Vitamin D deficiency 347 08229 E55.9 on supplement OTC Total bili higgins above reference range 2268213695 68109 R17 did see GI- Dr. Tamez felt this was do to Gilbert's syndrome Ulcerative colitis 40102 004 K51.90 following GI- Dr. Brumfield Major depr essive disorder 818578029 F32.9 on bupropion, she is aware of side effects, risks, benefitsca ll office if any change in mood or behaviorsh e declines psychiatry and/or counseling referral at this time she declines an increase in medication , she plans to start a walking plan to help her with her body image Anxiety 34741066 F41.9 we discussed the need to switch her from something controlled to something safer, she is now down to 14 pills per month so she has been tapered down start hydroxyzin e prn at bedtime, she is aware of side effects, risks, benefits Tachycardia 6848733 R00. 0 on coreg, follows cardiology - Dr. Gamble Obesity [id number] E66.9 recommend healthy, well balanced mealsfocus on lean meats, fresh vegetables , fresh fruits, whole grainsredu ce fast/proce ssed foods or eating out to no more than 1-2 times per weekaim to get 30 min of exercise most days of the week- walking is a great choicealso recommend resistance training 2-3 times per week Skin lesion 44807228 L98 .9 follows [facility] derm- has annual skin checks Allergic rhinitis 937597 04 J30.9 on zyrtec, azelastine nasal spray Nicotine dependence 5629 4008 F17.200 congratula heidi pt on recent cessation attempts! Compressio n fracture of lumbar spine 988546717 M48.56XD Has seen neurosurge ry- Dr. Orozco, does not wish to pursue any other interventi on offered pain management referral- she declines Constipation 82468990 K5 9.00 increase fiber, fluids in dieton prn colacefoll owing GI as above Thyroid nodule 425959835 E04.1 following endo- Dr. Thomas thyroid biopsy ordered from them Memory impairment 006709 006 R41.3 s/p carotid doppler- normalhas order from CT brain, encouraged her to schedule (radiologi st would not do MRI due to her having lapband and she does not know if it is MRI compatible )may need neurology referral pending results of testing Mammography abnormal 168 948335 R92.8 did see breast surgery over at [facility]- Dr. Jane greene felt she could go back to annual screening mammograms Adult heal th examination 699154975 Z00.01 Depression screening 171 382515 Z13.31 [id number] JASON Ramires [facility] Internal Med [address] [facility] [address] [place] [address] 06/17/2023 09:55:23 06/17/2023 10:18:33 Prediabetes 540478752 R73.03 continue diet/exerc ise she could not tolerate the side effects of victoza Essential hypertension 85873248 I10 on lisinopril (now on 20mg daily not BID) and coreg, follows cardiology - Dr. Gamble Hyperlipidemia 58720969 E78.5 on atorvastat intrig mildly elevated, continue diet/exerc ise efforts Vitamin D deficiency 347 34524 E55.9 on supplement OTC Total bili higgins above reference range 1553914300 33126 R17 did see GI- Dr. Tamez felt this was do to Gilbert's syndrome Ulcerative colitis 99856 004 K51.90 following GI- Dr. Brumfield Major depr essive disorder 967257128 F32.9 on bupropion, she is aware of side effects, risks, benefitsca ll office if any change in mood or behaviorsh e declines psychiatry and/or counseling referral at this time Anxiety 48080542 F41.9 we discussed the need to switch her from controlled xanax to something safer, she is now down to 14 pills per month so she has been tapered down on hydroxyzin e prn at bedtime, she is aware of side effects, risks, benefits Tachycardia 5521922 R00. 0 on coreg, follows cardiology - Dr. Gamble Obesity 161244516 E66.9 recommend healthy, well balanced mealsfocus on [...] as well as dietary protein Skin lesion 02075156 L98 .9 follows [facility] derm- has annual skin checks Allergic rhinitis 971318 04 J30.9 on zyrtec, azelastine nasal spray Nicotine dependence 5629 4008 F17.200 congratula heidi pt on recent cessation attempts! Compressio n fracture of lumbar spine 382153290 M48.56XD Has seen neurosurge ry- Dr. Orozco, does not wish to pursue any other interventi on offered pain management referral and/or physical therapy- she declines Constipation 46170358 K5 9.00 increase fiber, fluids in dieton prn colacefoll owing GI as above Thyroid nodule 329863383 E04.1 following endohas thyroid biopsy ordered from them Memory impairment 760875 006 R41.3 s/p carotid doppler- normalhas order from CT brain, encouraged her to schedule (radiologi st would not do MRI due to her having lapband and she does not know if it is MRI compatible )may need neurology referral pending results of testing Mammography abnormal 168 541678 R92.8 did see breast surgery over at [facility]- Dr. Jane greene felt she could go back to annual screening mammograms , next due 01/2024 [id number] RAYMOND Ramires-Get[place]w [facility] [address] [facility], [address] [place] [address] 09/16/2023 09:36:03 09/16/2023 10:11:33 Prediabetes 457831764 R73.03 continue diet/exerc ise she could not tolerate the side effects of victoza Essential hypertension 17594928 I10 on lisinopril (now on 20mg daily not BID) and coreg, follows cardiology - Dr. Gamble Hyperlipidemia 42281575 E78.5 on atorvastat intrig mildly elevated, continue diet/exerc ise efforts Vitamin D deficiency 347 07141 E55.9 on supplement OTC Total bili higgins above reference range 0951262343 76833 R17 did see GI- Dr. Tamez felt this was do to Gilbert's syndrome Ulcerative colitis 60901 004 K51.90 following GI- Dr. Brumfield Major depr essive disorder 260213666 F32.9 on bupropion, she is aware of side effects, risks, benefitsca ll office if any change in mood or behaviorsh e declines psychiatry and/or counseling referral at this time Anxiety 26899564 F41.9 we discussed the need to switch her from controlled xanax to something safer, she is now down to 14 pills per month so she has been tapered down on hydroxyzin e prn at bedtime, she is aware of side effects, risks, benefits Tachycardia 9194975 R00. 0 on coreg, follows cardiology - Dr. Gamble Obesity 087174250 E66.9 recommend healthy, well balanced mealsfocus on [...] as well as dietary protein Skin lesion 40588886 L98 .9 follows [facility] derm- has annual skin checks Allergic rhinitis 510875 04 J30.9 on zyrtec, azelastine nasal spray Nicotine dependence 5629 4008 F17.200 congratula heidi pt on recent cessation attempts! Compressio n fracture of lumbar spine 940626256 M48.56XD Has seen neurosurge ry- Dr. Orozco, does not wish to pursue any other interventi on offered pain management referral and/or physical therapy- she declines Constipation 11804270 K5 9.00 increase fiber, fluids in dieton prn colacefoll owing GI as above Thyroid nodule 735606610 E04.1 following endohas thyroid biopsy ordered from them Memory impairment 528988 006 R41.3 s/p carotid doppler- normals/p CT brainhas been referred to neurology- Dr. Molina Mammography abnormal 168 930391 R92.8 did see breast surgery over at [facility]- Dr. Jane greene felt she could go back to annual screening mammograms , next due 01/2024 Renewal of prescription 464340395 Z76.0 Administra tion of influenza vaccine 63884707 Z23 Health Concerns Section Related Observation LastModified by Organization Detai ls LastModified Time None Recorded Concern Status LastModified by Organization Details LastModified Time None Recorded Advance Directives Directive Y: Payers Encounter Date Sequence Insurance Name Policy Number Policy Nava Covered Member ID Nava Member ID Guarantor Name 11/30/2022 1 [facility] - DOS ON OR AFTER 21 (MEDICAID REPLACEMENT - HMO) Rachael L Schmieg [id number] Rachael L Schmieg 12/10/2022 1 [facility] - [facility] ON OR AFTER 03/30/21 (MEDICAID REPLACEMENT - HMO) Rachael L Schmieg [id number] Rachael L Schmieg 03/11/2023 1 [facility] - [facility] ON OR AFTER 03/30/21 (MEDICAID REPLACEMENT - HMO) Rachael L Schmieg [id number] Rachael L Schmieg 06/17/2023 1 [facility] - [facility] ON OR AFTER 03/30/21 (MEDICAID REPLACEMENT - HMO) Rachael L Schmieg [id number] Rachael L Schmieg 09/16/2023 1 [facility] - [facility] ON OR AFTER 03/30/21 (MEDICAID REPLACEMENT - HMO) Rachael Magaña Schmieg [id number] Rachael Magaña Schmieg Notes Date Note Type [...] discomfort. labs from 10/22:glucose 86 mg/dLCr normalLFT molliq548/183/37/13 1TSH of 0.744 uIU/mlFT4 of 1.2 ng/dLFT3 of 3.7 pg/mlTPO nega1c 5.7%insulin 22.6 uU/mliodine 48.8 uU/mlB12 /folate high normal Yarely Fischer MD [address] [facility] [facility] [address], [place], [address], [facility] [employer] 11/30/2022 11:21:53 12/10/2022 text/html Rachael presents today [...] back on that as well. Arianne Doan, ROLFER-C [address] [facility] [address], [place], [address], [facility] [employer] 12/10/2022 13:02:47 03/11/2023 text/html Rachael presents today for follow-up. She is also due for her annual wellness exam. She reports she did see the breast surgeon who felt like she did not need any sort of biopsy and that a lot of her issues were just scarring from surgery. They recommended that she only have her mammograms done at [facility] going forward. She did see her GI, [...] SI or HI today. JASON Ramires [address] [place] [address], [place], [address], [employer] 03/11/2023 11:49:13 06/17/2023 text/html Rachael presents today [...] few weeks from now. 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 Arianne Doan, RAYMOND-C [address] [facility] [facility] [address], [place], [address], [place] [facility] 09/16/2023 10:14:07 OBGyn Episode No OBEpisode recorded.
--- OUTSIDE RECORDS SUMMARY | 2025-01-15 06:40 | XMS_ITS | Clinical Summary ---
Author Organization [facility] Address [address] [place] [address] Care Team Providers Care Lifter Driver Name Role Phone Rambo aSmpson MD Primary Care Provider [phone] Source Comments [facility],non-owned Affiliates and Associated Physician Practices is amultiple site organization consisting of ambulatory clinics and hospital sitesin [place], [place], [place] and [place]. This disclosure is being madepursuant to the Care Everywhere program and may not contain all information available regarding this patient. Last updated 18.[facility] Allergies Active Allergy Reactions Criticality Noted Date Comments Losartan Dizziness 04/16/2018 Morphine Other Opioids [Other] Other 04/04/2020 Received name: Opioids - Morphine Analogues Skin Adhesives Rash High 12/19/2021 Some tapes Sulfa Antibiotics Urticaria Medium 11/05/2022 Sulfa Drugs Fever Medications * Be aware that medications may not be up to date on this document. Alwaysverify current medications with the patient. lisinopril (PRINIVIL; ZESTRIL) 20 MG tablet Take 1 (one) tablet by mouth 2 times daily 9 Active carvedilol (COREG) 12.5 MG tablet Take 0.5 (one-half) tablet by mouth 2 times daily 9 Active ASPIRIN 81 PO Take 1 tablet every day by oral route as directed. Active atorvastatin (LIPITOR) 40 MG tablet Take 1 (one) tablet by mouth once daily 9 Active Probiotic Product (PROBIOTIC DAILY PO) Take 1 tablet by mouth once daily Active ALPRAZolam (XANAX) 0.25 MG tablet TK 1 T PO QHS PRN 0 Active buPROPion (WELLBUTRIN) 75 MG tablet TK 1 T PO QD 0 Active Ascorbic Acid (VITAMIN C) 100 MG Vitamin C 1,000 mg tablet Take by oral route. Active liraglutide (VICTOZA) 18 MG/3ML pen once daily Active Vitamin D3, cholecalciferol , 50 MCG (2000 UT) tablet Take 1 (one) tablet by mouth once daily Active ketoconazole (NIZORAL) 2 % creamIndication s:Candidal intertrigo Apply to rash on abdomen twice daily. 30 days supply. 30 g 1 1 Active Additional Information Patient not taking.Reported on 11/05/2022 hydrocortisone (HYTONE) 2.5 % creamIndication s:Candidal intertrigo Apply to rash on abdomen twice daily. 30 days supply. 30 g 1 1 Active Additional Information Patient not taking.Reported on 11/05/2022 NIFEdipine CR 24hr (ADALAT CC) 30 MG tablet Take by mouth once daily 1 Active Ascorbic Acid 1000 MG Vitamin C 1,000 mg tablet Take 2 tablets every day by oral route. 0 Active hydroCHLOROthia zide (Hydrodiuril) 12.5 MG Take 1 (one) tablet by mouth once daily 3 Active rosuvastatin (Crestor) 20 MG tablet Take 1 (one) tablet by mouth once daily 3 Active polyethylene glycol 3350 (Miralax) 17 GM/SCOOP powder polyethylene glycol 3350 17 gram/dose oral powder Active ketoconazole (Nizoral) 2 % shampooIndicati ons:Candidal intertrigo Apply to wet body/skin folds, leave on for 3-5 minutes, then rinse; may use daily. 30 day supply. 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 Office Visit [facility] - Dermatology [facility] [place] [id number] Leticia Giron MD Multiple benign melanocytic nevi of upper and lower extremities and trunk (Primary Dx); Seborrheic keratosis, inflamed; Seborrheic keratoses; Actinic skin damage; Lentigines; Other rosacea 11/16/2024 Travel from Last 3 Months Immunizations Immunization Administration Dates Next Due INFLUENZA VACCINE 07/30/2022,08/10/2019 [...] on file Legal Sex Female 7:07 PM 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 Gender Identity Not on file Sexual Orientation [...] st Contact Info) Description 11/22/2025 8:20 AM COATING MIXER Office Visit [facility] - Dermatology [address] [place] [address], [place] [address] Leticia Giron MD [address] [place] [address] [address] [place] [address] Health Maintenance Due Date Last Done Comments [...] 60-74 years 1-dose series) 2022 COVID-19 VACCINE ( - season) 2024 DEPRESSION SCREENING 09/30/2024 INFLUENZA VACCINE [...] MAMMOGRAM (01/19/2019) Anatomical Region Laterality Modality Other us Historical Provider MD SCANNING ONLY Final Res ult from Last 3 Months or Most Recently Relevant to Health Maintenance Insurance [place] [employer] [facility] Care Teams Lifter Driver Relationship Specialty Start Date End Date Rambo Sampson MD [address] [place] [address] PCP - General Internal Medicine 07/22/24
[2025-01-15 09:44] LABS: Estimated Glomerular Filt Rate 56
== END 2025-01-15 06:35 | disposition home or self-care (01) ==
PROVIDERS: PCP Internal Medicine; Visit Provider Internal Medicine
DX: K43.9 Ventral hernia without obstruction or gangrene (principal); S22.080A Wedge compression fracture of T11-T12 vertebra, initial encounter for closed fracture; X58.XXXA Exposure to other specified factors, initial encounter
CPT/HCPCS: 74177; Q9967